=== PATIENT | male | born 1945 | race Caucasian/White ===

== ENCOUNTER 2017-07-03 23:32 | Outpatient (CLI) | payer MEDICARE, OTHER ==
[2017-07-03 19:21] LABS: BASOPHILS # (AUTO) 0.1 10^3/uL (0.0-0.1); EOSINOPHILS # (AUTO) 0.2 10^3/uL (0.0-0.7); EOSINOPHILS % (AUTO) 1.7 %; HGB - HEMOGLOBIN 15.5 g/dL (14.0-18.0); LYMPHOCYTES # (AUTO) 1.1 10^3/uL (1.5-3.5); LYMPHOCYTES % (AUTO) 10.1 %; MEAN CORPUSCULAR HEMOGLOBIN 31.7 pg (27.0-31.0); MEAN CORPUSCULAR HGB CONC 32.2 g/dL (32.0-36.0); MEAN CORPUSCULAR VOLUME 98.5 fL (80.0-94.0); MEAN PLATELET VOLUME 10.4 fL (7.4-11.4); MONOCYTES # (AUTO) 1.1 10^3/uL (0.0-1.0); MONOCYTES % (AUTO) 10.8 %; NEUTROPHILS # (AUTO) 7.9 10^3/uL (1.5-6.6); NEUTROPHILS % (AUTO) 76.4 %; NUCLEATED RED BLOOD CELLS AUTO 0.1 /100WBC; RED BLOOD COUNT 4.87 10^6/uL (4.70-6.10); RED CELL DISTRIBUTION WIDTH 16.1 % (12.0-15.0); UNCORRECTED WHITE BLOOD COUNT 10.4 x10^3/uL; WHITE BLOOD COUNT 10.4 x10^3/uL (4.8-10.8)
[2017-07-03 19:42] LABS: BILIRUBIN,TOTAL 0.6 mg/dL (0.2-1.0); BUN - BLOOD UREA NITROGEN 18 mg/dL (6-20); CALCIUM 8.4 mg/dL (8.5-10.3); CARBON DIOXIDE - CO2 29 mmol/L (21-32); CHLORIDE 104 mmol/L (101-111); CHOL/HDL RATIO 3.9 (<5.0); CHOLESTEROL 181 mg/dL; CREATININE 0.9 mg/dL (0.6-1.2); GFR - MDRD 83 (>89); GLUCOSE 98 mg/dL (70-100); HDL CHOLESTEROL 47 mg/dL; LDL/HDL RATIO 2.3 (<3.6); POTASSIUM 4.8 mmol/L (3.5-5.0); SODIUM 139 mmol/L (135-145); TOTAL PROTEIN 6.4 g/dL (6.7-8.2); TRIGLYCERIDES 136 mg/dL; VLDL CHOLESTEROL 27 mg/dL
[2017-07-03 19:57] LABS: PLATELET ESTIMATE, MANUAL NORMAL (130-450,000) (NORMAL); PLATELET MORPHOLOGY NORMAL APPEARANCE (NORMAL); WBC MORPHOLOGY (MULTIPLE) NORMAL APPEARANCE (NORMAL)
[2017-07-03 19:58] LABS: BAND NEUTROPHILS % (MANUAL) 13 %; EOSINOPHILS % (MANUAL) 3 %; LYMPHOCYTES % (MANUAL) 9 %; NEUTROPHILS % (MANUAL) 62 %; TOTAL CELLS COUNTED 100
[2017-07-03 20:00] LABS: NP AUTO DIFFERENTIAL? NO; NP MAN DIFFERENTIAL? NO
== END 2017-07-03 23:33 | disposition home or self-care (01) ==
LOC: LAB.WCP 23:32
PROVIDERS: ATTEND Family Medicine
DX: I10 Essential (primary) hypertension (principal); E78.5 Hyperlipidemia, unspecified; R97.20 Elevated prostate specific antigen [PSA]; D75.1 Secondary polycythemia; I48.0 Paroxysmal atrial fibrillation; Z79.01 Long term (current) use of anticoagulants
CPT/HCPCS: 36415; 80053; 80061; 84153; 85025

== ENCOUNTER 2017-10-14 14:04 | Outpatient (CLI) | payer MEDICARE, OTHER ==
[2017-10-14 19:03] LABS: BASOPHILS % (AUTO) 0.6 %; EOSINOPHILS % (AUTO) 0.5 %; HCT - HEMATOCRIT 48.6 % (42.0-52.0); HGB - HEMOGLOBIN 15.5 g/dL (14.0-18.0); LYMPHOCYTES % (AUTO) 6.4 %; MEAN CORPUSCULAR HEMOGLOBIN 31.3 pg (27.0-31.0); MEAN CORPUSCULAR VOLUME 97.8 fL (80.0-94.0); MEAN PLATELET VOLUME 10.2 fL (7.4-11.4); MONOCYTES % (AUTO) 6.4 %; NEUTROPHILS % (AUTO) 86.1 %; RED BLOOD COUNT 4.97 10^6/uL (4.70-6.10); RED CELL DISTRIBUTION WIDTH 15.4 % (12.0-15.0); UNCORRECTED WHITE BLOOD COUNT 12.5 x10^3/uL; WHITE BLOOD COUNT 12.5 x10^3/uL (4.8-10.8)
[2017-10-14 19:20] LABS: ALBUMIN/GLOBULIN RATIO 1.2 (1.0-2.2); BILIRUBIN,TOTAL 0.9 mg/dL (0.2-1.0); CALCIUM 8.8 mg/dL (8.5-10.3); CREATININE 0.9 mg/dL (0.6-1.2); POTASSIUM 4.2 mmol/L (3.5-5.0); TOTAL PROTEIN 6.5 g/dL (6.7-8.2)
[2017-10-14 20:39] LABS: BAND NEUTROPHILS % (MANUAL) 2 %; EOSINOPHILS % (MANUAL) 2 %; LYMPHOCYTES % (MANUAL) 2 %; NEUTROPHILS % (MANUAL) 88 %; PLATELET ESTIMATE, MANUAL NORMAL (130-450,000) (NORMAL); PLATELET MORPHOLOGY NORMAL APPEARANCE (NORMAL); TOTAL CELLS COUNTED 100
[2017-10-14 20:40] LABS: NP AUTO DIFFERENTIAL? YES; NP MAN DIFFERENTIAL? NO
== END 2017-10-14 14:05 | disposition home or self-care (01) ==
LOC: LAB.WCP 14:04
PROVIDERS: ATTEND Internal Medicine Pulmonary Disease
DX: J84.9 Interstitial pulmonary disease, unspecified (principal); Z79.899 Other long term (current) drug therapy
CPT/HCPCS: 36415; 80053; 85025

== ENCOUNTER 2018-04-20 13:49 | Outpatient (CLI) | payer MEDICARE, OTHER | END 2018-04-20 13:50 | disposition home or self-care (01) | LOC: SC 13:49 | PROVIDERS: ATTEND Internal Medicine Pulmonary Disease | DX: G47.33 Obstructive sleep apnea (adult) (pediatric) (principal) | CPT/HCPCS: 99203; G0463; 99212 ==

== ENCOUNTER 2019-05-07 14:03 | Outpatient (CLI) | payer MEDICARE, OTHER ==
--- NOTE | 2019-05-10 09:40 | XRAY Report ---
Reason: BILAT KNEE PAIN Procedure Date: 05/07/2019 Accession Number: [id number] / [id number] Procedure: XRN - Knee 3 View BILAT CPT Code: FULL RESULT: EXAM: BILATERAL KNEE RADIOGRAPHY EXAM DATE: 05/07/2019 02:33 PM. CLINICAL HISTORY: Bilateral knee pain. COMPARISON: KNEE 3 VIEW LT 09/02/2017. TECHNIQUE: 3 views each knee. FINDINGS: Right: Bones: Normal. No fractures or bone lesions. Joints: Moderate medial compartment narrowing, osteophytosis, and subchondral sclerosis. Moderate patellofemoral compartment narrowing, osteophytosis, and subchondral sclerosis. Moderate lateral compartment narrowing, osteophytosis, and subchondral sclerosis. Small knee joint effusion. Normal alignment. Soft Tissues: Normal. No soft tissue swelling. Left: Bones: Normal. No fractures or bone lesions. Joints: Moderate medial compartment narrowing, osteophytosis, and subchondral sclerosis. Mild to moderate patellofemoral compartment narrowing, osteophytosis, and subchondral sclerosis. Moderate lateral compartment narrowing, osteophytosis, and subchondral sclerosis. No effusions. Normal alignment. Soft Tissues: Normal. No soft tissue swelling. IMPRESSION: 1. No acute fracture or malalignment. 2. Small right knee joint effusion. No significant left knee joint effusion. 3. Moderate tricompartment right knee arthritis. 4. Moderate left medial and lateral and mild to moderate left patellofemoral compartment arthritis. Right: Kellgren Eugenio Grade 3. Left: Kellgren Eugenio Grade 3. Kellgren and Eugenio classification of osteoarthritis: Grade 0: no radiographic features of osteoarthritis are present Grade 1: doubtful joint space narrowing (JSN) and possible osteophytic lipping Grade 2: definite osteophytes and possible JSN on anteroposterior weight-bearing radiograph Grade 3: multiple osteophytes, definite JSN, sclerosis, possible bony deformity Grade 4: large osteophytes, marked JSN, severe sclerosis and definite bony deformity RADIA
== END 2019-05-07 14:04 | disposition home or self-care (01) ==
LOC: DI.N 14:03
PROVIDERS: ATTEND Family Medicine
DX: M17.0 Bilateral primary osteoarthritis of knee (principal); M25.461 Effusion, right knee

== ENCOUNTER 2019-05-11 08:00 | Outpatient (CLI) | payer MEDICARE, OTHER ==
[2019-05-11 13:53] LABS: BASOPHILS # (AUTO) 0.1 10^3/uL (0.0-0.1); BASOPHILS % (AUTO) 0.8 %; EOSINOPHILS # (AUTO) 0.2 10^3/uL (0.0-0.7); EOSINOPHILS % (AUTO) 2.1 %; HGB - HEMOGLOBIN 16.2 g/dL (14.0-18.0); LYMPHOCYTES # (AUTO) 1.3 10^3/uL (1.5-3.5); LYMPHOCYTES % (AUTO) 17.5 %; MEAN CORPUSCULAR HEMOGLOBIN 31.7 pg (27.0-31.0); MEAN CORPUSCULAR HGB CONC 32.1 g/dL (32.0-36.0); MEAN CORPUSCULAR VOLUME 98.8 fL (80.0-94.0); MEAN PLATELET VOLUME 11.8 fL (7.4-11.4); MONOCYTES # (AUTO) 0.9 10^3/uL (0.0-1.0); MONOCYTES % (AUTO) 11.6 %; NEUTROPHILS # (AUTO) 5.1 10^3/uL (1.5-6.6); NEUTROPHILS % (AUTO) 67.5 %; PLT - PLATELET COUNT 155 10^3/uL (130-450); RED BLOOD COUNT 5.11 10^6/uL (4.70-6.10); RED CELL DISTRIBUTION WIDTH 14.6 % (12.0-15.0); WHITE BLOOD COUNT 7.5 x10^3/uL (4.8-10.8)
[2019-05-11 14:01] LABS: ALBUMIN 3.6 g/dL (3.2-5.5); ALBUMIN/GLOBULIN RATIO 1.2 (1.0-2.2); ALKALINE PHOSPHATASE 59 IU/L (42-121); ALT ALANINE AMINOTRANSFERASE 14 IU/L (10-60); AST ASPARTATE AMINOTRANSFERASE 16 IU/L (10-42); BUN - BLOOD UREA NITROGEN 19 mg/dL (6-20); CALCIUM 8.9 mg/dL (8.5-10.3); CARBON DIOXIDE - CO2 24 mmol/L (21-32); CHLORIDE 107 mmol/L (101-111); CHOL/HDL RATIO 4.1 (<5.0); CHOLESTEROL 184 mg/dL; CREATININE 0.9 mg/dL (0.6-1.2); GFR - MDRD 83 (>89); GLUCOSE 96 mg/dL (70-100); HDL CHOLESTEROL 45 mg/dL; LDL CHOLESTEROL,CALCULATED 110 mg/dL; LDL/HDL RATIO 2.4 (<3.6); SODIUM 141 mmol/L (135-145); TOTAL PROTEIN 6.7 g/dL (6.7-8.2); VLDL CHOLESTEROL 29 mg/dL
== END 2019-05-11 23:59 | disposition home or self-care (01) ==
LOC: LAB.N 08:00
PROVIDERS: ATTEND Family Medicine
DX: I48.0 Paroxysmal atrial fibrillation (principal); I10 Essential (primary) hypertension; N40.1 Benign prostatic hyperplasia with lower urinary tract symptoms; E78.5 Hyperlipidemia, unspecified
CPT/HCPCS: 36415; 80061; G0103; 80053; 83721; 84153; 84443; 85025

== ENCOUNTER 2019-07-08 08:20 | Outpatient (CLI) | payer MEDICARE, OTHER ==
[2019-07-08 12:27] LABS: ALBUMIN 3.6 g/dL (3.2-5.5); ALBUMIN/GLOBULIN RATIO 1.2 (1.0-2.2); BILIRUBIN,TOTAL 1.1 mg/dL (0.2-1.0); CALCIUM 8.7 mg/dL (8.5-10.3); CREATININE 1.2 mg/dL (0.6-1.2); TOTAL PROTEIN 6.6 g/dL (6.7-8.2)
== END 2019-07-08 08:30 | disposition home or self-care (01) ==
LOC: LAB.N 08:20
PROVIDERS: ATTEND Family Medicine
DX: Z79.01 Long term (current) use of anticoagulants (principal); N40.1 Benign prostatic hyperplasia with lower urinary tract symptoms; I48.0 Paroxysmal atrial fibrillation
CPT/HCPCS: 36415; 80053; 85610

== ENCOUNTER 2019-08-04 08:49 | Outpatient (CLI) | payer MEDICARE, OTHER ==
[2019-08-04] MEDS ORDERED: IOVERSOL 320 50 ML VIAL ONE (09:12)
[2019-08-04] MEDS ORDERED: IOVERSOL 320 100 ML VIAL IVP ONE ×2 (09:12→16:07)
[2019-08-04] MEDS ORDERED: IOVERSOL 320 50 ML VIAL PO ONE (16:07)
--- NOTE | 2019-08-04 16:51 | Nuclear Medicine Report ---
Reason: PROSTATE CA Procedure Date: 08/04/2019 Accession Number: [id number] / [id number] Procedure: NM - Bone Whole Body CPT Code: FULL RESULT: EXAM: BONE SCAN EXAM DATE: 08/04/2019 01:01 PM. CLINICAL HISTORY: Prostate CA. COMPARISON: ABDOMEN/PELVIS W08/04/2019 11:44 AM. CHEST W/ 08/04/2019 11:44 AM. TECHNIQUE: Following the intravenous administration of 30.3 mCi of technetium 99m MDP and an appropriate delay, a whole-body scan was performed in anterior and posterior projections. Site-specific spot views of the region of interest were obtained in various projections. FINDINGS: Exam Quality: Normal overall osseous radiotracer uptake. Physiological tracer uptake in bilateral collecting systems. Skull: No focal uptake. Thorax: There are foci of increased uptake in right lateral 8th and right anterior and 9th ribs. There is a minimally displaced fracture of the right lateral eighth rib on the corresponding CT. There is a tiny focus of increased uptake in the left posterior 5th rib. There is a tiny sclerotic focus in this location on CT, series 2 image 33. No focal abnormal increased uptake in the sternum. Pelvis: There is a small focus of intensely increased uptake in the left pubic body corresponding with a sclerotic lesion on CT, series 3 image 89. There is intensely increased uptake in the left greater than right inferior pubic rami. Spine: Mild degenerative endplate uptake in the lower cervical spine and mid lumbar spine. Mild degenerative facet uptake in the right lower lumbar spine. Extremities: Asymmetrically increased uptake in the right knee, left shoulder, and right wrist is presumably degenerative. IMPRESSION: 1. There are lesions in left pubic body, left greater than right inferior pubic rami, and left posterior 5th rib which are concerning for metastases. 2. There is focal increased uptake in the right lateral 8th rib with a corresponding fracture on CT. 3. There is a small focus of mildly increased uptake in the right anterior 9th rib which could be metastatic or posttraumatic. RADIA
--- NOTE | 2019-08-05 13:37 | CT Report ---
Reason: PROSTATE CA Procedure Date: 08/04/2019 Accession Number: [id number] / [id number] Procedure: CT - CHEST W CPT Code: FULL RESULT: EXAM: CT CHEST EXAM DATE: 08/04/2019 11:50 AM. CLINICAL HISTORY: PROSTATE CA. COMPARISONS: None. TECHNIQUE: Routine helical CT imaging was performed through the chest. IV contrast: None. Reconstructions: Coronal and sagittal. In accordance with CT protocol optimization, one or more of the following dose reduction techniques were utilized for this exam: automated exposure control, adjustment of mA and/or KV based on patient size, or use of iterative reconstructive technique. FINDINGS: Lungs/Pleura: Increased lung markings are noted within both lung bases. Bronchiectasis is noted in the lung bases. There is a nodular density in the right upper lobe of the lung measuring 7 mm (image 142 of series 3). There is no pleural effusion or pneumothorax seen. Mediastinum: No mediastinal mass is identified. There is atherosclerosis of the coronary arteries. Bones: There are degenerative changes of the cervical and thoracic spine. Visualized Abdomen: Please see the CT of the abdomen and pelvis. IMPRESSION: Severe degenerative changes of the cervical spine. Linear changes in the lung bases with associated bronchiectasis that is nonspecific but may be secondary to an interstitial lung disease. Atherosclerosis of the coronary arteries. RADIA
--- NOTE | 2019-08-05 13:42 | CT Report ---
Reason: PROSTATE CA Procedure Date: 08/04/2019 Accession Number: [id number] / [id number] Procedure: CT - Abdomen/Pelvis W CPT Code: FULL RESULT: EXAM: CT ABDOMEN AND PELVIS EXAM DATE: 08/04/2019 11:50 AM. CLINICAL HISTORY: PROSTATE CA. COMPARISONS: None. TECHNIQUE: Routine helical CT imaging was performed through the abdomen and pelvis. IV contrast: OPTI 320 100ML. Enteric contrast: Yes. Reconstructions: Coronal and sagittal. In accordance with CT protocol optimization, one or more of the following dose reduction techniques were utilized for this exam: automated exposure control, adjustment of mA and/or KV based on patient size, or use of iterative reconstructive technique. FINDINGS: Lung Bases: Please see the CT of the chest. The liver is without evidence of an enhancing mass. This lean, pancreas, and adrenal glands are without evidence of an enhancing mass. Kidneys are without evidence of a mass or hydronephrosis. Scarring is noted within the left kidney. Peritoneal Cavity/Bowel: There is no CT evidence of acute appendicitis. There is diverticulosis of the descending and sigmoid colon without evidence of diverticulitis. Pelvic Organs: No mass or cyst is seen within the pelvis. Vasculature: There is atherosclerosis of the aorta and iliac arteries. There is no evidence of abdominal aortic aneurysm. Bones: Degenerative changes of the thoracic and lumbar spine are noted. IMPRESSION: Left renal scarring. Diverticulosis of the descending and sigmoid colon without evidence of diverticulitis. Atherosclerosis of the aorta and iliac arteries. RADIA
== END 2019-08-04 08:50 | disposition home or self-care (01) ==
LOC: DI 08:49
PROVIDERS: ATTEND Urology
DX: C61 Malignant neoplasm of prostate (principal); M47.812 Spondylosis without myelopathy or radiculopathy, cervical region; M47.814 Spondylosis without myelopathy or radiculopathy, thoracic region; M47.816 Spondylosis without myelopathy or radiculopathy, lumbar region; K57.30 Diverticulosis of large intestine without perforation or abscess without bleeding; I70.0 Atherosclerosis of aorta; M89.9 Disorder of bone, unspecified
CPT/HCPCS: 71260; 74177; 78306; Q9967

== ENCOUNTER 2019-08-05 08:00 | Outpatient (CLI) | payer MEDICARE, OTHER | END 2019-08-05 23:59 | disposition home or self-care (01) | LOC: LAB.N 08:00 | PROVIDERS: ATTEND Family Medicine | DX: I48.0 Paroxysmal atrial fibrillation (principal); Z79.01 Long term (current) use of anticoagulants | CPT/HCPCS: 85610 ==

== ENCOUNTER 2019-08-13 08:00 | Outpatient (CLI) | payer MEDICARE, OTHER | END 2019-08-13 23:59 | disposition home or self-care (01) | LOC: LAB.N 08:00 | PROVIDERS: ATTEND Family Medicine | DX: I48.0 Paroxysmal atrial fibrillation (principal); Z79.01 Long term (current) use of anticoagulants | CPT/HCPCS: 85610 ==

== ENCOUNTER 2019-08-18 13:14 | Outpatient (CLI) | payer MEDICARE, OTHER ==
--- NOTE | 2019-08-18 16:51 | XRAY Report ---
Reason: pneumonia Procedure Date: 08/18/2019 Accession Number: [id number] / [id number] Procedure: XRN - Chest 2 View X-Ray CPT Code: 88977 FULL RESULT: EXAM: CHEST RADIOGRAPHY EXAM DATE: 08/18/2019 01:28 PM. CLINICAL HISTORY: Pneumonia. Prostate cancer, difficulty breathing. COMPARISON: CHEST W/ 08/04/2019 11:44 AM. TECHNIQUE: 2 views. FINDINGS: Lungs/Pleura: Changes of bronchiectasis and increased markings particularly at the left base as demonstrated by 08/04/2019 CT. No acute focal opacities evident. No pleural effusion. No pneumothorax. Normal volumes. Mediastinum: Heart is borderline to mildly enlarged in size. Other: None. IMPRESSION: No pneumonia. Chronic changes similar to 08/04/2019. RADIA
== END 2019-08-18 13:15 | disposition home or self-care (01) ==
LOC: DI.N 13:14
PROVIDERS: ATTEND Family Medicine
DX: J47.9 Bronchiectasis, uncomplicated (principal)
CPT/HCPCS: 71046

== ENCOUNTER 2019-08-31 11:29 | Outpatient (CLI) | payer MEDICARE, OTHER | END 2019-08-31 23:59 | disposition home or self-care (01) | LOC: LAB.N 11:29 | PROVIDERS: ATTEND Family Medicine | DX: I48.0 Paroxysmal atrial fibrillation (principal); Z79.01 Long term (current) use of anticoagulants | CPT/HCPCS: 85610 ==

== ENCOUNTER 2019-09-03 11:50 | Outpatient (CLI) | payer MEDICARE, OTHER ==
[2019-09-03 19:17] LABS: BASOPHILS # (AUTO) 0.1 10^3/uL (0.0-0.1); BASOPHILS % (AUTO) 0.7 %; EOSINOPHILS # (AUTO) 0.1 10^3/uL (0.0-0.7); EOSINOPHILS % (AUTO) 0.9 %; HGB - HEMOGLOBIN 14.8 g/dL (14.0-18.0); LYMPHOCYTES # (AUTO) 0.8 10^3/uL (1.5-3.5); LYMPHOCYTES % (AUTO) 9.4 %; MEAN CORPUSCULAR HGB CONC 31.6 g/dL (32.0-36.0); MEAN CORPUSCULAR VOLUME 98.3 fL (80.0-94.0); MEAN PLATELET VOLUME 12.3 fL (7.4-11.4); MONOCYTES # (AUTO) 0.7 10^3/uL (0.0-1.0); MONOCYTES % (AUTO) 7.8 %; NEUTROPHILS # (AUTO) 7.2 10^3/uL (1.5-6.6); NEUTROPHILS % (AUTO) 80.6 %; PLT - PLATELET COUNT 151 10^3/uL (130-450); RED BLOOD COUNT 4.77 10^6/uL (4.70-6.10); RED CELL DISTRIBUTION WIDTH 14.6 % (12.0-15.0); WHITE BLOOD COUNT 8.9 x10^3/uL (4.8-10.8)
[2019-09-03 19:33] LABS: ALBUMIN 3.7 g/dL (3.2-5.5); ALBUMIN/GLOBULIN RATIO 1.3 (1.0-2.2); BILIRUBIN,TOTAL 0.8 mg/dL (0.2-1.0); CALCIUM 9.2 mg/dL (8.5-10.3); CREATININE 0.9 mg/dL (0.6-1.2); TOTAL PROTEIN 6.5 g/dL (6.7-8.2)
== END 2019-09-03 23:59 | disposition home or self-care (01) ==
LOC: LAB.N 11:50
PROVIDERS: ATTEND Physician Assistant
DX: C61 Malignant neoplasm of prostate (principal)
CPT/HCPCS: 36415; 80053; 81599; 84153; 85025

== ENCOUNTER 2019-09-28 11:03 | Outpatient (CLI) | payer MEDICARE, OTHER | END 2019-09-28 23:59 | disposition home or self-care (01) | LOC: LAB.N 11:03 | PROVIDERS: ATTEND Family Medicine | DX: I48.0 Paroxysmal atrial fibrillation (principal); Z79.01 Long term (current) use of anticoagulants | CPT/HCPCS: 85610 ==

== ENCOUNTER 2019-10-07 10:19 | Outpatient (CLI) | payer MEDICARE, OTHER ==
[2019-10-07 13:30] LABS: PSA TOTAL 0.468 ng/mL (0.000-2.000)
== END 2019-10-07 23:59 | disposition home or self-care (01) ==
LOC: LAB.N 10:19
PROVIDERS: ATTEND Urology
DX: C61 Malignant neoplasm of prostate (principal)
CPT/HCPCS: 36415; 84153; 84403

== ENCOUNTER 2019-10-15 10:30 | Outpatient (CLI) | payer MEDICARE, OTHER ==
[2019-10-15 12:48] LABS: ALBUMIN 3.8 g/dL (3.2-5.5); ALBUMIN/GLOBULIN RATIO 1.4 (1.0-2.2); BILIRUBIN,TOTAL 0.8 mg/dL (0.2-1.0); CALCIUM 8.8 mg/dL (8.5-10.3); TOTAL PROTEIN 6.5 g/dL (6.7-8.2)
== END 2019-10-15 23:59 | disposition home or self-care (01) ==
LOC: LAB.N 10:30
PROVIDERS: ATTEND Physician Assistant
DX: C61 Malignant neoplasm of prostate (principal)
CPT/HCPCS: 36415; 80053

== ENCOUNTER 2019-10-26 08:00 | Outpatient (CLI) | payer MEDICARE, OTHER | END 2019-10-26 23:59 | disposition home or self-care (01) | LOC: LAB.N 08:00 | PROVIDERS: ATTEND Family Medicine | DX: I48.0 Paroxysmal atrial fibrillation (principal); Z79.01 Long term (current) use of anticoagulants | CPT/HCPCS: 85610 ==

== ENCOUNTER 2019-11-01 11:18 | Outpatient (CLI) | payer MEDICARE, OTHER ==
[2019-11-01 19:00] LABS: ALBUMIN 3.4 g/dL (3.2-5.5); ALBUMIN/GLOBULIN RATIO 1.2 (1.0-2.2); BILIRUBIN,TOTAL 0.9 mg/dL (0.2-1.0); CALCIUM 8.4 mg/dL (8.5-10.3); TOTAL PROTEIN 6.3 g/dL (6.7-8.2)
== END 2019-11-01 23:59 | disposition home or self-care (01) ==
LOC: LAB.N 11:18
PROVIDERS: ATTEND Physician Assistant
DX: C61 Malignant neoplasm of prostate (principal)
CPT/HCPCS: 36415; 80053

== ENCOUNTER 2019-11-18 08:00 | Outpatient (CLI) | payer MEDICARE, OTHER | END 2019-11-18 23:59 | disposition home or self-care (01) | LOC: LAB.N 08:00 | PROVIDERS: ATTEND Family Medicine | DX: Z79.01 Long term (current) use of anticoagulants (principal); I48.0 Paroxysmal atrial fibrillation | CPT/HCPCS: 85610 ==

== ENCOUNTER 2020-03-10 08:00 | Outpatient (CLI) | payer MEDICARE, OTHER | END 2020-03-10 23:59 | disposition home or self-care (01) | LOC: LAB.WCP 08:00 | PROVIDERS: ATTEND Urology | DX: C61 Malignant neoplasm of prostate (principal) | CPT/HCPCS: 36415; 84153; 84403 ==

== ENCOUNTER 2020-03-22 10:24 | Outpatient (CLI) | payer MEDICARE, OTHER ==
[2020-03-22 13:40] LABS: ALBUMIN 3.4 g/dL (3.2-5.5); ALBUMIN/GLOBULIN RATIO 1.1 (1.0-2.2); BILIRUBIN,TOTAL 0.8 mg/dL (0.2-1.0); CALCIUM 8.7 mg/dL (8.5-10.3); CREATININE 0.8 mg/dL (0.6-1.2); TOTAL PROTEIN 6.5 g/dL (6.7-8.2)
== END 2020-03-22 23:59 | disposition home or self-care (01) ==
LOC: LAB.WCP 10:24
PROVIDERS: ATTEND Internal Medicine Medical Oncology
DX: C61 Malignant neoplasm of prostate (principal)
CPT/HCPCS: 36415; 80053

== ENCOUNTER 2020-04-14 08:00 | Outpatient (CLI) | payer MEDICARE, OTHER | END 2020-04-14 23:59 | disposition home or self-care (01) | LOC: LAB.WCP 08:00 | PROVIDERS: ATTEND Family Medicine | DX: Z79.01 Long term (current) use of anticoagulants (principal) ==

== ENCOUNTER 2020-05-05 08:00 | Outpatient (CLI) | payer MEDICARE, OTHER | END 2020-05-05 23:59 | disposition home or self-care (01) | LOC: LAB.WCP 08:00 | PROVIDERS: ATTEND Family Medicine | DX: I48.0 Paroxysmal atrial fibrillation (principal); Z79.01 Long term (current) use of anticoagulants ==

== ENCOUNTER 2020-06-02 08:00 | Outpatient (CLI) | payer MEDICARE, OTHER ==
[2020-06-02 18:28] LABS: BASOPHILS # (AUTO) 0.1 10^3/uL (0.0-0.1); BASOPHILS % (AUTO) 0.8 %; EOSINOPHILS # (AUTO) 0.2 10^3/uL (0.0-0.7); HGB - HEMOGLOBIN 14.2 g/dL (14.0-18.0); LYMPHOCYTES # (AUTO) 1.2 10^3/uL (1.5-3.5); LYMPHOCYTES % (AUTO) 15.4 %; MEAN CORPUSCULAR HEMOGLOBIN 31.3 pg (27.0-31.0); MEAN CORPUSCULAR HGB CONC 31.8 g/dL (32.0-36.0); MEAN CORPUSCULAR VOLUME 98.2 fL (80.0-94.0); MEAN PLATELET VOLUME 11.3 fL (7.4-11.4); MONOCYTES # (AUTO) 0.9 10^3/uL (0.0-1.0); MONOCYTES % (AUTO) 11.3 %; NEUTROPHILS # (AUTO) 5.5 10^3/uL (1.5-6.6); PLT - PLATELET COUNT 152 10^3/uL (130-450); RED BLOOD COUNT 4.54 10^6/uL (4.70-6.10); RED CELL DISTRIBUTION WIDTH 14.4 % (12.0-15.0); WHITE BLOOD COUNT 7.9 x10^3/uL (4.8-10.8)
[2020-06-02 18:49] LABS: ALBUMIN 3.7 g/dL (3.2-5.5); ALBUMIN/GLOBULIN RATIO 1.2 (1.0-2.2); BILIRUBIN,TOTAL 0.7 mg/dL (0.2-1.0); CREATININE 0.9 mg/dL (0.6-1.2); TOTAL PROTEIN 6.7 g/dL (6.7-8.2)
== END 2020-06-02 23:59 | disposition home or self-care (01) ==
LOC: LAB.WCP 08:00
PROVIDERS: ATTEND Internal Medicine Medical Oncology
DX: C61 Malignant neoplasm of prostate (principal)
CPT/HCPCS: 36415; 80053; 84153; 85025

== ENCOUNTER 2020-06-30 08:00 | Outpatient (CLI) | payer MEDICARE, OTHER | END 2020-06-30 23:59 | disposition home or self-care (01) | LOC: LAB.WCP 08:00 | PROVIDERS: ATTEND Family Medicine | DX: I48.0 Paroxysmal atrial fibrillation (principal); Z79.01 Long term (current) use of anticoagulants ==

== ENCOUNTER 2020-07-28 08:00 | Outpatient (CLI) | payer MEDICARE, OTHER | END 2020-07-28 23:59 | disposition home or self-care (01) | LOC: LAB.WCP 08:00 | PROVIDERS: ATTEND Family Medicine | DX: Z79.01 Long term (current) use of anticoagulants (principal) ==

== ENCOUNTER 2020-08-25 08:00 | Outpatient (CLI) | payer MEDICARE, OTHER | END 2020-08-25 23:59 | disposition home or self-care (01) | LOC: LAB.WCP 08:00 | PROVIDERS: ATTEND Family Medicine | DX: Z79.01 Long term (current) use of anticoagulants (principal) ==

== ENCOUNTER 2020-09-01 10:04 | Outpatient (CLI) | payer MEDICARE, OTHER ==
[2020-09-01 11:48] LABS: ALBUMIN 3.5 g/dL (3.2-5.5); ALBUMIN/GLOBULIN RATIO 1.1 (1.0-2.2); CALCIUM 9.2 mg/dL (8.5-10.3); CREATININE 0.8 mg/dL (0.6-1.2); TOTAL PROTEIN 6.6 g/dL (6.7-8.2)
== END 2020-09-01 23:59 | disposition home or self-care (01) ==
LOC: LAB.WCP 10:04
PROVIDERS: ATTEND Internal Medicine Medical Oncology
DX: C61 Malignant neoplasm of prostate (principal)
CPT/HCPCS: 36415; 80053

== ENCOUNTER 2020-09-08 10:30 | Outpatient (CLI) | payer MEDICARE, OTHER ==
[2020-09-08 13:12] LABS: BASOPHILS # (AUTO) 0.1 10^3/uL (0.0-0.1); EOSINOPHILS # (AUTO) 0.3 10^3/uL (0.0-0.7); EOSINOPHILS % (AUTO) 2.7 %; HGB - HEMOGLOBIN 14.7 g/dL (14.0-18.0); LYMPHOCYTES # (AUTO) 1.4 10^3/uL (1.5-3.5); LYMPHOCYTES % (AUTO) 14.9 %; MEAN CORPUSCULAR HEMOGLOBIN 31.1 pg (27.0-31.0); MEAN CORPUSCULAR HGB CONC 32.1 g/dL (32.0-36.0); MEAN PLATELET VOLUME 11.7 fL (7.4-11.4); MONOCYTES % (AUTO) 10.1 %; NEUTROPHILS # (AUTO) 6.7 10^3/uL (1.5-6.6); NEUTROPHILS % (AUTO) 70.6 %; PLT - PLATELET COUNT 167 10^3/uL (130-450); RED BLOOD COUNT 4.72 10^6/uL (4.70-6.10); RED CELL DISTRIBUTION WIDTH 14.1 % (12.0-15.0); WHITE BLOOD COUNT 9.4 x10^3/uL (4.8-10.8)
== END 2020-09-08 23:59 | disposition home or self-care (01) ==
LOC: LAB.WCP 10:30
PROVIDERS: ATTEND Internal Medicine Medical Oncology
DX: C61 Malignant neoplasm of prostate (principal)
CPT/HCPCS: 36415; 84153; 85025

== ENCOUNTER 2020-10-02 08:00 | Outpatient (CLI) | payer MEDICARE, OTHER | END 2020-10-02 23:59 | disposition home or self-care (01) | LOC: LAB.WCP 08:00 | PROVIDERS: ATTEND Internal Medicine | DX: Z79.01 Long term (current) use of anticoagulants (principal) ==

== ENCOUNTER 2020-10-16 08:00 | Outpatient (CLI) | payer MEDICARE, OTHER | END 2020-10-16 23:59 | disposition home or self-care (01) | LOC: LAB.WCP 08:00 | PROVIDERS: ATTEND Internal Medicine | DX: Z79.01 Long term (current) use of anticoagulants (principal) ==

== ENCOUNTER 2020-11-29 10:20 | Outpatient (CLI) | payer MEDICARE, OTHER ==
[2020-11-29 11:45] LABS: ALBUMIN 3.7 g/dL (3.2-5.5); ALBUMIN/GLOBULIN RATIO 1.4 (1.0-2.2); BILIRUBIN,TOTAL 0.7 mg/dL (0.2-1.0); CALCIUM 9.8 mg/dL (8.5-10.3); CREATININE 0.9 mg/dL (0.6-1.2); TOTAL PROTEIN 6.3 g/dL (6.7-8.2)
[2020-11-29 11:59] LABS: BASOPHILS # (AUTO) 0.1 10^3/uL (0.0-0.1); BASOPHILS % (AUTO) 0.6 %; EOSINOPHILS # (AUTO) 0.2 10^3/uL (0.0-0.7); EOSINOPHILS % (AUTO) 1.8 %; LYMPHOCYTES # (AUTO) 1.5 10^3/uL (1.5-3.5); LYMPHOCYTES % (AUTO) 17.7 %; MEAN CORPUSCULAR HEMOGLOBIN 30.7 pg (27.0-31.0); MEAN CORPUSCULAR HGB CONC 31.9 g/dL (32.0-36.0); MEAN CORPUSCULAR VOLUME 96.1 fL (80.0-94.0); MEAN PLATELET VOLUME 11.7 fL (7.4-11.4); MONOCYTES # (AUTO) 0.8 10^3/uL (0.0-1.0); MONOCYTES % (AUTO) 9.6 %; NEUTROPHILS # (AUTO) 5.7 10^3/uL (1.5-6.6); NEUTROPHILS % (AUTO) 69.7 %; PLT - PLATELET COUNT 169 10^3/uL (130-450); RED BLOOD COUNT 4.89 10^6/uL (4.70-6.10); RED CELL DISTRIBUTION WIDTH 14.4 % (12.0-15.0); WHITE BLOOD COUNT 8.2 x10^3/uL (4.8-10.8)
== END 2020-11-29 10:21 | disposition home or self-care (01) ==
LOC: LAB.N 10:20
PROVIDERS: ATTEND Internal Medicine Medical Oncology
DX: C61 Malignant neoplasm of prostate (principal)
CPT/HCPCS: 36415; 80053; 84153; 85025

== ENCOUNTER 2020-12-27 08:00 | Outpatient (CLI) | payer MEDICARE, OTHER | END 2020-12-27 23:59 | disposition home or self-care (01) | LOC: LAB.WCP 08:00 | PROVIDERS: ATTEND Internal Medicine | DX: Z86.79 Personal history of other diseases of the circulatory system (principal); Z79.01 Long term (current) use of anticoagulants ==

== ENCOUNTER 2021-01-22 08:00 | Outpatient (CLI) | payer MEDICARE, OTHER | END 2021-01-22 23:59 | disposition home or self-care (01) | LOC: LAB.WCP 08:00 | PROVIDERS: ATTEND Internal Medicine | DX: Z86.79 Personal history of other diseases of the circulatory system (principal); Z79.01 Long term (current) use of anticoagulants ==

== ENCOUNTER 2021-02-05 17:13 | Outpatient (CLI) | payer MEDICARE, OTHER | END 2021-02-05 17:14 | disposition home or self-care (01) | LOC: COV 17:13 | PROVIDERS: ATTEND Internal Medicine Pulmonary Disease | DX: Z01.812 Encounter for preprocedural laboratory examination (principal); Z20.822 Contact with and (suspected) exposure to COVID-19 ==

== ENCOUNTER 2021-02-06 12:55 | Outpatient (CLI) | payer MEDICARE, OTHER ==
--- NOTE | 2021-02-06 17:15 | DEXA Report ---
PROCEDURE: Dexa Spine and/or Hip INDICATIONS: ADROGEN DEPRIVATION THERAPY TECHNIQUE: Dual energy x-ray absorptiometry (DXA) was performed on a [employer] System. Regions measur ed are the AP Spine, femoral neck, and if needed forearm. COMPARISON: None. FINDINGS: Lumbar Spine: Bone Mineral Density 1.250 g/cm/cm,T score 0.3, normal Left Hip: Bone Mineral Density 0.835 g/cm/cm,T score -1.8, osteopenia Left Femoral Neck: Bone Mineral Density 0.779 g/cm/cm, T score -2.2, osteopenia (T score greater or equal to -1.0: NORMAL) (T score from -1.1 to -2.4: OSTEOPENIA) (T score less than or equal to -2.5 to: OSTEOPOROSIS) Impression: Osteopenia. Patients with diagnosis of osteoporosis or osteopenia should have regular bone mineral density assess ment. For those eligible for Medicare, routine testing is allowed once every 2 years. Testing frequ ency can be increased for patients who have rapidly progressing disease or for those who are receivin g medical therapy to restore bone mass. Reviewed by: Sherin Garcia MD, PhD on 02/06/2021 5:14 PM PDT Approved by: Sherin Garcia MD, PhD on 02/06/2021 5:14 PM PDT Station ID: [id number]
== END 2021-02-06 12:56 | disposition home or self-care (01) ==
LOC: DI 12:55
PROVIDERS: ATTEND Internal Medicine
DX: M85.89 Other specified disorders of bone density and structure, multiple sites (principal); C61 Malignant neoplasm of prostate; Z79.818 Long term (current) use of other agents affecting estrogen receptors and estrogen levels

== ENCOUNTER 2021-02-19 08:00 | Outpatient (CLI) | payer MEDICARE, OTHER | END 2021-02-19 23:59 | disposition home or self-care (01) | LOC: LAB.WCP 08:00 | PROVIDERS: ATTEND Internal Medicine | DX: Z79.01 Long term (current) use of anticoagulants (principal); Z86.79 Personal history of other diseases of the circulatory system ==

== ENCOUNTER 2021-03-19 08:00 | Outpatient (CLI) | payer MEDICARE, OTHER | END 2021-03-19 23:59 | disposition home or self-care (01) | LOC: LAB.WCP 08:00 | PROVIDERS: ATTEND Internal Medicine | DX: Z79.01 Long term (current) use of anticoagulants (principal); Z86.79 Personal history of other diseases of the circulatory system ==

== ENCOUNTER 2021-04-25 08:00 | Outpatient (CLI) | payer MEDICARE, OTHER | END 2021-04-25 23:59 | disposition home or self-care (01) | LOC: LAB.WCP 08:00 | PROVIDERS: ATTEND Internal Medicine | DX: Z86.79 Personal history of other diseases of the circulatory system (principal); Z79.01 Long term (current) use of anticoagulants ==

== ENCOUNTER 2021-05-16 08:00 | Outpatient (CLI) | payer MEDICARE, OTHER | END 2021-05-16 23:59 | disposition home or self-care (01) | LOC: LAB.WCP 08:00 | PROVIDERS: ATTEND Internal Medicine | DX: Z79.01 Long term (current) use of anticoagulants (principal); Z86.79 Personal history of other diseases of the circulatory system ==

== ENCOUNTER 2021-06-18 08:00 | Outpatient (CLI) | payer MEDICARE, OTHER | END 2021-06-18 23:59 | disposition home or self-care (01) | LOC: LAB.WCP 08:00 | PROVIDERS: ATTEND Internal Medicine | DX: Z79.01 Long term (current) use of anticoagulants (principal); Z86.79 Personal history of other diseases of the circulatory system ==

== ENCOUNTER 2021-06-19 13:23 | Outpatient (CLI) | payer MEDICARE, OTHER ==
--- NOTE | 2021-06-19 13:40 | SLEEP CARE CONSULTATION ---
Information from patient questionnaire entered by Karin Brandt. I have reviewed and concur with the information entered by Karin Brandt. This document represents the service I personally performed and the decisions made by , Yojana Montano ARNP. History of Present Illness Service Date and Time: 06/19/2021 1320 Previous diagnosis: Very Severe, Obstructive Sleep Apnea-Hypopnea Syndrome AHI: 62 (in 2016) Reason for follow up: annual (last seen 05/2020) Equipment type: CPAP Equipment obtained from: [employer] (getting supplies as needed) Mask style: Nasal pillows Backup mask available: No (will keep old mask when replaced ) Last cushion change: 1 week ago Prior sleep studies: Yes Year and Where: 2016 - [facility] HPI additional information: URIEL DIAZ was diagnosed to have very severe, AHI 62, obstructive sleep apnea- hypopnea syndrome and returns via Telehealth visit today for CPAP therapy annual follow-up. CPAP Compliance Data - Data Reviewed with Patient Average duration of nightly device use: 6 hr 55 min Compliance rate %: 98.9 (180 days) Current pressure setting (cmH2O): 9-16 (mean 12.2, avg 16.0) Humidity settin Heated hose settin Average residual AHI: 21.0 Central apnea: 6.6 Obstructive apnea: 11.2 Average large leak: 1 min 45 sec Subjective Patient concerns: reports: other (skin irritation under the nose). denies: aerophagia, mask discomfort, air blowing in eyes, mask leak noise, condensation in mask/hose, nasal congestion, dry mouth, nose, throat, epistaxis Observed to snore while using device: No Current pressure setting perceived as: comfortable On therapy, patient: reports: sleeping better, awakening more refreshed, being more awake and alert during the day, more rested overall. denies: drowsiness while driving Initial Atkinson Sleepiness Scale score: 2 (in 2018) Current Atkinson Sleepiness Scale score: 5 Allergies and Home Medications Home medication list reviewed: Yes (no changes) Review of Systems Review of systems same as previous: Yes (no changes) Physical Exam Vital signs obtained and entered by: Telehealth visit to reduce exposure during Covid pandemic Height: 6 ft Impression and Plan 1. Obstructive Sleep Apnea-Hypopnea Syndrome, very severe, with good treatment compliance and fair apnea control. On CPAP therapy, the patient has better sleep quality and is more rested overall. His residual AHI is elevated. It was well controlled at his last visit. The patients pressure will be changed to autoCPAP 9-20 cmH20 for elevation of residual AHI. Patient advised to contact me if pressure change is uncomfortable so that it can be adjusted. Goals for apnea con trol discussed. I informed the patient that [employer] has a recall on several devices like the patients machine. Patient was encouraged to register their device online with [employer] for the recall to see if their device is affected. If their device is affected they should start a claim. Patient denies any black particles seen in machine or hoses, any unusual odors coming from device. Patient has not experienced any physical symptoms such as upper airway irritation, headache, skin or eye irritation, asthma, nausea/vomiting, difficulty breathing or chest pain. Patient informed that they may use an inline CPAP filter that they can obtain online to reduce chance of any particles being inhaled or ingested. We discussed thoroughly the health risks of not using the CPAP versus continuing use with the filter in place. If patient is not able to sleep due to waking up choking, gasping for air or other respiratory distress that they may decide to continue using it until it is either replaced or repaired. Patient voiced understanding and agreement with plan. Patient's apnea severity and rationale for treatment to reduce apnea, improve sleep quality and reduce cardiovascular and cerebrovascular events was reviewed. I also reviewed the benefit of consistent device use of CPAP for hypertension, arrhythmia. Patient was encouraged to lose weight for their overall health and to reduce apneas. * Change auto CPAP pressure 9-20 cmH2O * Notify me if snoring with mask or feeling that the pressure is too much or too little * Attempt to lose weight * Call this office if any problems using CPAP * Return for follow up in 1 year, or sooner if concerns arise Counseling Topics: Spare mask, Weight loss health impact Visit Type: Telehealth Video Video Type: VSee Patient Location: Home Location of Provider: Office Patient agrees and consents to this telehealth visit type: Yes Patient agrees to have their insurance billed: Yes Time Spent with Patient (minutes): 20 Provider Statement: I spent 100% of the Telehealth Video Call with the patient with greater than 50% spent counseling the patient and coordination of care.
== END 2021-06-19 13:24 | disposition home or self-care (01) ==
LOC: SC 13:23
PROVIDERS: ATTEND Nurse Practitioner Family
DX: G47.33 Obstructive sleep apnea (adult) (pediatric) (principal)

== ENCOUNTER 2021-07-20 08:00 | Outpatient (CLI) | payer MEDICARE, OTHER | END 2021-07-20 23:59 | disposition home or self-care (01) | LOC: LAB.WCP 08:00 | PROVIDERS: ATTEND Internal Medicine | DX: Z86.79 Personal history of other diseases of the circulatory system (principal); Z79.01 Long term (current) use of anticoagulants ==

== ENCOUNTER 2021-07-31 12:15 | Outpatient (CLI) | payer MEDICARE, OTHER ==
[2021-07-31 17:49] LABS: BASOPHILS # (AUTO) 0.1 10^3/uL (0.0-0.1); BASOPHILS % (AUTO) 0.4 %; EOSINOPHILS # (AUTO) 0.1 10^3/uL (0.0-0.7); EOSINOPHILS % (AUTO) 0.8 %; HCT - HEMATOCRIT 48.7 % (42.0-52.0); HGB - HEMOGLOBIN 15.1 g/dL (14.0-18.0); LYMPHOCYTES # (AUTO) 1.2 10^3/uL (1.5-3.5); LYMPHOCYTES % (AUTO) 9.8 %; MEAN CORPUSCULAR VOLUME 96.8 fL (80.0-94.0); MEAN PLATELET VOLUME 12.4 fL (7.4-11.4); MONOCYTES % (AUTO) 7.9 %; NEUTROPHILS # (AUTO) 10.2 10^3/uL (1.5-6.6); NEUTROPHILS % (AUTO) 80.2 %; PLT - PLATELET COUNT 165 10^3/uL (130-450); RED BLOOD COUNT 5.03 10^6/uL (4.70-6.10); RED CELL DISTRIBUTION WIDTH 14.3 % (12.0-15.0); WHITE BLOOD COUNT 12.7 x10^3/uL (4.8-10.8)
[2021-07-31 18:00] LABS: ALBUMIN 3.5 g/dL (3.2-5.5); ALBUMIN/GLOBULIN RATIO 1.3 (1.0-2.2); BILIRUBIN,TOTAL 1.1 mg/dL (0.2-1.0); CALCIUM 9.2 mg/dL (8.5-10.3); CREATININE 0.9 mg/dL (0.6-1.2); POTASSIUM 4.4 mmol/L (3.5-5.0); TOTAL PROTEIN 6.3 g/dL (6.7-8.2)
== END 2021-07-31 23:59 | disposition home or self-care (01) ==
LOC: LAB.WCP 12:15
PROVIDERS: ATTEND Physician Assistant
DX: C61 Malignant neoplasm of prostate (principal)
CPT/HCPCS: 36415; 80053; 84153; 85025

== ENCOUNTER 2021-08-10 08:00 | Outpatient (CLI) | payer MEDICARE, OTHER | END 2021-08-10 23:59 | disposition home or self-care (01) | LOC: LAB.WCP 08:00 | PROVIDERS: ATTEND Internal Medicine | DX: Z79.01 Long term (current) use of anticoagulants (principal); Z86.79 Personal history of other diseases of the circulatory system ==

== ENCOUNTER 2021-08-13 13:18 | Outpatient (CLI) | payer MEDICARE, OTHER | END 2021-08-13 13:19 | disposition home or self-care (01) | LOC: COV 13:18 | PROVIDERS: ATTEND Internal Medicine Pulmonary Disease | DX: Z01.812 Encounter for preprocedural laboratory examination (principal); Z20.822 Contact with and (suspected) exposure to COVID-19 ==

== ENCOUNTER 2021-08-31 08:00 | Outpatient (CLI) | payer MEDICARE, OTHER | END 2021-08-31 23:59 | disposition home or self-care (01) | LOC: LAB.WCP 08:00 | PROVIDERS: ATTEND Internal Medicine | DX: Z79.01 Long term (current) use of anticoagulants (principal); Z86.79 Personal history of other diseases of the circulatory system ==

== ENCOUNTER 2021-09-28 08:00 | Outpatient (CLI) | payer MEDICARE, OTHER | END 2021-09-28 23:59 | disposition home or self-care (01) | LOC: LAB.WCP 08:00 | PROVIDERS: ATTEND Internal Medicine | DX: Z86.79 Personal history of other diseases of the circulatory system (principal); Z79.01 Long term (current) use of anticoagulants ==

== ENCOUNTER 2021-10-02 09:36 | Outpatient (CLI) | payer MEDICARE, OTHER ==
[2021-10-02 12:13] LABS: BUN - BLOOD UREA NITROGEN 17 mg/dL (6-20); CALCIUM 9.2 mg/dL (8.5-10.3); CARBON DIOXIDE - CO2 27 mmol/L (21-32); CHLORIDE 104 mmol/L (101-111); CHOL/HDL RATIO 4.1 (<5.0); CHOLESTEROL 213 mg/dL; CREATININE 0.8 mg/dL (0.6-1.2); GFR - MDRD 94 (>89); GLUCOSE 101 mg/dL (70-100); HDL CHOLESTEROL 52 mg/dL; LDL CHOLESTEROL,CALCULATED 128 mg/dL; LDL/HDL RATIO 2.5 (<3.6); SODIUM 141 mmol/L (135-145); TRIGLYCERIDES 163 mg/dL; URIC ACID 3.7 mg/dL (2.6-7.2); VLDL CHOLESTEROL 33 mg/dL
[2021-10-02 13:19] LABS: ESTIMATED AVERAGE GLUCOSE 131 mg/dL (70-100); HEMOGLOBIN A1c% 6.2 % (4.27-6.07)
== END 2021-10-02 09:37 | disposition home or self-care (01) ==
LOC: LAB.N 09:36
PROVIDERS: ATTEND Internal Medicine
DX: M10.00 Idiopathic gout, unspecified site (principal); R73.01 Impaired fasting glucose
CPT/HCPCS: 36415; 80048; 80061; 83036; 83721; 84550

== ENCOUNTER 2021-10-10 14:16 | Outpatient (CLI) | payer MEDICARE, OTHER ==
--- NOTE | 2021-10-10 16:45 | MRI Report ---
PROCEDURE: Lumbar Spine W/O INDICATIONS: DEGENERATIVE JOINT DISEASE TECHNIQUE: Noncontrast sagittal T1 spin echo and T2 fast echo, sagittal STIR, axial T2 fast spin echo through th e lumbar spine. COMPARISON: Lumbar spine MRI 09/22/2007 FINDINGS: Image quality: Excellent. Alignment and Curvature: There is trace grade 1 retrolisthesis of L1 on L2, L2 on L3, and L3 on L4. Bone Marrow: No suspicious marrow replacing process is seen. Mild type II Modic degenerative endplate changes are seen at nearly every level in the lumbar spine. No acute vertebral body compression frac tures. Spinal Cord: Conus medullaris terminates at the L1 vertebral body level. Visualized cord demonstrat es normal signal and size. Paraspinous Soft Tissues: No paravertebral masses. There is grade 2-3 fatty infiltration of the par aspinous musculature. A few diverticula are seen in the colon. T12-L1: There is mild disc desiccation without significant disc bulging. No spinal canal stenosis or neural foraminal narrowing. L1-L2: Mild disc desiccation with mild circumferential disc bulging and grade 1 retrolisthesis of L1 on L2, which did not result in significant spinal canal stenosis or neuroforaminal narrowing. L2-L3: There is disc desiccation and moderate loss of disc space height as well as grade 1 retroli sthesis of L2 on L3 resulting uncovering of the disc space as well as mild buckling of the ligamentum flavum. Findings result in mild bilateral neural foraminal narrowing without significant spinal daniel l stenosis. L3-L4: There is disc desiccation and moderate loss of disc space height with grade 1 retrolisthesis of L3 on L4 and mild circumferential disc bulging as well as mild buckling of the ligamentum flavum. Findings result in mild narrowing of the bilateral neural foramina without significant spinal canal stenosis. L4-L5: There is severe loss of disc space height with mild ossification across the disc space and p osterior disc-osteophyte complex as well as moderate bilateral facet hypertrophy. Findings result in moderate right and mild left neural foraminal narrowing without significant spinal canal stenosis. Th e degree of neural foraminal narrowing does not appear significantly changed when compared to the MRI from 09/22/2007. L5-S1: There is disc desiccation and mild bilateral facet hypertrophy. Findings do not result in si gnificant spinal canal stenosis or neural foraminal narrowing. IMPRESSION: 1.At L4-5, degenerative changes result in moderate right and mild left neural foraminal narrowing. Th e degree of neural foraminal narrowing does not appear significantly changed when compared to the paul or MRI from 09/22/2007. 2.Additional mild multilevel degenerative changes as described in detail in the body of the report. N o significant spinal canal stenosis. Reviewed by: Norbert Canada MD on 10/10/2021 4:43 PM PST Approved by: Norbert Canada MD on 10/10/2021 4:43 PM PST Station ID: [id number]
== END 2021-10-10 14:17 | disposition home or self-care (01) ==
LOC: DI 14:16
PROVIDERS: ATTEND Internal Medicine
DX: M51.35 Other intervertebral disc degeneration, thoracolumbar region (principal); M43.16 Spondylolisthesis, lumbar region; M51.36 Other intervertebral disc degeneration, lumbar region; M48.061 Spinal stenosis, lumbar region without neurogenic claudication; M47.816 Spondylosis without myelopathy or radiculopathy, lumbar region; M47.817 Spondylosis without myelopathy or radiculopathy, lumbosacral region; M51.37 Other intervertebral disc degeneration, lumbosacral region

== ENCOUNTER 2021-10-29 08:00 | Outpatient (CLI) | payer MEDICARE, OTHER | END 2021-10-29 23:59 | disposition home or self-care (01) | LOC: LAB.WCP 08:00 | PROVIDERS: ATTEND Nurse Practitioner Family | DX: Z86.79 Personal history of other diseases of the circulatory system (principal); Z79.01 Long term (current) use of anticoagulants ==

== ENCOUNTER 2021-11-26 08:00 | Outpatient (CLI) | payer MEDICARE, OTHER | END 2021-11-26 23:59 | disposition home or self-care (01) | LOC: LAB.WCP 08:00 | PROVIDERS: ATTEND Internal Medicine | DX: Z79.01 Long term (current) use of anticoagulants (principal); Z86.79 Personal history of other diseases of the circulatory system ==

== ENCOUNTER 2021-12-26 08:00 | Outpatient (CLI) | payer MEDICARE, OTHER | END 2021-12-26 23:59 | disposition home or self-care (01) | LOC: LAB.N 08:00 | PROVIDERS: ATTEND Internal Medicine | DX: Z79.01 Long term (current) use of anticoagulants (principal); Z86.79 Personal history of other diseases of the circulatory system ==

== ENCOUNTER 2022-03-13 08:00 | Outpatient (CLI) | payer MEDICARE, OTHER | END 2022-03-13 23:59 | disposition home or self-care (01) | LOC: LAB.WCP 08:00 | PROVIDERS: ATTEND Internal Medicine | DX: Z86.79 Personal history of other diseases of the circulatory system (principal); Z79.01 Long term (current) use of anticoagulants ==

== ENCOUNTER 2022-04-05 06:22 | Outpatient (CLI) | payer MEDICARE, OTHER | END 2022-04-05 06:23 | disposition critical access hospital (66) | LOC: EMS 06:22 | DX: R53.1 Weakness (principal); R50.9 Fever, unspecified | CPT/HCPCS: A0425; A0428 ==

== ENCOUNTER 2022-04-05 06:34 | Inpatient (IN) | payer MEDICARE, OTHER ==
[2022-04-05 07:21] LABS: BASOPHILS # (AUTO) 0.1 10^3/uL (0.0-0.1); BASOPHILS % (AUTO) 0.5 %; EOSINOPHILS # (AUTO) 0.2 10^3/uL (0.0-0.7); EOSINOPHILS % (AUTO) 1.4 %; HCT - HEMATOCRIT 44.2 % (42.0-52.0); LYMPHOCYTES # (AUTO) 0.5 10^3/uL (1.5-3.5); LYMPHOCYTES % (AUTO) 4.8 %; MEAN CORPUSCULAR HEMOGLOBIN 30.6 pg (27.0-31.0); MEAN CORPUSCULAR HGB CONC 31.7 g/dL (32.0-36.0); MEAN CORPUSCULAR VOLUME 96.5 fL (80.0-94.0); MEAN PLATELET VOLUME 11.3 fL (7.4-11.4); MONOCYTES # (AUTO) 1.5 10^3/uL (0.0-1.0); MONOCYTES % (AUTO) 13.8 %; NEUTROPHILS # (AUTO) 8.7 10^3/uL (1.5-6.6); NEUTROPHILS % (AUTO) 78.1 %; PLT - PLATELET COUNT 143 10^3/uL (130-450); RED BLOOD COUNT 4.58 10^6/uL (4.70-6.10); RED CELL DISTRIBUTION WIDTH 14.6 % (12.0-15.0); WHITE BLOOD COUNT 11.1 x10^3/uL (4.8-10.8)
[2022-04-05 07:23] LABS: ALBUMIN 3.4 g/dL (3.2-5.5); ALBUMIN/GLOBULIN RATIO 1.2 (1.0-2.2); ALKALINE PHOSPHATASE 66 IU/L (42-121); ALT ALANINE AMINOTRANSFERASE < 10 IU/L (10-60); AST ASPARTATE AMINOTRANSFERASE 13 IU/L (10-42); BILIRUBIN,TOTAL 0.9 mg/dL (0.2-1.0); BUN - BLOOD UREA NITROGEN 13 mg/dL (6-20); CALCIUM 8.8 mg/dL (8.5-10.3); CARBON DIOXIDE - CO2 29 mmol/L (21-32); CHLORIDE 103 mmol/L (101-111); CREATININE 0.9 mg/dL (0.6-1.2); GFR - MDRD 82 (>89); GLUCOSE 124 mg/dL (70-100); LIPASE 23 U/L (22-51); POTASSIUM 3.8 mmol/L (3.5-5.0); SODIUM 137 mmol/L (135-145); TOTAL PROTEIN 6.2 g/dL (6.7-8.2)
[2022-04-05 07:35] LABS: LACTIC ACID, VENOUS 2.1 mmol/L (0.5-2.2)
--- NOTE | 2022-04-05 07:40 | ED Physician Documentation ---
History of Present Illness - Stated complaint Stated Complaint: WEAKNESS/NAUSEA - Chief complaint Chief Complaint: General - History obtained from History obtained from: Patient, Family - Additonal information Additional information: 76-year-old gentleman with history of interstitial lung disease on mycophenolate and prednisone 5, A. fib on warfarin, and stage IV prostate cancer on Lupron presents with a progressive illness over the last 3 days or so marked by weakness, chills, some runny nose, and last night several episodes of urinary incontinence. He did not have a any known fever prior to arrival but is febrile here at triage. He is on about day 2 of minocycline for a facial infection. Review of Systems Constitutional: reports: Chills. denies: Fever, Myalgias Nose: reports: Rhinorrhea / runny nose Throat: reports: Sore throat GI: reports: Nausea. denies: Vomiting, Constipation, Diarrhea : reports: Frequency, Incontinent. denies: Dysuria PD PAST MEDICAL HISTORY - Past Medical History Cardiovascular: Atrial fibrillation Respiratory: None Endocrine/Autoimmune: None GI: Hepatitis : Kidney stones HEENT: None Psych: None Musculoskeletal: Osteoarthritis, Fatigue Derm: None - Past Surgical History General: Colonoscopy Ortho: Other Cardiovascular: Other HEENT: Cataracts, Tonsil/Adenoidectomy - Present Medications Home Medications: Ambulatory Orders Medication Instructions Recorded Confirmed Metoprolol Tartrate 100 mg ORAL DAILY 08/16/14 08/17/14 Warfarin [Coumadin] 5 mg ORAL DAILY 08/16/14 08/16/14 allopurinoL [Allopurinol] 100 mg ORAL BID 08/16/14 08/17/14 lisinopriL [Lisinopril] 10 mg ORAL DAILY 08/16/14 08/16/14 - Allergies Allergies/Adverse Reactions: Allergies Allergy/AdvReac Type Severity Reaction Status Date / Time Penicillins Allergy Unknown Verified 08/16/14 13:46 Sulfa (Sulfonamide Allergy Unknown Verified 08/16/14 13:46 Antibiotics) PD ED PE NORMAL - Vitals Vital signs reviewed: Yes - General General: Alert and oriented X 3, No acute distress - HEENT HEENT: PERRL, EOMI, Pharynx benign, Other (He has what looks like rosacea on the face, does not look significant enough to cause a fever.) - Neck Neck: Supple, no meningeal sign, No bony TTP - Cardiac Cardiac: RRR, No murmur - Respiratory Respiratory: No respiratory distress, Other (Fine crackles at the bases) - Abdomen Abdomen: Non tender - Back Back: No CVA TTP, No spinal TTP - Derm Derm: Normal color, Warm and dry - Extremities Extremities: No edema, No calf tenderness / cord - Neuro Neuro: Alert and oriented X 3, Normal speech Results - Vitals Vitals: Vital Signs - 24 hr 04/05/22 04/05/22 04/05/22 06:41 08:05 08:10 Temperature 38.1 C H Heart Rate 75 98 100 Respiratory 16 30 H 26 H Rate Blood Pressure 123/81 H 98/70 101/67 O2 Saturation 95 92 96 04/05/22 04/05/22 04/05/22 08:15 08:20 08:46 Temperature 98.5 C H Heart Rate 83 90 100 Respiratory 30 H 26 H 26 H Rate Blood Pressure 105/67 121/70 100/69 O2 Saturation 98 97 95 04/05/22 04/05/22 04/05/22 08:50 09:00 09:21 Temperature 98.5 C H 36.8 C Heart Rate 92 100 85 Respiratory 32 H 26 H 27 H Rate Blood Pressure 116/81 H 100/69 107/66 O2 Saturation 96 95 98 Oxygen O2 Source Room air - Labs Labs: Laboratory Tests 04/05/22 04/05/22 04/05/22 07:00 07:00 07:14 WBC 11.1 H RBC 4.58 L Hgb 14.0 Hct 44.2 MCV 96.5 H MCH 30.6 MCHC 31.7 L RDW 14.6 Plt Count 143 MPV 11.3 Neut # (Auto) 8.7 H Lymph # (Auto) 0.5 L [place] # (Auto) 1.5 H Eos # (Auto) 0.2 Baso # (Auto) 0.1 Absolute Nucleated RBC 0.00 Band Neuts % (Manual) Not Reportable Abnorm Lymph % (Manual) Not Reportable Nucleated RBC % 0.0 Neutrophils # (Manual) Not Reportable Lymphocytes # (Manual) Not Reportable Monocytes # (Manual) Not Reportable Eosinophils # (Manual) Not Reportable Basophils # (Manual) Not Reportable Differential Comment MANUAL=AUTO DIFF PT INR Sodium 137 Potassium 3.8 Chloride 103 Carbon Dioxide 29 Anion Gap 5.0 L BUN 13 Creatinine 0.9 Estimated GFR (MDRD) 82 L Glucose 124 H Lactic Acid 2.1 Calcium 8.8 Total Bilirubin 0.9 AST 13 ALT < 10 L Alkaline Phosphatase 66 Total Protein 6.2 L Albumin 3.4 Globulin 2.8 Albumin/Globulin Ratio 1.2 Lipase 23 Urine Color Urine Clarity Urine pH Ur Specific [place] Urine Protein Urine Glucose (UA) Urine Ketones Urine Occult Blood Urine Nitrite Urine Bilirubin Urine Urobilinogen Ur Leukocyte Esterase Ur Microscopic Review Urine Culture Comments 04/05/22 04/05/22 07:51 08:44 WBC RBC Hgb Hct MCV MCH MCHC RDW Plt Count MPV Neut # (Auto) Lymph # (Auto) [place] # (Auto) Eos # (Auto) Baso # (Auto) Absolute Nucleated RBC Band Neuts % (Manual) Abnorm Lymph % (Manual) Nucleated RBC % Neutrophils # (Manual) Lymphocytes # (Manual) Monocytes # (Manual) Eosinophils # (Manual) Basophils # (Manual) Differential Comment PT 24.1 H INR 2.2 H Sodium Potassium Chloride Carbon Dioxide Anion Gap BUN Creatinine Estimated GFR (MDRD) Glucose Lactic Acid Calcium Total Bilirubin AST ALT Alkaline Phosphatase Total Protein Albumin Globulin Albumin/Globulin Ratio Lipase Urine Color YELLOW Urine Clarity CLEAR Urine pH 6.5 Ur Specific [place] 1.020 Urine Protein TRACE Urine Glucose (UA) NEGATIVE Urine Ketones NEGATIVE Urine Occult Blood TRACE-INTA Urine Nitrite NEGATIVE Urine Bilirubin NEGATIVE Urine Urobilinogen 0.2 (NORMAL) Ur Leukocyte Esterase NEGATIVE Ur Microscopic Review NOT INDICATED Urine Culture Comments NOT INDICATED - Rads (name of study) 1v cxr Radiology: EMP read contemporaneously (Single view chest x-ray demonstrating wor sening interstitial lung disease versus a superimposed infectious process. Repeat x-ray after central line shows appropriate placement.) Procedures - Central Line Central Line Preparation: Consent Obtained (Verbal from ), Time out completed, Ultrasound used, Sterile prep and drape Central line location: Right IJ Central line type: Triple lumen Central line aftercare: Chlorhexidine disc placed, Secured, Placement confirmed, No pneumothorax, No complications, Bundle checklist complete, Pt tolerated well PD MEDICAL DECISION MAKING - ED course ED course: I was called into the room by the nurse at approximately 8 AM. Patient had become unresponsive. Blood pressure at that time was approximately 60/30. He was moved to a major room and a central line was expeditiously placed, he already had the septic work-up ongoing, but I added antibiotics and 30 mill per kilo fluid bolus. His mental status came quickly back with the administration of IV fluids. And his blood pressure rebounded as well. Work-up here demonstrates mild leukocytosis, borderline high lactate, clean urinalysis, chest x-ray with worsening of ILD and potential superimposed infiltrate, therapeutic INR noting he is on warfarin. Given that he fits septic criteria and was hypotensive he was presented to Dr. Hess for admission at 9:30 AM who accepts. He did receive broad-spectrum IV antibiotics per protocol for unknown source sepsis here including cefepime, Flagyl, and vancomycin. - Critical Care Time(min): 45 Time Includes: Direct patient care, Review records, Reassess patient, Document care, Coordinate care, Medical consult, Family consult for tx dec Data interpretation: Labs, Pulse ox Procedures included in critical care time: Peripheral IV Procedures excluded from critical care time: Central IV, EKG - Sepsis Event Sepsis Onset Date: 04/05/22 Sepsis Onset Time: 08:00 Current Stage of Sepsis: Septic shock Initial Hypotension: MAP less than 65 mmHg Possible source of Sepsis: Unknown (poss pulmonary) Mental/Cognitive Status: Alert/Oriented X3, Lethargic (briefly) Reason for not giving 30ml/kg crystalloid fluids: Other (given) Capillary refill: Less than 2 seconds Peripheral Pulse Strength: 2+ Slightly Diminished Peripheral Pulse Location: Radial Departure - Departure Disposition: 66 [facility] DC/Xfer Clinical Impression: Septic shock Condition: Serious
[2022-04-05 07:49] LABS: DIFFERENTIAL COMMENT MANUAL=AUTO DIFF
[2022-04-05 08:03] LABS: INR 2.2 (0.8-1.2); PT - PROTHROMBIN TIME 24.1 secs (9.9-12.6)
--- NOTE | 2022-04-05 08:05 | XRAY Report ---
PROCEDURE: Chest 1 View X-Ray INDICATIONS: fever TECHNIQUE: One view of the chest was acquired. COMPARISON: Chest radiograph 08/18/2019. CT chest 08/04/2019 FINDINGS: Surgical changes and devices: None. Lungs and pleura: No pleural effusions or pneumothorax. Interstitial markings at the lung bases have increased when compared to the prior radiographs from 08/18/2019, which may be secondary to progress ion of chronic fibrotic changes versus a superimposed infectious or inflammatory process. Mediastinum: Mediastinal contours appear normal. Heart size is normal. Bones and chest wall: No suspicious bony lesions. Overlying soft tissues appear unremarkable. IMPRESSION: Interstitial markings at the lung bases have increased when compared to the prior radiographs from , which may be secondary to progression of chronic interstitial lung disease versus a superim posed infectious or inflammatory process. Reviewed by: Norbert Canada MD on 04/05/2022 8:03 AM PDT Approved by: Norbert Canada MD on 04/05/2022 8:03 AM PDT Station ID: [id number]
[2022-04-05] MEDS ORDERED: CEFEPIME 2 GM in SODIUM CHLORIDE 0.9% MINIBAG 100 ML IV STA (08:20)
[2022-04-05] MEDS ORDERED: metroNIDAZOLE 500 MG/100 ML 500 MG/100 ML BAG IV STA (08:20)
[2022-04-05] MEDS ORDERED: ELECTROLYTE A IV STA (08:20)
[2022-04-05] MEDS ORDERED: LACTATED RINGERS IV STA (08:20)
[2022-04-05] MEDS ORDERED: VANCOMYCIN INJ 2.25 GM in SODIUM CHLORIDE 0.9% 500 ML IV STA (08:20)
--- NOTE | 2022-04-05 08:35 | XRAY Report ---
PROCEDURE: Chest for Line Placement INDICATIONS: RIJ CVC TECHNIQUE: One view of the chest was acquired. COMPARISON: 08/18/2019 FINDINGS: Surgical changes and devices: Tip of central venous catheter projects over the distal SVC.. Lungs and pleura: No pleural effusions or pneumothorax. Lungs are clear of acute opacities. Increas ed interstitial prominence in the lung bases not significantly changed compared to prior exam. Mediastinum: Mediastinal contours appear normal. Heart heart is mildly enlarged. Bones and chest wall: No suspicious bony lesions. Overlying soft tissues appear unremarkable. IMPRESSION: Central venous catheter tip projects over the distal SVC. Reviewed by: Sherin Garcia MD, PhD on 04/05/2022 8:33 AM PDT Approved by: Sherin Garcia MD, PhD on 04/05/2022 8:33 AM PDT Station ID: [id number]
[2022-04-05 08:55] LABS: BILIRUBIN,URINE NEGATIVE (NEGATIVE); GLUCOSE, URINE (UA) NEGATIVE (NEGATIVE); KETONES,URINE (UA) NEGATIVE (NEGATIVE); LEUKOCYTE ESTERASE, URINE NEGATIVE (NEGATIVE); NITRITE,URINE NEGATIVE (NEGATIVE); OCCULT BLOOD,URINE TRACE-INTA (NEGATIVE); PH,URINE 6.5 PH (5.0-7.5); PROTEIN,URINE TRACE mg/dL (NEGATIVE); UROBILINOGEN,URINE 0.2 (NORMAL) E.U./dL (NORMAL)
[2022-04-05 09:18] LABS: CLARITY,URINE CLEAR (CLEAR)
[2022-04-05] MEDS ORDERED: ONDANSETRON ODT 4 MG TABLET TL PRN (09:31)
[2022-04-05 09:50] LABS: B. PARAPERTUSSIS- RESP PCR PAN NOT DETECTED; B. PERTUSSIS- RESP PCR PANEL NOT DETECTED; C. PNEUMONIAE- RESP PCR PANEL NOT DETECTED; CORONAVIRUS 229E-RESP PCR NOT DETECTED; CORONAVIRUS HKU1-RESP PCR NOT DETECTED; CORONAVIRUS NL63-RESP PCR NOT DETECTED; CORONAVIRUS OC43-RESP PCR NOT DETECTED; HUMAN METAPNEUMOVIRUS NOT DETECTED; INFLUENZA A- RESP PCR PANEL NOT DETECTED; INFLUENZA B - RESP PCR PANEL NOT DETECTED; M. PNEUMONIAE- RESP PCR PANEL NOT DETECTED; PARAINFLUENZA VIRUS 1 NOT DETECTED; PARAINFLUENZA VIRUS 2 NOT DETECTED; PARAINFLUENZA VIRUS 3 NOT DETECTED; PARAINFLUENZA VIRUS 4 NOT DETECTED; RHINOVIRUS/ENTEROVIRUS NOT DETECTED; RSV- RESP PCR PANEL NOT DETECTED; SARS-CoV-2 -RESP PCR PANEL NOT DETECTED
--- NOTE | 2022-04-05 10:09 | HISTORY & PHYSICAL EXAMINATION ---
Chief Complaint - Chief Complaint Chief Complaint: Weakness History of Present Illness - Admitted From Admitted From:: Home - History Obtained From Records Reviewed: [facility] History obtained from: Patient, ER Physician, EMR - History of Present Illness HPI Comment/Other: This is a 76-year-old male with a past medical history significant for metasta tic prostate cancer to the pelvis, atrial fibrillation on Coumadin, interstitial lung disease, SUKHWINDER on CPAP who presents today due to progressive weakness. He states over the past 2 to 3 days he has become progressively weak where he is barely able to get out of bed. He denies any focal deficits and states he just has general weakness. He reports no fevers but has had some chills. He states he has had diarrhea on and off but has persisted over the past week. He has had about 4 bowel movements a day. He believes the smell is quite foul compared to usual. He was started on minocycline this past Friday for possible staph infection of the face but the diarrhea began before this. He denies any chest pain, dyspnea. He is a chronic cough to initial lung disease he does not feel it is worse than usual. He had a little nausea but no vomiting. Denies any abdominal pain. Reports no dysuria, urgency, hematuria. He states he saw his dial maker, oncologist, primary care physician over the past couple weeks and that he was doing well during his visits. His does note that his white blood cell count was a little elevated when he had blood work obtained a few weeks ago. In the emergency department, he was noted to be febrile. He was initially normotensive but then became unresponsive for a brief period of time and his blood pressure time was in the 60s systolic. He received IV fluids and a central line was placed but he never required vasopressors. His blood pressure improved and remained stable. Labs revealed leukocytosis but were otherwise unremarkable. Lactic acid was 2.2. Given this, he was given broad-spectrum antibiotics and medicine was consulted for admission. I discussed goals of care the patient and he is unsure about this quite yet and so therefore he will be a full code. History - Past Medical History Cardiovascular: reports: Atrial fibrillation Respiratory: reports: Other (Interstitial lung disease) Endocrine/Autoimmune: reports: None : reports: Kidney stones, Other (Metastatic prostate cancer to the pelvis) HEENT: reports: None Psych: reports: None Musculoskeletal: reports: Osteoarthritis, Fatigue Derm: reports: None MRSA Hx?: No - Past Surgical History General: reports: Colonoscopy Ortho: reports: Other Cardiovascular: reports: Other HEENT: reports: Cataracts, Tonsil/Adenoidectomy - Family & Social History Family History: Mother: , Father: Family History Comment/Other: Both of his parents had history of strokes and dementia. They in their late 80s. Living arrangement: At home Living Situation: With spouse/s.o. Social History Notes: He lives at home with his Ame. He is a non-smoker and does not drink alcohol. Meds/Allgy - Home Medications Home Medications: Ambulatory Orders Medication Instructions Recorded Confirmed Warfarin [Coumadin] 5 mg ORAL .[id number] 08/16/14 04/05/22 allopurinoL [Allopurinol] 200 mg ORAL DAILY 08/16/14 04/05/22 Abiraterone Acetate 1,000 mg PO 0600 04/05/22 04/05/22 Leuprolide [Lupron] 45 mg IM .Q6MO 04/05/22 04/05/22 Metoprolol Tartrate [Lopressor] 37.5 mg PO BID 04/05/22 04/05/22 Minocycline HCl 100 mg PO BID 04/05/22 04/05/22 Nystatin/Triamcin 1 applic TOP BID 04/05/22 04/05/22 [Nystatin-Triamcinolone Ointm] Tamsulosin [Flomax] 0.4 mg PO .TIW 04/05/22 04/05/22 Warfarin [Coumadin] 2.5 mg PO .Friday04/05/22 04/05/22 Wheat Dextrin [Benefiber] 1 packet PO DAILY 04/05/22 04/05/22 mycophenolate mofetiL 1,000 mg PO BID 04/05/22 04/05/22 [Mycophenolate Mofetil] predniSONE [Deltasone] 5 mg PO QDBREAKFAST 04/05/22 04/05/22 - Allergies Allergies/Adverse Reactions: Allergies Allergy/AdvReac Type Severity Reaction Status Date / Time Penicillins Allergy Unknown Verified 08/16/14 13:46 Sulfa (Sulfonamide Allergy Unknown Verified 08/16/14 13:46 Antibiotics) Review of Systems - Constitutional Constitutional: reports: Chills, Malaise, Weakness. denies: Fever, Poor appetite - Ears, Nose & Throat Ears, Nose & Throat: reports: Nasal discharge, Nasal congestion. denies: Sore throat - Cardiovascular Cariovascular: reports: Lightheadedness. denies: Chest pain, Edema, Exertional dyspnea, Decr. exercise tolerance - Respiratory Respiratory: reports: Cough. denies: Sputum production, SOB at rest, SOB with exertion - Gastrointestinal Gastrointestinal: reports: Diarrhea, Change in bowel habits, Nausea. denies: Abdominal pain, Constipation, Vomiting - Genitourinary Genitourinary: denies: Dysuria, Frequency, Hematuria - Musculoskeletal Musculoskeletal: denies: Muscle pain - Integumentary Integumentary: denies: Rash - Neurological Neurological: reports: General weakness, Dizziness. denies: Focal weakness - Hematologic/Lymphatic Hematologic/Lymphatic: reports: Bruising. denies: Anemia, Bleeding tendencies - All Other Systems All Other Systems: reports: Reviewed and negative Prior Level of Functionality: He ambulates with a walker at baseline. Exam - Vital Signs Reviewed Vital Signs: Yes Vital Signs: Vital Signs x48h Temp Pulse Resp BP Pulse Ox 04/05/22 09:21 36.8 C 85 27 H 107/66 98 04/05/22 09:00 36.9 C 100 26 H 100/69 95 04/05/22 08:50 92 32 H 116/81 H 96 04/05/22 08:46 36.9 C 100 26 H 100/69 95 04/05/22 08:20 90 26 H 121/70 97 04/05/22 08:15 83 30 H 105/67 98 04/05/22 08:10 100 26 H 101/67 96 04/05/22 08:05 98 30 H 98/70 92 04/05/22 08:00 70/40 L 04/05/22 06:41 38.1 C H 75 16 123/81 H 95 - Physical Exam General Appearance: positive: No acute distress, Alert Eyes Bilateral: positive: Normal inspection, Conjunctivae nml ENT: positive: ENT inspection nml Respiratory: positive: No respiratory distress, Other (Faint crackles bilaterally) Cardiovascular: positive: Irregularly irregular. negative: Tachycardia, Systolic murmur Abdomen: positive: Non-tender, Nml bowel sounds, No distention. negative: Tenderness, Guarding, Rebound Skin: positive: Warm, Dry, Other (There is mild erythema over the bilateral cheeks) Extremities: positive: No pedal edema Neurologic/Psychiatric: positive: Other (No focal deficits). 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 His lactic is little elevated at 2.2. The only obvious source of infection may be a possible infiltrate although he does report diarrhea at home so this could be a GI source although his abdominal exam is benign. This may also be related to a viral infection although the bio fire panel is negative. We will admit him to the ICU given his soft blood pressures. We will start him on broad-spectrum antibiotics with vancomycin, cefepime, Flagyl IV. We will continue IV hydration. Recheck lactic acid. We will follow-up cultures. Send for C. difficile and stool cultures. If he is hemodynamically stable then he can be transferred out of the ICU tomorrow. (2) Community acquired pneumonia Conclusion/Plan: Patient with possible infiltrate on the chest x-ray although clinically does not have any worsening respiratory symptoms compared to his baseline given his interstitial lung disease. Given he is febrile leukocytosis and generalized we akness, we will treat him empirically with broad-spectrum antibiotics as mentioned above. (3) Diarrhea Conclusion/Plan: Given he is immunocompromised, we will check for C. difficile and stool cultures. Continue gentle IV hydration. If C. difficile is negative we will trial Imodium. (4) Prostate cancer, primary, with metastasis from prostate to other site Conclusion/Plan: Stable. If he is hemodynamically stable then we will continue his home medications in the morning. (5) Interstitial lung disease Conclusion/Plan: This appears to be stable. We will resume his mycophenolate if he remains hemodynamically stable without concern for worsening infection. (6) Atrial fibrillation Conclusion/Plan: He is rate controlled. We will continue Coumadin and metoprolol. (7) SUKHWINDER on CPAP Conclusion/Plan: Continue home CPAP. - Lab Results Lab results reviewed: Yes Fish Bones: 04/05/22 07:00 04/05/22 07:00 - Diagnostic Imaging Results Diagnostic Imaging Results: positive: Final report reviewed Core Measures - Anticipated LOS I expect patient to be DC'd or transferred within 96 hours.: Yes - Issues Hospital Issues and Management Plan: 76-year-old male with history metastatic prostate cancer, and history of interstitial lung disease presents with weakness and concern for sepsis. We will admit for empiric IV antibiotics and monitored in the ICU given the hypotension. - DVT/VTE - Prophylaxis VTE/DVT Device ordered at admit?: No VTE/DVT Prophylaxis med ordered at admit?: No
--- NOTE | 2022-04-05 10:29 | PHARMACY PROGRESS NOTE ---
- Best Possible Medication History Admit Date and Time: 04/05/22 0931 Processed by: Pharmacy Medication History completed: Yes Secondary Source(s): Physician records, Pharmacy records, Insurance records Insurance records up to date. Note from PCP appointment with Dr Ashford on 03/22 reviewed for recent medication changes. Most recent anticoagulation clinic visit 03/13 (INR = 2.5) - no change to warfarin dose (5 mg daily except 2.5 mg on Fridays) As the person ultimately responsible for medication therapy, providers are able to order a medication from an existing home medication list in [facility] via the "Reconcile Routine" prior to Confirmation of that medication by community support specialist. Such practice is discouraged except when the physician, in their clinical judgment, deems that a medical need exists for a medication without regard to previous use.
--- NOTE | 2022-04-05 10:37 | PHARMACY PROGRESS NOTE ---
- Therapy Status Therapy status: Awaiting steady state Basis for treatment: Empirical Treatment indication: Septic shock Trough goal: 15-20 Concurrent antibiotics: Flagyl and cefepime - FILIPE Risk Risk level for Acute Kidney Injury: High Acute Kidney Injury risk factors: Wt >100kg or BMI >40, Goal trough >15, Admission to ICU, Sepsis - Monitoring and Recommendation Clinical response to treatment: Lab Results 04/05/22 04/05/22 09:54 07:00 ESR 17 BUN 13 Creatinine 0.9 Estimated GFR (MDRD) 82 L Monitoring plan: Daily serum creatinine, Suggest ongoing fluid replacement Next trough due (date/time): 04/07 at 0830 Areas for additional monitoring: Therapy de-escalation based on culture results Pharmacy recommendation: Continue current regime (Loading dose of 2.25 gm given in ED. Initiate maintenance dose of vancomycin 1.5 gm IV q12h for estimated trough of 18.7 mcg/mL and AUC/RODRIGO 400-600 mcg*hr/mL.)
[2022-04-05] MEDS: LACTATED RINGERS 1,000 ML IV SCH ×2 (12:29→18:24)
[2022-04-05] MEDS: ONDANSETRON 4 MG/2 ML VIAL IVP PRN (12:46)
[2022-04-05] MEDS ORDERED: WARFARIN 2.5 MG TABLET PO SCH (16:00)
[2022-04-05] MEDS ORDERED: WARFARIN 5 MG TABLET PO SCH (16:00)
[2022-04-05] MEDS: metroNIDAZOLE 500 MG/100 ML 500 MG/100 ML BAG IV SCH (16:43)
[2022-04-05] MEDS: SODIUM CHLORIDE FLUSH 0.9% 10 ML SYRINGE IVP SCH (16:44)
[2022-04-05] MEDS: CEFEPIME 2 GM in SODIUM CHLORIDE 0.9% MINIBAG 100 ML IV SCH (20:42)
[2022-04-05] MEDS: METOPROLOL TARTRATE 25 MG TABLET PO SCH (20:44)
[2022-04-05] MEDS ORDERED: mycophenolate mofetiL 250 MG CAPSULE PO SCH (21:00)
[2022-04-05] MEDS: VANCOMYCIN INJ 1 GM, VANCOMYCIN INJ 500 MG in SODIUM CHLORIDE 0.9% 500 ML IV SCH (21:52)
[2022-04-05] MEDS: ACETAMINOPHEN 325 MG TABLET PO PRN (21:55)
[2022-04-06] MEDS: metroNIDAZOLE 500 MG/100 ML 500 MG/100 ML BAG IV SCH (00:34)
[2022-04-06] MEDS: SODIUM CHLORIDE FLUSH 0.9% 10 ML SYRINGE IVP SCH ×3 (00:34→18:03)
[2022-04-06 04:34] LABS: BASOPHILS % (AUTO) 0.5 %; EOSINOPHILS # (AUTO) 0.3 10^3/uL (0.0-0.7); EOSINOPHILS % (AUTO) 3.2 %; HCT - HEMATOCRIT 36.4 % (42.0-52.0); HGB - HEMOGLOBIN 11.6 g/dL (14.0-18.0); LYMPHOCYTES # (AUTO) 0.5 10^3/uL (1.5-3.5); LYMPHOCYTES % (AUTO) 5.7 %; MEAN CORPUSCULAR HEMOGLOBIN 30.9 pg (27.0-31.0); MEAN CORPUSCULAR HGB CONC 31.9 g/dL (32.0-36.0); MEAN CORPUSCULAR VOLUME 96.8 fL (80.0-94.0); MONOCYTES # (AUTO) 1.2 10^3/uL (0.0-1.0); MONOCYTES % (AUTO) 15.3 %; NEUTROPHILS % (AUTO) 74.7 %; PLT - PLATELET COUNT 119 10^3/uL (130-450); RED BLOOD COUNT 3.76 10^6/uL (4.70-6.10); RED CELL DISTRIBUTION WIDTH 14.6 % (12.0-15.0)
[2022-04-06 04:38] LABS: INR 2.2 (0.8-1.2); PT - PROTHROMBIN TIME 24.3 secs (9.9-12.6)
[2022-04-06 04:43] LABS: CALCIUM 8.1 mg/dL (8.5-10.3); CREATININE 0.7 mg/dL (0.6-1.2); MAGNESIUM 1.9 mg/dL (1.7-2.8); PHOSPHORUS 3.1 mg/dL (2.5-4.6); POTASSIUM 3.6 mmol/L (3.5-5.0)
[2022-04-06] MEDS: LACTATED RINGERS 1,000 ML IV SCH ×3 (06:14→13:34)
--- NOTE | 2022-04-06 08:02 | PROVIDER PROGRESS NOTE ---
Subjective - Prog Note Date Prog Note Date: 04/06/22 - Subjective Subjective: He feels slightly improved but still overall weak. [place] a little short of breath this morning compared to usual. He does have back pain but states this is chronic and unchanged compared to the usual. He reports no diarrhea since admission. Current Medications - Current Medications Current Medications: Active Medications Acetaminophen (Acetaminophen 325 Mg Tablet) 650 mg PO Q4HR PRN PRN Reason: Pain 1 to 4, or Fever Last Admin: 04/05/22 21:55 Dose: 650 mg Lactated Ringer's (Lr) 1,000 mls @ 150 mls/hr IV .Q6H40M [facility] Last Admin: 04/06/22 06:14 Dose: 150 mls/hr Vancomycin HCl 1 gm/Vancomycin HCl 500 mg/ Sodium Chloride 500 mls @ 250 mls/hr IV Q12H [facility] Last Infusion: 04/06/22 00:34 Dose: Infused Cefepime HCl 2 gm/ Sodium (Chloride) 100 mls @ 200 mls/hr IV BID [facility] Last Infusion: 04/05/22 22:04 Dose: Infused Azithromycin 500 mg/ Sodium (Chloride) 250 mls @ 250 mls/hr IV DAILY [facility] Stop: 04/08/22 09:59 Metoprolol Tartrate (Metoprolol Tartrate 25 Mg Tablet) 37.5 mg PO BID [facility] Last Admin: 04/05/22 20:44 Dose: 37.5 mg Mycophenolate Mofetil (Mycophenolate Mofetil 250 Mg Capsule) 1,000 mg PO BID [facility] Last Admin: 04/05/22 20:46 Dose: 1,000 mg Ondansetron HCl (Ondansetron Odt 4 Mg Tablet) 4 mg TL Q6HR PRN PRN Reason: Nausea / Vomiting Ondansetron HCl (Ondansetron 4 Mg/2 Ml Vial) 4 mg IVP Q6HR PRN PRN Reason: Nausea / Vomiting Last Admin: 04/05/22 12:46 Dose: 4 mg Prednisone (Prednisone 5 Mg Tablet) 5 mg PO QDBREAKFAST [facility] Sodium Chloride (Sodium Chloride Flush 0.9% 10 Ml Syringe) 10 ml IVP 0100,0900,1700 [facility] Last Admin: 04/06/22 00:34 Dose: 10 ml Sodium Chloride (Sodium Chloride Flush 0.9% 10 Ml Syringe) 10 ml IVP PRN PRN PRN Reason: NEEDED PER PROVIDER ORDERS Warfarin Sodium (Warfarin 5 Mg Tablet) 5 mg PO QDWARFARIN [facility] Stop: 04/11/22 23:59 Warfarin Sodium (Warfarin 2.5 Mg Tablet) 2.5 mg PO Q7D [facility] Last Admin: 04/05/22 16:43 Dose: 2.5 mg Warfarin [Coumadin] 5 mg ORAL .MOTUWETHSASU 08/16/14 allopurinoL [Allopurinol] 200 mg ORAL DAILY 08/16/14 Abiraterone Acetate 1,000 mg PO 0600 04/05/22 Leuprolide [Lupron] 45 mg IM .Q6MO 04/05/22 Metoprolol Tartrate [Lopressor] 37.5 mg PO BID 04/05/22 Minocycline HCl 100 mg PO BID 04/05/22 Nystatin/Triamcin [Nystatin-Triamcinolone Ointm] 1 applic TOP BID 04/05/22 Tamsulosin [Flomax] 0.4 mg PO .TIW 04/05/22 Warfarin [Coumadin] 2.5 mg PO .Friday04/05/22 Wheat Dextrin [Benefiber] 1 packet PO DAILY 04/05/22 mycophenolate mofetiL [Mycophenolate Mofetil] 1,000 mg PO BID 04/05/22 predniSONE [Deltasone] 5 mg PO QDBREAKFAST 04/05/22 Objective - Vital Signs/Intake & Output Reviewed Vital Signs: Yes Vital Signs: Vital Signs Temp Pulse Resp BP Pulse Ox 04/06/22 07:00 36.6 C 81 23 153/72 H 95 04/06/22 06:00 85 26 H 109/67 96 04/06/22 05:00 36.6 C 82 18 116/81 H 94 04/06/22 04:00 105 H 24 110/82 H 94 Intake & Output: Intake & Output 04/03/22 04/04/22 04/05/22 04/06/22 23:59 23:59 23:59 23:59 Intake Total 5797.48 1600 Output Total 1285 1080 Balance 4512.48 520 - Objective General Appearance: positive: No acute distress, Alert Eyes Bilateral: positive: Normal inspection, Conjunctivae nml ENT: positive: ENT inspection nml Neck: positive: Nml inspection Respiratory: positive: No respiratory distress, Rales, Other (Diminished in the left base) Cardiovascular: positive: Irregularly irregular. negative: Tachycardia, Systolic murmur Abdomen: positive: Non-tender, No distention. negative: Tenderness Back: positive: Other (No lumbar spine or paraspinal tenderness) Skin: positive: Warm, Dry Extremities: positive: No pedal edema Neurologic/Psychiatric: negative: Disoriented to person, Disoriented to place - Lab Results Fish Bones: 04/06/22 04:24 04/06/22 04:24 Other Labs: Lab Results x24hrs 04/06/22 04/06/22 04/06/22 Range/Units 04:24 04:24 04:24 WBC 8.0 (4.8-10.8) x10^3/uL RBC 3.76 L (4.70-6.10) 10^6/uL Hgb 11.6 L (14.0-18.0) g/dL Hct 36.4 L (42.0-52.0) % MCV 96.8 H (80.0-94.0) fL MCH 30.9 (27.0-31.0) pg MCHC 31.9 L (32.0-36.0) g/dL RDW 14.6 (12.0-15.0) % Plt Count 119 L (130-450) 10^3/uL MPV 11.0 (7.4-11.4) fL Neut # (Auto) 6.0 (1.5-6.6) 10^3/uL Lymph # (Auto) 0.5 L (1.5-3.5) 10^3/uL [place] # (Auto) 1.2 H (0.0-1.0) 10^3/uL Eos # (Auto) 0.3 (0.0-0.7) 10^3/uL Baso # (Auto) 0.0 (0.0-0.1) 10^3/uL Absolute Nucleated RBC 0.00 x10^3/uL Nucleated RBC % 0.0 /100WBC ESR (0-20) mm/Hr PT 24.3 H (9.9-12.6) secs INR 2.2 H (0.8-1.2) Sodium 138 (135-145) mmol/L Potassium 3.6 (3.5-5.0) mmol/L Chloride 106 (101-111) mmol/L Carbon Dioxide 27 (21-32) mmol/L Anion Gap 5.0 L (6-13) BUN 10 (6-20) mg/dL Creatinine 0.7 (0.6-1.2) mg/dL Estimated GFR (MDRD) 110 (>89) Glucose 107 H (70-100) mg/dL Lactic Acid (0.5-2.2) mmol/L Calcium 8.1 L (8.5-10.3) mg/dL Phosphorus 3.1 (2.5-4.6) mg/dL Magnesium 1.9 (1.7-2.8) mg/dL C-Reactive Protein (0-1.0) mg/dL Urine Color Urine Clarity (CLEAR) Urine pH (5.0-7.5) PH Ur Specific [place] (1.002-1.030) Urine Protein (NEGATIVE) mg/dL Urine Glucose (UA) (NEGATIVE) mg/dL Urine Ketones (NEGATIVE) mg/dL Urine Occult Blood (NEGATIVE) Urine Nitrite (NEGATIVE) Urine Bilirubin (NEGATIVE) Urine Urobilinogen (NORMAL) E.U./dL Ur Leukocyte Esterase (NEGATIVE) Ur Microscopic Review Urine Culture Comments Nasal Adenovirus (PCR) Nasal B. parapertussis DNA (PCR) Nasal Coronavir 229E PCR Nasal Coronavir HKU1 PCR Nasal Coronavir NL63 PCR Nasal Coronavir OC43 PCR Nasal Enterovir/Rhinovir PCR Nasal Influenza B PCR Nasal Influenza A PCR Nasal Parainfluen 1 PCR Nasal Parainfluen 2 PCR Nasal Parainfluen 3 PCR Nasal Parainfluen 4 PCR Nasal RSV (PCR) Nasal Screen MRSA (PCR) (NEGATIVE) Nasal B.pertussis DNA PCR Nasal C.pneumoniae (PCR) Andrea Human Metapneumo PCR Nasal M.pneumoniae (PCR) Nasal SARS-CoV-2 (PCR) 04/05/22 04/05/22 04/05/22 Range/Units 13:57 11:00 10:45 WBC (4.8-10.8) x10^3/uL RBC (4.70-6.10) 10^6/uL Hgb (14.0-18.0) g/dL Hct (42.0-52.0) % MCV (80.0-94.0) fL MCH (27.0-31.0) pg MCHC (32.0-36.0) g/dL RDW (12.0-15.0) % Plt Count (130-450) 10^3/uL MPV (7.4-11.4) fL Neut # (Auto) (1.5-6.6) 10^3/uL Lymph # (Auto) (1.5-3.5) 10^3/uL [place] # (Auto) (0.0-1.0) 10^3/uL Eos # (Auto) (0.0-0.7) 10^3/uL Baso # (Auto) (0.0-0.1) 10^3/uL Absolute Nucleated RBC x10^3/uL Nucleated RBC % /100WBC ESR (0-20) mm/Hr PT (9.9-12.6) secs INR (0.8-1.2) Sodium (135-145) mmol/L Potassium (3.5-5.0) mmol/L Chloride (101-111) mmol/L Carbon Dioxide (21-32) mmol/L Anion Gap (6-13) BUN (6-20) mg/dL Creatinine (0.6-1.2) mg/dL Estimated GFR (MDRD) (>89) Glucose (70-100) mg/dL Lactic Acid 1.3 2.0 (0.5-2.2) mmol/L Calcium (8.5-10.3) mg/dL Phosphorus (2.5-4.6) mg/dL Magnesium (1.7-2.8) mg/dL C-Reactive Protein (0-1.0) mg/dL Urine Color Urine Clarity (CLEAR) Urine pH (5.0-7.5) PH Ur Specific [place] (1.002-1.030) Urine Protein (NEGATIVE) mg/dL Urine Glucose (UA) (NEGATIVE) mg/dL Urine Ketones (NEGATIVE) mg/dL Urine Occult Blood (NEGATIVE) Urine Nitrite (NEGATIVE) Urine Bilirubin (NEGATIVE) Urine Urobilinogen (NORMAL) E.U./dL Ur Leukocyte Esterase (NEGATIVE) Ur Microscopic Review Urine Culture Comments Nasal Adenovirus (PCR) Nasal B. parapertussis DNA (PCR) Nasal Coronavir 229E PCR Nasal Coronavir HKU1 PCR Nasal Coronavir NL63 PCR Nasal Coronavir OC43 PCR Nasal Enterovir/Rhinovir PCR Nasal Influenza B PCR Nasal Influenza A PCR Nasal Parainfluen 1 PCR Nasal Parainfluen 2 PCR Nasal Parainfluen 3 PCR Nasal Parainfluen 4 PCR Nasal RSV (PCR) Nasal Screen MRSA (PCR) NEGATIVE (NEGATIVE) Nasal B.pertussis DNA PCR Nasal C.pneumoniae (PCR) Andrea Human Metapneumo PCR Nasal M.pneumoniae (PCR) Nasal SARS-CoV-2 (PCR) 04/05/22 04/05/22 04/05/22 Range/Units 09:54 08:44 08:44 WBC (4.8-10.8) x10^3/uL RBC (4.70-6.10) 10^6/uL Hgb (14.0-18.0) g/dL Hct (42.0-52.0) % MCV (80.0-94.0) fL MCH (27.0-31.0) pg MCHC (32.0-36.0) g/dL RDW (12.0-15.0) % Plt Count (130-450) 10^3/uL MPV (7.4-11.4) fL Neut # (Auto) (1.5-6.6) 10^3/uL Lymph # (Auto) (1.5-3.5) 10^3/uL [place] # (Auto) (0.0-1.0) 10^3/uL Eos # (Auto) (0.0-0.7) 10^3/uL Baso # (Auto) (0.0-0.1) 10^3/uL Absolute Nucleated RBC x10^3/uL Nucleated RBC % /100WBC ESR 17 (0-20) mm/Hr PT (9.9-12.6) secs INR (0.8-1.2) Sodium (135-145) mmol/L Potassium (3.5-5.0) mmol/L Chloride (101-111) mmol/L Carbon Dioxide (21-32) mmol/L Anion Gap (6-13) BUN (6-20) mg/dL Creatinine (0.6-1.2) mg/dL Estimated GFR (MDRD) (>89) Glucose (70-100) mg/dL Lactic Acid (0.5-2.2) mmol/L Calcium (8.5-10.3) mg/dL Phosphorus (2.5-4.6) mg/dL Magnesium (1.7-2.8) mg/dL C-Reactive Protein (0-1.0) mg/dL Urine Color YELLOW Urine Clarity CLEAR (CLEAR) Urine pH 6.5 (5.0-7.5) PH Ur Specific [place] 1.020 (1.002-1.030) Urine Protein TRACE (NEGATIVE) mg/dL Urine Glucose (UA) NEGATIVE (NEGATIVE) mg/dL Urine Ketones NEGATIVE (NEGATIVE) mg/dL Urine Occult Blood [place] (NEGATIVE) Urine Nitrite NEGATIVE (NEGATIVE) Urine Bilirubin NEGATIVE (NEGATIVE) Urine Urobilinogen 0.2 (NORMAL) (NORMAL) E.U./dL Ur Leukocyte Esterase NEGATIVE (NEGATIVE) Ur Microscopic Review NOT INDICATED Urine Culture Comments NOT INDICATED Nasal Adenovirus (PCR) NOT DETECTED Nasal B. parapertussis DNA (PCR) NOT DETECTED Nasal Coronavir 229E PCR NOT DETECTED Nasal Coronavir HKU1 PCR NOT DETECTED Nasal Coronavir NL63 PCR NOT DETECTED Nasal Coronavir OC43 PCR NOT DETECTED Nasal Enterovir/Rhinovir PCR NOT DETECTED Nasal Influenza B PCR NOT DETECTED Nasal Influenza A PCR NOT DETECTED Nasal Parainfluen 1 PCR NOT DETECTED Nasal Parainfluen 2 PCR NOT DETECTED Nasal Parainfluen 3 PCR NOT DETECTED Nasal Parainfluen 4 PCR NOT DETECTED Nasal RSV (PCR) NOT DETECTED Nasal Screen MRSA (PCR) (NEGATIVE) Nasal B.pertussis DNA PCR NOT DETECTED Nasal C.pneumoniae (PCR) NOT DETECTED [place] Human Metapneumo PCR NOT DETECTED Nasal M.pneumoniae (PCR) NOT DETECTED Nasal SARS-CoV-2 (PCR) NOT DETECTED 04/05/22 04/05/22 Range/Units 07:51 07:00 WBC (4.8-10.8) x10^3/uL RBC (4.70-6.10) 10^6/uL Hgb (14.0-18.0) g/dL Hct (42.0-52.0) % MCV (80.0-94.0) fL MCH (27.0-31.0) pg MCHC (32.0-36.0) g/dL RDW (12.0-15.0) % Plt Count (130-450) 10^3/uL MPV (7.4-11.4) fL Neut # (Auto) (1.5-6.6) 10^3/uL Lymph # (Auto) (1.5-3.5) 10^3/uL [place] # (Auto) (0.0-1.0) 10^3/uL Eos # (Auto) (0.0-0.7) 10^3/uL Baso # (Auto) (0.0-0.1) 10^3/uL Absolute Nucleated RBC x10^3/uL Nucleated RBC % /100WBC ESR (0-20) mm/Hr PT 24.1 H (9.9-12.6) secs INR 2.2 H (0.8-1.2) Sodium (135-145) mmol/L Potassium (3.5-5.0) mmol/L Chloride (101-111) mmol/L Carbon Dioxide (21-32) mmol/L Anion Gap (6-13) BUN (6-20) mg/dL Creatinine (0.6-1.2) mg/dL Estimated GFR (MDRD) (>89) Glucose (70-100) mg/dL Lactic Acid (0.5-2.2) mmol/L Calcium (8.5-10.3) mg/dL Phosphorus (2.5-4.6) mg/dL Magnesium (1.7-2.8) mg/dL C-Reactive Protein 5.8 H (0-1.0) mg/dL Urine Color Urine Clarity (CLEAR) Urine pH (5.0-7.5) PH Ur Specific [place] (1.002-1.030) Urine Protein (NEGATIVE) mg/dL Urine Glucose (UA) (NEGATIVE) mg/dL Urine Ketones (NEGATIVE) mg/dL Urine Occult Blood (NEGATIVE) Urine Nitrite (NEGATIVE) Urine Bilirubin (NEGATIVE) Urine Urobilinogen (NORMAL) E.U./dL Ur Leukocyte Esterase (NEGATIVE) Ur Microscopic Review Urine Culture Comments Nasal Adenovirus (PCR) Nasal B. parapertussis DNA (PCR) Nasal Coronavir 229E PCR Nasal Coronavir HKU1 PCR Nasal Coronavir NL63 PCR Nasal Coronavir OC43 PCR Nasal Enterovir/Rhinovir PCR Nasal Influenza B PCR Nasal Influenza A PCR Nasal Parainfluen 1 PCR Nasal Parainfluen 2 PCR Nasal Parainfluen 3 PCR Nasal Parainfluen 4 PCR Nasal RSV (PCR) Nasal Screen MRSA (PCR) (NEGATIVE) Nasal B.pertussis DNA PCR Nasal C.pneumoniae (PCR) Andrea Human Metapneumo PCR Nasal M.pneumoniae (PCR) Nasal SARS-CoV-2 (PCR) Sepsis Event Note (H) - Evaluation Current Stage of Sepsis: Septic shock Possible source of Sepsis: positive: Unknown (poss pulmonary) - Sepsis Criteria Sepsis Criteria: Recorded Temperature greater than 38.3C or Less than 36C, [employer]: altered consciousness (unrelated to primary neuro pathology), SBP drop more than 40mHg, Metabolic: lactate > 2 mmol/L Assessment/Plan - Problem List (1) Septic shock Impression: The only possible source this time appears to be pneumonia on chest x-ray. He was once again febrile last night and dropped his pressures overnight but this morning they have improved. He has had no diarrhea so doubt C. difficile. Blood cultures have been negative to date. We will keep him on vancomycin and cefepime. We will add azithromycin to cover for atypicals due to possible pneumonia. We will discontinue Flagyl. We will hold off on obtaining a CT g iven his benign exam and negative cultures. We will keep him in the ICU due to the hypotension overnight. We will keep the broad-spectrum antibiotics for the time being given I am not entirely convinced that this is still just from pneumonia and he is immunocompromised. (2) Community acquired pneumonia Impression: We suspect he may have an infiltrate although he did not have any symptoms consistent with pneumonia initially. He now has become hypoxic requiring oxygen and is tachypneic. He had been on vancomycin and cefepime and we will add azithromycin to cover atypicals. Continue supplemental oxygen for goal saturation greater than 92%. (3) Diarrhea Impression: He reported diarrhea at home but has not had any episodes here and we are still awaiting a stool sample to send for C. difficile although at this point, it is felt to be less likely. (4) Prostate cancer, primary, with metastasis from prostate to other site Impression: He is on Zytiga, Lupron, prednisone and [facility]. We will continue the prednisone and Zytiga. (5) Interstitial lung disease Impression: He is on mycophenolate and prednisone at home. We will continue the prednisone but hold the mycophenolate given concern for ongoing infection. Especially given the fact he became hypotensive and febrile again overnight. We will treat a suspected pneumonia as mentioned above. (6) Atrial fibrillation Impression: He remains rate controlled. We have resumed his home metoprolol which we will continue for the time being as long as his blood pressures remained stable as to have this morning. If he becomes hypotensive like he did last night and this will need to be discontinued for the time being. Continue Coumadin. (7) SUKHWINDER on CPAP Impression: Continue home CPAP.
[2022-04-06] MEDS: ONDANSETRON 4 MG/2 ML VIAL IVP PRN (08:30)
[2022-04-06] MEDS: CEFEPIME 2 GM in SODIUM CHLORIDE 0.9% MINIBAG 100 ML IV SCH ×2 (08:32→20:13)
[2022-04-06] MEDS: predniSONE 5 MG TABLET PO SCH (08:33)
[2022-04-06] MEDS: AZITHROMYCIN INJ 500 MG in SODIUM CHLORIDE 0.9% 250 ML IV SCH (09:33)
[2022-04-06] MEDS: METOPROLOL TARTRATE 25 MG TABLET PO SCH ×2 (09:43→20:14)
[2022-04-06] MEDS: ACETAMINOPHEN 325 MG TABLET PO PRN (09:45)
[2022-04-06] MEDS: VANCOMYCIN INJ 1 GM, VANCOMYCIN INJ 500 MG in SODIUM CHLORIDE 0.9% 500 ML IV SCH ×2 (10:00→20:34)
[2022-04-06] MEDS ORDERED: MORPHINE 2 MG/ML CARPUJECT IVP PRN (10:04)
[2022-04-06] MEDS: ABIRATERONE ACETATE 250 MG PO SCH (10:14)
[2022-04-06] MEDS: SODIUM CHLORIDE FLUSH 0.9% 10 ML SYRINGE IVP PRN ×3 (10:16→18:28)
[2022-04-06 11:24] LABS: CALCIUM, IONIZED 1.1 mmol/L (1.15-1.33); VBG PH 7.381 (7.31-7.41)
[2022-04-06] MEDS: WARFARIN 5 MG TABLET PO SCH (14:24)
[2022-04-06] MEDS: CALCIUM CARBONATE CHEW 500 MG TABLET PO SCH ×2 (15:14→18:04)
[2022-04-06 21:41] LABS: CALCIUM, IONIZED 1.17 mmol/L (1.15-1.33); VBG PH 7.399 (7.31-7.41)
[2022-04-07] MEDS: SODIUM CHLORIDE FLUSH 0.9% 10 ML SYRINGE IVP SCH ×3 (01:31→16:57)
[2022-04-07 04:30] LABS: BASOPHILS % (AUTO) 0.5 %; EOSINOPHILS # (AUTO) 0.3 10^3/uL (0.0-0.7); EOSINOPHILS % (AUTO) 3.1 %; HCT - HEMATOCRIT 35.8 % (42.0-52.0); HGB - HEMOGLOBIN 11.4 g/dL (14.0-18.0); LYMPHOCYTES # (AUTO) 0.5 10^3/uL (1.5-3.5); MEAN CORPUSCULAR HGB CONC 31.8 g/dL (32.0-36.0); MEAN CORPUSCULAR VOLUME 97.3 fL (80.0-94.0); MEAN PLATELET VOLUME 11.3 fL (7.4-11.4); MONOCYTES % (AUTO) 11.6 %; NEUTROPHILS # (AUTO) 6.8 10^3/uL (1.5-6.6); NEUTROPHILS % (AUTO) 78.3 %; PLT - PLATELET COUNT 122 10^3/uL (130-450); RED BLOOD COUNT 3.68 10^6/uL (4.70-6.10); RED CELL DISTRIBUTION WIDTH 14.5 % (12.0-15.0); WHITE BLOOD COUNT 8.7 x10^3/uL (4.8-10.8)
[2022-04-07 04:34] LABS: CALCIUM, IONIZED 1.15 mmol/L (1.15-1.33); VBG PH 7.382 (7.31-7.41)
[2022-04-07 04:37] LABS: INR 2.3 (0.8-1.2); PT - PROTHROMBIN TIME 25.9 secs (9.9-12.6)
[2022-04-07 04:38] LABS: CALCIUM 8.3 mg/dL (8.5-10.3); CREATININE 0.8 mg/dL (0.6-1.2); POTASSIUM 3.7 mmol/L (3.5-5.0)
[2022-04-07 04:57] LABS: MAGNESIUM 1.9 mg/dL (1.7-2.8); PHOSPHORUS 2.3 mg/dL (2.5-4.6)
[2022-04-07] MEDS: ABIRATERONE ACETATE 250 MG PO SCH (06:01)
--- NOTE | 2022-04-07 07:32 | PROVIDER PROGRESS NOTE ---
Subjective - Prog Note Date Prog Note Date: 04/07/22 - Subjective Subjective: He feels improved overall. A little less weaker than when he first came. He still feels short of breath at times and still has an occasional cough. No diarrhea. Current Medications - Current Medications Current Medications: Active Medications Acetaminophen (Acetaminophen 325 Mg Tablet) 650 mg PO Q4HR PRN PRN Reason: Pain 1 to 4, or Fever Last Admin: 04/07/22 09:03 Dose: 650 mg Cefepime HCl 2 gm/ Sodium (Chloride) 100 mls @ 200 mls/hr IV BID [facility] Last Infusion: 04/07/22 09:15 Dose: Infused Azithromycin 500 mg/ Sodium (Chloride) 250 mls @ 250 mls/hr IV DAILY [facility] Stop: 04/08/22 09:59 Last Infusion: 04/07/22 09:45 Dose: Infused Metoprolol Tartrate (Metoprolol Tartrate 25 Mg Tablet) 37.5 mg PO BID [facility] Last Admin: 04/07/22 08:35 Dose: 37.5 mg Morphine Sulfate (Morphine 2 Mg/Ml Carpuject) 2 mg IVP Q2HR PRN PRN Reason: PAIN Ondansetron HCl (Ondansetron Odt 4 Mg Tablet) 4 mg TL Q6HR PRN PRN Reason: Nausea / Vomiting Last Admin: 04/07/22 12:29 Dose: 4 mg Ondansetron HCl (Ondansetron 4 Mg/2 Ml Vial) 4 mg IVP Q6HR PRN PRN Reason: Nausea / Vomiting Last Admin: 04/06/22 08:30 Dose: 4 mg Abiraterone Acetate [Abiraterone Acetate] 250 Mg Tablet 4 each PO 0600 [facility] Last Admin: 04/07/22 06:01 Dose: 4 each Polyethylene Glycol (Polyethylene Glycol 3350 17 Gm Packet) 17 gm PO DAILY [facility] Last Admin: 04/07/22 08:09 Dose: 17 gm Prednisone (Prednisone 5 Mg Tablet) 5 mg PO QDBREAKFAST [facility] Last Admin: 04/07/22 08:35 Dose: 5 mg Sodium Chloride (Sodium Chloride Flush 0.9% 10 Ml Syringe) 10 ml IVP 0100,0900,1700 [facility] Last Admin: 04/07/22 08:28 Dose: 10 ml Sodium Chloride (Sodium Chloride Flush 0.9% 10 Ml Syringe) 10 ml IVP PRN PRN PRN Reason: NEEDED PER PROVIDER ORDERS Last Admin: 04/06/22 18:28 Dose: 10 ml Warfarin Sodium (Warfarin 5 Mg Tablet) 5 mg PO QDWARFARIN [facility] Stop: 04/11/22 23:59 Last Admin: 04/06/22 14:24 Dose: 5 mg Warfarin Sodium (Warfarin 2.5 Mg Tablet) 2.5 mg PO Q7D [facility] Last Admin: 04/05/22 16:43 Dose: 2.5 mg Warfarin [Coumadin] 5 mg ORAL .MOTUWETHSASU 08/16/14 allopurinoL [Allopurinol] 200 mg ORAL DAILY 08/16/14 Abiraterone Acetate 1,000 mg PO 0600 04/05/22 Leuprolide [Lupron] 45 mg IM .Q6MO 04/05/22 Metoprolol Tartrate [Lopressor] 37.5 mg PO BID 04/05/22 Minocycline HCl 100 mg PO BID 04/05/22 Nystatin/Triamcin [Nystatin-Triamcinolone Ointm] 1 applic TOP BID 04/05/22 Tamsulosin [Flomax] 0.4 mg PO .TIW 04/05/22 Warfarin [Coumadin] 2.5 mg PO .Friday04/05/22 Wheat Dextrin [Benefiber] 1 packet PO DAILY 04/05/22 mycophenolate mofetiL [Mycophenolate Mofetil] 1,000 mg PO BID 04/05/22 predniSONE [Deltasone] 5 mg PO QDBREAKFAST 04/05/22 Objective - Vital Signs/Intake & Output Reviewed Vital Signs: Yes Vital Signs: Vital Signs Temp Pulse Resp BP Pulse Ox 04/07/22 07:30 110 H 23 78 L 04/07/22 07:00 108 H 27 H 138/87 H 90 L 04/07/22 06:00 37.3 C 94 19 137/101 H 88 L 04/07/22 05:02 97 24 161/98 H 89 L 04/07/22 04:18 94 23 138/75 H 86 L 04/07/22 03:56 81 22 138/75 H 87 L Intake & Output: Intake & Output 04/04/22 04/05/22 04/06/22 04/07/22 23:59 23:59 23:59 23:59 Intake Total 5797.48 6405 50 Output Total 1285 1780 400 Balance 4512.48 4625 -350 - Objective General Appearance: positive: No acute distress, Alert Eyes Bilateral: positive: Normal inspection, Conjunctivae nml ENT: positive: ENT inspection nml Neck: positive: Nml inspection Respiratory: positive: No respiratory distress, Rales, Other (Diminished left base) Cardiovascular: positive: Irregularly irregular. negative: Tachycardia Abdomen: positive: Non-tender, No distention. negative: Tenderness Skin: positive: Warm, Dry Extremities: positive: Pedal edema (+1 edema in bilateral lower extremity) - Lab Results Fish Bones: 04/07/22 04:15 04/07/22 04:15 Other Labs: Lab Results x24hrs 04/07/22 04/07/22 04/07/22 Range/Units 04:15 04:15 04:15 WBC (4.8-10.8) x10^3/uL RBC (4.70-6.10) 10^6/uL Hgb (14.0-18.0) g/dL Hct (42.0-52.0) % MCV (80.0-94.0) fL MCH (27.0-31.0) pg MCHC (32.0-36.0) g/dL RDW (12.0-15.0) % Plt Count (130-450) 10^3/uL MPV (7.4-11.4) fL Neut # (Auto) (1.5-6.6) 10^3/uL Lymph # (Auto) (1.5-3.5) 10^3/uL [place] # (Auto) (0.0-1.0) 10^3/uL Eos # (Auto) (0.0-0.7) 10^3/uL Baso # (Auto) (0.0-0.1) 10^3/uL Absolute Nucleated RBC x10^3/uL Nucleated RBC % /100WBC PT 25.9 H (9.9-12.6) secs INR 2.3 H (0.8-1.2) VBG pH 7.382 (7.31-7.41) Ionized Calcium 1.15 (1.15-1.33) mmol/L Sodium (135-145) mmol/L Potassium (3.5-5.0) mmol/L Chloride (101-111) mmol/L Carbon Dioxide (21-32) mmol/L Anion Gap (6-13) BUN (6-20) mg/dL Creatinine (0.6-1.2) mg/dL Estimated GFR (MDRD) (>89) Glucose (70-100) mg/dL Calcium (8.5-10.3) mg/dL Phosphorus 2.3 L (2.5-4.6) mg/dL Magnesium 1.9 (1.7-2.8) mg/dL 04/07/22 04/07/22 04/06/22 Range/Units 04:15 04:15 21:30 WBC 8.7 (4.8-10.8) x10^3/uL RBC 3.68 L (4.70-6.10) 10^6/uL Hgb 11.4 L (14.0-18.0) g/dL Hct 35.8 L (42.0-52.0) % MCV 97.3 H (80.0-94.0) fL MCH 31.0 (27.0-31.0) pg MCHC 31.8 L (32.0-36.0) g/dL RDW 14.5 (12.0-15.0) % Plt Count 122 L (130-450) 10^3/uL MPV 11.3 (7.4-11.4) fL Neut # (Auto) 6.8 H (1.5-6.6) 10^3/uL Lymph # (Auto) 0.5 L (1.5-3.5) 10^3/uL [place] # (Auto) 1.0 (0.0-1.0) 10^3/uL Eos # (Auto) 0.3 (0.0-0.7) 10^3/uL Baso # (Auto) 0.0 (0.0-0.1) 10^3/uL Absolute Nucleated RBC 0.00 x10^3/uL Nucleated RBC % 0.0 /100WBC PT (9.9-12.6) secs INR (0.8-1.2) VBG pH 7.399 (7.31-7.41) Ionized Calcium 1.17 (1.15-1.33) mmol/L Sodium 141 (135-145) mmol/L Potassium 3.7 (3.5-5.0) mmol/L Chloride 107 (101-111) mmol/L Carbon Dioxide 27 (21-32) mmol/L Anion Gap 7.0 (6-13) BUN 13 (6-20) mg/dL Creatinine 0.8 (0.6-1.2) mg/dL Estimated GFR (MDRD) 94 (>89) Glucose 117 H (70-100) mg/dL Calcium 8.3 L (8.5-10.3) mg/dL Phosphorus (2.5-4.6) mg/dL Magnesium (1.7-2.8) mg/dL 04/06/22 Range/Units 11:10 WBC (4.8-10.8) x10^3/uL RBC (4.70-6.10) 10^6/uL Hgb (14.0-18.0) g/dL Hct (42.0-52.0) % MCV (80.0-94.0) fL MCH (27.0-31.0) pg MCHC (32.0-36.0) g/dL RDW (12.0-15.0) % Plt Count (130-450) 10^3/uL MPV (7.4-11.4) fL Neut # (Auto) (1.5-6.6) 10^3/uL Lymph # (Auto) (1.5-3.5) 10^3/uL Mills # (Auto) (0.0-1.0) 10^3/uL Eos # (Auto) (0.0-0.7) 10^3/uL Baso # (Auto) (0.0-0.1) 10^3/uL Absolute Nucleated RBC x10^3/uL Nucleated RBC % /100WBC PT (9.9-12.6) secs INR (0.8-1.2) VBG pH 7.381 (7.31-7.41) Ionized Calcium 1.10 L (1.15-1.33) mmol/L Sodium (135-145) mmol/L Potassium (3.5-5.0) mmol/L Chloride (101-111) mmol/L Carbon Dioxide (21-32) mmol/L Anion Gap (6-13) BUN (6-20) mg/dL Creatinine (0.6-1.2) mg/dL Estimated GFR (MDRD) (>89) Glucose (70-100) mg/dL Calcium (8.5-10.3) mg/dL Phosphorus (2.5-4.6) mg/dL Magnesium (1.7-2.8) mg/dL Sepsis Event Note (H) - Evaluation Current Stage of Sepsis: Septic shock Possible source of Sepsis: positive: Unknown (poss pulmonary) - Sepsis Criteria Sepsis Criteria: Recorded Temperature greater than 38.3C or Less than 36C, 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 He was on a liter of oxygen yesterday but today he is able to be weaned down to room air. He remains on cefepime and azithromycin. We will discontinue the vancomycin given low suspicion for HCAP and negative MRSA screen. He can be transferred out of the ICU today given he is no longer hypotensive and does not appear to be septic. If he remains stable throughout the day then he can likely be discharged home tomorrow on oral antibiotics. Continue supplemental oxygen for goal greater than 88%. (2) Prostate cancer, primary, with metastasis from prostate to other site Impression: Stable. We will continue his home prednisone and Zytiga. (3) Interstitial lung disease Impression: This is stable. We are continuing his home prednisone. We will resume CellCept this evening given he no longer appears septic. (4) Atrial fibrillation Impression: He remains rate controlled and we are continuing his home metoprolol and Coumadin. (5) Physical deconditioning Impression: He was seen by PT and a SNF was recommended although he prefers to go home. We did discuss he could either go home with home health PT or we could consider swing bed. He is open to the idea of swing bed and we will discuss with physical therapy tomorrow to see if he would be a good candidate for this. (6) SUKHWINDER on CPAP Impression: Continue home CPAP. (7) Septic shock Impression: This is resolved. Suspect this was likely due to the pneumonia as there has been no other obvious source of infection.
[2022-04-07] MEDS: polyethylene glycoL 3350 17 GM PACKET PO SCH (08:09)
[2022-04-07] MEDS: CEFEPIME 2 GM in SODIUM CHLORIDE 0.9% MINIBAG 100 ML IV SCH ×2 (08:28→21:06)
[2022-04-07] MEDS: predniSONE 5 MG TABLET PO SCH (08:35)
[2022-04-07] MEDS: METOPROLOL TARTRATE 25 MG TABLET PO SCH ×2 (08:35→21:05)
[2022-04-07] MEDS: NEUTRA-PHOS 250 MG TABLET PO SCH ×2 (08:35→10:20)
[2022-04-07] MEDS: AZITHROMYCIN INJ 500 MG in SODIUM CHLORIDE 0.9% 250 ML IV SCH (08:36)
[2022-04-07] MEDS ORDERED: POTASSIUM CHLORIDE 20 MEQ TABLET PO ONE (09:00)
[2022-04-07] MEDS: ACETAMINOPHEN 325 MG TABLET PO PRN (09:03)
--- NOTE | 2022-04-07 13:06 | XRAY Report ---
PROCEDURE: Chest 1 View X-Ray INDICATIONS: Hypoxia. Pneumonia? TECHNIQUE: One view of the chest was acquired. COMPARISON: 04/05/2022 FINDINGS: Surgical changes and devices: Right internal jugular central venous catheter tip is in SVC.. Lungs and pleura: Pulmonary vascular congestion and mild pulmonary edema is seen. Ill-defined opaciti es in bilateral lower lung borjas are seen concerning for small infiltrate/atelectasis. No significan t pleural effusion. No gross pneumothorax. Mediastinum: Mediastinal contours appear normal. Heart size is enlarged. Bones and chest wall: No suspicious bony lesions. Overlying soft tissues appear unremarkable. IMPRESSION: Cardia megaly and mild pulmonary vascular congestion suggestive of CHF. Pulmonary edema is also seen. Cannot rule out small underlying bibasilar infiltrate/atelectasis. Reviewed by: Jose Garzon MD on 04/07/2022 1:04 PM PDT Approved by: Jose Garzon MD on 04/07/2022 1:04 PM PDT Station ID: [id number]
[2022-04-07] MEDS: WARFARIN 5 MG TABLET PO SCH (13:59)
[2022-04-07] MEDS ORDERED: FUROSEMIDE 40 MG/4 ML VIAL IVP STA (16:28)
[2022-04-07] MEDS: mycophenolate mofetiL 250 MG CAPSULE PO SCH (21:04)
[2022-04-08] MEDS: SODIUM CHLORIDE FLUSH 0.9% 10 ML SYRINGE IVP SCH ×2 (00:23→09:08)
[2022-04-08] MEDS: ABIRATERONE ACETATE 250 MG PO SCH (05:42)
[2022-04-08 05:59] LABS: BASOPHILS # (AUTO) 0.1 10^3/uL (0.0-0.1); BASOPHILS % (AUTO) 0.7 %; EOSINOPHILS # (AUTO) 0.4 10^3/uL (0.0-0.7); EOSINOPHILS % (AUTO) 4.3 %; HCT - HEMATOCRIT 36.8 % (42.0-52.0); HGB - HEMOGLOBIN 11.7 g/dL (14.0-18.0); LYMPHOCYTES # (AUTO) 0.9 10^3/uL (1.5-3.5); MEAN CORPUSCULAR HEMOGLOBIN 30.6 pg (27.0-31.0); MEAN CORPUSCULAR HGB CONC 31.8 g/dL (32.0-36.0); MEAN CORPUSCULAR VOLUME 96.3 fL (80.0-94.0); MEAN PLATELET VOLUME 11.8 fL (7.4-11.4); MONOCYTES % (AUTO) 12.1 %; NEUTROPHILS % (AUTO) 71.3 %; PLT - PLATELET COUNT 147 10^3/uL (130-450); RED BLOOD COUNT 3.82 10^6/uL (4.70-6.10); RED CELL DISTRIBUTION WIDTH 14.5 % (12.0-15.0); WHITE BLOOD COUNT 8.5 x10^3/uL (4.8-10.8)
[2022-04-08 06:09] LABS: CALCIUM 8.6 mg/dL (8.5-10.3); CREATININE 0.8 mg/dL (0.6-1.2); POTASSIUM 3.3 mmol/L (3.5-5.0)
[2022-04-08 06:38] LABS: INR 2.6 (0.8-1.2); PT - PROTHROMBIN TIME 28.9 secs (9.9-12.6)
[2022-04-08] MEDS ORDERED: POTASSIUM CHLORIDE 20 MEQ TABLET PO SCH (08:00)
[2022-04-08] MEDS ORDERED: levoFLOXacin 250 MG TABLET PO SCH (09:00)
[2022-04-08] MEDS: predniSONE 5 MG TABLET PO SCH (09:06)
[2022-04-08] MEDS: mycophenolate mofetiL 250 MG CAPSULE PO SCH (09:07)
[2022-04-08] MEDS: METOPROLOL TARTRATE 25 MG TABLET PO SCH (09:07)
[2022-04-08] MEDS: polyethylene glycoL 3350 17 GM PACKET PO SCH (09:07)
--- NOTE | 2022-04-08 13:59 | Discharge Plan ---
Discharge Plan Problem Reviewed?: Yes Disposition: 61 Swing Bed DC/Xfer Condition: Stable Diet: Regular Activity Restrictions: Activity as Tolerated Health Concerns: You were admitted to the hospital because of concern for infection. We suspect you may have had either a viral infection or pneumonia. We treated you with antibiotics and IV fluid given your blood pressure was low. You have had significant improvement in your symptoms and you are now stable for discharge. You were seen by physical therapy and ongoing rehab was recommended so you will be admitted to our swing bed for ongoing physical therapy. You will remain on oral antibiotics for 3 more days. Assessment: Patient and family expressed understanding of the treatment plan. No Smoking: If you smoke, Please STOP! Call for help. Follow-up with: Elias Ashford MD [Primary Care Provider] -
[2022-04-08] MEDS ORDERED: WARFARIN 5 MG TABLET PO SCH (14:00)
--- NOTE | 2022-04-08 14:05 | DISCHARGE SUMMARY ---
Discharge Summary Admit Date: 04/05/22 Discharge Date: 04/08/22 Discharging Provider: Collin Hess Primary Care Provider: Elias Ashford Code Status: Attempt Resuscitation Condition at Discharge: Stable Discharge Disposition: 61 Swing Bed DC/Xfer - DIAGNOSES Admission Diagnoses: Septic shock Community-acquired pneumonia Diarrhea Prostate cancer with metastasis Interstitial lung disease Atrial fibrillation SUKHWINDER on CPAP Discharge Diagnoses with Status of Each Condition: Septic shock - resolved Community-acquired pneumonia - improved. Prostate cancer with metastasis - stable. Interstitial lung disease - stable. Atrial fibrillation - stable. Physical deconditioning - ongoing. Hypokalemia - stable. SUKHWINDER on CPAP - stable. - HPI History of Present Illness: This is a 76-year-old male with a past medical history significant for metastatic prostate cancer to the pelvis, atrial fibrillation on Coumadin, interstitial lung disease, SUKHWINDER on CPAP who presents today due to progressive weakness. He states over the past 2 to 3 days he has become progressively weak where he is barely able to get out of bed. He denies any focal deficits and states he just has general weakness. He reports no fevers but has had some chills. He states he has had diarrhea on and off but has persisted over the p ast week. He has had about 4 bowel movements a day. He believes the smell is quite foul compared to usual. He was started on minocycline this past Friday for possible staph infection of the face but the diarrhea began before this. He denies any chest pain, dyspnea. He is a chronic cough to initial lung disease he does not feel it is worse than usual. He had a little nausea but no vomiting . Denies any abdominal pain. Reports no dysuria, urgency, hematuria. He states he saw his phlebotomy manager, oncologist, primary care physician over the past couple weeks and that he was doing well during his visits. His does note that his white blood cell count was a little elevated when he had blood work obtained a few weeks ago. In the emergency department, he was noted to be febrile. He was initially normotensive but then became unresponsive for a brief period of time and his blood pressure time was in the 60s systolic. He received IV fluids and a central line was placed but he never required vasopressors. His blood pressure improved and remained stable. Labs revealed leukocytosis but were otherwise unremarkable. Lactic acid was 2.2. Given this, he was given broad-spectrum antibiotics and medicine was consulted for admission. I discussed goals of care the patient and he is unsure about this quite yet and so therefore he will be a full code. - HOSPITAL COURSE Hospital Course: The patient was admitted to intensive care unit given concern for septic shock secondary to possible pneumonia. He was treated empirically with vancomycin, cefepime, Flagyl IV. The only obvious source of infection was a potential pneumonia. Blood cultures remain negative to date and his urinalysis was unremarkable. The Flagyl and vancomycin were discontinued and he started on azithromycin to cover for atypicals on hospital day 2. He continued to progress and with IV fluids was no longer hypotensive. He was continued on his home metoprolol and Coumadin with stable blood pressures and resolution of his white blood cell count. He was seen by physical therapy and a SNF was recommended but the patient preferred to either go home with home health or go to the swing bed. He was ultimately agreeable to swing bed and he is now being discharged there in a stable condition. He is transition to oral Levaquin for 3 more days of treatment to complete 7 days of therapy for the community-acquired pneumonia. He is resumed on his home immunosuppressants. The patient is edematous on the day of discharge due to the IV fluids he had received. He has had excellent urine output and his edema is improving each day. We will not use diuretics. - ALLERGIES Allergies/Adverse Reactions: Allergies Allergy/AdvReac Type Severity Reaction Status Date / Time Penicillins Allergy Unknown Verified 08/16/14 13:46 Sulfa (Sulfonamide Allergy Unknown Verified 08/16/14 13:46 Antibiotics) - MEDICATIONS Home Medications: Ambulatory Orders Medication Instructions Recorded Confirmed Warfarin [Coumadin] 5 mg ORAL .MOTUWETHSASU 08/16/14 04/05/22 allopurinoL [Allopurinol] 200 mg ORAL DAILY 08/16/14 04/05/22 Abiraterone Acetate 1,000 mg PO 0600 04/05/22 04/05/22 Leuprolide [Lupron] 45 mg IM .Q6MO 04/05/22 04/05/22 Metoprolol Tartrate [Lopressor] 37.5 mg PO BID 04/05/22 04/05/22 Nystatin/Triamcin 1 applic TOP BID 04/05/22 04/05/22 [Nystatin-Triamcinolone Ointm] Tamsulosin [Flomax] 0.4 mg PO .TIW 04/05/22 04/05/22 Warfarin [Coumadin] 2.5 mg PO .Friday04/05/22 04/05/22 Wheat Dextrin [Benefiber] 1 packet PO DAILY 04/05/22 04/05/22 mycophenolate mofetiL 1,000 mg PO BID 04/05/22 04/05/22 [Mycophenolate Mofetil] predniSONE [Deltasone] 5 mg PO QDBREAKFAST 04/05/22 04/05/22 Potassium Chloride [K-Dur] 20 meq PO DAILYWM tablet 04/08/22 levoFLOXacin [Levaquin] 750 mg PO DAILY 3 Days #9 tablet 04/08/22 - PHYSICAL EXAM AT DISCHARGE General Appearance: positive: No acute distress, Alert Eyes Bilateral: positive: Normal inspection, Conjunctivae nml ENT: positive: ENT inspection nml Neck: positive: Nml inspection Respiratory: positive: No respiratory distress, Other (Crackles bilaterally). negative: Wheezes Cardiovascular: positive: Irregularly irregular. negative: Tachycardia, Systolic murmur Abdomen: positive: Non-tender, No distention. negative: Tenderness Skin: positive: Warm, Dry Extremities: positive: Pedal edema (+1 edema in bilateral lower extremities/) Neurologic/Psychiatric: positive: Motor nml. negative: Disoriented to person, Disoriented to place Physical Exam Other/Comments: Vital Signs - 24 hr 04/07/22 04/07/22 04/07/22 16:06 20:20 21:05 Temperature 36.3 C L 36.9 C Heart Rate [ 69 87 Brachial] Respiratory 24 20 Rate Blood Pressure 161/79 H Blood Pressure [Left Brachial artery] Blood Pressure 119/73 107/87 H [Right Brachial artery] O2 Saturation 95 93 04/08/22 04/08/22 04/08/22 02:15 06:00 07:40 Temperature 36.9 C 37.2 C 36.9 C Heart Rate [ 86 84 68 Brachial] Respiratory 22 18 18 Rate Blood Pressure Blood Pressure 135/60 H 147/78 H [Left Brachial artery] Blood Pressure 129/75 [Right Brachial artery] O2 Saturation 92 94 91 L 04/08/22 04/08/22 04/08/22 09:06 09:07 12:15 Temperature 37.1 C Heart Rate [ 78 Brachial] Respiratory 17 Rate Blood Pressure 117/70 Blood Pressure 123/79 [Left Brachial artery] Blood Pressure [Right Brachial artery] O2 Saturation 96 95 Oxygen O2 Source Room air - LABS Result Diagrams: 04/08/22 05:37 04/08/22 05:37 - DIAGNOSTIC IMAGING Diagnostic Imaging Results: Final report reviewed - SEPSIS Current Stage of Sepsis: Resolved Possible source of Sepsis: Pulmonary Sepsis Criteria: Recorded Temperature greater than 38.3C or Less than 36C, FINGER BUFFS ASSEMBLER: altered consciousness (unrelated to primary neuro pathology), SBP drop more than 40mHg, Metabolic: lactate > 2 mmol/L - FOLLOW UP Follow Up: He will be admitted to [facility] bed status. - TIME SPENT Time Spent in Discharge (Minutes): 32
[2022-04-08 19:13] VITALS: BP 112/74
[2022-04-12] MEDS ORDERED: WARFARIN 2.5 MG TABLET PO SCH (14:00)
== END 2022-04-08 14:32 | disposition swing bed (61) | DRG 871 ==
LOC: EDUNIT# → ED 06:34 → ICU 09:31 → MS2 04-07 13:53
PROVIDERS: ADMIT Internal Medicine; ATTEND Internal Medicine
DX: A41.9 Sepsis, unspecified organism (principal); J18.9 Pneumonia, unspecified organism; R65.21 Severe sepsis with septic shock; C79.89 Secondary malignant neoplasm of other specified sites; B99.8 Other infectious disease; J84.9 Interstitial pulmonary disease, unspecified; R40.4 Transient alteration of awareness; Z20.822 Contact with and (suspected) exposure to COVID-19; I95.9 Hypotension, unspecified; C61 Malignant neoplasm of prostate; I48.91 Unspecified atrial fibrillation; R53.1 Weakness; G47.33 Obstructive sleep apnea (adult) (pediatric); E87.6 Hypokalemia; Z79.01 Long term (current) use of anticoagulants; R19.7 Diarrhea, unspecified; B95.8 Unspecified staphylococcus as the cause of diseases classified elsewhere; M54.9 Dorsalgia, unspecified; G89.29 Other chronic pain
CPT/HCPCS: 36415; 36556; 71045; 80048; 80053; 81003; 82330; 83605; 83690; 83735; 84100; 85025; 85610; 85651; 86140; 87040; 87045; 87046; 87150; 87427; 87633; 97110; 97116; 97162; 97165; 99285; 99291; A9270; J3370; J7120; J7512; Q0162; 80202; 81001; 87086; 87493

== ENCOUNTER 2022-04-08 14:17 | Inpatient (IN) | payer MEDICARE, OTHER ==
[2022-04-08] MEDS ORDERED: ACETAMINOPHEN 325 MG TABLET PO PRN (14:33)
[2022-04-08] MEDS: mycophenolate mofetiL 250 MG CAPSULE PO SCH (21:09)
[2022-04-08] MEDS: METOPROLOL TARTRATE 25 MG TABLET PO SCH (21:09)
[2022-04-09] MEDS: ABIRATERONE ACETATE 250 MG PO SCH (06:05)
[2022-04-09] MEDS: levoFLOXacin 250 MG TABLET PO SCH (08:46)
[2022-04-09] MEDS: POTASSIUM CHLORIDE 20 MEQ TABLET PO SCH (08:47)
[2022-04-09] MEDS: allopurinoL 100 MG TABLET PO SCH (08:47)
[2022-04-09] MEDS: predniSONE 5 MG TABLET PO SCH (08:48)
[2022-04-09] MEDS: polyethylene glycoL 3350 17 GM PACKET PO SCH (08:48)
[2022-04-09] MEDS: mycophenolate mofetiL 250 MG CAPSULE PO SCH ×2 (08:48→21:17)
[2022-04-09] MEDS: METOPROLOL TARTRATE 25 MG TABLET PO SCH ×2 (08:49→21:17)
[2022-04-09] MEDS: TAMSULOSIN 0.4 MG CAPSULE PO SCH (10:55)
--- NOTE | 2022-04-09 10:58 | HISTORY & PHYSICAL EXAMINATION ---
Chief Complaint - Chief Complaint Chief Complaint: Weakness History of Present Illness - Admitted From Admitted From:: Inpatient status - History of Present Illness HPI Comment/Other: This is a 76-year-old white male with a history of Morbid obesity (BMI 38),ILD, SUKHWINDER on CPAP, Afib on Coumadin, metastatic prostate cancer. He was admitted to the hospital several days ago for community-acquired pneumonia that caused shock and severe sepsis. He was in the ICU, started on antibiotics, has become very deconditioned and is requiring PT and OT rehab in SNF. He is being admitted to [facility] ([facility]) for rehab. He is on oral Levaquin for 3 more days for the pneumonia treatment. He was an inpatient hospitalized for several days, and had no diarrhea until today. It is most likely from having IV antibiotics. He has no other complaints today. History - Past Medical History Cardiovascular: reports: Atrial fibrillation Respiratory: reports: Sleep apnea, CPAP use Neuro: reports: None Endocrine/Autoimmune: reports: None GI: reports: Hepatitis : reports: Kidney stones, Other HEENT: reports: None Psych: reports: None Musculoskeletal: reports: Osteoarthritis, Fatigue Derm: reports: None MRSA Hx?: No - Past Surgical History General: reports: Colonoscopy Ortho: reports: Other Cardiovascular: reports: Other HEENT: reports: Cataracts, Tonsil/Adenoidectomy - Family & Social History Family History: Mother: , Father: Family History Comment/Other: Both of his parents had history of strokes and dementia. They in their late 80s. Living arrangement: At home Living Situation: With spouse/s.o. Social History Notes: He lives at home with his Ame. He is a non-smoker and does not drink alcohol. - Substance History Use: Uses substance without health or social issues: NONE - POLST Patient has POLST: No Meds/Allgy - Home Medications Home Medications: Ambulatory Orders Medication Instructions Recorded Confirmed Warfarin [Coumadin] 5 mg ORAL .MOTUWETHSASU 08/16/14 04/09/22 allopurinoL [Allopurinol] 200 mg ORAL DAILY 08/16/14 04/09/22 Abiraterone Acetate 1,000 mg PO 0600 04/05/22 04/09/22 Leuprolide [Lupron] 45 mg IM .Q6MO 04/05/22 04/09/22 Metoprolol Tartrate [Lopressor] 37.5 mg PO BID 04/05/22 04/09/22 Nystatin/Triamcin 1 applic TOP BID 04/05/22 04/09/22 [Nystatin-Triamcinolone Ointm] Tamsulosin [Flomax] 0.4 mg PO .TIW 04/05/22 04/09/22 Warfarin [Coumadin] 2.5 mg PO .Friday04/05/22 04/09/22 Wheat Dextrin [Benefiber] 1 packet PO DAILY 04/05/22 04/09/22 mycophenolate mofetiL 1,000 mg PO BID 04/05/22 04/09/22 [Mycophenolate Mofetil] predniSONE [Deltasone] 5 mg PO QDBREAKFAST 04/05/22 04/09/22 Potassium Chloride [K-Dur] 20 meq PO DAILYWM tablet 04/08/22 04/09/22 levoFLOXacin [Levaquin] 750 mg PO DAILY 3 Days #9 tablet 04/08/22 04/09/22 - Allergies Allergies/Adverse Reactions: Allergies Allergy/AdvReac Type Severity Reaction Status Date / Time Penicillins Allergy Unknown Verified 08/16/14 13:46 Sulfa (Sulfonamide Allergy Unknown Verified 08/16/14 13:46 Antibiotics) Exam - Vital Signs Vital Signs: Vital Signs x48h Temp Pulse Resp BP BP Pulse Ox 04/09/22 08:58 94 04/09/22 08:49 120/75 04/09/22 07:30 36.7 C 88 20 157/92 H 93 - Physical Exam General Appearance: positive: Other (Obese WM, in no distress, male pattern baldness.) Eyes Bilateral: positive: Normal inspection, EOMI ENT: positive: ENT inspection nml, No signs of dehydration Neck: positive: Nml inspection, Other (Obese and cannot eval JVP) Respiratory: positive: No respiratory distress, Breath sounds nml Cardiovascular: positive: No murmur, Irregularly irregular Abdomen: positive: Non-tender, Nml bowel sounds, Other (Obese with a pannus) Skin: positive: Warm, Dry Extremities: positive: Non-tender, No pedal edema Neurologic/Psychiatric: positive: Oriented x3 (Non-focal exam grossly) Conclusion/Plan - Problem List (1) Physical deconditioning Conclusion/Plan: The patient is being admitted to SNF ([facility]) to have daily PT and OT before being discharged home. (2) Interstitial lung disease Conclusion/Plan: As per Hx. We will continue his usual pulmonary medications. If there is need, before discharge, we will do an oximetry walk test to assess if he needs home O2 ordered. (3) SUKHWINDER on CPAP Conclusion/Plan: We will order his CPAP device to be used here (4) Atrial fibrillation Conclusion/Plan: We will continue with his usual medications for heart rate control and anticoagulation for sttroke prophylaxis. (5) Community acquired pneumonia Conclusion/Plan: He will finish several more days of oral Levaquin to complete the course of treatment, along with a Probiotic (6) Diarrhea Conclusion/Plan: He was an inpatient hospitalized for several days, had no diarrhea until today. It is most likely from having IV antibiotics. Will check diarrhea for C. difficile and if positive will order isolation and appropriate p.o. Vanco. We will continue with probiotics. He says now it is mostly just passing gas, very little of the diarrhea. Will give Imodium if needed and if C. difficile is neg (7) Prostate cancer, primary, with metastasis from prostate to other site Conclusion/Plan: As per Hx (8) BPH (benign prostatic hyperplasia) Conclusion/Plan: We will continue his usual meds for prostate while here
--- NOTE | 2022-04-09 12:50 | PHARMACY PROGRESS NOTE ---
- Best Possible Medication History Admit Date and Time: 04/08/22 1430 Processed by: Pharmacy Medication History completed: Yes Patient Interview: Completed As the person ultimately responsible for medication therapy, providers are able to order a medication from an existing home medication list in [facility] via the "Reconcile Routine" prior to Confirmation of that medication by technical sales support specialist. Such practice is discouraged except when the physician, in their clinical deanna gment, deems that a medical need exists for a medication without regard to previous use.
[2022-04-09] MEDS: WARFARIN 5 MG TABLET PO SCH (14:08)
[2022-04-10] MEDS: SODIUM CHLORIDE FLUSH 0.9% 10 ML SYRINGE IVP SCH ×3 (01:02→17:35)
[2022-04-10] MEDS: ABIRATERONE ACETATE 250 MG PO SCH (06:42)
[2022-04-10] MEDS ORDERED: TAMSULOSIN 0.4 MG CAPSULE PO SCH (09:00)
[2022-04-10] MEDS: POTASSIUM CHLORIDE 20 MEQ TABLET PO SCH (09:08)
[2022-04-10] MEDS: levoFLOXacin 250 MG TABLET PO SCH (09:08)
[2022-04-10] MEDS: TAMSULOSIN 0.4 MG CAPSULE PO SCH (09:08)
[2022-04-10] MEDS: allopurinoL 100 MG TABLET PO SCH (09:08)
[2022-04-10] MEDS: predniSONE 5 MG TABLET PO SCH (09:08)
[2022-04-10] MEDS: mycophenolate mofetiL 250 MG CAPSULE PO SCH ×2 (09:09→21:30)
[2022-04-10] MEDS: METOPROLOL TARTRATE 25 MG TABLET PO SCH ×2 (09:09→21:30)
[2022-04-10] MEDS: polyethylene glycoL 3350 17 GM PACKET PO SCH (09:10)
[2022-04-10] MEDS: WARFARIN 5 MG TABLET PO SCH (14:09)
[2022-04-11] MEDS: SODIUM CHLORIDE FLUSH 0.9% 10 ML SYRINGE IVP SCH ×3 (00:29→15:33)
[2022-04-11] MEDS: ABIRATERONE ACETATE 250 MG PO SCH (06:11)
[2022-04-11] MEDS: METOPROLOL TARTRATE 25 MG TABLET PO SCH ×2 (08:44→21:10)
[2022-04-11] MEDS: mycophenolate mofetiL 250 MG CAPSULE PO SCH ×2 (08:44→21:09)
[2022-04-11] MEDS: TAMSULOSIN 0.4 MG CAPSULE PO SCH (08:44)
[2022-04-11] MEDS: levoFLOXacin 250 MG TABLET PO SCH (08:44)
[2022-04-11] MEDS: LACTOBACILLUS RHAMNOSUS GG CAPSULE PO SCH (08:44)
[2022-04-11] MEDS: predniSONE 5 MG TABLET PO SCH (08:44)
[2022-04-11] MEDS: allopurinoL 100 MG TABLET PO SCH (08:45)
[2022-04-11] MEDS: POTASSIUM CHLORIDE 20 MEQ TABLET PO SCH (08:45)
[2022-04-11] MEDS: polyethylene glycoL 3350 17 GM PACKET PO SCH (08:45)
[2022-04-11] MEDS: LOPERAMIDE 2 MG CAPSULE PO PRN ×3 (12:34→20:48)
[2022-04-11] MEDS: WARFARIN 5 MG TABLET PO SCH (14:05)
[2022-04-12] MEDS: SODIUM CHLORIDE FLUSH 0.9% 10 ML SYRINGE IVP SCH ×2 (00:01→08:30)
[2022-04-12] MEDS: ABIRATERONE ACETATE 250 MG PO SCH (05:27)
[2022-04-12 05:28] LABS: BASOPHILS # (AUTO) 0.1 10^3/uL (0.0-0.1); BASOPHILS % (AUTO) 0.7 %; EOSINOPHILS # (AUTO) 0.3 10^3/uL (0.0-0.7); HCT - HEMATOCRIT 35.6 % (42.0-52.0); HGB - HEMOGLOBIN 11.8 g/dL (14.0-18.0); LYMPHOCYTES # (AUTO) 1.4 10^3/uL (1.5-3.5); LYMPHOCYTES % (AUTO) 14.2 %; MEAN CORPUSCULAR HGB CONC 33.1 g/dL (32.0-36.0); MEAN CORPUSCULAR VOLUME 93.4 fL (80.0-94.0); MONOCYTES # (AUTO) 0.8 10^3/uL (0.0-1.0); MONOCYTES % (AUTO) 8.3 %; NEUTROPHILS # (AUTO) 6.9 10^3/uL (1.5-6.6); PLT - PLATELET COUNT 196 10^3/uL (130-450); RED BLOOD COUNT 3.81 10^6/uL (4.70-6.10); RED CELL DISTRIBUTION WIDTH 14.5 % (12.0-15.0); WHITE BLOOD COUNT 9.5 x10^3/uL (4.8-10.8)
[2022-04-12 05:34] LABS: CALCIUM 8.3 mg/dL (8.5-10.3); CREATININE 0.7 mg/dL (0.6-1.2); MAGNESIUM 2.1 mg/dL (1.7-2.8); POTASSIUM 3.3 mmol/L (3.5-5.0)
[2022-04-12 06:38] LABS: INR 2.9 (0.8-1.2); PT - PROTHROMBIN TIME 31.8 secs (9.9-12.6)
[2022-04-12 07:59] VITALS: BP 136/67
[2022-04-12] MEDS: allopurinoL 100 MG TABLET PO SCH (08:26)
[2022-04-12] MEDS: TAMSULOSIN 0.4 MG CAPSULE PO SCH (08:26)
[2022-04-12] MEDS: LACTOBACILLUS RHAMNOSUS GG CAPSULE PO SCH (08:27)
[2022-04-12] MEDS: predniSONE 5 MG TABLET PO SCH (08:27)
[2022-04-12] MEDS: mycophenolate mofetiL 250 MG CAPSULE PO SCH (08:27)
[2022-04-12] MEDS: METOPROLOL TARTRATE 25 MG TABLET PO SCH (08:28)
[2022-04-12] MEDS: polyethylene glycoL 3350 17 GM PACKET PO SCH (08:29)
[2022-04-12] MEDS ORDERED: POTASSIUM CHLORIDE 20 MEQ TABLET PO ONE (09:28)
--- NOTE | 2022-04-12 12:40 | Discharge Plan ---
Discharge Plan Problem Reviewed?: Yes Disposition: 06 Home Health Service Condition: Stable Diet: Low Sodium Activity Restrictions: Activity as Tolerated Shower Restrictions: No Driving Restrictions: No Assistance Devices: Walker Health Concerns: You were in the [facility] rehab setting for physical therapy for strengthening. During that time you finish the antibiotics that were needed for the pneumonia and sepsis that you had as an inpatient previously. Please resume all your usual medications. Keep your legs elevated whenever pos sible to help drain the ankle swelling. Please see your PCP and/or Mobile Application Architect in the next 1 to 4 weeks. Plan of Treatment: As above. Care Goals: Improvement in symptoms and stabilization are the goals. Assessment: The patient and at bedside understand and are agreeable with the plan. Additional Instructions or Follow Up instructions: If you have new or worsening symptoms, call your PCP or Mobile Application Architect for advice or come to the ED. No Smoking: If you smoke, Please STOP! Call for help. Follow-up with: Elias Ashford MD [Provider Admit Priv/Credential] -
--- NOTE | 2022-04-12 13:22 | DISCHARGE SUMMARY ---
Discharge Summary Admit Date: 04/09/22 Discharge Date: 04/12/22 Discharging Provider: Dr Negrita Guillen Primary Care Provider: Dr Elias Ashford Condition at Discharge: Stable Discharge Disposition: [facility] History of Present Illness: This is a 76-year-old white male with a history of Morbid obesity (BMI 38),ILD, SUKHWINDER on CPAP, Afib on Coumadin, metastatic prostate cancer. He was admitted to the hospital several days ago for community-acquired pneumonia that caused shock and severe sepsis. He was in the ICU, started on antibiotics, has become very deconditioned and is requiring PT and OT rehab in SNF. He is being admitted to [facility] ([facility]) for rehab. He is on oral Levaquin for 3 more days for the pneumonia treatment. He was an inpatient hospitalized for several days, and had no diarrhea until today. It is most likely from having IV antibiotics. He has no other complaints today. - HOSPITAL COURSE Hospital Course: (1) Physical deconditioning The patient was admitted to SNF ([facility]) and had daily PT and OT before being discharged home. Further PT and OT rehab were recommended and a Home Health agency referral was sent. (2) Interstitial lung disease As per Hx. We continued his usual pulmonary medications. On the day of discharge, he did an oximetry walk test to assess if he needs home O2 ordered, and the patient did not desaturate. (3) SUKHWINDER on CPAP We ordered his CPAP device to be used while here (4) Atrial fibrillation We continued his usual medications for heart rate control and anticoagulation for stroke prophylaxis. (5) Community acquired pneumonia He finished several more days of oral Levaquin to complete the course of treatment for the admitting pneumonia, along with a probiotic (6) Diarrhea He was an inpatient hospitalized for pneumonia and had no diarrhea until the day of admission to [facility]. It is most likely from having had IV antibiotics. The diarrhea was tested for C. difficile and was neg. His probiotic was continued and he got Imodium prn. There was diarrhea for about 3 days, then it stopped before his discharge to home. (7) Prostate cancer, primary, with metastasis from prostate to other site As per Hx. (8) BPH (benign prostatic hyperplasia) We continued his usual meds for his prostate while here - ALLERGIES Allergies/Adverse Reactions: Allergies Allergy/AdvReac Type Severity Reaction Status Date / Time Penicillins Allergy Unknown Verified 08/16/14 13:46 Sulfa (Sulfonamide Allergy Unknown Verified 08/16/14 13:46 Antibiotics) - MEDICATIONS Home Medications: Ambulatory Orders Medication Instructions Recorded Confirmed Warfarin [Coumadin] 5 mg ORAL .MOTUWETHSASU 08/16/14 04/09/22 allopurinoL [Allopurinol] 200 mg ORAL DAILY 08/16/14 04/09/22 Abiraterone Acetate 1,000 mg PO 0600 04/05/22 04/09/22 Leuprolide [Lupron] 45 mg IM .Q6MO 04/05/22 04/09/22 Metoprolol Tartrate [Lopressor] 37.5 mg PO BID 04/05/22 04/09/22 Nystatin/Triamcin 1 applic TOP BID 04/05/22 04/09/22 [Nystatin-Triamcinolone Ointm] Tamsulosin [Flomax] 0.4 mg PO .TIW 04/05/22 04/09/22 Warfarin [Coumadin] 2.5 mg PO .Friday04/05/22 04/09/22 Wheat Dextrin [Benefiber] 1 packet PO DAILY 04/05/22 04/09/22 mycophenolate mofetiL 1,000 mg PO BID 04/05/22 04/09/22 [Mycophenolate Mofetil] predniSONE [Deltasone] 5 mg PO QDBREAKFAST 04/05/22 04/09/22 - PHYSICAL EXAM AT DISCHARGE General Appearance: positive: No acute distress, Other (Obese, male pattern bal dness) Eyes Bilateral: positive: Normal inspection, EOMI ENT: positive: ENT inspection nml, No signs of dehydration Neck: positive: Other (Obese and cannot eval JVP) Respiratory: positive: No respiratory distress, Rales (R base) Cardiovascular: positive: Regular rate & rhythm, No murmur Abdomen: positive: Non-tender, Other (Obese with a pannus) Skin: positive: Warm, Dry Extremities: positive: Non-tender, Other (1+ edema to mid shins) - LABS Result Diagrams: 04/12/22 04:57 04/12/22 04:57 - DIAGNOSTIC IMAGING Diagnostic Imaging Results: Final report reviewed - FOLLOW UP Follow Up: See PCP or Elevator Mechanic Apprentice in 1-2 weeks. - TIME SPENT Time Spent in Discharge (Minutes): 30
[2022-04-12] MEDS ORDERED: WARFARIN 2.5 MG TABLET PO SCH (14:00)
== END 2022-04-12 14:00 | disposition home health service (06) | DRG 947 ==
LOC: MS2 14:33
PROVIDERS: ADMIT Internal Medicine; ATTEND Internal Medicine
DX: R53.1 Weakness (principal); J18.9 Pneumonia, unspecified organism; J84.9 Interstitial pulmonary disease, unspecified; K52.1 Toxic gastroenteritis and colitis; C79.89 Secondary malignant neoplasm of other specified sites; G47.33 Obstructive sleep apnea (adult) (pediatric); I48.91 Unspecified atrial fibrillation; T36.95XA Adverse effect of unspecified systemic antibiotic, initial encounter; Y92.239 Unspecified place in hospital as the place of occurrence of the external cause; N40.0 Benign prostatic hyperplasia without lower urinary tract symptoms; Z79.01 Long term (current) use of anticoagulants; E66.01 Morbid (severe) obesity due to excess calories; Z68.38 Body mass index [BMI] 38.0-38.9, adult; C61 Malignant neoplasm of prostate
CPT/HCPCS: 36415; 80048; 83735; 85025; 85610; 87493; 94761

== ENCOUNTER 2022-04-14 01:57 | Outpatient (CLI) | payer MEDICARE, OTHER | END 2022-04-14 01:58 | disposition critical access hospital (66) | LOC: EMS 01:57 | DX: R53.1 Weakness (principal); R50.9 Fever, unspecified | CPT/HCPCS: A0425; A0427 ==

== ENCOUNTER 2022-04-14 02:12 | Inpatient (IN) | payer MEDICARE, OTHER ==
--- NOTE | 2022-04-14 02:24 | ED Physician Documentation ---
PD HPI DYSPNEA - Stated complaint Stated Complaint: FEVER/WEAKNESS - History obtained from History obtained from: Patient - History of Present Illness Timing - onset: How many days ago (The patient and and medics report information from his that the patient has had increased dyspnea with fever and cough over the last couple of days. Recently discharged 2 days ago from swing bed post hospitalization for pneumonia here at [facility].) Timing - onset during: Light activity Timing - duration: Days (1-2) Timing - details: Gradual onset, Still present Inciting event(s): URI (Fever cough and dyspnea in the last 1 to 2 days similar to his pneumonia from 2 weeks ago.), Immobilization/travel (has been hospitalized the past 2 weeks, discharged 2 days ago.). No: Out of meds Improved by: Rest, Sitting up Worsened by: Laying flat, Coughing Similar symptoms before: Diagnosis (recent admission for pneumonia. History of some CHF. Denies history of COPD though recent admission notes comment on chronic lung disease, but I do not see discharge inhalers.) Recently seen: Emergency Dept, Admitted Review of Systems Constitutional: reports: Fever (1-2 days), Myalgias Nose: reports: Congestion. denies: Rhinorrhea / runny nose Throat: denies: Sore throat Cardiac: reports: Pedal edema. denies: Chest pain / pressure, Calf pain Respiratory: reports: Dyspnea, Cough, Wheezing GI: denies: Abdominal Pain, Nausea, Vomiting, Diarrhea Musculoskeletal: denies: Neck pain, Back pain Neurologic: reports: Generalized weakness, Difficulty speaking (due to dyspnea). denies: Focal weakness, Numbness, Near syncope PD PAST MEDICAL HISTORY - Past Medical History Cardiovascular: Atrial fibrillation Respiratory: Sleep apnea, CPAP use Neuro: None Endocrine/Autoimmune: None GI: Hepatitis : Kidney stones, Other HEENT: None Psych: None Musculoskeletal: Osteoarthritis, Fatigue Derm: None - Past Surgical History General: Colonoscopy Ortho: Other Cardiovascular: Other HEENT: Cataracts, Tonsil/Adenoidectomy - Present Medications Home Medications: Ambulatory Orders Medication Instructions Recorded Confirmed Warfarin [Coumadin] 5 mg ORAL .MOTUWETHSASU 08/16/14 04/09/22 allopurinoL [Allopurinol] 200 mg ORAL DAILY 08/16/14 04/09/22 Abiraterone Acetate 1,000 mg PO 0600 04/05/22 04/09/22 Leuprolide [Lupron] 45 mg IM .Q6MO 04/05/22 04/09/22 Metoprolol Tartrate [Lopressor] 37.5 mg PO BID 04/05/22 04/09/22 Nystatin/Triamcin 1 applic TOP BID 04/05/22 04/09/22 [Nystatin-Triamcinolone Ointm] Tamsulosin [Flomax] 0.4 mg PO .TIW 04/05/22 04/09/22 Warfarin [Coumadin] 2.5 mg PO .Friday04/05/22 04/09/22 Wheat Dextrin [Benefiber] 1 packet PO DAILY 04/05/22 04/09/22 mycophenolate mofetiL 1,000 mg PO BID 04/05/22 04/09/22 [Mycophenolate Mofetil] predniSONE [Deltasone] 5 mg PO QDBREAKFAST 04/05/22 04/09/22 - Allergies Allergies/Adverse Reactions: Allergies Allergy/AdvReac Type Severity Reaction Status Date / Time Penicillins Allergy Unknown Verified 04/14/22 02:18 Sulfa (Sulfonamide Allergy Unknown Verified 04/14/22 02:18 Antibiotics) - Social History Smoking Status: Never smoker - POLST Patient has POLST: No PD ED PE NORMAL - Vitals Vital signs reviewed: Yes - General General: Alert and oriented X 3, Well developed/nourished, Other (Appears in discomfort with labored breathing, accessory muscle use and tachypnea. Oxygenation lower 90s to upper 80s at times. Prefers sitting upright.) - HEENT HEENT: Ears normal, Pharynx benign. No: Moist mucous membranes - Neck Neck: Supple, no meningeal sign, Other (JVD noted at 45 degrees. ) - Cardiac Cardiac: RRR, No murmur - Respiratory Respiratory: No: Clear bilaterally (some coarse sounds right sided, with exp wheezes centrally and prolonged exp phase. Also some fine crackles at bases. ) - Abdomen Abdomen: Soft, Non tender - Male Male : Deferred - Rectal Rectal: Deferred - Back Back: No CVA TTP - Derm Derm: Warm and dry (no diaphoresis), No rash. No: Normal color (mild pallor) - Extremities Extremities: No calf tenderness / cord, Other (2+ pitting edema in both lower legs/ankles) - Neuro Neuro: Alert and oriented X 3, No motor deficit, Normal speech (partial sentence dyspnea.) Eye Opening: Spontaneous Motor: Obeys Commands Verbal: Oriented GCS Score: 15 - Psych Psych: Normal affect Results - Vitals Vitals: Vital Signs - 24 hr 04/14/22 04/14/22 04/14/22 02:18 02:36 02:55 Temperature 37.8 C Heart Rate 85 75 93 Respiratory 31 H 32 H 28 H Rate Blood Pressure 115/76 119/56 L O2 Saturation 94 91 L 04/14/22 04/14/22 04/14/22 03:00 03:25 04:00 Temperature Heart Rate 103 H 105 H Respiratory 30 H 28 H Rate Blood Pressure 92/75 O2 Saturation 89 L 94 94 04/14/22 04/14/22 04/14/22 04:30 04:51 05:00 Temperature 37.3 C Heart Rate 113 H 86 95 Respiratory 19 26 H 24 Rate Blood Pressure 84/57 L 102/60 O2 Saturation 95 98 04/14/22 04/14/22 04/14/22 05:30 06:00 06:30 Temperature Heart Rate 94 95 85 Respiratory 28 H 29 H 28 H Rate Blood Pressure 95/63 95/59 L 96/59 L O2 Saturation 95 95 94 04/14/22 07:11 Temperature Heart Rate 118 H Respiratory 30 H Rate Blood Pressure 95/63 O2 Saturation 94 Oxygen O2 Source [Without Activity] Room air O2 Source [With Activity] Room air O2 Source Nasal cannula Oxygen Flow Rate 2 - EKG (time done) 02:32 Rate: Rate (enter#) (87) Rhythm: Atrial fibrillation [place]: Normal Intervals: Wide QRS Ischemia: No: ST elevation c/w ischemia, ST depression - Labs Labs: Laboratory Tests 04/14/22 04/14/22 04/14/22 03:05 03:05 03:05 WBC RBC Hgb Hct MCV MCH MCHC RDW Plt Count MPV Neut # (Auto) Lymph # (Auto) Moca # (Auto) Eos # (Auto) Baso # (Auto) Absolute Nucleated RBC Nucleated RBC % PT 23.3 H INR 2.1 H Sodium Potassium Chloride Carbon Dioxide Anion Gap BUN Creatinine Estimated GFR (MDRD) Glucose Lactic Acid 3.1 H* Calcium Magnesium Total Bilirubin AST ALT Alkaline Phosphatase B-Natriuretic Peptide 316 H Total Protein Albumin Globulin Albumin/Globulin Ratio Lipase Nasal Adenovirus (PCR) Nasal B. parapertussis DNA (PCR) Nasal Coronavir 229E PCR Nasal Coronavir HKU1 PCR Nasal Coronavir NL63 PCR Nasal Coronavir OC43 PCR Nasal Enterovir/Rhinovir PCR Nasal Influenza B PCR Nasal Influenza A PCR Nasal Parainfluen 1 PCR Nasal Parainfluen 2 PCR Nasal Parainfluen 3 PCR Nasal Parainfluen 4 PCR Nasal RSV (PCR) Nasal B.pertussis DNA PCR Nasal C.pneumoniae (PCR) Andrea Human Metapneumo PCR Nasal M.pneumoniae (PCR) Nasal SARS-CoV-2 (PCR) 04/14/22 04/14/22 04/14/22 03:05 03:05 03:06 WBC 11.8 H RBC 4.59 L Hgb 14.0 Hct 43.9 MCV 95.6 H MCH 30.5 MCHC 31.9 L RDW 14.9 Plt Count 201 MPV 11.0 Neut # (Auto) 9.8 H Lymph # (Auto) 0.8 L Moca # (Auto) 0.9 Eos # (Auto) 0.2 Baso # (Auto) 0.1 Absolute Nucleated RBC 0.00 Nucleated RBC % 0.0 PT INR Sodium 139 Potassium 4.3 Chloride 101 Carbon Dioxide 27 Anion Gap 11.0 BUN 11 Creatinine 0.8 Estimated GFR (MDRD) 94 Glucose 130 H Lactic Acid Calcium 8.8 Magnesium 2.2 Total Bilirubin 1.1 H AST 18 ALT 13 Alkaline Phosphatase 67 B-Natriuretic Peptide Total Protein 6.5 L Albumin 3.4 Globulin 3.1 Albumin/Globulin Ratio 1.1 Lipase 20 L Nasal Adenovirus (PCR) NOT DETECTED Nasal B. parapertussis DNA (PCR) NOT DETECTED Nasal Coronavir 229E PCR NOT DETECTED Nasal Coronavir HKU1 PCR NOT DETECTED Nasal Coronavir NL63 PCR NOT DETECTED Nasal Coronavir OC43 PCR NOT DETECTED Nasal Enterovir/Rhinovir PCR NOT DETECTED Nasal Influenza B PCR NOT DETECTED Nasal Influenza A PCR NOT DETECTED Nasal Parainfluen 1 PCR NOT DETECTED Nasal Parainfluen 2 PCR NOT DETECTED Nasal Parainfluen 3 PCR NOT DETECTED Nasal Parainfluen 4 PCR NOT DETECTED Nasal RSV (PCR) NOT DETECTED Nasal B.pertussis DNA PCR NOT DETECTED Nasal C.pneumoniae (PCR) NOT DETECTED Andrea Human Metapneumo PCR NOT DETECTED Nasal M.pneumoniae (PCR) NOT DETECTED Nasal SARS-CoV-2 (PCR) NOT DETECTED - Rads (name of study) chest xray Radiology: Prelim report reviewed (right sided infiltrate increased from most recent.), See rad report PD MEDICAL DECISION MAKING - ED course Complexity details: re-evaluated patient (His breathing is improved with nebulizer treatments. I felt there was some element of CHF so I given Lasix as well. IV fluid administration was held despite concern for elevated lactate due to likely CHF as well. He is breathing is much improved and he appears comfortable. ), considered differential (Seems likely recurrent pneumonia with recent hospitalization for such. Records I believe showed quinolone use for antibiotics on the admission so I will change to different ones here. I believe there is some element of CHF as well.), d/w patient ED course: His blood pressure did decrease after Lasix and nebulizers. He is not tachycardic. I believe he does have some element of CHF so I am reluctant to give fluid boluses despite the pneumonia and elevated lactate. We can give small fluid boluses if blood pressure does not improve but he is much more comfortable right now and conversant without dyspnea and good color so I am allowing the mild hypotension of. The patient does have apparent recurrent pneumonia with some edema and dyspnea. Mild hypoxia. - Critical Care Time(min): 45 Time Includes: Direct patient care, Reassess patient, Document care, Coordinate care, Family consult for tx dec Data interpretation: Labs, Pulse ox, CXR Procedures excluded from critical care time: EKG Departure - Departure Disposition: 66 [facility] DC/Xfer Clinical Impression: Hypoxia, Elevated lactic acid level, Recurrent bacterial pneumonia Dyspnea Qualifiers: Dyspnea type: shortness of breath Qualified Code(s): R06.02 - Shortness of breath; R06.00 - Dyspnea, unspecified; R06.01 - Orthopnea Congestive heart failure Qualifiers: Heart failure type: unspecified Heart failure chronicity: unspecified Qualified Code(s): I50.9 - Heart failure, unspecified Condition: Stable Record reviewed to determine appropriate education?: Yes
[2022-04-14] MEDS ORDERED: IPRATROPIUM/ALBUTEROL 3 ML NEB INH STA ×2 (02:26→04:33)
[2022-04-14] MEDS ORDERED: ACETAMINOPHEN 325 MG TABLET PO STA ×2 (02:27→14:33)
[2022-04-14] MEDS ORDERED: FUROSEMIDE 40 MG/4 ML VIAL IVP STA (02:30)
[2022-04-14 03:14] LABS: BASOPHILS # (AUTO) 0.1 10^3/uL (0.0-0.1); BASOPHILS % (AUTO) 0.6 %; EOSINOPHILS # (AUTO) 0.2 10^3/uL (0.0-0.7); EOSINOPHILS % (AUTO) 1.3 %; HCT - HEMATOCRIT 43.9 % (42.0-52.0); LYMPHOCYTES # (AUTO) 0.8 10^3/uL (1.5-3.5); LYMPHOCYTES % (AUTO) 6.4 %; MEAN CORPUSCULAR HEMOGLOBIN 30.5 pg (27.0-31.0); MEAN CORPUSCULAR HGB CONC 31.9 g/dL (32.0-36.0); MEAN CORPUSCULAR VOLUME 95.6 fL (80.0-94.0); MONOCYTES # (AUTO) 0.9 10^3/uL (0.0-1.0); MONOCYTES % (AUTO) 7.6 %; NEUTROPHILS # (AUTO) 9.8 10^3/uL (1.5-6.6); NEUTROPHILS % (AUTO) 83.5 %; PLT - PLATELET COUNT 201 10^3/uL (130-450); RED BLOOD COUNT 4.59 10^6/uL (4.70-6.10); RED CELL DISTRIBUTION WIDTH 14.9 % (12.0-15.0); WHITE BLOOD COUNT 11.8 x10^3/uL (4.8-10.8)
[2022-04-14 03:20] LABS: INR 2.1 (0.8-1.2); PT - PROTHROMBIN TIME 23.3 secs (9.9-12.6)
[2022-04-14 03:25] LABS: ALBUMIN 3.4 g/dL (3.2-5.5); ALBUMIN/GLOBULIN RATIO 1.1 (1.0-2.2); BILIRUBIN,TOTAL 1.1 mg/dL (0.2-1.0); CALCIUM 8.8 mg/dL (8.5-10.3); CREATININE 0.8 mg/dL (0.6-1.2); MAGNESIUM 2.2 mg/dL (1.7-2.8); POTASSIUM 4.3 mmol/L (3.5-5.0); TOTAL PROTEIN 6.5 g/dL (6.7-8.2)
[2022-04-14] MEDS ORDERED: cefTRIAXone 1 GM VIAL IVP STA (03:39)
[2022-04-14] MEDS ORDERED: AZITHROMYCIN INJ 500 MG in SODIUM CHLORIDE 0.9% 250 ML IV STA (03:39)
[2022-04-14 04:08] LABS: B. PARAPERTUSSIS- RESP PCR PAN NOT DETECTED; B. PERTUSSIS- RESP PCR PANEL NOT DETECTED; C. PNEUMONIAE- RESP PCR PANEL NOT DETECTED; CORONAVIRUS 229E-RESP PCR NOT DETECTED; CORONAVIRUS HKU1-RESP PCR NOT DETECTED; CORONAVIRUS NL63-RESP PCR NOT DETECTED; CORONAVIRUS OC43-RESP PCR NOT DETECTED; HUMAN METAPNEUMOVIRUS NOT DETECTED; INFLUENZA A- RESP PCR PANEL NOT DETECTED; INFLUENZA B - RESP PCR PANEL NOT DETECTED; M. PNEUMONIAE- RESP PCR PANEL NOT DETECTED; PARAINFLUENZA VIRUS 1 NOT DETECTED; PARAINFLUENZA VIRUS 2 NOT DETECTED; PARAINFLUENZA VIRUS 3 NOT DETECTED; PARAINFLUENZA VIRUS 4 NOT DETECTED; RHINOVIRUS/ENTEROVIRUS NOT DETECTED; RSV- RESP PCR PANEL NOT DETECTED; SARS-CoV-2 -RESP PCR PANEL NOT DETECTED
[2022-04-14] MEDS ORDERED: SODIUM CHLORIDE 0.9% 1,000 ML IV STA (04:33)
[2022-04-14] MEDS ORDERED: SODIUM CHLORIDE 0.9% 500 ML IV STA (04:39)
--- NOTE | 2022-04-14 07:47 | XRAY Report ---
PROCEDURE: Chest 1 View X-Ray INDICATIONS: chest pain TECHNIQUE: One view of the chest was acquired. COMPARISON: 04/07/2022 FINDINGS: Heart size enlarged. Underlying vascular congestion noted. Arch Increasing right basilar atelectasis and/or infiltrate associated with blunting of the right costophr enic angle. Osseous structures normal. Underlying soft tissues unremarkable. IMPRESSION: Cardiomegaly and moderate vascular congestion Worsening right basilar atelectasis and or infiltrate Note: Final report is concordant with preliminary report provided by [employer] Reviewed by: Ryne Eldridge MD on 04/14/2022 6:46 AM BERTHA Approved by: Ryne Eldridge MD on 04/14/2022 6:46 AM AKDT Station ID: [id number]
[2022-04-14] MEDS ORDERED: ONDANSETRON 4 MG/2 ML VIAL IVP PRN (08:21)
[2022-04-14] MEDS ORDERED: SODIUM CHLORIDE FLUSH 0.9% 10 ML SYRINGE IVP PRN (08:21)
[2022-04-14] MEDS ORDERED: LEVALBUTEROL 1.25 MG/3 ML NEB INH PRN (08:28)
[2022-04-14] MEDS ORDERED: METOPROLOL TARTRATE 50 MG TABLET PO STA (14:14)
--- NOTE | 2022-04-14 15:30 | HISTORY & PHYSICAL EXAMINATION ---
Chief Complaint - Chief Complaint Chief Complaint: SOB, fever History of Present Illness - Admitted From Admitted From:: ED - History Obtained From History obtained from: ED provider and the patient's who is at bedside - History of Present Illness HPI Comment/Other: This is a 76-year-old white male with history of obesity, interstitial lung disease not on home oxygen, chronic A. fib on Coumadin, recent admission here with community-acquired pneumonia causing sepsis. He needed to be in the ICU. He became deconditioned with that hospitalization and was then in [facility] ([facility]) for rehab with PT and OT for 5 days. He was just discharged home 2 days ago. He had completed his entire course of IV then p.o. antibiotics for that community-acquired pneumonia. There were 3 to 4 days of diarrhea and the stool was C. difficile negative. He had been on probiotics. The diarrhea stopped before discharge. The patient did have leg edema at disch arge which was felt to be from his aggressive IV hydration needed while in the ICU with sepsis. An Echocardiogram had been done during that admission which showed a preserved LVEF of 55%. There was no BNP measured during that hospitalization. He was not discharged home on Lasix. On the day of discharge from SNF, he underwent an oximetry walk test and had saturations of 94 to 95% on room air with rest and with activity. The patient was home for 1 day and had a good day. The following day (yeste rday), he woke up and was briefly confused then started to get a low grade fever and a cough. Today he awoke with SOB, had worsening cough and shaking chills, and was confused. At presentation to the emergency room, he was desaturating at 89% on room air, has elevated white blood count and is tachypneic and tachycardic and intermittently confused. A chest x-ray shows CHF plus more prominent infiltrate in the right lower lobe, location of the prior pneumonia. The patient is being admitted for treating hypoxia from recurrent or persistent pneumonia and new pulmonary edema. History - Past Medical History Cardiovascular: reports: Atrial fibrillation Respiratory: reports: Sleep apnea, CPAP use, Other (His record states he has underlying interstitial lung disease, which he is not aware of, but has a Acoustic Intelligence Specialist) Neuro: reports: None Endocrine/Autoimmune: reports: None GI: reports: Hepatitis : reports: Kidney stones, Other HEENT: reports: None Psych: reports: None Musculoskeletal: reports: Osteoarthritis, Fatigue Derm: reports: None MRSA Hx?: No - Past Surgical History General: reports: Colonoscopy Ortho: reports: Other Cardiovascular: reports: Other HEENT: reports: Cataracts, Tonsil/Adenoidectomy - Family & Social History Family History: Mother: , Father: Family History Comment/Other: Both of his parents had history of strokes and dementia. They in their late 80s. Living Situation: With spouse/s.o. Social History Notes: He lives at home with his Ame. He is a non-smoker and does not drink alcohol. - Substance History Use: Uses substance without health or social issues: NONE - POLST Patient has POLST: No Meds/Allgy - Home Medications Home Medications: Ambulatory Orders Medication Instructions Recorded Confirmed Warfarin [Coumadin] 5 mg ORAL .MOTUWETHSASU 08/16/14 04/09/22 allopurinoL [Allopurinol] 200 mg ORAL DAILY 08/16/14 04/09/22 Abiraterone Acetate 1,000 mg PO 0600 04/05/22 04/09/22 Leuprolide [Lupron] 45 mg IM .Q6MO 04/05/22 04/09/22 Metoprolol Tartrate [Lopressor] 37.5 mg PO BID 04/05/22 04/09/22 Nystatin/Triamcin 1 applic TOP BID 04/05/22 04/09/22 [Nystatin-Triamcinolone Ointm] Tamsulosin [Flomax] 0.4 mg PO .TIW 04/05/22 04/09/22 Warfarin [Coumadin] 2.5 mg PO .Friday04/05/22 04/09/22 Wheat Dextrin [Benefiber] 1 packet PO DAILY 04/05/22 04/09/22 mycophenolate mofetiL 1,000 mg PO BID 04/05/22 04/09/22 [Mycophenolate Mofetil] predniSONE [Deltasone] 5 mg PO QDBREAKFAST 04/05/22 04/09/22 - Allergies Allergies/Adverse Reactions: Allergies Allergy/AdvReac Type Severity Reaction Status Date / Time Penicillins Allergy Unknown Verified 04/14/22 02:18 Sulfa (Sulfonamide Allergy Unknown Verified 04/14/22 02:18 Antibiotics) Review of Systems - Constitutional Constitutional: reports: Fever, Chills, Malaise - Cardiovascular Cariovascular: reports: Edema - Respiratory Respiratory: reports: Cough, SOB at rest - Neurological Neurological: reports: Memory problems - All Other Systems All Other Systems: reports: Reviewed and negative (All the above ROS info was obtained from the , who is at bedside) Exam - Vital Signs Vital Signs: Vital Signs x48h Pulse Resp BP Pulse Ox 04/14/22 13:45 118 H 34 H 148/97 H 96 04/14/22 13:23 101 H 31 H 126/87 H 97 04/14/22 12:56 97 28 H 131/100 H 97 04/14/22 11:36 129 H 27 H 116/91 H 95 04/14/22 11:15 94 30 H 113/73 91 L 04/14/22 10:12 90 30 H 134/77 H 99 04/14/22 08:08 101 H 34 H 93/55 L 98 04/14/22 07:40 115 H 29 H 88/57 L 94 - Physical Exam General Appearance: positive: Mild distress (Has resp distress and is confused), Other (Obese. Male pattern baldness. Audibly wheezing across the room.) Eyes Bilateral: positive: Normal inspection, EOMI ENT: positive: ENT inspection nml, No signs of dehydration Neck: positive: Other (Obese and cannot eval JVP) Respiratory: positive: Wheezes, Rales (at R base) Cardiovascular: positive: Irregularly irregular (distant heart sounds due to obesity) Abdomen: positive: Non-tender, Other (obese with a pannus) Skin: positive: Warm, Dry Extremities: positive: Other (2+ edema to above knees) Conclusion/Plan - Problem List (1) Acute respiratory failure with hypoxia Conclusion/Plan: This is felt to be multifactorial: From his underlying ILD, new CHF by chest x- ray and persistent pneumonia on chest x-ray. Will give supplemental oxygen to keep sats greater than 90%. Will treat the underlying problems using IV Lasix and broader spectrum antibiotics. I informed the , at bedside, with the plan. (2) Congestive heart failure Conclusion/Plan: Patient has pulmonary edema and more peripheral edema than he was discharged with 2 days ago. He just had an Echocardiogram done several weeks ago here as an inpatient which showed an LVEF of 55% and diastolic dysfunction is present. Perhaps there was excessive salt or fluid intake when he got home, adding to this problem. Will rule out an MT with serial troponins and will place on telemetry to evaluate for tachyarrhythmias. Start IV twice daily Lasix. Follow I's and O's, daily weights Qualifiers: Heart failure type: unspecified Heart failure chronicity: unspecified Qualified Code(s): I50.9 - Heart failure, unspecified (3) Right lower lobe pneumonia Conclusion/Plan: This is the same location of his previous lobar infiltrate. Perhaps it is more prominent because he now has vascular congestion in his lungs. It may also be that it was under treated with the previous azithromycin, ceftriaxone and then Levaquin po. Will treat with broader spectrum antibiotics Using IV Vanco and IV cefepime. Will add probiotics (4) Interstitial lung disease Conclusion/Plan: He is followed by java web developer, has not been back to see him since just being discharged 2 days ago. He has wheezing on exam. Will treat with scheduled and as needed nebulizers (5) Atrial fibrillation Conclusion/Plan: We will continue his usual meds for rate control and his anticoagulant. Follow INR daily while on Coumadin. Target INR is 2-3. (6) SUKHWINDER on CPAP Conclusion/Plan: Will order his home CPAP device to be used here (7) BPH (benign prostatic hyperplasia) Conclusion/Plan: We will continue his BPH meds while here - Lab Results Fish Bones: 04/14/22 03:05 04/14/22 03:05 - Diagnostic Imaging Results Diagnostic Imaging Results: positive: Final report reviewed - Other Other Results/Comments: Attestation: The patient is expected to be discharged or transferred to another facility within 96 hours: Yes.
[2022-04-14] MEDS ORDERED: ASPIRIN CHEW 81 MG TABLET PO STA (16:13)
--- NOTE | 2022-04-14 16:20 | PROVIDER PROGRESS NOTE ---
Hospitalist Cross-cover Note - Cross-Cover Note Cross-Cover Note: Due to presentation with pulmonary edema, his troponins are being cycled. There was a backorder for troponin which was blood from 0330. That troponin was 27. The next troponin done at 0830 is 88; it has more than doubled, consistent with an acute NSTEMI. Review of the last 2 recent records (his stay at SNF (swing bed status) and his inpatient admission for pneumonia), show that he had leg edema felt to be from aggressive IV hydration in the ICU, and there was no BNP or troponins ever checked. There was no Echo performed here during either of those 2 hospitalizations. His last Echo done here was several years ago, which showed an LVEF of 45 to 50%. His most recent Echo was done just before that admission with pneumonia, done on March 19, 2022 at a visit at [facility] with his Procurement Clerk. The said that it showed "no change from previous". EKG done today in the emergency room shows Afib, left IVCD with poor R wave progression. There is no old EKG available for comparison. There was no EKG done apparently at the time of the last admission for pneumonia. Exam: BP 140/90>> 100/80, HR 78 in Afib O2 sat 94% on 2L O2 per n.c. Audible wheezing across the room. Heart sounds are distant. Abd has pannus. Legs have 2-3+ edema to above knees Impression: Acute NSTEMI vs Type 2 MN (demand ischemia) likely from stress of infection Hypotension and elevated Lactic acid level due to sepsis vs cardiogenic shock I performed a limited bedside Echo (as a Board-certified Procurement Clerk credentialeded in Echo). The Echo showed: Only parasternal views were available, no apical views because of his morbid obesity. Left atrium enlarged, Right atrium never well seen. Left ventricle normal size, mild LVH, normal septal, anterior and inferior wall motion, the anterior wall and apex are never well seen. LVEF is estimated at 50%. The RV is mildly dilated with mildly reduced RV function. The aortic valve has sclerotic calcification but opens adequately. There is no mitral regurgitation or aortic regurgitation. The tricuspid and pulmonic valves are never well seen. Plan: Chew 4 baby aspirin now. Start 1 baby aspirin daily. Cycle troponins until the peak troponin is seen. Start nitrates and empiric statin Check a fasting lipid panel and his A1c. Obtain a complete Echocardiogram. Obtain EKG tomorrow, looking for changes. Change his metoprolol tartrate to Metoprolol succinate. He will need transfer for coronary angiogram, after his pneumonia has been treated and his CHF has been treated and he can lie flat. We will continue his daily Coumadin, changed to Lovenox therapeutic or IV heparin before he is transferred. CRITICAL CARE TIME SPENT: 45 min (chart review, performing Echo, new orders, and I updated the patient, and family in the room).
[2022-04-14] MEDS: SODIUM CHLORIDE FLUSH 0.9% 10 ML SYRINGE IVP SCH (16:27)
[2022-04-14] MEDS: FUROSEMIDE 20 MG/2 ML VIAL IVP SCH (16:27)
[2022-04-14] MEDS: ACETAMINOPHEN 325 MG TABLET PO PRN (16:27)
[2022-04-14] MEDS: SACCHAROMYCES BOULARDII 250 MG CAPSULE PO SCH (16:27)
[2022-04-14] MEDS: LEVALBUTEROL 1.25 MG/3 ML NEB INH SCH (17:26)
[2022-04-14] MEDS: NITROGLYCERIN 2% PASTE TOP SCH (17:39)
[2022-04-14] MEDS ORDERED: VANCOMYCIN INJ 2 GM in SODIUM CHLORIDE 0.9% 500 ML IV ONE (18:00)
[2022-04-14] MEDS: metroNIDAZOLE 500 MG/100 ML 500 MG/100 ML BAG IV SCH (20:51)
[2022-04-14] MEDS: METOPROLOL SUCCINATE 25 MG TABLET PO SCH (20:52)
[2022-04-14] MEDS: guaiFENesin 600 MG TABLET PO SCH (20:52)
[2022-04-14] MEDS: CEFEPIME 2 GM in SODIUM CHLORIDE 0.9% MINIBAG 100 ML IV SCH (20:52)
[2022-04-14] MEDS: ATORVASTATIN 40 MG TABLET PO SCH (20:54)
[2022-04-15] MEDS: SODIUM CHLORIDE FLUSH 0.9% 10 ML SYRINGE IVP SCH ×3 (01:00→16:15)
[2022-04-15] MEDS: ACETAMINOPHEN 325 MG TABLET PO PRN (01:03)
[2022-04-15] MEDS: NITROGLYCERIN 2% PASTE TOP SCH ×2 (04:02→16:16)
[2022-04-15] MEDS: metroNIDAZOLE 500 MG/100 ML 500 MG/100 ML BAG IV SCH ×3 (04:02→20:38)
[2022-04-15 05:26] LABS: BASOPHILS # (AUTO) 0.1 10^3/uL (0.0-0.1); BASOPHILS % (AUTO) 0.6 %; EOSINOPHILS # (AUTO) 0.5 10^3/uL (0.0-0.7); EOSINOPHILS % (AUTO) 5.9 %; HCT - HEMATOCRIT 38.3 % (42.0-52.0); HGB - HEMOGLOBIN 11.9 g/dL (14.0-18.0); LYMPHOCYTES # (AUTO) 0.4 10^3/uL (1.5-3.5); LYMPHOCYTES % (AUTO) 4.1 %; MEAN CORPUSCULAR HEMOGLOBIN 30.6 pg (27.0-31.0); MEAN CORPUSCULAR HGB CONC 31.1 g/dL (32.0-36.0); MEAN CORPUSCULAR VOLUME 98.5 fL (80.0-94.0); MEAN PLATELET VOLUME 10.8 fL (7.4-11.4); MONOCYTES # (AUTO) 0.9 10^3/uL (0.0-1.0); MONOCYTES % (AUTO) 10.4 %; NEUTROPHILS # (AUTO) 6.9 10^3/uL (1.5-6.6); NEUTROPHILS % (AUTO) 78.7 %; PLT - PLATELET COUNT 182 10^3/uL (130-450); RED BLOOD COUNT 3.89 10^6/uL (4.70-6.10); WHITE BLOOD COUNT 8.8 x10^3/uL (4.8-10.8)
[2022-04-15 05:34] LABS: PT - PROTHROMBIN TIME 22.7 secs (9.9-12.6)
[2022-04-15 05:43] LABS: CHOL/HDL RATIO 3.4 (<5.0); CHOLESTEROL 94 mg/dL; HDL CHOLESTEROL 28 mg/dL; LDL CHOLESTEROL,CALCULATED 44 mg/dL; LDL/HDL RATIO 1.6 (<3.6); TRIGLYCERIDES 109 mg/dL; VLDL CHOLESTEROL 22 mg/dL
[2022-04-15 05:47] LABS: CALCIUM 8.3 mg/dL (8.5-10.3); CREATININE 0.9 mg/dL (0.6-1.2); MAGNESIUM 2.1 mg/dL (1.7-2.8); POTASSIUM 3.7 mmol/L (3.5-5.0)
[2022-04-15] MEDS: VANCOMYCIN INJ 1 GM, VANCOMYCIN INJ 500 MG in SODIUM CHLORIDE 0.9% 500 ML IV SCH ×2 (06:08→17:28)
[2022-04-15] MEDS: FUROSEMIDE 20 MG/2 ML VIAL IVP SCH ×2 (06:09→14:11)
[2022-04-15] MEDS: LEVALBUTEROL 1.25 MG/3 ML NEB INH SCH ×3 (07:16→15:19)
[2022-04-15] MEDS: ASPIRIN EC 81 MG TABLET PO SCH (08:42)
[2022-04-15] MEDS: predniSONE 5 MG TABLET PO SCH (08:43)
[2022-04-15] MEDS: guaiFENesin 600 MG TABLET PO SCH ×2 (08:43→20:38)
[2022-04-15] MEDS: allopurinoL 100 MG TABLET PO SCH (08:43)
[2022-04-15] MEDS: METOPROLOL SUCCINATE 25 MG TABLET PO SCH ×2 (08:43→20:39)
[2022-04-15] MEDS: TAMSULOSIN 0.4 MG CAPSULE PO SCH (08:44)
[2022-04-15] MEDS: SACCHAROMYCES BOULARDII 250 MG CAPSULE PO SCH ×2 (08:44→16:15)
[2022-04-15] MEDS: CEFEPIME 2 GM in SODIUM CHLORIDE 0.9% MINIBAG 100 ML IV SCH ×2 (08:44→20:38)
[2022-04-15] MEDS: mycophenolate mofetiL 250 MG CAPSULE PO SCH ×2 (11:26→20:38)
[2022-04-15 12:40] LABS: ESTIMATED AVERAGE GLUCOSE 131 mg/dL (70-100); HEMOGLOBIN A1c% 6.2 % (4.27-6.07)
--- NOTE | 2022-04-15 13:19 | PROVIDER PROGRESS NOTE ---
Assessment/Plan - Problem List (1) Acute respiratory failure with hypoxia Assessment/Plan: This is felt to be multifactorial: From his underlying ILD, new CHF by chest x- ray and persistent or worsened/undertreated pneumonia on chest x-ray. He is on supplemental oxygen to keep sats greater than 90%. Will treat the underlying problems using IV Lasix and broader spectrum antibiotics. I informed the patient and 2 daughters at bedside, with the plan. (2) Acute non-ST elevation myocardial infarction (NSTEMI) Assessment/Plan: Due to presentation with pulmonary edema, his troponins were checked and were 27>> 88>> Review of the last 2 recent records (his stay at [facility] (swing bed status) and his inpatient admission for pneumonia before that), show that he had leg edema felt to be from receiving aggressive IV hydration in the ICU, and there was no BNP or troponins ever checked. There was no Echo performed here during either of those 2 hospitalizations. His last Echo done here was several years ago, which showed an LVEF of 45 to 50%. His most recent Echo was done just before that admission with pneumonia, done on March 19, 2022 at a visit with his Utilities And Maintenance Supervisor. The said that it showed "EF 65% and no change from previous done in 2017". Yesterday, I performed a limited bedside Echo (as a Board-certified Utilities And Maintenance Supervisor credentialeded in Echo). The Echo showed: Only parasternal views were available, no apical views because of his morbid obesity. Left atrium enlarged, Right atrium never well seen. Left ventricle normal size, mild LVH, normal septal, anterior and inferior wall motion, the anterior wall and apex are never well seen. LVEF is estimated at 50% The RV is mildly dilated with mildly reduced RV function. The aortic valve has sclerotic calcification but opens adequately. There is no mitral regurgitation or aortic regurgitation. The tricuspid and pulmonic valves are never well seen. Yesterday the pt got 4 baby aspirin to chew then was started on 1 baby aspirin daily and a statin. He is already on a beta-belinda. Fasting lipid panel this morning shows low LDL. Patient will likely need a coronary angiogram after his CHF and pneumonia clear. A call to his cCardiologist will be planned (Dr. Ly, however this is an Angle Bender who follows him for A. fib). (3) Congestive heart failure Qualifiers: Heart failure type: unspecified Heart failure chronicity: unspecified Qualified Code(s): I50.9 - Heart failure, unspecified Assessment/Plan: Patient has pulmonary edema and more peripheral edema than he was discharged with 2 days ago from Swing bed. He just had an Echocardiogram done several weeks ago at that showed an LVEF of 65% He is diuresing adequately on IV twice daily Lasix. Follow I's and O's, daily weights (4) Right lower lobe pneumonia Assessment/Plan: This is the same location of his previous lobar infiltrate. Possibly it is more prominent because he now has vascular congestion in his lungs. It may also be that it was under treated with the previous azithromycin, ceftriaxone and then Levaquin po. Will treat with broader spectrum antibiotics using IV Vanco and IV cefepime and will add po Levaquin to have double Pseudomonas coverage. Will add probiotics (5) Interstitial lung disease Assessment/Plan: He is followed by documentation nurse, had just seen him before being admitted 2 weeks ago. The patient is not on home O2 normally. He had marked wheezing on exam and today reported that the nebs help Will treat with scheduled and as needed nebulizers. Will treat the underlying CHF and pneumonia. (6) Atrial fibrillation Assessment/Plan: We will continue his usual meds for rate control and his anticoagulant. Follow INR daily while on Coumadin. Target INR is 2-3. (7) SUKHWINDER on CPAP Assessment/Plan: We ordered his home CPAP device to be used here (8) BPH (benign prostatic hyperplasia) Assessment/Plan: We will continue his BPH meds while here (9) Prostate cancer, primary, with metastasis from prostate to other site Assessment/Plan: He is on one cancer med and this can be ordered to take as "patient's own med" but it has not been reconciled by pharmacy - Current Meds Current Meds: Current Medications Generic Name Dose Route Start Last Admin Trade Name Freq PRN Reason Stop Dose Admin Acetaminophen 650 mg 04/14/22 08:21 04/15/22 01:03 Acetaminophen 325 Mg Tablet PO 650 mg Q4HR PRN Administration Pain 1 to 4, or Fever Allopurinol 200 mg 04/15/22 09:00 04/15/22 08:43 Allopurinol 100 Mg Tablet PO 200 mg DAILY ELENA Administration Aspirin 81 mg 04/15/22 09:00 04/15/22 08:42 Aspirin Ec 81 Mg Tablet PO 81 mg DAILY ELENA Administration Atorvastatin Calcium 40 mg 04/14/22 21:00 04/14/22 20:54 Atorvastatin 40 Mg Tablet PO 40 mg QPM ELENA Administration Furosemide 20 mg 04/14/22 16:00 04/15/22 06:09 Furosemide 20 Mg/2 Ml Vial IVP 20 mg BIDDIURETIC ELENA Administration Guaifenesin 600 mg 04/14/22 21:00 04/15/22 08:43 Guaifenesin 600 Mg Tablet PO 600 mg BID ELENA Administration Cefepime HCl 2 gm/ Sodium 100 mls @ 200 mls/hr 04/14/22 21:00 04/15/22 09:35 Chloride IV Infused BID ELENA Infusion Vancomycin HCl 1 gm/ 500 mls @ 250 mls/hr 04/15/22 06:00 04/15/22 08:10 Vancomycin HCl 500 mg/ Sodium IV Infused Chloride Q12H ELENA Infusion Metronidazole 500 mg in 100 mls @ 100 mls/hr 04/14/22 20:00 04/15/22 11:26 Flagyl 500 Mg/100 Ml IV 100 mls/hr Q8H ELENA Administration Levalbuterol HCl 1.25 mg 04/14/22 08:28 04/15/22 01:31 Levalbuterol 1.25 Mg/3 Ml Neb INH 1.25 mg Q4H PRN Administration Shortness of Air/Wheezing Levalbuterol HCl 1.25 mg 04/14/22 17:00 04/15/22 11:22 Levalbuterol 1.25 Mg/3 Ml Neb INH 1.25 mg RTQID ELENA Administration Metoprolol Succinate 25 mg 04/14/22 21:00 04/15/22 08:43 Metoprolol Succinate 25 Mg Tablet PO 25 mg BID ELENA Administration Mycophenolate Mofetil 1,000 mg 04/15/22 11:00 04/15/22 11:26 Mycophenolate Mofetil 250 Mg Capsule PO 1,000 mg BID ELENA Administration Nitroglycerin 0.25 inch 04/14/22 16:30 04/15/22 04:02 Nitroglycerin 2% Paste TOP 0.25 inch Q12H ELENA Administration Ondansetron HCl 4 mg 04/14/22 08:21 04/15/22 01:04 Ondansetron 4 Mg/2 Ml Vial IVP 4 mg Q6HR PRN Administration Nausea / Vomiting Prednisone 5 mg 04/15/22 08:00 04/15/22 08:43 Prednisone 5 Mg Tablet PO 5 mg QDBREAKFAST ELENA Administration Saccharomyces Boulardii 250 mg 04/14/22 17:00 04/15/22 08:44 Saccharomyces Boulardii 250 Mg Capsule PO 250 mg BIDWM ELENA Administration Sodium Chloride 10 ml 04/14/22 17:00 04/15/22 08:44 Sodium Chloride Flush 0.9% 10 Ml Syringe IVP Not Given 0100,0900,1700 [facility] Tamsulosin HCl 0.4 mg 04/15/22 09:00 04/15/22 08:44 Tamsulosin 0.4 Mg Capsule PO 0.4 mg MoWeFr@0900 [facility] Administration - Lab Result Fish Bone Diagrams: 04/15/22 05:15 04/15/22 05:15 - Additional Planning My Orders: My Active Orders 04/14/22 16:00 Home CPAP/BiPAP [RC] .ONCE Nebulizer/MDI Tx. [RC] .QID Resp Teach Nebulizer/MDI [RC] .ONCE FUROSEMIDE INJ 20mg VIAL [LASIX INJ 20mg VIAL] 20 mg IVP BIDDIURETIC 04/14/22 16:30 Nitroglycerin 2% Paste (Pkt) [Nitro-Bid (Pkt)] 0.25 inch TOP Q12H 04/14/22 17:00 Levalbuterol [Xopenex] 1.25 mg INH RTQID Saccharomyces Boulardii [Florastor] 250 mg PO BIDWM Sodium Chloride Flush 0.9% [Normal Saline Flush 0.9%] 10 ml IVP 0100,0900,1700 04/14/22 21:00 Atorvastatin [Lipitor] 40 mg PO QPM Cefepime 2 gm Sodium Chloride 0.9% Minibag [Normal Saline 0.9% Minibag] 100 ml IV BID Metoprolol Succinate [Toprol Xl] 25 mg PO BID guaiFENesin [Mucinex] 600 mg PO BID 04/15/22 05:15 HEMOGLOBIN A1c% [CHEM] DAILYLAB 04/15/22 06:00 Vancomycin Inj [Vancomycin] 1 gm Vancomycin Inj [Vancomycin Hcl] 500 mg Sodium Chloride 0.9% [Normal Saline 0.9%] 500 ml IV Q12H 06/20/22 08:00 predniSONE [Deltasone] 5 mg PO QDBREAKFAST 04/15/22 08:08 CUL, RESPIRATORY [RM] Stat 04/15/22 09:00 Aspirin EC [Ecotrin] 81 mg PO DAILY Tamsulosin [Flomax] 0.4 mg PO MoWeFr@0900 allopurinoL [Zyloprim] 200 mg PO DAILY 04/15/22 11:00 mycophenolate mofetiL [Cellcept] 1,000 mg PO BID 04/15/22 13:19 levoFLOXacin [Levaquin] 750 mg PO DAILY 04/15/22 14:00 Warfarin [Coumadin] 5 mg PO SuMoTuWeThSa@1400 04/16/22 05:00 BMP - BASIC METABOLIC PANEL [CHEM] DAILYLAB BNP - B-NATRIURETIC PEPTIDE [IAI] DAILYLAB CBC - COMP BLD CT W/AUTO DIFF [HEME] DAILYLAB MAGNESIUM [CHEM] DAILYLAB PT WITH INR [COAG] DAILYLAB 04/16/22 07:00 Echo Transthoracic Complete [ECHO] Routine 04/17/22 05:00 BMP - BASIC METABOLIC PANEL [CHEM] DAILYLAB CBC - COMP BLD CT W/AUTO DIFF [HEME] DAILYLAB MAGNESIUM [CHEM] DAILYLAB PT WITH INR [COAG] DAILYLAB 04/19/22 14:00 Warfarin [Coumadin] 2.5 mg PO Fr@1400 Subjective - Subjective Patient Reports: Resting Comfortably (Very tired and slept almost all day. Has no appetite and is repulsed by looking at food but not nauseated.) Objective Vital Signs: Vital Signs - 24 hr 04/14/22 04/14/22 04/14/22 13:23 13:45 15:27 Temperature Heart Rate 101 H 118 H 85 Heart Rate [ Brachial] Respiratory 31 H 34 H 31 H Rate Blood Pressure 126/87 H 148/97 H 115/66 Blood Pressure [Left Brachial artery] O2 Saturation 97 96 93 04/14/22 04/14/22 04/14/22 15:47 17:32 20:58 Temperature 37.0 C 37.1 C Heart Rate 86 Heart Rate [ 73 80 Brachial] Respiratory 20 22 18 Rate Blood Pressure Blood Pressure 101/61 121/69 [Left Brachial artery] O2 Saturation 94 95 06/19/22 06/20/22 06/20/22 23:54 01:30 04:07 Temperature 36.7 C 36.5 C Heart Rate 82 Heart Rate [ 94 90 Brachial] Respiratory 18 26 H 24 Rate Blood Pressure Blood Pressure 136/82 H 102/59 L [Left Brachial artery] O2 Saturation 95 94 04/15/22 04/15/22 04/15/22 07:17 08:00 11:23 Temperature 36.8 C Heart Rate 88 88 Heart Rate [ 108 H Brachial] Respiratory 22 18 18 Rate Blood Pressure Blood Pressure 124/72 [Left Brachial artery] O2 Saturation 94 04/15/22 12:01 Temperature 36.5 C Heart Rate Heart Rate [ 94 Brachial] Respiratory 20 Rate Blood Pressure Blood Pressure 112/61 [Left Brachial artery] O2 Saturation 93 Oxygen O2 Source [Without Activity] Room air O2 Source [With Activity] Room air O2 Source Nasal cannula Oxygen Flow Rate 2 I&O (Last 24 Hrs): Intake and Output Totals x24h 04/13/22 04/14/22 04/15/22 23:59 23:59 23:59 Intake Total 2050 1200 Output Total 600 900 Balance 1450 300 General: Alert, Other (Appears very tired, has flat affect) HEENT: Mucous membr. moist/pink, Other (cheeks are red) Neck: Supple, Other (Obese neck, cannot evaluate JVP) Neuro: Alert, Non Focal Cardiovascular: No murmurs, Other (Irreg irreg) Respiratory: Wheezes (Up one half bilateral), Rales (At both bases posteriorly) Abdomen: Soft, No tenderness, Other (Moderately distended, nontender, cannot rule out ascites. Obese with a pannus) Extremities: No clubbing, No tenderness/swelling, Other (3+ edema to above the knees bilaterally) - Results Results: Laboratory Results WBC 8.8 x10^3/uL (4.8-10.8) 04/15/22 05:15 RBC 3.89 10^6/uL (4.70-6.10) L 04/15/22 05:15 Hgb 11.9 g/dL (14.0-18.0) L 04/15/22 05:15 Hct 38.3 % (42.0-52.0) L 04/15/22 05:15 MCV 98.5 fL (80.0-94.0) H 04/15/22 05:15 MCH 30.6 pg (27.0-31.0) 04/15/22 05:15 MCHC 31.1 g/dL (32.0-36.0) L 04/15/22 05:15 RDW 15.0 % (12.0-15.0) 04/15/22 05:15 Plt Count 182 10^3/uL (130-450) 04/15/22 05:15 MPV 10.8 fL (7.4-11.4) 04/15/22 05:15 Neut # (Auto) 6.9 10^3/uL (1.5-6.6) H 04/15/22 05:15 Lymph # (Auto) 0.4 10^3/uL (1.5-3.5) L 04/15/22 05:15 [place] # (Auto) 0.9 10^3/uL (0.0-1.0) 04/15/22 05:15 Eos # (Auto) 0.5 10^3/uL (0.0-0.7) 04/15/22 05:15 Baso # (Auto) 0.1 10^3/uL (0.0-0.1) 04/15/22 05:15 Absolute Nucleated RBC 0.00 x10^3/uL 04/15/22 05:15 Nucleated RBC % 0.0 /100WBC 04/15/22 05:15 PT 22.7 secs (9.9-12.6) H 04/15/22 05:15 INR 2.0 (0.8-1.2) H 04/15/22 05:15 Sodium 141 mmol/L (135-145) 04/15/22 05:15 Potassium 3.7 mmol/L (3.5-5.0) 04/15/22 05:15 Chloride 105 mmol/L (101-111) 04/15/22 05:15 Carbon Dioxide 28 mmol/L (21-32) 04/15/22 05:15 Anion Gap 8.0 (6-13) 04/15/22 05:15 BUN 14 mg/dL (6-20) 04/15/22 05:15 Creatinine 0.9 mg/dL (0.6-1.2) 04/15/22 05:15 Estimated GFR (MDRD) 82 (>89) L 04/15/22 05:15 Glucose 102 mg/dL (70-100) H 04/15/22 05:15 Lactic Acid 3.1 mmol/L (0.5-2.2) H* 04/14/22 03:05 Calcium 8.3 mg/dL (8.5-10.3) L 04/15/22 05:15 Magnesium 2.1 mg/dL (1.7-2.8) 04/15/22 05:15 Total Bilirubin 1.1 mg/dL (0.2-1.0) H 04/14/22 03:05 AST 18 IU/L (10-42) 04/14/22 03:05 ALT 13 IU/L (10-60) 04/14/22 03:05 Alkaline Phosphatase 67 IU/L (42-121) 04/14/22 03:05 Troponin I High Sens 55.2 ng/L (2.3-19.7) H* 04/14/22 16:39 B-Natriuretic Peptide 274 pg/mL (5-100) H 04/15/22 05:15 Total Protein 6.5 g/dL (6.7-8.2) L 04/14/22 03:05 Albumin 3.4 g/dL (3.2-5.5) 04/14/22 03:05 Globulin 3.1 g/dL (2.1-4.2) 04/14/22 03:05 Albumin/Globulin Ratio 1.1 (1.0-2.2) 04/14/22 03:05 Triglycerides 109 mg/dL (-149) 04/15/22 05:15 Cholesterol 94 mg/dL (-199) 04/15/22 05:15 LDL Cholesterol, Calc 44 mg/dL (-129) 04/15/22 05:15 VLDL Cholesterol 22 mg/dL 04/15/22 05:15 HDL Cholesterol 28 mg/dL (60-) L 04/15/22 05:15 LDL/HDL Ratio 1.6 (<3.6) 04/15/22 05:15 Cholesterol/HDL Ratio 3.4 (<5.0) 04/15/22 05:15 Lipase 20 U/L (22-51) L 04/14/22 03:05 Procalcitonin 6.68 ng/mL (<0.5) H* 04/15/22 05:15 Nasal Adenovirus (PCR) NOT DETECTED 04/14/22 03:06 Nasal B. parapertussis DNA (PCR) NOT DETECTED 04/14/22 03:06 Nasal Coronavir 229E PCR NOT DETECTED 04/14/22 03:06 Nasal Coronavir HKU1 PCR NOT DETECTED 04/14/22 03:06 Nasal Coronavir NL63 PCR NOT DETECTED 04/14/22 03:06 Nasal Coronavir OC43 PCR NOT DETECTED 04/14/22 03:06 Nasal Enterovir/Rhinovir PCR NOT DETECTED 04/14/22 03:06 Nasal Influenza B PCR NOT DETECTED 04/14/22 03:06 Nasal Influenza A PCR NOT DETECTED 04/14/22 03:06 Nasal Parainfluen 1 PCR NOT DETECTED 04/14/22 03:06 Nasal Parainfluen 2 PCR NOT DETECTED 04/14/22 03:06 Nasal Parainfluen 3 PCR NOT DETECTED 04/14/22 03:06 Nasal Parainfluen 4 PCR NOT DETECTED 04/14/22 03:06 Nasal RSV (PCR) NOT DETECTED 04/14/22 03:06 Nasal B.pertussis DNA PCR NOT DETECTED 04/14/22 03:06 Nasal C.pneumoniae (PCR) NOT DETECTED 04/14/22 03:06 Andrea Human Metapneumo PCR NOT DETECTED 04/14/22 03:06 Nasal M.pneumoniae (PCR) NOT DETECTED 04/14/22 03:06 Nasal SARS-CoV-2 (PCR) NOT DETECTED 04/14/22 03:06 - Procedures Procedures: Procedures CATARAC PHACOEMULS/ASPIR (08/17/14) INSERT LENS AT CATAR EXT (08/17/14)
--- NOTE | 2022-04-15 13:41 | PHARMACY PROGRESS NOTE ---
- Therapy Status Vancomycin regimen day #: 2 Therapy status: Awaiting steady state Basis for treatment: Empirical Treatment indication: Sepsis pneumonia Trough goal: 15-20 Concurrent antibiotics: Cefepime, levofloxacin, and metronidazole - FILIPE Risk Risk level for Acute Kidney Injury: High Acute Kidney Injury risk factors: Wt >100kg or BMI >40, Goal trough >15, Chronic baseline hypertension, Sepsis - Monitoring and Recommendation Clinical response to treatment: I&O Previous 24 hours 04/13/22 04/14/22 04/15/22 23:59 23:59 23:59 Intake Total 2050 1300 Output Total 600 900 Balance 1450 400 Lab Results 04/15/22 04/14/22 05:15 03:05 BUN 14 11 Creatinine 0.9 0.8 Estimated GFR (MDRD) 82 L 94 Cultures 04/15/22 08:08 Sputum Respiratory Culture - Preliminary Monitoring plan: Daily serum creatinine, Suggest ongoing fluid replacement Next trough due prior to maintenance dose #: 4 Next trough due (date/time): 04/16/2022 @ 1730 Areas for additional monitoring: IV to PO when appropriate, Therapy de- escalation based on culture results, Acute Kidney Injury, C. difficile infection risk reduction Pharmacy recommendation: Continue current regime
[2022-04-15] MEDS: levoFLOXacin 250 MG TABLET PO SCH (14:11)
[2022-04-15] MEDS: WARFARIN 5 MG TABLET PO SCH (14:12)
--- NOTE | 2022-04-15 15:04 | PHARMACY PROGRESS NOTE ---
- Best Possible Medication History Admit Date and Time: 04/14/2221 Processed by: Pharmacy Medication History completed: Yes Patient Interview: Pt unable to participate Secondary Source(s): Previous admit records As the person ultimately responsible for medication therapy, providers are able to order a medication from an existing home medication list in [facility] via the "Reconcile Routine" prior to Confirmation of that medication by physician support coordinator. Such practice is discouraged except when the physician, in their clinical judgment, deems that a medical need exists for a medication without regard to previous use.
[2022-04-15] MEDS: ATORVASTATIN 40 MG TABLET PO SCH (20:38)
[2022-04-16] MEDS: SODIUM CHLORIDE FLUSH 0.9% 10 ML SYRINGE IVP SCH ×3 (01:08→17:32)
[2022-04-16] MEDS: metroNIDAZOLE 500 MG/100 ML 500 MG/100 ML BAG IV SCH (03:55)
[2022-04-16] MEDS: NITROGLYCERIN 2% PASTE TOP SCH ×2 (03:59→17:31)
[2022-04-16] MEDS: VANCOMYCIN INJ 1 GM, VANCOMYCIN INJ 500 MG in SODIUM CHLORIDE 0.9% 500 ML IV SCH ×2 (05:03→17:34)
[2022-04-16] MEDS: FUROSEMIDE 20 MG/2 ML VIAL IVP SCH ×2 (05:11→13:52)
[2022-04-16 05:13] LABS: BASOPHILS # (AUTO) 0.1 10^3/uL (0.0-0.1); BASOPHILS % (AUTO) 0.7 %; EOSINOPHILS # (AUTO) 0.4 10^3/uL (0.0-0.7); EOSINOPHILS % (AUTO) 5.6 %; HCT - HEMATOCRIT 35.2 % (42.0-52.0); HGB - HEMOGLOBIN 11.3 g/dL (14.0-18.0); LYMPHOCYTES # (AUTO) 0.4 10^3/uL (1.5-3.5); LYMPHOCYTES % (AUTO) 5.4 %; MEAN CORPUSCULAR HEMOGLOBIN 31.1 pg (27.0-31.0); MEAN CORPUSCULAR HGB CONC 32.1 g/dL (32.0-36.0); MEAN PLATELET VOLUME 10.5 fL (7.4-11.4); MONOCYTES # (AUTO) 0.7 10^3/uL (0.0-1.0); MONOCYTES % (AUTO) 9.3 %; NEUTROPHILS % (AUTO) 78.3 %; PLT - PLATELET COUNT 196 10^3/uL (130-450); RED BLOOD COUNT 3.63 10^6/uL (4.70-6.10); RED CELL DISTRIBUTION WIDTH 14.4 % (12.0-15.0); WHITE BLOOD COUNT 7.7 x10^3/uL (4.8-10.8)
[2022-04-16 05:23] LABS: CALCIUM 8.2 mg/dL (8.5-10.3); CREATININE 0.8 mg/dL (0.6-1.2); MAGNESIUM 2.1 mg/dL (1.7-2.8); POTASSIUM 3.7 mmol/L (3.5-5.0)
[2022-04-16 05:31] LABS: INR 2.1 (0.8-1.2)
[2022-04-16] MEDS: LEVALBUTEROL 1.25 MG/3 ML NEB INH SCH ×5 (05:36→20:48)
[2022-04-16] MEDS: ABIRATERONE ACETATE 250 MG PO SCH (06:01)
[2022-04-16] MEDS: CEFEPIME 2 GM in SODIUM CHLORIDE 0.9% MINIBAG 100 ML IV SCH (08:22)
[2022-04-16] MEDS: allopurinoL 100 MG TABLET PO SCH (08:24)
[2022-04-16] MEDS: SACCHAROMYCES BOULARDII 250 MG CAPSULE PO SCH ×2 (08:24→17:32)
[2022-04-16] MEDS: mycophenolate mofetiL 250 MG CAPSULE PO SCH ×2 (08:24→21:45)
[2022-04-16] MEDS: guaiFENesin 600 MG TABLET PO SCH ×2 (08:24→21:44)
[2022-04-16] MEDS: levoFLOXacin 250 MG TABLET PO SCH (08:24)
[2022-04-16] MEDS: ACETAMINOPHEN 325 MG TABLET PO PRN ×2 (08:24→13:52)
[2022-04-16] MEDS: ASPIRIN EC 81 MG TABLET PO SCH (08:24)
[2022-04-16] MEDS: predniSONE 5 MG TABLET PO SCH (08:25)
[2022-04-16] MEDS: METOPROLOL SUCCINATE 25 MG TABLET PO SCH ×2 (08:25→21:44)
[2022-04-16] MEDS ORDERED: BENZONATATE 100 MG CAPSULE PO PRN (10:57)
[2022-04-16] MEDS: MEROPENEM 1 GM in SODIUM CHLORIDE 0.9% MINIBAG 100 ML IV SCH ×2 (10:59→21:45)
[2022-04-16] MEDS ORDERED: LACTOBACILLUS RHAMNOSUS GG CAPSULE PO SCH (11:00)
[2022-04-16] MEDS ORDERED: METOPROLOL TARTRATE 25 MG TABLET PO SCH (12:00)
[2022-04-16] MEDS: WARFARIN 5 MG TABLET PO SCH (13:52)
--- NOTE | 2022-04-16 17:16 | PROVIDER PROGRESS NOTE ---
Progress Note Patient seen at bedside with of weakness and with peripheral edema which have essentially been somewhat improved and remains on 2 L nasal cannula. Her procalcitonin elevated at 6.68 and was diagnosed approximately 6 years ago with interstitial lung disease currently holding off on his mycophenolate and Lupron given his likely immunosuppressed state and opportunistic infections with underlying bacterial pneumonia. He is currently receiving vancomycin, Merrem and was previously on cefepime and Levaquin plus Flagyl. His nare MRSA is positive and concern for MDRO is high. He is receiving Lasix at 20 mg IV twice daily and is on a probiotic. His sputum gram stain and culture are pending, his prior EF of 50% w/ concern for apical MWA read by Dr. Guillen. Patient has physical deconditioning and physical therapy will work with patient. Patient otherwise denies chest pain, nausea, emesis, palpitations, headaches, hemoptysis although he does mention intermittent sputum production of green-yellow with some blood-streaked sputum. Denies hematochezia, dysuria, flank pain, fevers, chills, MP rashes, GI or symptoms, or joint tenderness. O/E: Vital signs hemodynamically stable, afebrile, on 2 L nasal cannula and 93% O2 saturation, nontachypneic, nontachycardic General: Obese male who is cooperative and with weakness and speaking in full sentences HEENT: No buccal lesions, no scleral icterus, MMM Neck: Trachea midline, no bruits, no LAD and bilaterally CV/lungs: RRR, decreased breath sounds with mild rhonchi and without wheezing or increased work of breath Abdomen: Globular, positive bowel sounds all quadrants, no HSM. Extremities/skin: 1-2+ bilateral pitting edema right more than left, no clubbing or cyanosis, 2+ pulses dorsalis pedis Labs: Reviewed Imaging studies: Reviewed Assessment and plan: (1) Acute respiratory failure with hypoxia Assessment/Plan: Remains on 2L NC. This is felt to be multifactorial: From his underlying ILD, new CHF by chest x-ray and persistent or worsened/undertreated pneumonia on chest x-ray. Procalcitonin elevated at 6.6 today and concern for op portunistic/bacterial pneumonia in an immunosuppressed patient. He is on supplemental oxygen to keep sats greater than 90%. Continues w/ IV Lasix and broader spectrum antibiotics. (2) Acute non-ST elevation myocardial infarction (NSTEMI) Assessment/Plan: Due to presentation with pulmonary edema, his troponins were checked and were 27>> 88>> 55.2, last troponin. His last Echo done here was several years ago, which showed an LVEF of 45 to 50%. His most recent Echo was done just before that admission with pneumonia, done on March 19, 2022 at a visit with his Timber Treatment [employer] Operator. The said that it showed "EF 65% and no change from previous done in 2017". Dr. Guillen performed ECHO on 04/14 which was Only parasternal views were a vailable, no apical views because of his morbid obesity. Left atrium enlarged, Right atrium never well seen. Left ventricle normal size, mild LVH, normal septal, anterior and inferior wall motion, the anterior wall and apex are never well seen. LVEF is estimated at 50% The RV is mildly dilated with mildly reduced RV function. The aortic valve has sclerotic calcification but opens adequately. There is no mitral regurgitation or aortic regurgitation. The tricuspid and pulmonic valves are never well seen. Continues on aspirin, statin and beta-blockade. Fasting lipid panel shows low LDL, patient likely will require a coronary angiogram/LHC after CHF and pneumonia stabilized. Fasting lipid panel this morning shows low LDL. Call to his Tim[employer] Treatment [employer] Operator will be planned (Dr. Ly, however this is an Float Remover who follows him for A. fib). (3) Acute reduced EF HF/Congestive heart failure Qualifiers: Heart failure type: unspecified Heart failure chronicity: unspecified Qualified Code(s): I50.9 - Heart failure, unspecified Assessment/Plan: Patient has pulmonary edema and more peripheral edema than he was discharged with 2 days ago from Swing bed. He just had an Echocardiogram done several weeks ago at that showed an LVEF o f 65% with repeat here at 50%. He is diuresing adequately on IV twice daily Lasix. Follow I's and O's, daily weights (4) Right lower lobe pneumonia Assessment/Plan: This is the same location of his previous lobar infiltrate. Possibly it is more prominent because he now has vascular congestion in his lungs. It may also be that it was under treated with the previous azithromycin, ceftriaxone and then Levaquin po. He was placed on vancomycin plus cefepime plus Levaquin and Flagyl on this admission however due to overlap patient will now be on only vancomycin and Merrem. May consider adding Diflucan however Gram stain and culture of the sputum shows no organisms currently. Continues on probiotics. (5) Interstitial lung disease Assessment/Plan: He is followed by putaway driver Dr. Bennett, had just seen him before being admitted 2 weeks ago. Patient had been on prednisone which he continues currently and we will be holding mycophenolate given his immunosuppressed status with possible underlying opportunistic infection. Would be useful to do a bronchoscopy with BAL to discern opportunistic infection and consider adding Diflucan to his regimen, however no capabilities here for Bronchoscopy/pulmonology assessment. The patient is not on home O2 normally. On 2L NC currently. Continues on pulm toilet, IS, scheduled and as needed nebulizers, mucinex, tessalon. Will treat the underlying CHF and pneumonia. (6) Atrial fibrillation Assessment/Plan: Remains on usual meds for rate control and his anticoagulant. Follow INR daily while on Coumadin. Target INR is 2-3. (7) SUKHWINDER on CPAP Assessment/Plan: Continue on CPAP device to be used here (8) BPH (benign prostatic hyperplasia) Assessment/Plan: Continue on home meds (9) Prostate cancer, primary, with metastasis from prostate to other site Assessment/Plan: He is on one cancer med and this can be ordered to take as "patient's own med".
[2022-04-16 17:52] LABS: VANCOMYCIN,TROUGH 25.3 ug/mL (10.0-20.0)
[2022-04-16] MEDS ORDERED: LEUPROLIDE 45 MG IM SCH (18:00)
[2022-04-16] MEDS: BUDESONIDE 0.5 MG/2 ML NEB INH SCH (20:47)
[2022-04-16] MEDS: ATORVASTATIN 40 MG TABLET PO SCH (21:44)
[2022-04-17] MEDS: SODIUM CHLORIDE FLUSH 0.9% 10 ML SYRINGE IVP SCH ×4 (00:04→23:55)
[2022-04-17] MEDS: NITROGLYCERIN 2% PASTE TOP SCH ×2 (05:07→16:25)
[2022-04-17] MEDS: MEROPENEM 1 GM in SODIUM CHLORIDE 0.9% MINIBAG 100 ML IV SCH ×3 (05:07→20:51)
[2022-04-17] MEDS: FUROSEMIDE 20 MG/2 ML VIAL IVP SCH ×2 (05:07→14:18)
[2022-04-17] MEDS: ABIRATERONE ACETATE 250 MG PO SCH (05:10)
[2022-04-17 05:17] LABS: BASOPHILS # (AUTO) 0.1 10^3/uL (0.0-0.1); BASOPHILS % (AUTO) 0.6 %; EOSINOPHILS # (AUTO) 0.3 10^3/uL (0.0-0.7); EOSINOPHILS % (AUTO) 4.2 %; HCT - HEMATOCRIT 37.4 % (42.0-52.0); HGB - HEMOGLOBIN 12.1 g/dL (14.0-18.0); LYMPHOCYTES # (AUTO) 0.7 10^3/uL (1.5-3.5); LYMPHOCYTES % (AUTO) 8.8 %; MEAN CORPUSCULAR HGB CONC 32.4 g/dL (32.0-36.0); MEAN CORPUSCULAR VOLUME 95.9 fL (80.0-94.0); MEAN PLATELET VOLUME 10.8 fL (7.4-11.4); MONOCYTES # (AUTO) 0.7 10^3/uL (0.0-1.0); MONOCYTES % (AUTO) 9.4 %; NEUTROPHILS % (AUTO) 76.5 %; PLT - PLATELET COUNT 220 10^3/uL (130-450); RED CELL DISTRIBUTION WIDTH 14.4 % (12.0-15.0); WHITE BLOOD COUNT 7.8 x10^3/uL (4.8-10.8)
[2022-04-17 05:23] LABS: INR 2.4 (0.8-1.2); PT - PROTHROMBIN TIME 26.4 secs (9.9-12.6)
[2022-04-17 05:27] LABS: BUN - BLOOD UREA NITROGEN 10 mg/dL (6-20); CALCIUM 8.3 mg/dL (8.5-10.3); CARBON DIOXIDE - CO2 29 mmol/L (21-32); CHLORIDE 101 mmol/L (101-111); CREATININE 0.8 mg/dL (0.6-1.2); GFR - MDRD 94 (>89); GLUCOSE 91 mg/dL (70-100); MAGNESIUM 2.1 mg/dL (1.7-2.8); POTASSIUM 3.4 mmol/L (3.5-5.0); SODIUM 139 mmol/L (135-145); VANCOMYCIN,RANDOM 15.9 ug/mL
[2022-04-17] MEDS: VANCOMYCIN INJ 1 GM, VANCOMYCIN INJ 500 MG in SODIUM CHLORIDE 0.9% 500 ML IV SCH (05:39)
[2022-04-17] MEDS: LEVALBUTEROL 1.25 MG/3 ML NEB INH SCH ×4 (07:34→19:30)
[2022-04-17] MEDS: BUDESONIDE 0.5 MG/2 ML NEB INH SCH ×2 (07:34→19:30)
[2022-04-17] MEDS: predniSONE 5 MG TABLET PO SCH (08:42)
[2022-04-17] MEDS: allopurinoL 100 MG TABLET PO SCH (08:42)
[2022-04-17] MEDS: ASPIRIN EC 81 MG TABLET PO SCH (08:42)
[2022-04-17] MEDS: SACCHAROMYCES BOULARDII 250 MG CAPSULE PO SCH ×2 (08:43→16:25)
[2022-04-17] MEDS: TAMSULOSIN 0.4 MG CAPSULE PO SCH (08:43)
[2022-04-17] MEDS: METOPROLOL SUCCINATE 25 MG TABLET PO SCH ×2 (08:43→20:46)
[2022-04-17] MEDS: guaiFENesin 600 MG TABLET PO SCH ×2 (08:43→20:46)
[2022-04-17] MEDS: ACETAMINOPHEN 325 MG TABLET PO PRN (08:43)
[2022-04-17] MEDS: POTASSIUM CHLORIDE 20 MEQ/15 ML UDC PO SCH ×2 (08:43→16:25)
[2022-04-17] MEDS: FLUCONAZOLE 200 MG/100 ML 100 ML IV SCH (11:39)
--- NOTE | 2022-04-17 12:00 | PROVIDER PROGRESS NOTE ---
Progress Note Patient seen at bedside with of weakness and with peripheral edema which have essentially been somewhat improved and remains on 2 L nasal cannula. Her procalcitonin elevated at 6.68 and was diagnosed approximately 6 years ago with interstitial lung disease currently holding off on his mycophenolate and Lupron given his likely immunosuppressed state and opportunistic infections with underlying bacterial pneumonia. He is currently receiving vancomycin, Merrem and was previously on cefepime and Levaquin plus Flagyl. His nare MRSA is positive and concern for MDRO is high. He is receiving Lasix at 20 mg IV twice daily and is on a probiotic. His sputum gram stain and culture are pending, his prior EF of 50% w/ concern for apical MWA read by Dr. Guillen. Patient has physical deconditioning and physical therapy will work with patient. Patient otherwise denies chest pain, nausea, emesis, palpitations, headaches, hemoptysis. Nonproductive cough noted. Denies hematochezia, dysuria, flank pain, fevers, chills, MP rashes, GI or symptoms, or joint tenderness.Increased fatigue and weakness with dyspnea on exertion on ambulation. O/E: Vital signs hemodynamically stable, afebrile, on 2 L nasal cannula and 93% O2 saturation, nontachypneic, nontachycardic General: Obese male who is cooperative and with weakness and speaking in full sentences HEENT: No buccal lesions, no scleral icterus, MMM Neck: Trachea midline, no bruits, no LAD and bilaterally CV/lungs: RRR, decreased breath sounds with mild rhonchi and without wheezing or increased work of breath Abdomen: Globular, positive bowel sounds all quadrants, no HSM. Extremities/skin: 1-2+ bilateral pitting edema right more than left, no clubbing or cyanosis, 2+ pulses dorsalis pedis Labs: Reviewed Imaging studies: Reviewed Assessment and plan: (1) Acute respiratory failure with hypoxia Assessment/Plan: Remains on 2L NC. This is felt to be multifactorial from his underlying ILD, new CHF by chest x-ray and persistent or worsened/undertreated pneumonia on chest x- ray. Procalcitonin elevated at 6.6 and concern for opportunistic/bacterial pneumonia in an immunosuppressed patient. He is on supplemental oxygen to keep sats greater than 90%. Continues w/ IV Lasix and broader spectrum antibiotics. (2) Acute non-ST elevation myocardial infarction (NSTEMI) Assessment/Plan: Due to presentation with pulmonary edema, his troponins were checked and were 27>> 88>> 55.2 (last troponin). His last Echo done here was several years ago, which showed an LVEF of 45 to 50%. His most recent Echo was done just before that admission with pneumonia, done on March 19, 2022 at a visit with his Phlebotomy Supervisor. The said that it showed "EF 65% and no change from previous done in 2017". Dr. Guillen performed ECHO on 04/14 which was Only parasternal views were available, no apical views because of his morbid obesity. Left atrium enlarged, Right atrium never well seen. Left ventricle normal size, mild LVH, normal septal, anterior and inferior wall motion, the anterior wall and apex are never well seen. LVEF is estimated at 50% The RV is mildly dilated with mildly reduced RV function. The aortic valve has sclerotic calcification but opens adequately. There is no mitral regurgitation or aortic regurgitation. The tricuspid and pulmonic valves are never well seen. Continues on aspirin, statin and beta-blockade. Fasting lipid panel shows low LDL, patient likely will require a coronary angiogram/LHC after CHF and pneumonia stabilized. Fasting lipid panel this morning shows low LDL. He sees Dr. Ly, however this is an Metal Neutralizer who follows him for A. fib. Discussed with patient and at bedside who have agreed that [facility] would be a better fit as his primary reaming machine operator would be on staff and can be evaluated for possible bronchoscopy there, if patient is able to get an LHC there as well. (3) Mildly reduced EF HF/Congestive heart failure Qualifiers: Heart failure type: unspecified Heart failure chronicity: unspecified Qualified Code(s): I50.9 - Heart failure, unspecified Assessment/Plan: Patient has pulmonary edema and more peripheral edema and than he was discharged recently from Swing bed. He just had an Echocardiogram done several weeks ago at that showed an LVEF of 65% with repeat here at 50%. He is diuresing adequately on IV twice daily Lasix. Follow I's and O's, daily weights (4) Right lower lobe pneumonia Assessment/Plan: This is the same location of his previous lobar infiltrate. Possibly it is more prominent because he now has vascular congestion in his lungs. It may also be that it was under treated with the previous azithromycin, ceftriaxone and then Levaquin po. He was placed on vancomycin plus cefepime plus Levaquin and Flagyl on this admission however due to overlap patient will now be on only vancomycin and Merrem. Pharmacy consulted and adding IV Diflucan w/ adjustment to coumadin due to [id number] interactions. Gram stain and culture of the sputum shows no organisms currently. Continues on probiotics. (5) Interstitial lung disease Assessment/Plan: He is followed by reaming machine operator Dr. Bennett, had just seen him before being admitted 2 weeks ago. Patient had been on prednisone which he continues currently and we will be holding mycophenolate given his immunosuppressed status with possible underlying opportunistic infection. Would be useful to do a bronchoscopy with BAL to discern opportunistic infection and now adding Diflucan to his regimen, however no capabilities here for Bronchoscopy/pulmonology assessment. The patient is not on home O2 normally. On 2L NC currently. Continues on pulm toilet, IS, scheduled and as needed nebulizers, mucinex, tessalon. Will treat the underlying CHF and pneumonia. (6) Atrial fibrillation Assessment/Plan: Remains on usual meds for rate control and his anticoagulant. Follow INR daily while on Coumadin. Target INR is 2-3. Pharmacy has been consulted as Diflucan has been added to patient's regimen with adjustments to be made to his Coumadin dose given the drug drug interaction with Diflucan. (7) SUKHWINDER on CPAP Assessment/Plan: Continue on CPAP device to be used here (8) BPH (benign prostatic hyperplasia) Assessment/Plan: Continue on home meds (9) Prostate cancer, primary, with metastasis from prostate to other site Assessment/Plan: Patient is on Lupron and continues as indicated as outpatient regimen.
[2022-04-17] MEDS: polyethylene glycoL 3350 17 GM PACKET PO SCH (14:18)
[2022-04-17] MEDS: ATORVASTATIN 40 MG TABLET PO SCH (20:46)
[2022-04-18] MEDS: MEROPENEM 1 GM in SODIUM CHLORIDE 0.9% MINIBAG 100 ML IV SCH ×2 (05:01→13:29)
[2022-04-18] MEDS: FUROSEMIDE 20 MG/2 ML VIAL IVP SCH (05:01)
[2022-04-18] MEDS: NITROGLYCERIN 2% PASTE TOP SCH (05:01)
[2022-04-18 05:51] LABS: PT - PROTHROMBIN TIME 22.1 secs (9.9-12.6)
[2022-04-18] MEDS ORDERED: VANCOMYCIN INJ 1 GM, VANCOMYCIN INJ 500 MG in SODIUM CHLORIDE 0.9% 500 ML IV SCH (06:00)
[2022-04-18 06:04] LABS: VANCOMYCIN,RANDOM 13.6 ug/mL
[2022-04-18 06:08] LABS: ALBUMIN 2.9 g/dL (3.2-5.5); CALCIUM 8.5 mg/dL (8.5-10.3); CREATININE 0.8 mg/dL (0.6-1.2); PHOSPHORUS 2.5 mg/dL (2.5-4.6); POTASSIUM 3.3 mmol/L (3.5-5.0)
[2022-04-18] MEDS ORDERED: POTASSIUM CHLORIDE 20 MEQ TABLET PO SCH ×2 (07:00→09:00)
[2022-04-18] MEDS: METOPROLOL SUCCINATE 25 MG TABLET PO SCH (08:36)
[2022-04-18] MEDS ORDERED: FUROSEMIDE 40 MG TABLET PO SCH (09:00)
[2022-04-18] MEDS: FLUCONAZOLE 200 MG/100 ML 100 ML IV SCH (09:13)
[2022-04-18] MEDS: polyethylene glycoL 3350 17 GM PACKET PO SCH ×2 (09:13→09:34)
[2022-04-18] MEDS ORDERED: MIDODRINE 2.5 MG TABLET PO PRN (09:20)
[2022-04-18] MEDS ORDERED: SODIUM CHLORIDE 0.9% 500 ML IV PRN (09:21)
[2022-04-18] MEDS: LEVALBUTEROL 1.25 MG/3 ML NEB INH SCH ×2 (10:25→13:06)
[2022-04-18] MEDS: BUDESONIDE 0.5 MG/2 ML NEB INH SCH (10:25)
[2022-04-18] MEDS: predniSONE 5 MG TABLET PO SCH (10:36)
[2022-04-18] MEDS: allopurinoL 100 MG TABLET PO SCH (10:36)
[2022-04-18] MEDS: ASPIRIN EC 81 MG TABLET PO SCH (10:37)
[2022-04-18] MEDS: SODIUM CHLORIDE FLUSH 0.9% 10 ML SYRINGE IVP SCH (10:37)
[2022-04-18] MEDS: guaiFENesin 600 MG TABLET PO SCH (10:37)
[2022-04-18] MEDS: SACCHAROMYCES BOULARDII 250 MG CAPSULE PO SCH (10:41)
[2022-04-18 11:44] VITALS: BP 148/93
--- NOTE | 2022-04-18 13:36 | Discharge Plan ---
Discharge Plan Problem Reviewed?: Yes Disposition: 02 Transfer Acute Care Hosp Condition: Fair Diet: Cardiac Activity Restrictions: Wt Bearing as Tolerated Shower Restrictions: No Assistance Devices: Walker Weight Bearing: Full Weight Plan of Treatment: Patient to be transferred to the [facility] for higher level of care in order to have oncology evaluate for patient's prostate cancer and immunosuppressed status given that he has opportunistic pulmonary infection requiring IV Diflucan, vancomycin and Merrem for which he will also need pulmonology to evaluate for possible bronchoscopy. He will also need cardiology to evaluate for patient's preserved EF HF with demand ischemia and elevated troponins for which he may need a stress test. No Smoking: If you smoke, Please STOP! Call for help. Follow-up with: Elias Ashford MD [Primary Care Provider] - 2 Weeks
--- NOTE | 2022-04-18 13:41 | DISCHARGE SUMMARY ---
"Discharge Summary Admit Date: 04/14/22 Discharge Date: 04/18/22 Discharging Provider: Dr. Gomez Primary Care Provider: Elias Ashford Code Status: Attempt Resuscitation Condition at Discharge: Fair Discharge Disposition: 02 Transfer Acute Care Hosp - DIAGNOSES Admission Diagnoses: (1) Acute respiratory failure with hypoxia (2) Congestive heart failure (3) Right lower lobe pneumonia (4) Interstitial lung disease (5) Atrial fibrillation (6) SUKHWINDER on CPAP (7) BPH (benign prostatic hyperplasia) Discharge Diagnoses with Status of Each Condition: (1) Acute respiratory failure with hypoxia---stable (2) Acute non-ST elevation myocardial infarction (NSTEMI)---stable (3) Diastolic, pEF heart failure---Stable (4) Right lower lobe pneumonia--stanle (5) Interstitial lung disease/immunosuppressed status---stable (6) Atrial fibrillation---Controlled (7) SUKHWINDER on CPAP---stable (8) BPH (benign prostatic hyperplasia)---stable (9) Prostate cancer, primary, with metastasis from prostate to other site---stable (10) Physical deconditioning----stable (11) Hypokalemia----stable (12) Hypotension/Presyncope----resolved - HPI History of Present Illness: This is a 76-year-old white male with history of obesity, interstitial lung disease not on home oxygen, chronic A. fib on Coumadin, recent admission here with community-acquired pneumonia causing sepsis. He needed to be in the ICU. He became deconditioned with that hospitalization and was then in [facility] status (SNF) for rehab with PT and OT for 5 days. He was just discharged home 2 days ago. He had completed his entire course of IV then p.o. antibiotics for that community-acquired pneumonia. There were 3 to 4 days of diarrhea and the stool was C. difficile negative. He had been on probiotics. The diarrhea stopped before discharge. The patient did have leg edema at discharge which was felt to be from his aggressive IV hydration needed while in the ICU with sepsis. An Echocardiogram had been done during that admission which showed a preserved LVEF of 55%. There was no BNP measured during that hospitalization. He was not discharged home on Lasix. On the day of discharge from SNF, he underwent an oximetry walk test and had saturations of 94 to 95% on room air with rest and with activity. The patient was home for 1 day and had a good day. The following day (yesterday), he woke up and was briefly confused then started to get a low grade fever and a cough. Today he awoke with SOB, had worsening cough and shaking chills, and was confused. At presentation to the emergency room, he was desaturating at 89% on room air, has elevated white blood count and is tachypneic and tachycardic and intermittently confused. A chest x-ray shows CHF plus more prominent infiltrate in the right lower lobe, location of the prior pneumonia. The patient is being admitted for treating hypoxia from recurrent or persistent pneumonia and new pulmonary edema. - CONSULTS | PROCEDURES Consultations: Oncology-Dr. Arias from , Cardiology-Dr. Meraz from - HOSPITAL COURSE Hospital Course: Patient was managed for his acute hypoxemic respiratory failure as it pertains to his pulmonary edema in the setting of an elevated troponin and non-ST elevation ME, right lower lobe pneumonia and was placed on empiric IV antibiotics to cover for opportunistic infections given his Procalcitonin of 6.68 which has now down trended, diastolic preserved EF HF with an echocardiogram first read at bedside 50% however officially read now at EF of 64% on 04/14/2022 with no valvular heart disease or severe pulmonary hyper tension. He was placed on aspirin, statin beta-blockade however held due to hypotensive event on 04/18/2022 s/p 250 cc NS bolus. Patient had his chemotherapy agent held as well as Lupron and mycophenolate given his interstitial lung disease but continued on prednisone throughout hospitalization. Patient had electrolyte disturbances and had KCl repletion therapy with preserved renal function.Patient continued on anticoagulation with his Coumadin for his atrial fibrillation but pharmacy had to adjust given Diflucan drug to drug interaction with an INR of 2.0 upon transfer. [facility] was called due to patient's worsening fatigue, deconditioning and dyspnea on exertion given his elevated troponins which have now down trended and concern for opportunistic pulmonary infection despite sputum gram stain culture showing normal delphine patient needed to be assessed by his primary oncology team along with pulmonology and cardiology services to be offered at the [facility]. - ALLERGIES Allergies/Adverse Reactions: Allergies Allergy/AdvReac Type Severity Reaction Status Date / Time Penicillins Allergy Unknown Verified 04/14/22 02:18 Sulfa (Sulfonamide Allergy Unknown Verified 04/14/22 02:18 Antibiotics) - MEDICATIONS Home Medications: Ambulatory Orders Medication Instructions Recorded Confirmed Warfarin [Coumadin] 5 mg ORAL .[id number] 08/16/14 04/15/22 allopurinoL [Allopurinol] 200 mg ORAL DAILY 08/16/14 04/15/22 Abiraterone Acetate 1,000 mg PO 0600 04/05/22 04/15/22 Leuprolide [Lupron] 45 mg IM .Q6MO 04/05/22 04/15/22 Metoprolol Tartrate [Lopressor] 37.5 mg PO BID 04/05/22 04/15/22 Nystatin/Triamcin 1 applic TOP BID 04/05/22 04/15/22 [Nystatin-Triamcinolone Ointm] Tamsulosin [Flomax] 0.4 mg PO .TIW 04/05/22 04/15/22 Warfarin [Coumadin] 2.5 mg PO .Friday04/05/22 04/15/22 Wheat Dextrin [Benefiber] 1 packet PO DAILY 04/05/22 04/15/22 mycophenolate mofetiL 1,000 mg PO BID 04/05/22 04/15/22 [Mycophenolate Mofetil] predniSONE [Deltasone] 5 mg PO QDBREAKFAST 04/05/22 04/15/22 Home Medications Other | Comments: Patient to hold his Lupron, Zytiga, and mycophenolate as well as BP meds given his hypotension. - PHYSICAL EXAM AT DISCHARGE General Appearance: positive: No acute distress, Alert, Other (fatigue) Eyes Bilateral: positive: Normal inspection, PERRL, EOMI ENT: positive: ENT inspection nml, Pharynx nml, No signs of dehydration Neck: positive: Nml inspection, Thyroid nml, No JVD, Trachea midline. negative: Thyromegaly Respiratory: positive: Chest non-tender, No respiratory distress, Rhonchi. negative: Wheezes, Rales Cardiovascular: positive: No murmur, No gallop, Irregularly irregular. negative: JVD present, Gallop/S4, Friction rub Peripheral Pulses: positive: 2+ Abdomen: positive: Non-tender, No organomegaly, Nml bowel sounds, No distention Skin: positive: No rash, Dry. negative: Cyanosis, Embolic lesions Extremities: positive: Non-tender, Full ROM, Pedal edema. negative: Calf tenderness, Joint swelling, Penny's sign/cords Neurologic/Psychiatric: positive: Oriented x3, CN's nml (2-12) - LABS Result Diagrams: 04/17/22 05:10 04/18/22 05:00 - DIAGNOSTIC IMAGING Diagnostic Imaging Results: Final report reviewed - FOLLOW UP Follow Up: PCP as scheduled as outpatient and follow up will be determined once patient has been evaluated at [facility]. - TIME SPENT Time Spent in Discharge (Minutes): 40"
[2022-04-18] MEDS ORDERED: WARFARIN 2.5 MG TABLET PO SCH (14:00)
[2022-04-19] MEDS ORDERED: FUROSEMIDE 40 MG TABLET PO SCH (09:00)
[2022-04-19] MEDS ORDERED: WARFARIN 5 MG TABLET PO SCH (14:00)
== END 2022-04-18 14:17 | disposition short-term general hospital (02) | DRG 189 ==
LOC: EDUNIT# → ED 02:12 → MS2 08:21
PROVIDERS: ADMIT Internal Medicine; ATTEND Family Medicine
DX: J96.01 Acute respiratory failure with hypoxia (principal); R09.02 Hypoxemia; J15.9 Unspecified bacterial pneumonia; R74.02 Elevation of levels of lactic acid dehydrogenase [LDH]; I50.9 Heart failure, unspecified; I21.4 Non-ST elevation (NSTEMI) myocardial infarction; I48.91 Unspecified atrial fibrillation; G47.30 Sleep apnea, unspecified; Z20.822 Contact with and (suspected) exposure to COVID-19; J98.4 Other disorders of lung; I50.33 Acute on chronic diastolic (congestive) heart failure; J84.9 Interstitial pulmonary disease, unspecified; D84.9 Immunodeficiency, unspecified; C79.89 Secondary malignant neoplasm of other specified sites; I48.20 Chronic atrial fibrillation, unspecified; G47.33 Obstructive sleep apnea (adult) (pediatric); N40.0 Benign prostatic hyperplasia without lower urinary tract symptoms; C61 Malignant neoplasm of prostate; R53.1 Weakness; E87.6 Hypokalemia; I95.9 Hypotension, unspecified; Z79.01 Long term (current) use of anticoagulants; E66.01 Morbid (severe) obesity due to excess calories; Z68.31 Body mass index [BMI] 31.0-31.9, adult; Z22.322 Carrier or suspected carrier of Methicillin resistant Staphylococcus aureus; R53.83 Other fatigue
CPT/HCPCS: 36415; 71045; 80048; 80053; 80061; 80069; 80202; 83036; 83605; 83690; 83735; 83880; 84145; 84484; 85025; 85610; 87070; 87077; 87205; 87633; 87635; 93005; 93306; 94640; 94664; 96374; 96375; 97163; 97530; 99285; 99291; A9270; J2185; J3370; J7512; J7626; 83721; 87637

== ENCOUNTER → 2022-05-01 | Outpatient (CLI) | payer MEDICARE, OTHER | LOC: LAB.WCP 08:00 | PROVIDERS: ATTEND Internal Medicine | DX: I48.21 Permanent atrial fibrillation (principal); Z79.01 Long term (current) use of anticoagulants ==

== ENCOUNTER 2022-05-03 12:24 | Outpatient (CLI) | payer MEDICARE, OTHER | END 2022-05-03 12:25 | disposition short-term general hospital (02) | LOC: EMS 12:24 | DX: R55 Syncope and collapse (principal); R06.02 Shortness of breath; R53.1 Weakness | CPT/HCPCS: A0425; A0427 ==

== ENCOUNTER 2022-05-13 08:00 | Outpatient (CLI) | payer MEDICARE, OTHER | END 2022-05-13 23:59 | disposition home or self-care (01) | LOC: LAB.WCP 08:00 | PROVIDERS: ATTEND Internal Medicine | DX: I48.21 Permanent atrial fibrillation (principal); Z79.01 Long term (current) use of anticoagulants ==

== ENCOUNTER 2022-05-27 08:00 | Outpatient (CLI) | payer MEDICARE, OTHER | END 2022-05-27 23:59 | disposition home or self-care (01) | LOC: LAB.WCP 08:00 | PROVIDERS: ATTEND Family Medicine | DX: Z01.812 Encounter for preprocedural laboratory examination (principal); I48.21 Permanent atrial fibrillation; Z79.01 Long term (current) use of anticoagulants; Z20.822 Contact with and (suspected) exposure to COVID-19 ==

== ENCOUNTER 2022-05-27 10:42 | Outpatient (CLI) | payer MEDICARE, OTHER | END 2022-05-27 10:43 | disposition home or self-care (01) | LOC: LAB.N 10:42 | PROVIDERS: ATTEND Student in an Organized Health Care Education/Training Program | DX: Z01.812 Encounter for preprocedural laboratory examination (principal); Z20.822 Contact with and (suspected) exposure to COVID-19 ==

== ENCOUNTER 2022-07-18 12:40 | Outpatient (CLI) | payer MEDICARE, OTHER ==
[2022-07-18 13:23] VITALS: BP 110/70
--- NOTE | 2022-07-18 13:23 | SLEEP CARE CONSULTATION ---
Information from patient questionnaire entered by Gabriela Marcelo MA. I have reviewed and concur with the information entered by Gabriela Marcelo MA. This document represents the service I personally performed and the decisions made by , Yojana Montano ARNP. History of Present Illness Service Date and Time: 07/18/2022 1240 Previous diagnosis: Very Severe, Obstructive Sleep Apnea-Hypopnea Syndrome AHI: 62 (in 2015) Reason for follow up: annual (LAST SEEN 06/16) Equipment type: CPAP Equipment obtained from: [employer] (getting supplies as needed) Mask style: Nasal pillows (medium) Backup mask available: No (unsure; will keep old mask when replaced) Last cushion change: February 2022 Prior sleep studies: Yes Year and Where: 2015 - [facility] HPI additional information: URIEL DIAZ was diagnosed to have very severe, AHI 62, obstructive sleep apnea- hypopnea syndrome and returned today for CPAP therapy annual follow-up. Sleep Study - Results Prior sleep studies: Yes Year and Where: 2015 - [facility] CPAP Compliance Data - Data Reviewed with Patient Average duration of nightly device use: 8 hours 31 Compliance rate %: 100 (90/90 days used) Current pressure setting (cmH2O): 9-20 (avg 19.7) Average residual AHI: 28.5 Average large leak: 1 mins 45 secs Subjective Patient concerns: reports: dry mouth, nose, throat. denies: aerophagia, mask discomfort, air blowing in eyes, mask leak noise, condensation in mask/hose, nasal congestion, epistaxis Observed to snore while using device: No Current pressure setting perceived as: too high On therapy, patient: reports: sleeping better, awakening more refreshed, being more awake and alert during the day, more rested overall. denies: drowsiness while driving Initial [place] Sleepiness Scale score: 2 (in 2018) Current [place] Sleepiness Scale score: 8 Allergies and Home Medications Known drug allergies: Yes (PCN, SULFA) Home medication list reviewed: Yes (ABBEY) Allergy and home medication list: Allergies Penicillins Allergy (Verified 04/14/22 02:18) Unknown Sulfa (Sulfonamide Antibiotics) Allergy (Verified 04/14/22 02:18) Unknown Review of Systems Review of systems same as previous: Yes (no changes) Physical Exam Vital signs obtained and entered by: JENELLE WETZEL Blood Pressure: 110/70 (LEFT ARM) Cuff size: LARGE Heart Rate: 69 O2 Saturation: 96 Height: 5 ft 11 in Weight: 251 lb Body Mass Index: 34.9 BMI Classification: Obese Impression and Plan 1. Obstructive Sleep Apnea-Hypopnea Syndrome, very severe, with good treatment compliance and fair apnea control. On CPAP therapy, the patient has better sleep quality and is more rested overall. The patients pressure will be changed to autoCPAP 10-16 cmH20 for elevation of residual AHI. Patient also feels like the pressure is too high and that it is waking him up. I reviewed his chart and the pressure of 10-16 cmH2O seemed to control his apneas the best. Patient advised to contact me if pressure change is uncomfortable so that it can be adjusted. Goals for apnea control discussed. I will update his supply prescription. He voiced understanding. Patient's apnea severity and rationale for treatment to reduce apnea, improve sleep quality and reduce cardiovascular and cerebrovascular events was reviewed. I also reviewed the benefit of consistent device use of CPAP for hypertension and arrhythmia. 2. Obesity, unspecified. Currently patients BMI is 34.9. Obesity increases the risk of apnea, CPAP pressure requirements and overall health risks especially cardiovascular and diabetes. Thus patient is advised to continue to try to lose weight. Weight loss can be done with reducing portion size, reducing refined foods and balancing content with vegetables, fruit and whole grain foods. In addition, patient encouraged to get regular exercise. * Change auto CPAP pressure to 10-16 cmH2O * Update supplies * Notify me if snoring with mask or feeling that the pressure is too much or too little * Attempt to lose weight * Call this office if any problems using CPAP * Return for follow up in 1 year, or sooner if concerns arise Counseling Topics: Spare mask, Weight loss health impact Visit Type: In Office Time Spent with Patient (minutes): 21 Provider Statement: I spent 100% of the Face to Face Visit with the patient with greater than 50% spent counseling the patient and coordination of care.
== END 2022-07-18 12:41 | disposition home or self-care (01) ==
LOC: SC 12:40
PROVIDERS: ATTEND Nurse Practitioner Family
DX: G47.33 Obstructive sleep apnea (adult) (pediatric) (principal); E66.9 Obesity, unspecified; Z68.34 Body mass index [BMI] 34.0-34.9, adult
CPT/HCPCS: 99213; G0463; 99212

== ENCOUNTER 2022-11-10 08:10 | Outpatient (CLI) | payer MEDICARE, OTHER | END 2022-11-10 08:11 | disposition critical access hospital (66) | LOC: EMS 08:10 | DX: R53.1 Weakness (principal); E86.0 Dehydration; R50.9 Fever, unspecified; R19.7 Diarrhea, unspecified | CPT/HCPCS: A0425; A0429 ==

== ENCOUNTER 2022-11-10 08:23 | Emergency (ER) | payer MEDICARE, OTHER ==
[2022-11-10] MEDS ORDERED: SODIUM CHLORIDE 0.9% 1,000 ML IV STA (08:35)
--- NOTE | 2022-11-10 08:35 | ED Physician Documentation ---
History of Present Illness - Stated complaint Stated Complaint: HYPOTENSION/HYPOXIA - Chief complaint Chief Complaint: General - History obtained from History obtained from: Patient - Additonal information Additional information: 76-year-old gentleman with permanent A. fib, history of prostate cancer, interstitial lung disease not on home oxygen. He was driving to [place] and got sick, weak and dehydrated. He went to [facility] and was admitted for 6 days for acute kidney injury. He was released 2 days ago and came back home, here. Last night he developed diarrhea with a stomachache. Mild transient nausea and chest pain. Generalized weakness. Denies fevers or chills but was noted by EMS to have a temperature of 100.0. Also had some soft blood pressures at home in the range of 90/60. They also noted his prehospital oxygen saturation be 83 which we did not corroborate on initial evaluation here on room air. Review of Systems Constitutional: reports: Fatigue. denies: Fever, Chills Nose: denies: Rhinorrhea / runny nose, Congestion Cardiac: denies: Palpitations Respiratory: denies: Dyspnea, Cough GI: reports: Abdominal Pain, Nausea, Diarrhea. denies: Vomiting, Hematemesis, Bloody / black stool PD PAST MEDICAL HISTORY - Past Medical History Cardiovascular: Atrial fibrillation Respiratory: Sleep apnea, CPAP use, Other Neuro: None Endocrine/Autoimmune: None GI: Hepatitis : Kidney stones, Other HEENT: None Psych: None Musculoskeletal: Osteoarthritis, Fatigue Derm: None - Past Surgical History General: Colonoscopy Ortho: Other Cardiovascular: Other HEENT: Cataracts, Tonsil/Adenoidectomy - Present Medications Home Medications: Ambulatory Orders Medication Instructions Recorded Confirmed allopurinoL [Allopurinol] 100 mg ORAL DAILY 08/16/14 11/10/22 Leuprolide [Lupron] 45 mg IM .Q6MO 04/05/22 11/10/22 Tamsulosin [Flomax] 0.4 mg PO DAILY 04/05/22 11/10/22 mycophenolate mofetiL 1,000 mg PO BID 04/05/22 11/10/22 [Mycophenolate Mofetil] predniSONE [Deltasone] 5 mg PO QDBREAKFAST 04/05/22 11/10/22 Abiraterone Acetate [Zytiga] 1,000 mg PO DAILY 07/16/22 11/10/22 Apixaban [Eliquis] 5 mg PO BID 07/16/22 11/10/22 Metoprolol Succinate [Toprol Xl] 25 mg PO BID 07/16/22 11/10/22 Rosuvastatin Calcium [Crestor] 40 mg PO HS 07/16/22 11/10/22 - Allergies Allergies/Adverse Reactions: Allergies Allergy/AdvReac Type Severity Reaction Status Date / Time Penicillins Allergy Unknown Verified 11/10/22 08:30 Sulfa (Sulfonamide Allergy Unknown Verified 11/10/22 08:30 Antibiotics) - Social History Smoking Status: Never smoker - POLST Patient has POLST: No PD ED PE NORMAL - Vitals Vital signs reviewed: Yes - General General: Alert and oriented X 3, No acute distress - HEENT HEENT: PERRL, EOMI - Neck Neck: Supple, no meningeal sign, No bony TTP - Cardiac Cardiac: Other (Irregularly irregular) - Respiratory Respiratory: Other (Mild fine crackles throughout, nonlabored) - Abdomen Abdomen: Normal bowel sounds, Soft, Non tender - Back Back: No CVA TTP, No spinal TTP - Derm Derm: Normal color, Warm and dry - Extremities Extremities: No edema, No calf tenderness / cord - Neuro Neuro: Alert and oriented X 3, Normal speech Results - Vitals Vitals: Vital Signs - 24 hr 11/10/22 11/10/22 11/10/22 08:30 08:56 09:43 Temperature 37.1 C Heart Rate 77 85 106 H Respiratory 26 H 22 28 H Rate Blood Pressure 125/89 H 119/75 131/89 H O2 Saturation 99 99 100 11/10/22 10:41 Temperature Heart Rate 92 Respiratory 18 Rate Blood Pressure 119/97 H O2 Saturation 100 Oxygen O2 Source [] Nasal cannula O2 Source [] Room air O2 Source Room air - EKG (time done) 0832 Rate: Rate (enter#) (83) Rhythm: Atrial fibrillation Intervals: LBBB (Incomplete) QRS: LVH Ischemia: No: ST elevation c/w ischemia, ST depression - Labs Labs: Laboratory Tests 11/10/22 11/10/22 11/10/22 08:40 08:40 08:40 WBC 9.9 RBC 5.15 Hgb 15.2 Hct 47.4 MCV 92.0 MCH 29.5 MCHC 32.1 RDW 14.9 Plt Count 155 MPV 11.6 H Neut # (Auto) 7.8 H Lymph # (Auto) 1.0 L Gray # (Auto) 0.9 Eos # (Auto) 0.2 Baso # (Auto) 0.0 Absolute Nucleated RBC 0.00 Nucleated RBC % 0.0 VBG pH VBG pCO2 VBG pO2 VBG HCO3 VBG Total CO2 VBG O2 Saturation VBG Base Excess Sodium 140 Potassium 3.2 L Chloride 101 Carbon Dioxide 27 Anion Gap 12.0 BUN 16 Creatinine 1.6 H Estimated GFR (MDRD) 42 L Glucose 91 Lactic Acid 2.0 Calcium 8.9 Magnesium 2.1 Total Bilirubin 1.7 H AST 42 ALT 35 Alkaline Phosphatase 64 Troponin I High Sens Total Protein 6.1 L Albumin 3.1 L Globulin 3.0 Albumin/Globulin Ratio 1.0 Urine Color Urine Clarity Urine pH Ur Specific [place] Urine Protein Urine Glucose (UA) Urine Ketones Urine Occult Blood Urine Nitrite Urine Bilirubin Urine Urobilinogen Ur Leukocyte Esterase Urine RBC Urine WBC Ur Squamous Epith Cells Urine Bacteria Urine Casts Urine Culture Comments 11/10/22 11/10/22 11/10/22 08:40 08:40 09:50 WBC RBC Hgb Hct MCV MCH MCHC RDW Plt Count MPV Neut # (Auto) Lymph # (Auto) Gray # (Auto) Eos # (Auto) Baso # (Auto) Absolute Nucleated RBC Nucleated RBC % VBG pH 7.346 VBG pCO2 42.8 VBG pO2 26.6 VBG HCO3 22.9 L VBG Total CO2 24.2 VBG O2 Saturation 51.8 L VBG Base Excess -2.8 L Sodium Potassium Chloride Carbon Dioxide Anion Gap BUN Creatinine Estimated GFR (MDRD) Glucose Lactic Acid Calcium Magnesium Total Bilirubin AST ALT Alkaline Phosphatase Troponin I High Sens 101.4 H* Total Protein Albumin Globulin Albumin/Globulin Ratio Urine Color YELLOW Urine Clarity HAZY Urine pH 6.0 Ur Specific [place] 1.010 Urine Protein 30 H Urine Glucose (UA) NEGATIVE Urine Ketones TRACE Urine Occult Blood LARGE H Urine Nitrite NEGATIVE Urine Bilirubin NEGATIVE Urine Urobilinogen 0.2 (NORMAL) Ur Leukocyte Esterase NEGATIVE Urine RBC 6-10 H Urine WBC 0-3 Ur Squamous Epith Cells RARE Squamous Urine Bacteria Few Urine Casts 3-5 Granular Casts Urine Culture Comments NOT INDICATED 11/10/22 10:39 WBC RBC Hgb Hct MCV MCH MCHC RDW Plt Count MPV Neut # (Auto) Lymph # (Auto) Gray # (Auto) Eos # (Auto) Baso # (Auto) Absolute Nucleated RBC Nucleated RBC % VBG pH VBG pCO2 VBG pO2 VBG HCO3 VBG Total CO2 VBG O2 Saturation VBG Base Excess Sodium Potassium Chloride Carbon Dioxide Anion Gap BUN Creatinine Estimated GFR (MDRD) Glucose Lactic Acid Calcium Magnesium Total Bilirubin AST ALT Alkaline Phosphatase Troponin I High Sens 104.1 H* Total Protein Albumin Globulin Albumin/Globulin Ratio Urine Color Urine Clarity Urine pH Ur Specific [place] Urine Protein Urine Glucose (UA) Urine Ketones Urine Occult Blood Urine Nitrite Urine Bilirubin Urine Urobilinogen Ur Leukocyte Esterase Urine RBC Urine WBC Ur Squamous Epith Cells Urine Bacteria Urine Casts Urine Culture Comments - Rads (name of study) CT chest angiography showing fibrotic changes and bronchiectasis without PE or other acute finding. Radiology: Final report received, EMP read indepedently PD Medical Decision Making - ED course ED course: 76-year-old gentleman presents to the hospital with reported hypotension and hypoxemia, on arrival to the hospital he is not hypotensive nor hypoxemic. Given recent hospitalization PE is considered but pulmonary angiogram is negative for that and he was anticoagulated. No evidence of clinical heart failure. EKG showing A. fib but no clear ischemic abnormalities. CBC reviewed and normal. Venous gas normal. CMP with mild hypokalemia and creatinine of 1.6. Lactate reviewed and normal. Initial troponin 101, given symptoms or not consistent with ACS this was repeated after 2 hours and basically flat at 104. He was feeling better after some fluids and nausea medicine and passed a road test here and requested discharge. Departure - Departure Disposition: Home, Self Care Clinical Impression: Interstitial lung disease Atrial fibrillation Qualifiers: Atrial fibrillation type: permanent Qualified Code(s): I48.21 - Permanent atrial fibrillation Diarrhea Qualifiers: Diarrhea type: presumed infectious Qualified Code(s): R19.7 - Diarrhea, unspecified Condition: Good Record reviewed to determine appropriate education?: Yes Instructions: ED Diarrhea Viral, Atrial Fibrillation Dc Comments: Drink plenty of fluids. Okay to continue Imodium as needed. Return for new or worsening symptoms. Follow-up with your doctor on Friday for recheck especially given recent hospitalization as well.
--- OUTSIDE RECORDS SUMMARY | 2022-11-10 08:51 | EXTERNAL MEDICAL SUMMARY RPT | Continuity of Care Document ---
:[address] Address [address] [place] [address] Phone Allergies No information. Encounters No information. Functional Status No information. Immunizations No information. Medications No information. Problems No information. Procedures No information. Results/Labs test date author facility value unit interpret ation Result panel 1 (unknown) (no date) (unknown) (unknown) 0-2 /hpf (unkn own) (unknown) (no date) (unknown) (unknown) 0.0 10\s\9/l 704-7 (unknown) (no date) (unknown) (unknown) 0.0 10s9/l (unkn own) (unknown) (no date) (unknown) (unknown) 0.1 % (unkn own) (unknown) (no date) (unknown) (unknown) 0.1 % 706-2 (unknown) (no date) (unknown) (unknown) 0.1 10\s\9/l 711-2 (unknown) (no date) (unknown) (unknown) 0.1 10s9/l (unkn own) (unknown) (no date) (unknown) (unknown) 0.11 10\s\9/l 60805 -1 (unknown) (no date) (unknown) (unknown) 0.11 10s9/l (unkn own) (unknown) (no date) (unknown) (unknown) 0.6 % (unkn own) (unknown) (no date) (unknown) (unknown) 0.6 % 713-8 (unknown) (no date) (unknown) (unknown) 1.010 (units (unkn own) unknown) (unknown) (no date) (unknown) (unknown) 1.1 % (unkn own) (unknown) (no date) (unknown) (unknown) 1.1 % 50252 -1 (unknown) (no date) (unknown) (unknown) 1.1 10\s\9/l 731-0 (unknown) (no date) (unknown) (unknown) 1.1 10s9/l (unkn own) (unknown) (no date) (unknown) (unknown) 1.2 10\s\9/l 742-7 (unknown) (no date) (unknown) (unknown) 1.2 10s9/l (unkn own) (unknown) (no date) (unknown) (unknown) 10.4 10\s\9/l 19456 -8 (unknown) (no date) (unknown) (unknown) 10.4 10s9/l (unkn own) (unknown) (no date) (unknown) (unknown) 10.8 % (unkn own) (unknown) (no date) (unknown) (unknown) 10.8 % 736-9 (unknown) (no date) (unknown) (unknown) 11.8 % (unkn own) (unknown) (no date) (unknown) (unknown) 11.8 % 5905- 5 (unknown) (no date) (unknown) (unknown) 117 10\s\9/l 777-3 (unknown) (no date) (unknown) (unknown) 117 10s9/l (unkn own) (unknown) (no date) (unknown) (unknown) 12.2 fl (unkn own) (unknown) (no date) (unknown) (unknown) 12.2 fl 58126 -1 (unknown) (no date) (unknown) (unknown) 12.2 fl (unkn own) (unknown) (no date) (unknown) (unknown) 15.1 % (unkn own) (unknown) (no date) (unknown) (unknown) 15.1 % 788-0 (unknown) (no date) (unknown) (unknown) 15.8 g/dl (unkn own) (unknown) (no date) (unknown) (unknown) 15.8 g/dl 718-7 (unknown) (no date) (unknown) (unknown) 2 (units (unkn own) unknown) (unknown) (no date) (unknown) (unknown) 2 /hpf (unkn own) (unknown) (no date) (unknown) (unknown) 2 /hpf 38052 -1 (unknown) (no date) (unknown) (unknown) 29.3 pg (unkn own) (unknown) (no date) (unknown) (unknown) 29.3 pg 785-6 (unknown) (no date) (unknown) (unknown) 3-4 /hpf (unkn own) (unknown) (no date) (unknown) (unknown) 31.2 g/dl (unkn own) (unknown) (no date) (unknown) (unknown) 31.2 g/dl 786-4 (unknown) (no date) (unknown) (unknown) 5.39 10\s\12/l 789- 8 (unknown) (no date) (unknown) (unknown) 5.39 10s12/l (unkn own) (unknown) (no date) (unknown) (unknown) 5.5 (units (unkn own) unknown) (unknown) (no date) (unknown) (unknown) 50.6 % (unkn own) (unknown) (no date) (unknown) (unknown) 50.6 % 4544- 3 (unknown) (no date) (unknown) (unknown) 51.6 fl (unkn own) (unknown) (no date) (unknown) (unknown) 51.6 fl 31445 -5 (unknown) (no date) (unknown) (unknown) 6-10 /lpf (unkn own) (unknown) (no date) (unknown) (unknown) 6-10 /lpf (unkn own) (unknown) (no date) (unknown) (unknown) 7.9 10\s\9/l 751-8 (unknown) (no date) (unknown) (unknown) 7.9 10s9/l (unkn own) (unknown) (no date) (unknown) (unknown) 75.6 % (unkn own) (unknown) (no date) (unknown) (unknown) 75.6 % 770-8 (unknown) (no date) (unknown) (unknown) 93.9 fl (unkn own) (unknown) (no date) (unknown) (unknown) 93.9 fl 787-2 (unknown) (no date) (unknown) (unknown) Cloudy (units (unkn own) unknown) (unknown) (no date) (unknown) (unknown) Cloudy (units 5767- 9 unknown) (unknown) (no date) (unknown) (unknown) Negative (units (unkn own) unknown) (unknown) (no date) (unknown) (unknown) None Seen /lpf (unk nown) (unknown) (no date) (unknown) (unknown) Trace (units (unkn own) unknown) (unknown) (no date) (unknown) (unknown) Trace /lpf (unkn own) (unknown) (no date) (unknown) (unknown) URINE, UNSPE (units ( unknown) unknown) (unknown) (no date) (unknown) (unknown) Yellow (units (unkn own) unknown) Result panel 2 (unknown) (no date) (unknown) (unknown) 29 ng/l (unkn own) (unknown) (no date) (unknown) (unknown) 29 ng/l (unkn own) Result panel 3 (unknown) (no date) (unknown) (unknown) 1.1 (units unknown) (unknown) (unknown) (no date) (unknown) (unknown) 1.1 (units unknown) 1759-0 (unknown) (no date) (unknown) (unknown) 1.1 (units unknown) (unknown) (unknown) (no date) (unknown) (unknown) 1.31 mg/dl (unkn own) (unknown) (no date) (unknown) (unknown) 1.31 mg/dl 1975- 2 (unknown) (no date) (unknown) (unknown) 1.75 mg/dl (unkn own) (unknown) (no date) (unknown) (unknown) 1.75 mg/dl 09931 -4 (unknown) (no date) (unknown) (unknown) 10.3 (units unknown) (unknown) (unknown) (no date) (unknown) (unknown) 10.3 (units unknown) 3097-3 (unknown) (no date) (unknown) (unknown) 108 mmol/l (unkn own) (unknown) (no date) (unknown) (unknown) 108 mmol/l 2075- 0 (unknown) (no date) (unknown) (unknown) 119 mg/dl 2345- 7 (unknown) (no date) (unknown) (unknown) 119 mg/dl (unkn own) (unknown) (no date) (unknown) (unknown) 12 (units unknown) (unknown) (unknown) (no date) (unknown) (unknown) 12 (units unknown) 43175-3 (unknown) (no date) (unknown) (unknown) 145 mmol/l (unkn own) (unknown) (no date) (unknown) (unknown) 145 mmol/l 2951- 2 (unknown) (no date) (unknown) (unknown) 18 mg/dl (unkn own) (unknown) (no date) (unknown) (unknown) 18 mg/dl 3094- 0 (unknown) (no date) (unknown) (unknown) 19 iu/l (unkn own) (unknown) (no date) (unknown) (unknown) 19 iu/l 1920- 8 (unknown) (no date) (unknown) (unknown) 2.8 g/dl (unkn own) (unknown) (no date) (unknown) (unknown) 2.8 g/dl 86659 -0 (unknown) (no date) (unknown) (unknown) 25 iu/l (unkn own) (unknown) (no date) (unknown) (unknown) 25 iu/l 1742- 6 (unknown) (no date) (unknown) (unknown) 25 mmol/l (unkn own) (unknown) (no date) (unknown) (unknown) 25 mmol/l 2028- 9 (unknown) (no date) (unknown) (unknown) 3.0 g/dl (unkn own) (unknown) (no date) (unknown) (unknown) 3.0 g/dl 1751- 7 (unknown) (no date) (unknown) (unknown) 3.4 mmol/l (unkn own) (unknown) (no date) (unknown) (unknown) 3.4 mmol/l 2823- 3 (unknown) (no date) (unknown) (unknown) 40 ml/min/1.73 m2 11132-7 (unknown) (no date) (unknown) (unknown) 40 ml/min/1.73 m2 (unknown) (unknown) (no date) (unknown) (unknown) 5.8 g/dl (unkn own) (unknown) (no date) (unknown) (unknown) 5.8 g/dl 2885- 2 (unknown) (no date) (unknown) (unknown) 73 iu/l (unkn own) (unknown) (no date) (unknown) (unknown) 73 iu/l 1779- 8 (unknown) (no date) (unknown) (unknown) 8.9 mg/dl (unkn own) (unknown) (no date) (unknown) (unknown) 8.9 mg/dl 02304 -6 Result panel 4 (unknown) (no date) (unknown) (unknown) Nasopharynx (units (u nknown) unknown) (unknown) (no date) (unknown) (unknown) No (units 30718 -8 unknown) (unknown) (no date) (unknown) (unknown) No (units (unkn own) unknown) (unknown) (no date) (unknown) (unknown) Not Detected (units 9 4500-6 unknown) (unknown) (no date) (unknown) (unknown) Not Detected (units ( unknown) unknown) (unknown) (no date) (unknown) (unknown) See Comment (units 94 500-6 unknown) (unknown) (no date) (unknown) (unknown) See Comment (units (u nknown) unknown) Result panel 5 (unknown) (no (unknown) (unknown) Insufficient (units (u nknown) date) incubation time unknown) for valid interpretation (unknown) (no (unknown) (unknown) Insufficient (units (u nknown) date) incubation time unknown) for valid interpretation (unknown) (no (unknown) (unknown) No growth (units (unkn own) date) unknown) (unknown) (no (unknown) (unknown) No growth (units (unkn own) date) unknown) Result panel 6 (unknown) (no date) (unknown) (unknown) 6 ug/dl 15182 -2 (unknown) (no date) (unknown) (unknown) 6 ug/dl (unkn own) Result panel 7 (unknown) (no date) (unknown) (unknown) 0-10 % (units (unkn own) unknown) (unknown) (no date) (unknown) (unknown) 0-10 % (units 30770 -2 unknown) (unknown) (no date) (unknown) (unknown) 0.0 10\s\9/l 704-7 (unknown) (no date) (unknown) (unknown) 0.0 10s9/l (unkn own) (unknown) (no date) (unknown) (unknown) 0.09 10\s\9/l 43498 -1 (unknown) (no date) (unknown) (unknown) 0.09 10s9/l (unkn own) (unknown) (no date) (unknown) (unknown) 0.1 10\s\9/l 711-2 (unknown) (no date) (unknown) (unknown) 0.1 10s9/l (unkn own) (unknown) (no date) (unknown) (unknown) 0.2 % (unkn own) (unknown) (no date) (unknown) (unknown) 0.2 % 706-2 (unknown) (no date) (unknown) (unknown) 0.9 % (unkn own) (unknown) (no date) (unknown) (unknown) 0.9 % 82791 -1 (unknown) (no date) (unknown) (unknown) 0.9 10\s\9/l 731-0 (unknown) (no date) (unknown) (unknown) 0.9 10s9/l (unkn own) (unknown) (no date) (unknown) (unknown) 1.0 % (unkn own) (unknown) (no date) (unknown) (unknown) 1.0 % 713-8 (unknown) (no date) (unknown) (unknown) 1.0 10\s\9/l 742-7 (unknown) (no date) (unknown) (unknown) 1.0 10s9/l (unkn own) (unknown) (no date) (unknown) (unknown) 1.56 mg/dl (unkn own) (unknown) (no date) (unknown) (unknown) 1.56 mg/dl 09399 -4 (unknown) (no date) (unknown) (unknown) 1.59 uiu/ml 3016- 3 (unknown) (no date) (unknown) (unknown) 1.59 uiu/ml (unkn own) (unknown) (no date) (unknown) (unknown) 10.5 % (unkn own) (unknown) (no date) (unknown) (unknown) 10.5 % 5905- 5 (unknown) (no date) (unknown) (unknown) 112 mmol/l (unkn own) (unknown) (no date) (unknown) (unknown) 112 mmol/l 2075- 0 (unknown) (no date) (unknown) (unknown) 12.2 fl (unkn own) (unknown) (no date) (unknown) (unknown) 12.2 fl 53294 -1 (unknown) (no date) (unknown) (unknown) 13 (units (unkn own) unknown) (unknown) (no date) (unknown) (unknown) 13 (units 36692 -1 unknown) (unknown) (no date) (unknown) (unknown) 14.9 % (unkn own) (unknown) (no date) (unknown) (unknown) 14.9 % 788-0 (unknown) (no date) (unknown) (unknown) 141 mmol/l (unkn own) (unknown) (no date) (unknown) (unknown) 141 mmol/l 2951- 2 (unknown) (no date) (unknown) (unknown) 15.5 g/dl (unkn own) (unknown) (no date) (unknown) (unknown) 15.5 g/dl 718-7 (unknown) (no date) (unknown) (unknown) 16 mmol/l (unkn own) (unknown) (no date) (unknown) (unknown) 16 mmol/l 2028- 9 (unknown) (no date) (unknown) (unknown) 2.1 mg/dl 85177 -9 (unknown) (no date) (unknown) (unknown) 2.1 mg/dl (unkn own) (unknown) (no date) (unknown) (unknown) 29.6 pg (unkn own) (unknown) (no date) (unknown) (unknown) 29.6 pg 785-6 (unknown) (no date) (unknown) (unknown) 30.3 g/dl (unkn own) (unknown) (no date) (unknown) (unknown) 30.3 g/dl 786-4 (unknown) (no date) (unknown) (unknown) 4.0 mmol/l (unkn own) (unknown) (no date) (unknown) (unknown) 4.0 mmol/l 2823- 3 (unknown) (no date) (unknown) (unknown) 46 ml/min/1.73 45 066-8 m2 (unknown) (no date) (unknown) (unknown) 46 ml/min/1.73 (u nknown) m2 (unknown) (no date) (unknown) (unknown) 5.23 10\s\12/l 789- 8 (unknown) (no date) (unknown) (unknown) 5.23 10s12/l (unkn own) (unknown) (no date) (unknown) (unknown) 5.8 (units (unkn own) unknown) (unknown) (no date) (unknown) (unknown) 5.8 (units 3097- 3 unknown) (unknown) (no date) (unknown) (unknown) 51.2 % (unkn own) (unknown) (no date) (unknown) (unknown) 51.2 % 4544- 3 (unknown) (no date) (unknown) (unknown) 53.8 fl (unkn own) (unknown) (no date) (unknown) (unknown) 53.8 fl 78476 -5 (unknown) (no date) (unknown) (unknown) 7.7 10\s\9/l 751-8 (unknown) (no date) (unknown) (unknown) 7.7 10s9/l (unkn own) (unknown) (no date) (unknown) (unknown) 77.9 % (unkn own) (unknown) (no date) (unknown) (unknown) 77.9 % 770-8 (unknown) (no date) (unknown) (unknown) 8.5 mg/dl (unkn own) (unknown) (no date) (unknown) (unknown) 8.5 mg/dl 49610 -6 (unknown) (no date) (unknown) (unknown) 8.5 mg/dl (unkn own) (unknown) (no date) (unknown) (unknown) 82 mg/dl 2345- 7 (unknown) (no date) (unknown) (unknown) 82 mg/dl (unkn own) (unknown) (no date) (unknown) (unknown) 84 10\s\9/l 777-3 (unknown) (no date) (unknown) (unknown) 84 10s9/l (unkn own) (unknown) (no date) (unknown) (unknown) 9 mg/dl (unkn own) (unknown) (no date) (unknown) (unknown) 9 mg/dl 3094- 0 (unknown) (no date) (unknown) (unknown) 9.5 % (unkn own) (unknown) (no date) (unknown) (unknown) 9.5 % 736-9 (unknown) (no date) (unknown) (unknown) 9.9 10\s\9/l 67821 -8 (unknown) (no date) (unknown) (unknown) 9.9 10s9/l (unkn own) (unknown) (no date) (unknown) (unknown) 97.9 fl (unkn own) (unknown) (no date) (unknown) (unknown) 97.9 fl 787-2 (unknown) (no date) (unknown) (unknown) Decreased (units (unk nown) unknown) (unknown) (no date) (unknown) (unknown) Decreased (units 4949 7-1 unknown) (unknown) (no date) (unknown) (unknown) Slide (units (unkn own) Reviewed unknown) (unknown) (no date) (unknown) (unknown) Slide (units (unkn own) Reviewed unknown) Result panel 8 (unknown) (no date) (unknown) (unknown) 1.0 mmol/l 2519- 7 (unknown) (no date) (unknown) (unknown) 1.0 mmol/l (unkn own) Result panel 9 (unknown) (no date) (unknown) (unknown) -6.4 mmol/l (unkn own) (unknown) (no date) (unknown) (unknown) -6.4 mmol/l (unkn own) (unknown) (no date) (unknown) (unknown) 146 mm hg (unkn own) (unknown) (no date) (unknown) (unknown) 18 mmol/l (unkn own) (unknown) (no date) (unknown) (unknown) 35 mm hg (unkn own) (unknown) (no date) (unknown) (unknown) 7.34 (units unknown) (unknown) (unknown) (no date) (unknown) (unknown) 99 % (unkn own) Result panel 10 (unknown) (no date) (unknown) (unknown) 65 pg/ml 37869 -4 (unknown) (no date) (unknown) (unknown) 65 pg/ml (unkn own) Result panel 11 (unknown) (no date) (unknown) (unknown) 209 ng/ml 2276- 4 (unknown) (no date) (unknown) (unknown) 209 ng/ml (unkn own) Result panel 12 (unknown) (no date) (unknown) (unknown) 1.69 mg/dl (unkn own) (unknown) (no date) (unknown) (unknown) 1.69 mg/dl 13576 -4 (unknown) (no date) (unknown) (unknown) 10.1 (units unknown) (unknown) (unknown) (no date) (unknown) (unknown) 10.1 (units unknown) 3097-3 (unknown) (no date) (unknown) (unknown) 110 mmol/l (unkn own) (unknown) (no date) (unknown) (unknown) 110 mmol/l 2075- 0 (unknown) (no date) (unknown) (unknown) 123 mg/dl 2345- 7 (unknown) (no date) (unknown) (unknown) 123 mg/dl (unkn own) (unknown) (no date) (unknown) (unknown) 13 (units unknown) (unknown) (unknown) (no date) (unknown) (unknown) 13 (units unknown) 77764-1 (unknown) (no date) (unknown) (unknown) 143 mmol/l (unkn own) (unknown) (no date) (unknown) (unknown) 143 mmol/l 2951- 2 (unknown) (no date) (unknown) (unknown) 17 mg/dl (unkn own) (unknown) (no date) (unknown) (unknown) 17 mg/dl 3094- 0 (unknown) (no date) (unknown) (unknown) 2.1 mg/dl 22429 -9 (unknown) (no date) (unknown) (unknown) 2.1 mg/dl (unkn own) (unknown) (no date) (unknown) (unknown) 20 mmol/l (unkn own) (unknown) (no date) (unknown) (unknown) 20 mmol/l 2028- 9 (unknown) (no date) (unknown) (unknown) 3.5 mg/dl (unkn own) (unknown) (no date) (unknown) (unknown) 3.5 mg/dl 2777- 1 (unknown) (no date) (unknown) (unknown) 4.4 mmol/l (unkn own) (unknown) (no date) (unknown) (unknown) 4.4 mmol/l 2823- 3 (unknown) (no date) (unknown) (unknown) 8.7 mg/dl (unkn own) (unknown) (no date) (unknown) (unknown) 8.7 mg/dl 66296 -6 Result panel 13 (unknown) (no date) (unknown) (unknown) 0.0 10\s\9/l 704-7 (unknown) (no date) (unknown) (unknown) 0.0 10s9/l (unkn own) (unknown) (no date) (unknown) (unknown) 0.06 10\s\9/l 27422 -1 (unknown) (no date) (unknown) (unknown) 0.06 10s9/l (unkn own) (unknown) (no date) (unknown) (unknown) 0.1 10\s\9/l 711-2 (unknown) (no date) (unknown) (unknown) 0.1 10s9/l (unkn own) (unknown) (no date) (unknown) (unknown) 0.2 % (unkn own) (unknown) (no date) (unknown) (unknown) 0.2 % 706-2 (unknown) (no date) (unknown) (unknown) 0.6 % (unkn own) (unknown) (no date) (unknown) (unknown) 0.6 % 87603 -1 (unknown) (no date) (unknown) (unknown) 0.8 10\s\9/l 742-7 (unknown) (no date) (unknown) (unknown) 0.8 10s9/l (unkn own) (unknown) (no date) (unknown) (unknown) 0.9 % (unkn own) (unknown) (no date) (unknown) (unknown) 0.9 % 713-8 (unknown) (no date) (unknown) (unknown) 0.9 10\s\9/l 731-0 (unknown) (no date) (unknown) (unknown) 0.9 10s9/l (unkn own) (unknown) (no date) (unknown) (unknown) 1.66 mg/dl (unkn own) (unknown) (no date) (unknown) (unknown) 1.66 mg/dl 92624 -4 (unknown) (no date) (unknown) (unknown) 110 mmol/l (unkn own) (unknown) (no date) (unknown) (unknown) 110 mmol/l 2075- 0 (unknown) (no date) (unknown) (unknown) 12.0 fl (unkn own) (unknown) (no date) (unknown) (unknown) 12.0 fl 07107 -1 (unknown) (no date) (unknown) (unknown) 12.0 fl (unkn own) (unknown) (no date) (unknown) (unknown) 14.6 % (unkn own) (unknown) (no date) (unknown) (unknown) 14.6 % 788-0 (unknown) (no date) (unknown) (unknown) 143 mg/dl 2345- 7 (unknown) (no date) (unknown) (unknown) 143 mg/dl (unkn own) (unknown) (no date) (unknown) (unknown) 143 mmol/l (unkn own) (unknown) (no date) (unknown) (unknown) 143 mmol/l 2951- 2 (unknown) (no date) (unknown) (unknown) 15 mg/dl (unkn own) (unknown) (no date) (unknown) (unknown) 15 mg/dl 3094- 0 (unknown) (no date) (unknown) (unknown) 15.4 g/dl (unkn own) (unknown) (no date) (unknown) (unknown) 15.4 g/dl 718-7 (unknown) (no date) (unknown) (unknown) 2.1 mg/dl 92910 -9 (unknown) (no date) (unknown) (unknown) 2.1 mg/dl (unkn own) (unknown) (no date) (unknown) (unknown) 2.7 mg/dl (unkn own) (unknown) (no date) (unknown) (unknown) 2.7 mg/dl 2777- 1 (unknown) (no date) (unknown) (unknown) 24 mmol/l (unkn own) (unknown) (no date) (unknown) (unknown) 24 mmol/l 2028- 9 (unknown) (no date) (unknown) (unknown) 29.0 pg (unkn own) (unknown) (no date) (unknown) (unknown) 29.0 pg 785-6 (unknown) (no date) (unknown) (unknown) 3.5 mmol/l (unkn own) (unknown) (no date) (unknown) (unknown) 3.5 mmol/l 2823- 3 (unknown) (no date) (unknown) (unknown) 30.7 g/dl (unkn own) (unknown) (no date) (unknown) (unknown) 30.7 g/dl 786-4 (unknown) (no date) (unknown) (unknown) 5.31 10\s\12/l 789- 8 (unknown) (no date) (unknown) (unknown) 5.31 10s12/l (unkn own) (unknown) (no date) (unknown) (unknown) 50.2 % (unkn own) (unknown) (no date) (unknown) (unknown) 50.2 % 4544- 3 (unknown) (no date) (unknown) (unknown) 50.4 fl (unkn own) (unknown) (no date) (unknown) (unknown) 50.4 fl 04301 -5 (unknown) (no date) (unknown) (unknown) 7.9 10\s\9/l 751-8 (unknown) (no date) (unknown) (unknown) 7.9 10s9/l (unkn own) (unknown) (no date) (unknown) (unknown) 8.3 % (unkn own) (unknown) (no date) (unknown) (unknown) 8.3 % 5905- 5 (unknown) (no date) (unknown) (unknown) 8.9 mg/dl (unkn own) (unknown) (no date) (unknown) (unknown) 8.9 mg/dl 93157 -6 (unknown) (no date) (unknown) (unknown) 80 10\s\9/l 777-3 (unknown) (no date) (unknown) (unknown) 80 10s9/l (unkn own) (unknown) (no date) (unknown) (unknown) 80.5 % (unkn own) (unknown) (no date) (unknown) (unknown) 80.5 % 770-8 (unknown) (no date) (unknown) (unknown) 9 (units unknown) (unknown) (unknown) (no date) (unknown) (unknown) 9 (units unknown) 61490-8 (unknown) (no date) (unknown) (unknown) 9.0 (units unknown) (unknown) (unknown) (no date) (unknown) (unknown) 9.0 (units unknown) 3097-3 (unknown) (no date) (unknown) (unknown) 9.5 % (unkn own) (unknown) (no date) (unknown) (unknown) 9.5 % 736-9 (unknown) (no date) (unknown) (unknown) 9.8 10\s\9/l 08727 -8 (unknown) (no date) (unknown) (unknown) 9.8 10s9/l (unkn own) (unknown) (no date) (unknown) (unknown) 94.5 fl (unkn own) (unknown) (no date) (unknown) (unknown) 94.5 fl 787-2 Result panel 14 (unknown) (no date) (unknown) (unknown) 270 ug/dl (unkn own) (unknown) (no date) (unknown) (unknown) 270 ug/dl 2500- 7 (unknown) (no date) (unknown) (unknown) 36 % 2502- 3 (unknown) (no date) (unknown) (unknown) 36 % (unkn own) (unknown) (no date) (unknown) (unknown) 98 ug/dl 2498- 4 (unknown) (no date) (unknown) (unknown) 98 ug/dl (unkn own) Result panel 15 (unknown) (no date) (unknown) (unknown) 0-10 % (units (unkn own) unknown) (unknown) (no date) (unknown) (unknown) 0-10 % (units 41140 -2 unknown) (unknown) (no date) (unknown) (unknown) 0.0 10\s\9/l 704-7 (unknown) (no date) (unknown) (unknown) 0.0 10s9/l (unkn own) (unknown) (no date) (unknown) (unknown) 0.06 10\s\9/l 89812 -1 (unknown) (no date) (unknown) (unknown) 0.06 10s9/l (unkn own) (unknown) (no date) (unknown) (unknown) 0.1 10\s\9/l 711-2 (unknown) (no date) (unknown) (unknown) 0.1 10s9/l (unkn own) (unknown) (no date) (unknown) (unknown) 0.2 % (unkn own) (unknown) (no date) (unknown) (unknown) 0.2 % 706-2 (unknown) (no date) (unknown) (unknown) 0.6 % (unkn own) (unknown) (no date) (unknown) (unknown) 0.6 % 29804 -1 (unknown) (no date) (unknown) (unknown) 0.8 10\s\9/l 742-7 (unknown) (no date) (unknown) (unknown) 0.8 10s9/l (unkn own) (unknown) (no date) (unknown) (unknown) 1.1 10\s\9/l 731-0 (unknown) (no date) (unknown) (unknown) 1.1 10s9/l (unkn own) (unknown) (no date) (unknown) (unknown) 1.2 % (unkn own) (unknown) (no date) (unknown) (unknown) 1.2 % 713-8 (unknown) (no date) (unknown) (unknown) 1.77 mg/dl (unkn own) (unknown) (no date) (unknown) (unknown) 1.77 mg/dl 20842 -4 (unknown) (no date) (unknown) (unknown) 10.2 (units (unkn own) unknown) (unknown) (no date) (unknown) (unknown) 10.2 (units 3097- 3 unknown) (unknown) (no date) (unknown) (unknown) 10.4 10\s\9/l 24162 -8 (unknown) (no date) (unknown) (unknown) 10.4 10s9/l (unkn own) (unknown) (no date) (unknown) (unknown) 10.6 % (unkn own) (unknown) (no date) (unknown) (unknown) 10.6 % 736-9 (unknown) (no date) (unknown) (unknown) 111 mmol/l (unkn own) (unknown) (no date) (unknown) (unknown) 111 mmol/l 2075- 0 (unknown) (no date) (unknown) (unknown) 12.1 fl (unkn own) (unknown) (no date) (unknown) (unknown) 12.1 fl 21972 -1 (unknown) (no date) (unknown) (unknown) 129 mg/dl 2345- 7 (unknown) (no date) (unknown) (unknown) 129 mg/dl (unkn own) (unknown) (no date) (unknown) (unknown) 14.6 % (unkn own) (unknown) (no date) (unknown) (unknown) 14.6 % 788-0 (unknown) (no date) (unknown) (unknown) 143 mmol/l (unkn own) (unknown) (no date) (unknown) (unknown) 143 mmol/l 2951- 2 (unknown) (no date) (unknown) (unknown) 15.4 g/dl (unkn own) (unknown) (no date) (unknown) (unknown) 15.4 g/dl 718-7 (unknown) (no date) (unknown) (unknown) 18 mg/dl (unkn own) (unknown) (no date) (unknown) (unknown) 18 mg/dl 3094- 0 (unknown) (no date) (unknown) (unknown) 2.0 mg/dl 91483 -9 (unknown) (no date) (unknown) (unknown) 2.0 mg/dl (unkn own) (unknown) (no date) (unknown) (unknown) 26 mmol/l (unkn own) (unknown) (no date) (unknown) (unknown) 26 mmol/l 2028- 9 (unknown) (no date) (unknown) (unknown) 29.6 pg (unkn own) (unknown) (no date) (unknown) (unknown) 29.6 pg 785-6 (unknown) (no date) (unknown) (unknown) 3.7 mmol/l (unkn own) (unknown) (no date) (unknown) (unknown) 3.7 mmol/l 2823- 3 (unknown) (no date) (unknown) (unknown) 31.2 g/dl (unkn own) (unknown) (no date) (unknown) (unknown) 31.2 g/dl 786-4 (unknown) (no date) (unknown) (unknown) 40 ml/min/1.73 45 066-8 m2 (unknown) (no date) (unknown) (unknown) 40 ml/min/1.73 (u nknown) m2 (unknown) (no date) (unknown) (unknown) 49.3 % (unkn own) (unknown) (no date) (unknown) (unknown) 49.3 % 4544- 3 (unknown) (no date) (unknown) (unknown) 5.21 10\s\12/l 789- 8 (unknown) (no date) (unknown) (unknown) 5.21 10s12/l (unkn own) (unknown) (no date) (unknown) (unknown) 50.1 fl (unkn own) (unknown) (no date) (unknown) (unknown) 50.1 fl 37083 -5 (unknown) (no date) (unknown) (unknown) 6 (units (unkn own) unknown) (unknown) (no date) (unknown) (unknown) 6 (units 46229 -1 unknown) (unknown) (no date) (unknown) (unknown) 79.4 % (unkn own) (unknown) (no date) (unknown) (unknown) 79.4 % 770-8 (unknown) (no date) (unknown) (unknown) 8.0 % (unkn own) (unknown) (no date) (unknown) (unknown) 8.0 % 5905- 5 (unknown) (no date) (unknown) (unknown) 8.3 10\s\9/l 751-8 (unknown) (no date) (unknown) (unknown) 8.3 10s9/l (unkn own) (unknown) (no date) (unknown) (unknown) 8.6 mg/dl (unkn own) (unknown) (no date) (unknown) (unknown) 8.6 mg/dl 25852 -6 (unknown) (no date) (unknown) (unknown) 8.6 mg/dl (unkn own) (unknown) (no date) (unknown) (unknown) 85 10\s\9/l 777-3 (unknown) (no date) (unknown) (unknown) 85 10s9/l (unkn own) (unknown) (no date) (unknown) (unknown) 94.6 fl (unkn own) (unknown) (no date) (unknown) (unknown) 94.6 fl 787-2 (unknown) (no date) (unknown) (unknown) Decreased (units (unk nown) unknown) (unknown) (no date) (unknown) (unknown) Decreased (units 4949 7-1 unknown) (unknown) (no date) (unknown) (unknown) Slide (units (unkn own) Reviewed unknown) (unknown) (no date) (unknown) (unknown) Slide (units (unkn own) Reviewed unknown) Result panel 16 (unknown) (no (unknown) (unknown) (no value) (units (unk nown) date) unknown) (unknown) (no (unknown) (unknown) (units (unknown) date) unknown) (unknown) (no (unknown) (unknown) 11/04/2022 11:16 (units (unknown) date) unknown) (unknown) (no (unknown) (unknown) 11/02/2022 02:09 (units (unknown) date) AM unknown) (unknown) (no (unknown) (unknown) 11/02/2022 05:16 (units (unknown) date) PST 11/04/2022 unknown) 09:32 PST BLACKALL, JARRED P (unknown) (no (unknown) (unknown) ACCT: (units (o wn) date) [id number] unknown) (unknown) (no (unknown) (unknown) ASSESSMENT: (units (un known) date) unknown) (unknown) (no (unknown) (unknown) B and Estimate (units (unknown) date) 0-10 % unknown) (unknown) (no (unknown) (unknown) Basophils 0.2 % (units (unknown) date) f (Ref. Range 0.0 unknown) - 2.0) (unknown) (no (unknown) (unknown) Basophils Abs (units ( unknown) date) 0.0 10\S\9/L f unknown) (Ref. Range 0.0 - 0.2) (unknown) (no (unknown) (unknown) Basophils Abs (units ( unknown) date) 0.0 10^9/L f unknown) (Ref. Range 0.0 - 0.2) (unknown) (no (unknown) (unknown) CASE #: (units ( wn) date) [id number] unknown) (unknown) (no (unknown) (unknown) Clinical (units ( wn) date) Information unknown) (unknown) (no (unknown) (unknown) Collected: (units (k n) date) Received: unknown) Responsible Pathologist: (unknown) (no (unknown) (unknown) : 1945 (units (unknown) date) AGE: 76 years unknown) SEX: M (unknown) (no (unknown) (unknown) DPB/MMF (units (unkno wn) date) unknown) (unknown) (no (unknown) (unknown) Diagnosis (units (unkn own) date) unknown) (unknown) (no (unknown) (unknown) Electronically (units (unknown) date) signed by: unknown) JARRED NORTH MD, MPH (unknown) (no (unknown) (unknown) Eosinophils 1.0 (units (unknown) date) % f (Ref. Range unknown) 0.0 - 7.0) (unknown) (no (unknown) (unknown) Eosinophils Abs (units (unknown) date) 0.1 10\S\9/L f unknown) (Ref. Range 0.0 - 0.5) (unknown) (no (unknown) (unknown) Eosinophils Abs (units (unknown) date) 0.1 10^9/L f unknown) (Ref. Range 0.0 - 0.5) (unknown) (no (unknown) (unknown) HCT 51.2 % (Ref. (units (unknown) date) Range 41.0 - unknown) 53.0) (unknown) (no (unknown) (unknown) HGB 15.5 g/dL (units ( unknown) date) (Ref. Range 13.5 unknown) - 17.5) (unknown) (no (unknown) (unknown) URIEL DIAZ (units (u nknown) date) BRIAN unknown) (unknown) (no (unknown) (unknown) Hemogram (units (unkno wn) date) Comments Slide unknown) Reviewed (unknown) (no (unknown) (unknown) Hemogram PLT (units (u nknown) date) Estimate unknown) Decreased (unknown) (no (unknown) (unknown) I mmature Grans, (units (unknown) date) Abs 0.09 10\S\9/L unknown) f H (Ref. Range 0.00 - 0.03) (unknown) (no (unknown) (unknown) I mmature Grans, (units (unknown) date) Abs 0.09 10^9/L f unknown) H (Ref. Range 0.00 - 0.03) (unknown) (no (unknown) (unknown) Immature Grans, (units (unknown) date) Auto 0.9 % f unknown) (Ref. Range 0.0 - 1.0) (unknown) (no (unknown) (unknown) Lymphocytes 9.5 (units (unknown) date) % f L (Ref. Range unknown) 18.0 - 42.0) (unknown) (no (unknown) (unknown) Lymphocytes Abs (units (unknown) date) 0.9 10\S\9/L f L unknown) (Ref. Range 1.0 - 4.8) (unknown) (no (unknown) (unknown) Lymphocytes Abs (units (unknown) date) 0.9 10^9/L f L unknown) (Ref. Range 1.0 - 4.8) (unknown) (no (unknown) (unknown) MCH 29.6 pg (units (un known) date) (Ref. Range 25.0 unknown) - 35.0) (unknown) (no (unknown) (unknown) MCHC 30.3 g/dL L (units (unknown) date) (Ref. Range 31.0 unknown) - 37.0) (unknown) (no (unknown) (unknown) MCV 97.9 fL (units (un known) date) (Ref. Range 80.0 unknown) - 100.0) (unknown) (no (unknown) (unknown) MPV 12.2 fL (units (un known) date) (Ref. Range 6.5 - unknown) 12.3) (unknown) (no (unknown) (unknown) (units (unknown) date) unknown) (unknown) (no (unknown) (unknown) Monocytes 10.5 % (units (unknown) date) f (Ref. Range 1.0 unknown) - 12.5) (unknown) (no (unknown) (unknown) Monocytes Abs (units ( unknown) date) 1.0 10\S\9/L f H unknown) (Ref. Range 0.0 - 0.9) (unknown) (no (unknown) (unknown) Monocytes Abs (units ( unknown) date) 1.0 10^9/L f H unknown) (Ref. Range 0.0 - 0.9) (unknown) (no (unknown) (unknown) Neutrophils 77.9 (units (unknown) date) % f (Ref. Range unknown) 40.0 - 81.0) (unknown) (no (unknown) (unknown) Neutrophils Abs (units (unknown) date) 7.7 10\S\9/L f unknown) (Ref. Range 1.8 - 8.0) (unknown) (no (unknown) (unknown) Neutrophils Abs (units (unknown) date) 7.7 10^9/L f unknown) (Ref. Range 1.8 - 8.0) (unknown) (no (unknown) (unknown) ORDERING: (units (unkn own) date) JOSELIN, SOPHY unknown) ZAKI (unknown) (no (unknown) (unknown) PERIPHERAL BLOOD (units (unknown) date) REPORT unknown) (unknown) (no (unknown) (unknown) PERIPHERAL (units (unk nown) date) BLOOD: unknown) (unknown) (no (unknown) (unknown) PLT 84 10\S\9/L (units (unknown) date) L (Ref. Range 140 unknown) - 444) (unknown) (no (unknown) (unknown) PLT 84 10^9/L L (units (unknown) date) (Ref. Range 140 - unknown) 444) (unknown) (no (unknown) (unknown) PLT- Decreased (units ( unknown) date) cell number, unknown) consistent with the automated count (no clumping), with a normal (unknown) (no (unknown) (unknown) Performing (units (unkn own) date) Location: unknown) Pathology Services -[facility], [address] (unknown) (no (unknown) (unknown) Peripheral Smear (units (unknown) date) unknown) (unknown) (no (unknown) (unknown) Peripheral smear (units (unknown) date) for review unknown) (unknown) (no (unknown) (unknown) RBC 5.23 (units (unkno wn) date) 10\S\12/L (Ref. unknown) Range 4.50 - 6.00) (unknown) (no (unknown) (unknown) RBC 5.23 10^12/L (units (unknown) date) (Ref. Range 4.50 unknown) - 6.00) (unknown) (no (unknown) (unknown) RBC- Generally (units ( unknown) date) normocytic, unknown) normochromic cells with some variation in size and shape. Occasional (unknown) (no (unknown) (unknown) RDW CV 14.9 % H (units (unknown) date) (Ref. Range 11.5 unknown) - 14.5) (unknown) (no (unknown) (unknown) RDW SD 53.8 fL H (units (unknown) date) (Ref. Range 35.1 unknown) - 46.3) (unknown) (no (unknown) (unknown) St, [address], (units (unknown) date) [place] unknown) [id number] (unknown) (no (unknown) (unknown) The patient is (units ( unknown) date) thrombocytopenic, unknown) but there are no specific diagnostic findings on peripheral (unknown) (no (unknown) (unknown) WBC 9.9 10\S\9/L (units (unknown) date) (Ref. Range 3.9 - unknown) 10.6) (unknown) (no (unknown) (unknown) WBC 9.9 10^9/L (units (unknown) date) (Ref. Range 3.9 - unknown) 10.6) (unknown) (no (unknown) (unknown) WBC- Normal total (units (unknown) date) cell count with a unknown) relatively normal distribution of cell types. The cells are (unknown) (no (unknown) (unknown) echinocytes are (units (unknown) date) identified, but unknown) only rare schistocytes are seen. (unknown) (no (unknown) (unknown) mature and have (units (unknown) date) a normal unknown) morphology. (unknown) (no (unknown) (unknown) morphology. (units (un known) date) unknown) (unknown) (no (unknown) (unknown) smear review. (units ( unknown) date) Clinical unknown) correlation is advised. Result panel 17 (unknown) (no date) (unknown) (unknown) 0.0 10\s\9/l 704-7 (unknown) (no date) (unknown) (unknown) 0.0 10s9/l (unkn own) (unknown) (no date) (unknown) (unknown) 0.04 10\s\9/l 15769 -1 (unknown) (no date) (unknown) (unknown) 0.04 10s9/l (unkn own) (unknown) (no date) (unknown) (unknown) 0.1 10\s\9/l 711-2 (unknown) (no date) (unknown) (unknown) 0.1 10s9/l (unkn own) (unknown) (no date) (unknown) (unknown) 0.2 % (unkn own) (unknown) (no date) (unknown) (unknown) 0.2 % 706-2 (unknown) (no date) (unknown) (unknown) 0.4 % (unkn own) (unknown) (no date) (unknown) (unknown) 0.4 % 76997 -1 (unknown) (no date) (unknown) (unknown) 0.8 % (unkn own) (unknown) (no date) (unknown) (unknown) 0.8 % 713-8 (unknown) (no date) (unknown) (unknown) 0.8 10\s\9/l 742-7 (unknown) (no date) (unknown) (unknown) 0.8 10s9/l (unkn own) (unknown) (no date) (unknown) (unknown) 1.2 10\s\9/l 731-0 (unknown) (no date) (unknown) (unknown) 1.2 10s9/l (unkn own) (unknown) (no date) (unknown) (unknown) 1.52 mg/dl (unkn own) (unknown) (no date) (unknown) (unknown) 1.52 mg/dl 26543 -4 (unknown) (no date) (unknown) (unknown) 1.6 mg/dl 2777- 1 (unknown) (no date) (unknown) (unknown) 1.6 mg/dl (unkn own) (unknown) (no date) (unknown) (unknown) 1.9 mg/dl 78805 -9 (unknown) (no date) (unknown) (unknown) 1.9 mg/dl (unkn own) (unknown) (no date) (unknown) (unknown) 10.7 % (unkn own) (unknown) (no date) (unknown) (unknown) 10.7 % 736-9 (unknown) (no date) (unknown) (unknown) 10.9 10\s\9/l 97624 -8 (unknown) (no date) (unknown) (unknown) 10.9 10s9/l (unkn own) (unknown) (no date) (unknown) (unknown) 11.2 (units unknown) (unknown) (unknown) (no date) (unknown) (unknown) 11.2 (units unknown) 3097-3 (unknown) (no date) (unknown) (unknown) 112 mmol/l (unkn own) (unknown) (no date) (unknown) (unknown) 112 mmol/l 2075- 0 (unknown) (no date) (unknown) (unknown) 12.5 fl (unkn own) (unknown) (no date) (unknown) (unknown) 12.5 fl 20767 -1 (unknown) (no date) (unknown) (unknown) 12.5 fl (unkn own) (unknown) (no date) (unknown) (unknown) 14.5 % (unkn own) (unknown) (no date) (unknown) (unknown) 14.5 % 788-0 (unknown) (no date) (unknown) (unknown) 142 mg/dl 2345- 7 (unknown) (no date) (unknown) (unknown) 142 mg/dl (unkn own) (unknown) (no date) (unknown) (unknown) 145 mmol/l (unkn own) (unknown) (no date) (unknown) (unknown) 145 mmol/l 2951- 2 (unknown) (no date) (unknown) (unknown) 15.1 g/dl (unkn own) (unknown) (no date) (unknown) (unknown) 15.1 g/dl 718-7 (unknown) (no date) (unknown) (unknown) 17 mg/dl (unkn own) (unknown) (no date) (unknown) (unknown) 17 mg/dl 3094- 0 (unknown) (no date) (unknown) (unknown) 26 mmol/l (unkn own) (unknown) (no date) (unknown) (unknown) 26 mmol/l 2028- 9 (unknown) (no date) (unknown) (unknown) 29.6 pg (unkn own) (unknown) (no date) (unknown) (unknown) 29.6 pg 785-6 (unknown) (no date) (unknown) (unknown) 3.9 mmol/l (unkn own) (unknown) (no date) (unknown) (unknown) 3.9 mmol/l 2823- 3 (unknown) (no date) (unknown) (unknown) 31.8 g/dl (unkn own) (unknown) (no date) (unknown) (unknown) 31.8 g/dl 786-4 (unknown) (no date) (unknown) (unknown) 47 ml/min/1.73 m2 77000-8 (unknown) (no date) (unknown) (unknown) 47 ml/min/1.73 m2 (unknown) (unknown) (no date) (unknown) (unknown) 47.5 % (unkn own) (unknown) (no date) (unknown) (unknown) 47.5 % 4544- 3 (unknown) (no date) (unknown) (unknown) 49.5 fl (unkn own) (unknown) (no date) (unknown) (unknown) 49.5 fl 05394 -5 (unknown) (no date) (unknown) (unknown) 5.10 10\s\12/l 789- 8 (unknown) (no date) (unknown) (unknown) 5.10 10s12/l (unkn own) (unknown) (no date) (unknown) (unknown) 7 (units unknown) (unknown) (unknown) (no date) (unknown) (unknown) 7 (units unknown) 62954-0 (unknown) (no date) (unknown) (unknown) 7.2 % (unkn own) (unknown) (no date) (unknown) (unknown) 7.2 % 5905- 5 (unknown) (no date) (unknown) (unknown) 8.8 10\s\9/l 751-8 (unknown) (no date) (unknown) (unknown) 8.8 10s9/l (unkn own) (unknown) (no date) (unknown) (unknown) 8.8 mg/dl (unkn own) (unknown) (no date) (unknown) (unknown) 8.8 mg/dl 88396 -6 (unknown) (no date) (unknown) (unknown) 8.8 mg/dl (unkn own) (unknown) (no date) (unknown) (unknown) 80.7 % (unkn own) (unknown) (no date) (unknown) (unknown) 80.7 % 770-8 (unknown) (no date) (unknown) (unknown) 88 10\s\9/l 777-3 (unknown) (no date) (unknown) (unknown) 88 10s9/l (unkn own) (unknown) (no date) (unknown) (unknown) 93.1 fl (unkn own) (unknown) (no date) (unknown) (unknown) 93.1 fl 787-2 Result panel 18 (unknown) (no date) (unknown) (unknown) 0-2 /hpf (unkn own) (unknown) (no date) (unknown) (unknown) 1 (units (unkn own) unknown) (unknown) (no date) (unknown) (unknown) 1.006 (units (unkn own) unknown) (unknown) (no date) (unknown) (unknown) 2 (units (unkn own) unknown) (unknown) (no date) (unknown) (unknown) 6.5 (units (unkn own) unknown) (unknown) (no date) (unknown) (unknown) Clear (units (unkn own) unknown) (unknown) (no date) (unknown) (unknown) Clear (units 5767- 9 unknown) (unknown) (no date) (unknown) (unknown) Colorless (units (unk nown) unknown) (unknown) (no date) (unknown) (unknown) Negative (units (unkn own) unknown) (unknown) (no date) (unknown) (unknown) No (units (unkn own) unknown) (unknown) (no date) (unknown) (unknown) None Seen /lpf (unk nown) (unknown) (no date) (unknown) (unknown) Trace /hpf 50495 -1 (unknown) (no date) (unknown) (unknown) Trace /hpf (unkn own) Result panel 19 (unknown) (no date) (unknown) (unknown) 1.46 mg/dl (unkn own) (unknown) (no date) (unknown) (unknown) 1.46 mg/dl 22667 -4 (unknown) (no date) (unknown) (unknown) 1.8 mg/dl 60299 -9 (unknown) (no date) (unknown) (unknown) 1.8 mg/dl (unkn own) (unknown) (no date) (unknown) (unknown) 11.6 fl 68072 -1 (unknown) (no date) (unknown) (unknown) 11.6 fl (unkn own) (unknown) (no date) (unknown) (unknown) 111 mmol/l (unkn own) (unknown) (no date) (unknown) (unknown) 111 mmol/l 2075- 0 (unknown) (no date) (unknown) (unknown) 12 mg/dl (unkn own) (unknown) (no date) (unknown) (unknown) 12 mg/dl 3094- 0 (unknown) (no date) (unknown) (unknown) 122 mg/dl 2345- 7 (unknown) (no date) (unknown) (unknown) 122 mg/dl (unkn own) (unknown) (no date) (unknown) (unknown) 13.5 g/dl (unkn own) (unknown) (no date) (unknown) (unknown) 13.5 g/dl 718-7 (unknown) (no date) (unknown) (unknown) 14.6 % (unkn own) (unknown) (no date) (unknown) (unknown) 14.6 % 788-0 (unknown) (no date) (unknown) (unknown) 142 mmol/l (unkn own) (unknown) (no date) (unknown) (unknown) 142 mmol/l 2951- 2 (unknown) (no date) (unknown) (unknown) 2.3 mg/dl (unkn own) (unknown) (no date) (unknown) (unknown) 2.3 mg/dl 2777- 1 (unknown) (no date) (unknown) (unknown) 25 mmol/l (unkn own) (unknown) (no date) (unknown) (unknown) 25 mmol/l 2028- 9 (unknown) (no date) (unknown) (unknown) 29.5 pg (unkn own) (unknown) (no date) (unknown) (unknown) 29.5 pg 785-6 (unknown) (no date) (unknown) (unknown) 3.5 mmol/l (unkn own) (unknown) (no date) (unknown) (unknown) 3.5 mmol/l 2823- 3 (unknown) (no date) (unknown) (unknown) 31.5 g/dl (unkn own) (unknown) (no date) (unknown) (unknown) 31.5 g/dl 786-4 (unknown) (no date) (unknown) (unknown) 4.58 10\s\12/l 789- 8 (unknown) (no date) (unknown) (unknown) 4.58 10s12/l (unkn own) (unknown) (no date) (unknown) (unknown) 42.9 % (unkn own) (unknown) (no date) (unknown) (unknown) 42.9 % 4544- 3 (unknown) (no date) (unknown) (unknown) 49.8 fl (unkn own) (unknown) (no date) (unknown) (unknown) 49.8 fl 53228 -5 (unknown) (no date) (unknown) (unknown) 6 (units unknown) (unknown) (unknown) (no date) (unknown) (unknown) 6 (units unknown) 03374-5 (unknown) (no date) (unknown) (unknown) 8.2 (units unknown) (unknown) (unknown) (no date) (unknown) (unknown) 8.2 (units unknown) 3097-3 (unknown) (no date) (unknown) (unknown) 8.4 mg/dl (unkn own) (unknown) (no date) (unknown) (unknown) 8.4 mg/dl 47243 -6 (unknown) (no date) (unknown) (unknown) 89 10\s\9/l 777-3 (unknown) (no date) (unknown) (unknown) 89 10s9/l (unkn own) (unknown) (no date) (unknown) (unknown) 9.2 10\s\9/l 05127 -8 (unknown) (no date) (unknown) (unknown) 9.2 10s9/l (unkn own) (unknown) (no date) (unknown) (unknown) 93.7 fl (unkn own) (unknown) (no date) (unknown) (unknown) 93.7 fl 787-2 Result panel 20 (unknown) (no date) (unknown) (unknown) 1.43 mg/dl (unkn own) (unknown) (no date) (unknown) (unknown) 1.43 mg/dl 54584 -4 (unknown) (no date) (unknown) (unknown) 1.8 mg/dl 00501 -9 (unknown) (no date) (unknown) (unknown) 1.8 mg/dl (unkn own) (unknown) (no date) (unknown) (unknown) 10.5 (units unknown) (unknown) (unknown) (no date) (unknown) (unknown) 10.5 (units unknown) 3097-3 (unknown) (no date) (unknown) (unknown) 113 mmol/l (unkn own) (unknown) (no date) (unknown) (unknown) 113 mmol/l 2075- 0 (unknown) (no date) (unknown) (unknown) 12.4 fl 73627 -1 (unknown) (no date) (unknown) (unknown) 12.4 fl (unkn own) (unknown) (no date) (unknown) (unknown) 13.5 g/dl (unkn own) (unknown) (no date) (unknown) (unknown) 13.5 g/dl 718-7 (unknown) (no date) (unknown) (unknown) 135 mg/dl 2345- 7 (unknown) (no date) (unknown) (unknown) 135 mg/dl (unkn own) (unknown) (no date) (unknown) (unknown) 14.7 % (unkn own) (unknown) (no date) (unknown) (unknown) 14.7 % 788-0 (unknown) (no date) (unknown) (unknown) 145 mmol/l (unkn own) (unknown) (no date) (unknown) (unknown) 145 mmol/l 2951- 2 (unknown) (no date) (unknown) (unknown) 15 mg/dl (unkn own) (unknown) (no date) (unknown) (unknown) 15 mg/dl 3094- 0 (unknown) (no date) (unknown) (unknown) 2.1 mg/dl (unkn own) (unknown) (no date) (unknown) (unknown) 2.1 mg/dl 2777- 1 (unknown) (no date) (unknown) (unknown) 24 mmol/l (unkn own) (unknown) (no date) (unknown) (unknown) 24 mmol/l 2028- 9 (unknown) (no date) (unknown) (unknown) 29.4 pg (unkn own) (unknown) (no date) (unknown) (unknown) 29.4 pg 785-6 (unknown) (no date) (unknown) (unknown) 3.6 mmol/l (unkn own) (unknown) (no date) (unknown) (unknown) 3.6 mmol/l 2823- 3 (unknown) (no date) (unknown) (unknown) 31.0 g/dl (unkn own) (unknown) (no date) (unknown) (unknown) 31.0 g/dl 786-4 (unknown) (no date) (unknown) (unknown) 4.59 10\s\12/l 789- 8 (unknown) (no date) (unknown) (unknown) 4.59 10s12/l (unkn own) (unknown) (no date) (unknown) (unknown) 43.6 % (unkn own) (unknown) (no date) (unknown) (unknown) 43.6 % 4544- 3 (unknown) (no date) (unknown) (unknown) 51.0 fl (unkn own) (unknown) (no date) (unknown) (unknown) 51.0 fl 66735 -5 (unknown) (no date) (unknown) (unknown) 8 (units unknown) (unknown) (unknown) (no date) (unknown) (unknown) 8 (units unknown) 01922-5 (unknown) (no date) (unknown) (unknown) 8.4 mg/dl (unkn own) (unknown) (no date) (unknown) (unknown) 8.4 mg/dl 34973 -6 (unknown) (no date) (unknown) (unknown) 8.7 10\s\9/l 47410 -8 (unknown) (no date) (unknown) (unknown) 8.7 10s9/l (unkn own) (unknown) (no date) (unknown) (unknown) 91 10\s\9/l 777-3 (unknown) (no date) (unknown) (unknown) 91 10s9/l (unkn own) (unknown) (no date) (unknown) (unknown) 95.0 fl (unkn own) (unknown) (no date) (unknown) (unknown) 95.0 fl 787-2 Result panel 21 (unknown) (no date) (unknown) (unknown) 1.32 mg/dl (unkn own) (unknown) (no date) (unknown) (unknown) 1.32 mg/dl 73752 -4 (unknown) (no date) (unknown) (unknown) 1.7 mg/dl 45320 -9 (unknown) (no date) (unknown) (unknown) 1.7 mg/dl (unkn own) (unknown) (no date) (unknown) (unknown) 111 mmol/l (unkn own) (unknown) (no date) (unknown) (unknown) 111 mmol/l 2075- 0 (unknown) (no date) (unknown) (unknown) 113 mg/dl 2345- 7 (unknown) (no date) (unknown) (unknown) 113 mg/dl (unkn own) (unknown) (no date) (unknown) (unknown) 115 10\s\9/l 777-3 (unknown) (no date) (unknown) (unknown) 115 10s9/l (unkn own) (unknown) (no date) (unknown) (unknown) 12 mg/dl (unkn own) (unknown) (no date) (unknown) (unknown) 12 mg/dl 3094- 0 (unknown) (no date) (unknown) (unknown) 12.1 fl (unkn own) (unknown) (no date) (unknown) (unknown) 12.1 fl 39657 -1 (unknown) (no date) (unknown) (unknown) 12.1 fl (unkn own) (unknown) (no date) (unknown) (unknown) 14.1 g/dl (unkn own) (unknown) (no date) (unknown) (unknown) 14.1 g/dl 718-7 (unknown) (no date) (unknown) (unknown) 14.6 % (unkn own) (unknown) (no date) (unknown) (unknown) 14.6 % 788-0 (unknown) (no date) (unknown) (unknown) 142 mmol/l (unkn own) (unknown) (no date) (unknown) (unknown) 142 mmol/l 2951- 2 (unknown) (no date) (unknown) (unknown) 2.6 mg/dl (unkn own) (unknown) (no date) (unknown) (unknown) 2.6 mg/dl 2777- 1 (unknown) (no date) (unknown) (unknown) 23 mmol/l (unkn own) (unknown) (no date) (unknown) (unknown) 23 mmol/l 2028- 9 (unknown) (no date) (unknown) (unknown) 29.7 pg (unkn own) (unknown) (no date) (unknown) (unknown) 29.7 pg 785-6 (unknown) (no date) (unknown) (unknown) 3.6 mmol/l (unkn own) (unknown) (no date) (unknown) (unknown) 3.6 mmol/l 2823- 3 (unknown) (no date) (unknown) (unknown) 30.6 g/dl (unkn own) (unknown) (no date) (unknown) (unknown) 30.6 g/dl 786-4 (unknown) (no date) (unknown) (unknown) 4.74 10\s\12/l 789- 8 (unknown) (no date) (unknown) (unknown) 4.74 10s12/l (unkn own) (unknown) (no date) (unknown) (unknown) 46.1 % (unkn own) (unknown) (no date) (unknown) (unknown) 46.1 % 4544- 3 (unknown) (no date) (unknown) (unknown) 52.3 fl (unkn own) (unknown) (no date) (unknown) (unknown) 52.3 fl 15776 -5 (unknown) (no date) (unknown) (unknown) 8 (units (unkn own) unknown) (unknown) (no date) (unknown) (unknown) 8 (units 31248 -1 unknown) (unknown) (no date) (unknown) (unknown) 8.2 mg/dl (unkn own) (unknown) (no date) (unknown) (unknown) 8.2 mg/dl 30467 -6 (unknown) (no date) (unknown) (unknown) 8.8 10\s\9/l 65042 -8 (unknown) (no date) (unknown) (unknown) 8.8 10s9/l (unkn own) (unknown) (no date) (unknown) (unknown) 9.1 (units (unkn own) unknown) (unknown) (no date) (unknown) (unknown) 9.1 (units 3097- 3 unknown) (unknown) (no date) (unknown) (unknown) 97.3 fl (unkn own) (unknown) (no date) (unknown) (unknown) 97.3 fl 787-2 (unknown) (no date) (unknown) (unknown) Decreased (units (unk nown) unknown) (unknown) (no date) (unknown) (unknown) Decreased (units 4949 7-1 unknown) (unknown) (no date) (unknown) (unknown) Slide Reviewed (units (unknown) unknown) (unknown) (no date) (unknown) (unknown) Slide Reviewed (units (unknown) unknown) Social History No information. Vital Signs No information.
[2022-11-10 08:58] LABS: BASOPHILS % (AUTO) 0.3 %; EOSINOPHILS # (AUTO) 0.2 10^3/uL (0.0-0.7); EOSINOPHILS % (AUTO) 1.6 %; HCT - HEMATOCRIT 47.4 % (42.0-52.0); HGB - HEMOGLOBIN 15.2 g/dL (14.0-18.0); LYMPHOCYTES % (AUTO) 9.6 %; MEAN CORPUSCULAR HEMOGLOBIN 29.5 pg (27.0-31.0); MEAN CORPUSCULAR HGB CONC 32.1 g/dL (32.0-36.0); MEAN PLATELET VOLUME 11.6 fL (7.4-11.4); MONOCYTES # (AUTO) 0.9 10^3/uL (0.0-1.0); MONOCYTES % (AUTO) 9.4 %; NEUTROPHILS # (AUTO) 7.8 10^3/uL (1.5-6.6); NEUTROPHILS % (AUTO) 78.6 %; PLT - PLATELET COUNT 155 10^3/uL (130-450); RED BLOOD COUNT 5.15 10^6/uL (4.70-6.10); RED CELL DISTRIBUTION WIDTH 14.9 % (12.0-15.0); WHITE BLOOD COUNT 9.9 x10^3/uL (4.8-10.8)
[2022-11-10 09:04] LABS: VBG BASE EXCESS -2.8 mmol/L (-2 - +2); VBG HCO3 22.9 mmol/L (23-28); VBG OXYGEN SATURATION 51.8 % (60-80); VBG PCO2 42.8 mmHg (41-51); VBG PH 7.346 (7.31-7.41); VBG PO2 26.6 mmHg (25-47); VBG TOTAL CO2 24.2 mmol/L (24-29)
[2022-11-10 09:14] LABS: ALBUMIN 3.1 g/dL (3.2-5.5); BILIRUBIN,TOTAL 1.7 mg/dL (0.2-1.0); CALCIUM 8.9 mg/dL (8.5-10.3); CREATININE 1.6 mg/dL (0.6-1.2); MAGNESIUM 2.1 mg/dL (1.7-2.8); POTASSIUM 3.2 mmol/L (3.5-5.0); TOTAL PROTEIN 6.1 g/dL (6.7-8.2)
[2022-11-10] MEDS ORDERED: iohexoL-300 100 ML VIAL ONE (09:39)
[2022-11-10 10:03] LABS: BILIRUBIN,URINE NEGATIVE (NEGATIVE); CLARITY,URINE HAZY (CLEAR); GLUCOSE, URINE (UA) NEGATIVE (NEGATIVE); KETONES,URINE (UA) TRACE mg/dL (NEGATIVE); LEUKOCYTE ESTERASE, URINE NEGATIVE (NEGATIVE); NITRITE,URINE NEGATIVE (NEGATIVE); OCCULT BLOOD,URINE LARGE (NEGATIVE); PROTEIN,URINE 30 mg/dL (NEGATIVE); UROBILINOGEN,URINE 0.2 (NORMAL) E.U./dL (NORMAL)
[2022-11-10 10:11] LABS: WBC,URINE 0-3 /HPF (0-3)
[2022-11-10 10:12] LABS: BACTERIA,URINE Few /HPF (None Seen); CASTS, URINE 3-5 Granular Casts /LPF; SQUAMOUS EPITHELIAL CELL,UR RARE Squamous (<= Few)
[2022-11-10] MEDS ORDERED: iohexoL-300 100 ML VIAL IVP ONE (10:18)
--- NOTE | 2022-11-10 10:26 | CT Report ---
PROCEDURE: ANGIO CHEST W/WO INDICATIONS: Hypoxemia with recent hospitalization, PE protocol CONTRAST: 100ml omni 300 TECHNIQUE: After the administration of intravenous contrast, 2 mm axial images were acquired from the pulmonary apices to the posterior costophrenic angles during the arterial phase. In addition, 1 mm lung kernel and 5 mm soft tissue kernel reconstructions were performed. 3-dimensional coronal oblique maximum int ensity projection (MIP) reformats, 8 mm axial MIP, and 5 mm coronal and sagittal MPR reformats were t hen performed through the thorax. For radiation dose reduction, the following was used: automated exp osure control, adjustment of mA and/or kV according to patient size. COMPARISON: 08/04/2019 FINDINGS: Image quality: Excellent. Pulmonary arteries: Pulmonary arteries are normal in size, and demonstrate no intraluminal filling d efects to suggest central pulmonary embolism. Lungs and pleura: Dependent fibrotic changes are seen. No eh superimposed infiltrates are seen. Mi nimal to mild lower lobe bronchiectasis can be seen. No pleural effusions or pneumothorax. Central a nd peripheral airways are patent. Mediastinum: Mild coronary artery calcification can be seen. Heart size is normal, without pericardi al effusion. No mediastinal or hilar adenopathy. Thoracic aorta is normal in caliber and enhancemen t. Esophagus is normal in caliber, without hiatal hernia. Bones and chest wall: No suspicious bony lesions. Ribs and thoracic spine appear intact throughout. There is accentuated thoracic kyphosis. No axillary or supraclavicular adenopathy. The thyroid i s small in size. Abdomen: Visualized upper abdominal solid organs appear normal in the early arterial phase of enhanc ement. Diverticulosis can be seen, without eh findings of active diverticulitis. IMPRESSION: Negative for pulmonary motion. Lower lobe fibrotic changes with minimal associated bronchiectasis. Additional findings: Mild coronary artery calcification Diverticulosis, without findings of active diverticulitis. Reviewed by: Cesar Reyez MD on 11/10/2022 9:25 AM [facility] Approved by: Cesar Reyez MD on 11/10/2022 9:25 AM [facility] Station ID: [id number]
[2022-11-10] MEDS ORDERED: PROMETHAZINE INJ 12.5 MG in SODIUM CHLORIDE 0.9% 50 ML IV STA (10:40)
[2022-11-10 11:25] VITALS: BP 148/95
== END 2022-11-10 11:40 | disposition home or self-care (01) ==
LOC: EDUNIT# → SUPCPDRO 08:23 → ED 08:23
DX: J84.9 Interstitial pulmonary disease, unspecified (principal); I48.21 Permanent atrial fibrillation; I44.7 Left bundle-branch block, unspecified; Z79.01 Long term (current) use of anticoagulants; R19.7 Diarrhea, unspecified
CPT/HCPCS: 36415; 71275; 80053; 81001; 82803; 83605; 83735; 84484; 85025; 87040; 93005; 96361; 96365; 99284; 99285; J7040; Q9967; 87086

== ENCOUNTER 2022-11-25 10:24 | Outpatient (CLI) | payer MEDICARE, OTHER | END 2022-11-25 10:25 | disposition critical access hospital (66) | LOC: EMS 10:24 | DX: R53.1 Weakness (principal); R42 Dizziness and giddiness; R11.2 Nausea with vomiting, unspecified | CPT/HCPCS: A0425; A0429 ==

== ENCOUNTER 2022-11-25 10:36 | Emergency (ER) | payer MEDICARE, OTHER ==
--- OUTSIDE RECORDS SUMMARY | 2022-11-25 10:50 | EXTERNAL MEDICAL SUMMARY RPT | Continuity of Care Document ---
:1945 Author Organization [facility] Address [address] [place] [address] Phone Allergies No information. Encounters No information. [...] (unknown) (no date) (unknown) (unknown) 0.11 10\s\9/l 58890 -1 (unknown) (no date) (unknown) (unknown) 0.11 10s9/l (unkn own) (unknown) (no date) (unknown) (unknown) 0.6 % (unkn own) (unknown) (no date) (unknown) (unknown) 0.6 % 713-8 (unknown) (no date) (unknown) (unknown) 1.010 (units (unkn own) unknown) (unknown) (no date) (unknown) (unknown) 1.1 % (unkn own) (unknown) (no date) (unknown) (unknown) 1.1 % 02475 -1 (unknown) (no date) (unknown) (unknown) 1.1 10\s\9/l 731-0 (unknown) (no date) (unknown) (unknown) 1.1 10s9/l (unkn own) (unknown) (no date) (unknown) (unknown) 1.2 10\s\9/l 742-7 (unknown) (no date) (unknown) (unknown) 1.2 10s9/l (unkn own) (unknown) (no date) (unknown) (unknown) 10.4 10\s\9/l 16447 -8 (unknown) (no date) (unknown) (unknown) 10.4 [...] (unknown) (no date) (unknown) (unknown) 12.2 fl 92599 -1 (unknown) (no date) (unknown) (unknown) 12.2 [...] (unknown) (no date) (unknown) (unknown) 2 /hpf 20470 -1 (unknown) (no date) (unknown) (unknown) 29.3 [...] (unknown) (no date) (unknown) (unknown) 51.6 fl 42872 -5 (unknown) (no date) (unknown) (unknown) 6-10 [...] (unknown) (no date) (unknown) (unknown) 1.75 mg/dl 63865 -4 (unknown) (no date) (unknown) (unknown) 10.3 [...] (no date) (unknown) (unknown) 12 (units unknown) 22803-1 (unknown) (no date) (unknown) (unknown) 145 mmol/l [...] (unknown) (no date) (unknown) (unknown) 2.8 g/dl 77965 -0 (unknown) (no date) (unknown) (unknown) 25 [...] (no date) (unknown) (unknown) 40 ml/min/1.73 m2 79179-0 (unknown) (no date) (unknown) (unknown) 40 ml/min/1.73 m2 (unknown) (unknown) (no date) (unknown) (unknown) 5.8 g/dl (unkn own) (unknown) (no date) (unknown) (unknown) 5.8 g/dl 2885- 2 (unknown) (no date) (unknown) (unknown) 73 iu/l (unkn own) (unknown) (no date) (unknown) (unknown) 73 iu/l 1779- 8 (unknown) (no date) (unknown) (unknown) 8.9 mg/dl (unkn own) (unknown) (no date) (unknown) (unknown) 8.9 mg/dl 01461 -6 Result panel 4 (unknown) (no date) (unknown) (unknown) Nasopharynx (units (u nknown) unknown) (unknown) (no date) (unknown) (unknown) No (units 84977 -8 unknown) (unknown) (no date) (unknown) (unknown) [...] (unknown) (no date) (unknown) (unknown) 6 ug/dl 54863 -2 (unknown) (no date) (unknown) (unknown) 6 ug/dl (unkn own) Result panel 7 (unknown) (no date) (unknown) (unknown) 0-10 % (units (unkn own) unknown) (unknown) (no date) (unknown) (unknown) 0-10 % (units 81195 -2 unknown) (unknown) (no date) (unknown) (unknown) 0.0 10\s\9/l 704-7 (unknown) (no date) (unknown) (unknown) 0.0 10s9/l (unkn own) (unknown) (no date) (unknown) (unknown) 0.09 10\s\9/l 14170 -1 (unknown) (no date) (unknown) (unknown) 0.09 10s9/l (unkn own) (unknown) (no date) (unknown) (unknown) 0.1 10\s\9/l 711-2 (unknown) (no date) (unknown) (unknown) 0.1 10s9/l (unkn own) (unknown) (no date) (unknown) (unknown) 0.2 % (unkn own) (unknown) (no date) (unknown) (unknown) 0.2 % 706-2 (unknown) (no date) (unknown) (unknown) 0.9 % (unkn own) (unknown) (no date) (unknown) (unknown) 0.9 % 92060 -1 (unknown) (no date) (unknown) (unknown) 0.9 [...] (unknown) (no date) (unknown) (unknown) 1.56 mg/dl 20038 -4 (unknown) (no date) (unknown) (unknown) 1.59 [...] (unknown) (no date) (unknown) (unknown) 12.2 fl 74329 -1 (unknown) (no date) (unknown) (unknown) 13 (units (unkn own) unknown) (unknown) (no date) (unknown) (unknown) 13 (units 07051 -1 unknown) (unknown) (no date) (unknown) (unknown) [...] (unknown) (no date) (unknown) (unknown) 2.1 mg/dl 36360 -9 (unknown) (no date) (unknown) (unknown) 2.1 [...] (unknown) (no date) (unknown) (unknown) 53.8 fl 59272 -5 (unknown) (no date) (unknown) (unknown) 7.7 10\s\9/l 751-8 (unknown) (no date) (unknown) (unknown) 7.7 10s9/l (unkn own) (unknown) (no date) (unknown) (unknown) 77.9 % (unkn own) (unknown) (no date) (unknown) (unknown) 77.9 % 770-8 (unknown) (no date) (unknown) (unknown) 8.5 mg/dl (unkn own) (unknown) (no date) (unknown) (unknown) 8.5 mg/dl 08942 -6 (unknown) (no date) (unknown) (unknown) 8.5 [...] (unknown) (no date) (unknown) (unknown) 9.9 10\s\9/l 72185 -8 (unknown) (no date) (unknown) (unknown) 9.9 [...] (unknown) (no date) (unknown) (unknown) 65 pg/ml 99506 -4 (unknown) (no date) (unknown) (unknown) 65 pg/ml (unkn own) Result panel 11 (unknown) (no date) (unknown) (unknown) 209 ng/ml 2276- 4 (unknown) (no date) (unknown) (unknown) 209 ng/ml (unkn own) Result panel 12 (unknown) (no date) (unknown) (unknown) 1.69 mg/dl (unkn own) (unknown) (no date) (unknown) (unknown) 1.69 mg/dl 68342 -4 (unknown) (no date) (unknown) (unknown) 10.1 [...] (no date) (unknown) (unknown) 13 (units unknown) 62694-8 (unknown) (no date) (unknown) (unknown) 143 mmol/l (unkn own) (unknown) (no date) (unknown) (unknown) 143 mmol/l 2951- 2 (unknown) (no date) (unknown) (unknown) 17 mg/dl (unkn own) (unknown) (no date) (unknown) (unknown) 17 mg/dl 3094- 0 (unknown) (no date) (unknown) (unknown) 2.1 mg/dl 44675 -9 (unknown) (no date) (unknown) (unknown) 2.1 [...] (unknown) (no date) (unknown) (unknown) 8.7 mg/dl 66105 -6 Result panel 13 (unknown) (no date) (unknown) (unknown) 0.0 10\s\9/l 704-7 (unknown) (no date) (unknown) (unknown) 0.0 10s9/l (unkn own) (unknown) (no date) (unknown) (unknown) 0.06 10\s\9/l 06368 -1 (unknown) (no date) (unknown) (unknown) 0.06 10s9/l (unkn own) (unknown) (no date) (unknown) (unknown) 0.1 10\s\9/l 711-2 (unknown) (no date) (unknown) (unknown) 0.1 10s9/l (unkn own) (unknown) (no date) (unknown) (unknown) 0.2 % (unkn own) (unknown) (no date) (unknown) (unknown) 0.2 % 706-2 (unknown) (no date) (unknown) (unknown) 0.6 % (unkn own) (unknown) (no date) (unknown) (unknown) 0.6 % 10089 -1 (unknown) (no date) (unknown) (unknown) 0.8 [...] (unknown) (no date) (unknown) (unknown) 1.66 mg/dl 12653 -4 (unknown) (no date) (unknown) (unknown) 110 mmol/l (unkn own) (unknown) (no date) (unknown) (unknown) 110 mmol/l 2075- 0 (unknown) (no date) (unknown) (unknown) 12.0 fl (unkn own) (unknown) (no date) (unknown) (unknown) 12.0 fl 56333 -1 (unknown) (no date) (unknown) (unknown) 12.0 [...] (unknown) (no date) (unknown) (unknown) 2.1 mg/dl 16482 -9 (unknown) (no date) (unknown) (unknown) 2.1 [...] (unknown) (no date) (unknown) (unknown) 50.4 fl 56286 -5 (unknown) (no date) (unknown) (unknown) 7.9 10\s\9/l 751-8 (unknown) (no date) (unknown) (unknown) 7.9 10s9/l (unkn own) (unknown) (no date) (unknown) (unknown) 8.3 % (unkn own) (unknown) (no date) (unknown) (unknown) 8.3 % 5905- 5 (unknown) (no date) (unknown) (unknown) 8.9 mg/dl (unkn own) (unknown) (no date) (unknown) (unknown) 8.9 mg/dl 17764 -6 (unknown) (no date) (unknown) (unknown) 80 10\s\9/l 777-3 (unknown) (no date) (unknown) (unknown) 80 10s9/l (unkn own) (unknown) (no date) (unknown) (unknown) 80.5 % (unkn own) (unknown) (no date) (unknown) (unknown) 80.5 % 770-8 (unknown) (no date) (unknown) (unknown) 9 (units unknown) (unknown) (unknown) (no date) (unknown) (unknown) 9 (units unknown) 80710-4 (unknown) (no date) (unknown) (unknown) 9.0 (units unknown) (unknown) (unknown) (no date) (unknown) (unknown) 9.0 (units unknown) 3097-3 (unknown) (no date) (unknown) (unknown) 9.5 % (unkn own) (unknown) (no date) (unknown) (unknown) 9.5 % 736-9 (unknown) (no date) (unknown) (unknown) 9.8 10\s\9/l 87797 -8 (unknown) (no date) (unknown) (unknown) 9.8 [...] (no date) (unknown) (unknown) 0-10 % (units 28400 -2 unknown) (unknown) (no date) (unknown) (unknown) 0.0 10\s\9/l 704-7 (unknown) (no date) (unknown) (unknown) 0.0 10s9/l (unkn own) (unknown) (no date) (unknown) (unknown) 0.06 10\s\9/l 63602 -1 (unknown) (no date) (unknown) (unknown) 0.06 10s9/l (unkn own) (unknown) (no date) (unknown) (unknown) 0.1 10\s\9/l 711-2 (unknown) (no date) (unknown) (unknown) 0.1 10s9/l (unkn own) (unknown) (no date) (unknown) (unknown) 0.2 % (unkn own) (unknown) (no date) (unknown) (unknown) 0.2 % 706-2 (unknown) (no date) (unknown) (unknown) 0.6 % (unkn own) (unknown) (no date) (unknown) (unknown) 0.6 % 48373 -1 (unknown) (no date) (unknown) (unknown) 0.8 [...] (unknown) (no date) (unknown) (unknown) 1.77 mg/dl 16842 -4 (unknown) (no date) (unknown) (unknown) 10.2 (units (unkn own) unknown) (unknown) (no date) (unknown) (unknown) 10.2 (units 3097- 3 unknown) (unknown) (no date) (unknown) (unknown) 10.4 10\s\9/l 58622 -8 (unknown) (no date) (unknown) (unknown) 10.4 10s9/l (unkn own) (unknown) (no date) (unknown) (unknown) 10.6 % (unkn own) (unknown) (no date) (unknown) (unknown) 10.6 % 736-9 (unknown) (no date) (unknown) (unknown) 111 mmol/l (unkn own) (unknown) (no date) (unknown) (unknown) 111 mmol/l 2075- 0 (unknown) (no date) (unknown) (unknown) 12.1 fl (unkn own) (unknown) (no date) (unknown) (unknown) 12.1 fl 07416 -1 (unknown) (no date) (unknown) (unknown) 129 [...] (unknown) (no date) (unknown) (unknown) 2.0 mg/dl 15313 -9 (unknown) (no date) (unknown) (unknown) 2.0 [...] (unknown) (no date) (unknown) (unknown) 50.1 fl 29388 -5 (unknown) (no date) (unknown) (unknown) 6 (units (unkn own) unknown) (unknown) (no date) (unknown) (unknown) 6 (units 85188 -1 unknown) (unknown) (no date) (unknown) (unknown) [...] (unknown) (no date) (unknown) (unknown) 8.6 mg/dl 98004 -6 (unknown) (no date) (unknown) (unknown) 8.6 [...] (unknown) (unknown) ACCT: (units (o wn) date) [id number] unknown) (unknown) (no (unknown) (unknown) ASSESSMENT: (units [...] (unknown) CASE #: (units ( wn) date) [id number] unknown) (unknown) (no (unknown) (unknown) Clinical (units [...] (unkn own) date) Location: unknown) Pathology Services -[facility], [address] (unknown) (no (unknown) (unknown) Peripheral Smear (units [...] (unknown) St, [address], (units (unknown) date) [place] unknown) [id number] (unknown) (no (unknown) (unknown) The patient is [...] (unknown) (no date) (unknown) (unknown) 0.04 10\s\9/l 97198 -1 (unknown) (no date) (unknown) (unknown) 0.04 10s9/l (unkn own) (unknown) (no date) (unknown) (unknown) 0.1 10\s\9/l 711-2 (unknown) (no date) (unknown) (unknown) 0.1 10s9/l (unkn own) (unknown) (no date) (unknown) (unknown) 0.2 % (unkn own) (unknown) (no date) (unknown) (unknown) 0.2 % 706-2 (unknown) (no date) (unknown) (unknown) 0.4 % (unkn own) (unknown) (no date) (unknown) (unknown) 0.4 % 60480 -1 (unknown) (no date) (unknown) (unknown) 0.8 [...] (unknown) (no date) (unknown) (unknown) 1.52 mg/dl 09705 -4 (unknown) (no date) (unknown) (unknown) 1.6 mg/dl 2777- 1 (unknown) (no date) (unknown) (unknown) 1.6 mg/dl (unkn own) (unknown) (no date) (unknown) (unknown) 1.9 mg/dl 09702 -9 (unknown) (no date) (unknown) (unknown) 1.9 mg/dl (unkn own) (unknown) (no date) (unknown) (unknown) 10.7 % (unkn own) (unknown) (no date) (unknown) (unknown) 10.7 % 736-9 (unknown) (no date) (unknown) (unknown) 10.9 10\s\9/l 22070 -8 (unknown) (no date) (unknown) (unknown) 10.9 10s9/l (unkn own) (unknown) (no date) (unknown) (unknown) 11.2 (units unknown) (unknown) (unknown) (no date) (unknown) (unknown) 11.2 (units unknown) 3097-3 (unknown) (no date) (unknown) (unknown) 112 mmol/l (unkn own) (unknown) (no date) (unknown) (unknown) 112 mmol/l 2075- 0 (unknown) (no date) (unknown) (unknown) 12.5 fl (unkn own) (unknown) (no date) (unknown) (unknown) 12.5 fl 09405 -1 (unknown) (no date) (unknown) (unknown) 12.5 [...] (no date) (unknown) (unknown) 47 ml/min/1.73 m2 96918-1 (unknown) (no date) (unknown) (unknown) 47 ml/min/1.73 m2 (unknown) (unknown) (no date) (unknown) (unknown) 47.5 % (unkn own) (unknown) (no date) (unknown) (unknown) 47.5 % 4544- 3 (unknown) (no date) (unknown) (unknown) 49.5 fl (unkn own) (unknown) (no date) (unknown) (unknown) 49.5 fl 59876 -5 (unknown) (no date) (unknown) (unknown) 5.10 10\s\12/l 789- 8 (unknown) (no date) (unknown) (unknown) 5.10 10s12/l (unkn own) (unknown) (no date) (unknown) (unknown) 7 (units unknown) (unknown) (unknown) (no date) (unknown) (unknown) 7 (units unknown) 43759-4 (unknown) (no date) (unknown) (unknown) 7.2 % (unkn own) (unknown) (no date) (unknown) (unknown) 7.2 % 5905- 5 (unknown) (no date) (unknown) (unknown) 8.8 10\s\9/l 751-8 (unknown) (no date) (unknown) (unknown) 8.8 10s9/l (unkn own) (unknown) (no date) (unknown) (unknown) 8.8 mg/dl (unkn own) (unknown) (no date) (unknown) (unknown) 8.8 mg/dl 94267 -6 (unknown) (no date) (unknown) (unknown) 8.8 [...] (unknown) (no date) (unknown) (unknown) Trace /hpf 65474 -1 (unknown) (no date) (unknown) (unknown) Trace /hpf (unkn own) Result panel 19 (unknown) (no date) (unknown) (unknown) 1.46 mg/dl (unkn own) (unknown) (no date) (unknown) (unknown) 1.46 mg/dl 23494 -4 (unknown) (no date) (unknown) (unknown) 1.8 mg/dl 09109 -9 (unknown) (no date) (unknown) (unknown) 1.8 mg/dl (unkn own) (unknown) (no date) (unknown) (unknown) 11.6 fl 12171 -1 (unknown) (no date) (unknown) (unknown) 11.6 [...] (unknown) (no date) (unknown) (unknown) 49.8 fl 41700 -5 (unknown) (no date) (unknown) (unknown) 6 (units unknown) (unknown) (unknown) (no date) (unknown) (unknown) 6 (units unknown) 46758-3 (unknown) (no date) (unknown) (unknown) 8.2 (units unknown) (unknown) (unknown) (no date) (unknown) (unknown) 8.2 (units unknown) 3097-3 (unknown) (no date) (unknown) (unknown) 8.4 mg/dl (unkn own) (unknown) (no date) (unknown) (unknown) 8.4 mg/dl 21655 -6 (unknown) (no date) (unknown) (unknown) 89 10\s\9/l 777-3 (unknown) (no date) (unknown) (unknown) 89 10s9/l (unkn own) (unknown) (no date) (unknown) (unknown) 9.2 10\s\9/l 89787 -8 (unknown) (no date) (unknown) (unknown) 9.2 10s9/l (unkn own) (unknown) (no date) (unknown) (unknown) 93.7 fl (unkn own) (unknown) (no date) (unknown) (unknown) 93.7 fl 787-2 Result panel 20 (unknown) (no date) (unknown) (unknown) 1.43 mg/dl (unkn own) (unknown) (no date) (unknown) (unknown) 1.43 mg/dl 58874 -4 (unknown) (no date) (unknown) (unknown) 1.8 mg/dl 18651 -9 (unknown) (no date) (unknown) (unknown) 1.8 mg/dl (unkn own) (unknown) (no date) (unknown) (unknown) 10.5 (units unknown) (unknown) (unknown) (no date) (unknown) (unknown) 10.5 (units unknown) 3097-3 (unknown) (no date) (unknown) (unknown) 113 mmol/l (unkn own) (unknown) (no date) (unknown) (unknown) 113 mmol/l 2075- 0 (unknown) (no date) (unknown) (unknown) 12.4 fl 32544 -1 (unknown) (no date) (unknown) (unknown) 12.4 [...] (unknown) (no date) (unknown) (unknown) 51.0 fl 40094 -5 (unknown) (no date) (unknown) (unknown) 8 (units unknown) (unknown) (unknown) (no date) (unknown) (unknown) 8 (units unknown) 16562-7 (unknown) (no date) (unknown) (unknown) 8.4 mg/dl (unkn own) (unknown) (no date) (unknown) (unknown) 8.4 mg/dl 05564 -6 (unknown) (no date) (unknown) (unknown) 8.7 10\s\9/l 99006 -8 (unknown) (no date) (unknown) (unknown) 8.7 10s9/l (unkn own) (unknown) (no date) (unknown) (unknown) 91 10\s\9/l 777-3 (unknown) (no date) (unknown) (unknown) 91 10s9/l (unkn own) (unknown) (no date) (unknown) (unknown) 95.0 fl (unkn own) (unknown) (no date) (unknown) (unknown) 95.0 fl 787-2 Result panel 21 (unknown) (no date) (unknown) (unknown) 1.32 mg/dl (unkn own) (unknown) (no date) (unknown) (unknown) 1.32 mg/dl 83771 -4 (unknown) (no date) (unknown) (unknown) 1.7 mg/dl 03695 -9 (unknown) (no date) (unknown) (unknown) 1.7 [...] (unknown) (no date) (unknown) (unknown) 12.1 fl 07923 -1 (unknown) (no date) (unknown) (unknown) 12.1 [...] (unknown) (no date) (unknown) (unknown) 52.3 fl 12860 -5 (unknown) (no date) (unknown) (unknown) 8 (units (unkn own) unknown) (unknown) (no date) (unknown) (unknown) 8 (units 62754 -1 unknown) (unknown) (no date) (unknown) (unknown) 8.2 mg/dl (unkn own) (unknown) (no date) (unknown) (unknown) 8.2 mg/dl 27628 -6 (unknown) (no date) (unknown) (unknown) 8.8 10\s\9/l 02582 -8 (unknown) (no date) (unknown) (unknown) 8.8 [...]
[2022-11-25 11:20] LABS: BASOPHILS # (AUTO) 0.1 10^3/uL (0.0-0.1); BASOPHILS % (AUTO) 0.7 %; EOSINOPHILS # (AUTO) 0.1 10^3/uL (0.0-0.7); EOSINOPHILS % (AUTO) 0.7 %; HCT - HEMATOCRIT 47.9 % (42.0-52.0); HGB - HEMOGLOBIN 15.3 g/dL (14.0-18.0); LYMPHOCYTES # (AUTO) 1.4 10^3/uL (1.5-3.5); MEAN CORPUSCULAR HEMOGLOBIN 29.3 pg (27.0-31.0); MEAN CORPUSCULAR HGB CONC 31.9 g/dL (32.0-36.0); MEAN CORPUSCULAR VOLUME 91.8 fL (80.0-94.0); MEAN PLATELET VOLUME 11.5 fL (7.4-11.4); MONOCYTES # (AUTO) 1.4 10^3/uL (0.0-1.0); MONOCYTES % (AUTO) 10.2 %; NEUTROPHILS # (AUTO) 10.5 10^3/uL (1.5-6.6); NEUTROPHILS % (AUTO) 77.7 %; PLT - PLATELET COUNT 203 10^3/uL (130-450); RED BLOOD COUNT 5.22 10^6/uL (4.70-6.10); RED CELL DISTRIBUTION WIDTH 14.9 % (12.0-15.0); WHITE BLOOD COUNT 13.5 x10^3/uL (4.8-10.8)
--- NOTE | 2022-11-25 11:30 | ED Physician Documentation ---
History of Present Illness - Stated complaint Stated Complaint: WEAKNESS/DIZZINESS - Chief complaint Chief Complaint: General - History obtained from History obtained from: Patient, Family - Additonal information Additional information: This is a 76-year-old gentleman with a history of atrial fibrillation as well as stage IV pancreatic cancer currently on maintenance Lupron and po Zytiga and a recent admission to [facility] for FILIPE who presents with 2 weeks of weakness, decreased p.o. intake, body aches, and decreased activity. The patient typically is able to walk with a walker but has not been in bed for the last 2 weeks and not able to get out of bed. He has been become progressively more weak. He has not been taking much of any p.o. intake and family concerned that he may be dehydrated. He was seen here several days after being released from the hospital earlier this month, and at that time it was thought he had a viral syndrome and was discharged home. He has not improved since then and has in fact progressively worsened. He has not had a fever to family's knowledge, no chest pain or difficulty breathing, no focal abdominal pain but does have some generalized pain, no diarrhea or constipation, no dysuria or other urinary symptoms. He has had several episodes of nausea and vomiting. also notes that he has been treated for a facial rash with mupirocin for the last couple weeks but it has not gotten any better. He was seen via video By his flooring mechanic today who advised patient and to come into the ER. EMS was called and brought the patient to the ER. Per their report, there was concern by them for possible bloody stool the patient does not note this. Pt denies any new medications or changes to his chronic treatments recently. Review of Systems Constitutional: reports: Fatigue, Other (Poor PO intake) Eyes: reports: Reviewed and negative Ears: reports: Reviewed and negative Nose: reports: Reviewed and negative Throat: reports: Reviewed and negative Cardiac: reports: Reviewed and negative Respiratory: reports: Reviewed and negative GI: reports: Abdominal Pain, Nausea, Vomiting. denies: Abdominal Swelling, Constipation, Diarrhea : reports: Reviewed and negative Skin: reports: Rash Musculoskeletal: reports: Reviewed and negative Neurologic: reports: Generalized weakness. denies: Focal weakness, Numbness, Difficulty speaking, Near syncope, Syncope, Seizure, Confused, Unresponsive, Head injury, LOC Psychiatric: reports: Reviewed and negative Endocrine: reports: Reviewed and negative PD PAST MEDICAL HISTORY - Past Medical History Past Medical History: Yes Cardiovascular: Atrial fibrillation Respiratory: Sleep apnea, CPAP use, Other Neuro: None Endocrine/Autoimmune: None GI: Hepatitis : Kidney stones, Other (Prostate cancer) HEENT: None Psych: None Musculoskeletal: Osteoarthritis, Fatigue Derm: None - Past Surgical History Past Surgical History: Yes General: Colonoscopy Ortho: Other Cardiovascular: Other HEENT: Cataracts, Tonsil/Adenoidectomy Derm: Skin cancer surgery - Present Medications Home Medications: Ambulatory Orders Medication Instructions Recorded Confirmed allopurinoL [Allopurinol] 100 mg ORAL DAILY 08/16/14 11/10/22 Leuprolide [Lupron] 45 mg IM .Q6MO 04/05/22 11/10/22 Tamsulosin [Flomax] 0.4 mg PO DAILY 04/05/22 11/10/22 mycophenolate mofetiL 1,000 mg PO BID 04/05/22 11/10/22 [Mycophenolate Mofetil] predniSONE [Deltasone] 5 mg PO QDBREAKFAST 04/05/22 11/10/22 Abiraterone Acetate [Zytiga] 1,000 mg PO DAILY 07/16/22 11/10/22 Apixaban [Eliquis] 5 mg PO BID 07/16/22 11/10/22 Metoprolol Succinate [Toprol Xl] 25 mg PO BID 07/16/22 11/10/22 Rosuvastatin Calcium [Crestor] 40 mg PO HS 07/16/22 11/10/22 Ondansetron Odt [Zofran] 4 mg TL Q6H PRN #30 tablet 11/25/22 Potassium Chloride [Klor-Con M10] 10 meq PO DAILY #7 tab 11/25/22 cephALEXin [Keflex] 500 mg PO Q6H #28 11/25/22 - Allergies Allergies/Adverse Reactions: Allergies Allergy/AdvReac Type Severity Reaction Status Date / Time Penicillins Allergy Unknown Verified 11/25/22 10:49 Sulfa (Sulfonamide Allergy Unknown Verified 11/25/22 10:49 Antibiotics) - Social History Does the pt smoke?: No Smoking Status: Never smoker Does the pt drink ETOH?: No Does the pt have substance abuse?: No - Immunizations Immunizations are current?: Yes - POLST Patient has POLST: No PD ED PE NORMAL - Vitals Vital signs reviewed: Yes - General General: Alert and oriented X 3, No acute distress, Well developed/nourished - HEENT HEENT: Atraumatic, PERRL, Moist mucous membranes, Pharynx benign, Other (There is a rash bilateral cheeks and across the bridge of the nose it is deep red, well-demarcated with scattered pustules and solorzano crusted drainage throughout, no palpable abscesses.) - Neck Neck: Supple, no meningeal sign, No bony TTP, No adenopathy, No JVD - Cardiac Cardiac: Strong equal pulses, Other (Irregularly irregular, no murmur) - Respiratory Respiratory: No respiratory distress, Clear bilaterally - Abdomen Abdomen: Normal bowel sounds, Soft, Non distended, No organomegaly, Other (Mild left lower abdominal tenderness) - Back Back: No CVA TTP, No spinal TTP - Derm Derm: Normal color, Warm and dry, No rash, Other (Facial rash as described above) - Extremities Extremities: No deformity, No tenderness to palpate, Normal ROM s pain, No edema, No calf tenderness / cord - Neuro Neuro: Alert and oriented X 3, No motor deficit, No sensory deficit, Normal speech, Other (Generalized weakness) Eye Opening: Spontaneous Motor: Obeys Commands Verbal: Oriented GCS Score: 15 - Psych Psych: Normal mood, Normal affect Results - Vitals Vitals: Vital Signs - 24 hr 11/25/22 11/25/22 11/25/22 10:44 12:49 14:00 Temperature 36 C L 36.5 C 36.5 C Heart Rate 104 H 74 72 Respiratory 16 24 22 Rate Blood Pressure 126/108 H 110/84 H 112/82 H O2 Saturation 96 96 98 11/25/22 16:00 Temperature 36.5 C Heart Rate 76 Respiratory 18 Rate Blood Pressure 116/80 O2 Saturation 98 Oxygen O2 Source [] Nasal cannula O2 Source [] Room air O2 Source Room air - EKG (time done) No standard instances Rate: Rate (enter#) (95) Rhythm: Atrial fibrillation Intervals: LBBB QRS: Normal Ischemia: Normal ST segments Computer interpretation: Agree with computer - Labs Labs: Laboratory Tests 11/25/22 11/25/22 11/25/22 10:56 11:09 11:09 WBC 13.5 H RBC 5.22 Hgb 15.3 Hct 47.9 MCV 91.8 MCH 29.3 MCHC 31.9 L RDW 14.9 Plt Count 203 MPV 11.5 H Neut # (Auto) 10.5 H Lymph # (Auto) 1.4 L Runnels # (Auto) 1.4 H Eos # (Auto) 0.1 Baso # (Auto) 0.1 Absolute Nucleated RBC 0.00 Nucleated RBC % 0.0 PT INR Sodium Potassium Chloride Carbon Dioxide Anion Gap BUN Creatinine Estimated GFR (MDRD) Glucose Lactic Acid Calcium Total Bilirubin AST ALT Alkaline Phosphatase Troponin I High Sens 69.1 H* Total Protein Albumin Globulin Albumin/Globulin Ratio Lipase Nasal Adenovirus (PCR) Nasal B. parapertussis DNA (PCR) Nasal Coronavir 229E PCR Nasal Coronavir HKU1 PCR Nasal Coronavir NL63 PCR Nasal Coronavir OC43 PCR Nasal Enterovir/Rhinovir PCR Nasal Influenza B PCR Nasal Influenza A PCR Nasal Parainfluen 1 PCR Nasal Parainfluen 2 PCR Nasal Parainfluen 3 PCR Nasal Parainfluen 4 PCR Nasal RSV (PCR) Nasal B.pertussis DNA PCR Nasal C.pneumoniae (PCR) Andrea Human Metapneumo PCR Nasal M.pneumoniae (PCR) Nasal SARS-CoV-2 (PCR) Blood Type O POSITIVE Blood Type Recheck Antibody Screen NEGATIVE 11/25/22 11/25/22 11/25/22 11:09 11:09 11:50 WBC RBC Hgb Hct MCV MCH MCHC RDW Plt Count MPV Neut # (Auto) Lymph # (Auto) Runnels # (Auto) Eos # (Auto) Baso # (Auto) Absolute Nucleated RBC Nucleated RBC % PT 13.1 H INR 1.2 Sodium 138 Potassium 2.7 L Chloride 95 L Carbon Dioxide 27 Anion Gap 16.0 H BUN 12 Creatinine 1.2 Estimated GFR (MDRD) 59 L Glucose 113 H Lactic Acid Calcium 8.7 Total Bilirubin 1.6 H AST 23 ALT 24 Alkaline Phosphatase 68 Troponin I High Sens Total Protein 5.9 L Albumin 3.0 L Globulin 2.9 Albumin/Globulin Ratio 1.0 Lipase 22 Nasal Adenovirus (PCR) NOT DETECTED Nasal B. parapertussis DNA (PCR) NOT DETECTED Nasal Coronavir 229E PCR NOT DETECTED Nasal Coronavir HKU1 PCR NOT DETECTED Nasal Coronavir NL63 PCR NOT DETECTED Nasal Coronavir OC43 PCR NOT DETECTED Nasal Enterovir/Rhinovir PCR NOT DETECTED Nasal Influenza B PCR NOT DETECTED Nasal Influenza A PCR NOT DETECTED Nasal Parainfluen 1 PCR NOT DETECTED Nasal Parainfluen 2 PCR NOT DETECTED Nasal Parainfluen 3 PCR NOT DETECTED Nasal Parainfluen 4 PCR NOT DETECTED Nasal RSV (PCR) NOT DETECTED Nasal B.pertussis DNA PCR NOT DETECTED Nasal C.pneumoniae (PCR) NOT DETECTED Andrea Human Metapneumo PCR NOT DETECTED Nasal M.pneumoniae (PCR) NOT DETECTED Nasal SARS-CoV-2 (PCR) NOT DETECTED Blood Type Blood Type Recheck Antibody Screen 11/25/22 11/25/22 11/25/22 12:34 12:34 13:23 WBC RBC Hgb Hct MCV MCH MCHC RDW Plt Count MPV Neut # (Auto) Lymph # (Auto) Runnels # (Auto) Eos # (Auto) Baso # (Auto) Absolute Nucleated RBC Nucleated RBC % PT INR Sodium Potassium Chloride Carbon Dioxide Anion Gap BUN Creatinine Estimated GFR (MDRD) Glucose Lactic Acid 3.0 H* Calcium Total Bilirubin AST ALT Alkaline Phosphatase Troponin I High Sens 73.7 H* Total Protein Albumin Globulin Albumin/Globulin Ratio Lipase Nasal Adenovirus (PCR) Nasal B. parapertussis DNA (PCR) Nasal Coronavir 229E PCR Nasal Coronavir HKU1 PCR Nasal Coronavir NL63 PCR Nasal Coronavir OC43 PCR Nasal Enterovir/Rhinovir PCR Nasal Influenza B PCR Nasal Influenza A PCR Nasal Parainfluen 1 PCR Nasal Parainfluen 2 PCR Nasal Parainfluen 3 PCR Nasal Parainfluen 4 PCR Nasal RSV (PCR) Nasal B.pertussis DNA PCR Nasal C.pneumoniae (PCR) Andrea Human Metapneumo PCR Nasal M.pneumoniae (PCR) Nasal SARS-CoV-2 (PCR) Blood Type Blood Type Recheck O POSITIVE Antibody Screen PD Medical Decision Making - ED course Complexity details: reviewed old records, reviewed results, re-evaluated patient, considered differential, d/w patient, d/w family ED course: This is a 76-year-old male who has a history of atrial fibrillation, int erstitial lung disease, not on home oxygen, prostate cancer who presented with 2 weeks of fatigue, decreased p.o. intake, weakness. On arrival here, patient is stable appearing, afebrile and on room air. He is mildly tachycardic in the low 100s in atrial fibrillation. We obtain a septic work-up which shows mild elevation in his white blood cell count at 13.5, potassium of 2.7, creatinine 1.2 GFR 59. His lactate was 3.0. He was given a total of 1.5 L of fluid for dehydration, I did not do 30 mL/kg as he does have a history of CHF per chart review.Blood cultures were obtained and the patient was started on ceftriaxone and is is referred suspected pulmonary source of infection. I did obtain an x- ray which showed possible right lower lobe consolidation but no other acute findings. I checked a CT abdomen pelvis due to his decreased p.o. intake, and vomiting and this showed no acute findings and the bases of the lungs showed no consolidation. The patient was feeling better after fluids but still weak and had hoped that he could be admitted to the hospital however I discussed with hospitalist and patient does not meet any inpatient criteria and advised to continue home health or consider referral to social work to talk about placement. I discussed with patient and the familyAnd he already has home health services set up including weekly nursing care, physical therapy and assistance at home. They did meet with the social service manager however to discuss placement if the patient does not improve. I recommended we start him on antibiotics orally for his impetigo over the face and he can continue mupirocin. Given CT findings, I suspect that the x-ray was showing some guarding from his interstitial lung disease and not a true pneumonia as patient was not hypoxic or febrile here. There are no other acute signs of infection, the Keflex should be sufficient for the impetigo. We will discharge him with as needed Zofran to help with his nausea and we discussed bland diet options. If patient continues to deteriorate at home, discussed with to return to the ER and consider retirement placement at that time. Departure - Departure Disposition: 01 Home, Self Care Clinical Impression: Hypokalemia, Impetigo Nausea and vomiting Qualifiers: Vomiting type: unspecified Qualified Code(s): R11.2 - Nausea with vomiting, unspecified Condition: Good Instructions: Hypokalemia Dc, ED Nausea Vomiting Prescriptions: cephALEXin [Keflex] 500 mg PO Q6H #28 Potassium Chloride [Klor-Con M10] 10 meq PO DAILY #7 tab Ondansetron Odt [Zofran] 4 mg TL Q6H PRN #30 tablet PRN Reason: Nausea / Vomiting Comments: You presented with generalized feeling unwell. You do have a skin infection on the nose which I have prescribed Antibiotics 4. He also had low potassium which was replaced in the ER and you were given 7 days of potassium that you can take orally at home. Also given you a nausea tablet. Please try to stay well- hydrated, continue to work with physical therapy and home health. If things are not working well at home or you continue to deteriorate, please return to the ER or discuss placement with your primary care provider.
[2022-11-25 11:36] LABS: INR 1.2 (0.8-1.2); PT - PROTHROMBIN TIME 13.1 secs (9.9-12.6)
[2022-11-25 11:37] LABS: BILIRUBIN,TOTAL 1.6 mg/dL (0.2-1.0); CALCIUM 8.7 mg/dL (8.5-10.3); CREATININE 1.2 mg/dL (0.6-1.2); POTASSIUM 2.7 mmol/L (3.5-5.0); TOTAL PROTEIN 5.9 g/dL (6.7-8.2)
[2022-11-25] MEDS ORDERED: SODIUM CHLORIDE 0.9% 500 ML IV STA (11:49)
[2022-11-25] MEDS ORDERED: POTASSIUM CHLOR 10 MEQ/100 ML 10 MEQ/100 ML BAG IV STA ×2 (11:49→13:15)
--- NOTE | 2022-11-25 11:58 | XRAY Report ---
PROCEDURE: Chest 1 View X-Ray INDICATIONS: chest pain TECHNIQUE: One view of the chest was acquired. COMPARISON: None. FINDINGS: Surgical changes and devices: None. Lungs and pleura: Radiopacities are present at the left lung base. The lungs are otherwise clear. No pleural effusion or pneumothorax. Mediastinum: Mediastinal contours appear normal. Heart size is normal. Bones and chest wall: No suspicious bony lesions. Overlying soft tissues appear unremarkable. IMPRESSION: 1. Left basilar pulmonary radiopacities. Differential considerations include atelectasis, aspiration, and infection. Reviewed by: Delma Hayes MD on 11/25/2022 11:56 AM [facility] Approved by: Delma Hayes MD on 11/25/2022 11:56 AM [facility] Station ID: [id number]
[2022-11-25] MEDS ORDERED: ONDANSETRON 4 MG/2 ML VIAL IVP STA (12:22)
[2022-11-25] MEDS ORDERED: cefTRIAXone 2 GM in SODIUM CHLORIDE 0.9% MINIBAG 100 ML IV STA (12:23)
[2022-11-25] MEDS ORDERED: AZITHROMYCIN INJ 500 MG in SODIUM CHLORIDE 0.9% 250 ML IV STA (12:23)
[2022-11-25 12:59] LABS: B. PARAPERTUSSIS- RESP PCR PAN NOT DETECTED; B. PERTUSSIS- RESP PCR PANEL NOT DETECTED; C. PNEUMONIAE- RESP PCR PANEL NOT DETECTED; CORONAVIRUS 229E-RESP PCR NOT DETECTED; CORONAVIRUS HKU1-RESP PCR NOT DETECTED; CORONAVIRUS NL63-RESP PCR NOT DETECTED; CORONAVIRUS OC43-RESP PCR NOT DETECTED; HUMAN METAPNEUMOVIRUS NOT DETECTED; INFLUENZA A- RESP PCR PANEL NOT DETECTED; INFLUENZA B - RESP PCR PANEL NOT DETECTED; M. PNEUMONIAE- RESP PCR PANEL NOT DETECTED; PARAINFLUENZA VIRUS 1 NOT DETECTED; PARAINFLUENZA VIRUS 2 NOT DETECTED; PARAINFLUENZA VIRUS 3 NOT DETECTED; PARAINFLUENZA VIRUS 4 NOT DETECTED; RHINOVIRUS/ENTEROVIRUS NOT DETECTED; RSV- RESP PCR PANEL NOT DETECTED; SARS-CoV-2 -RESP PCR PANEL NOT DETECTED
[2022-11-25] MEDS ORDERED: SODIUM CHLORIDE 0.9% 1,000 ML IV STA (13:14)
[2022-11-25] MEDS ORDERED: iohexoL-300 100 ML VIAL ONE (13:49)
[2022-11-25] MEDS ORDERED: iohexoL-300 100 ML VIAL IVP ONE (14:24)
--- NOTE | 2022-11-25 14:35 | CT Report ---
PROCEDURE: ABDOMEN/PELVIS W INDICATIONS: sepsis CONTRAST: 100ml OMnipaque 300 TECHNIQUE: After the administration of contrast, 5 mm thick sections acquired from the diaphragms to the sym physis. 5 mm thick coronal and sagittal reformats were acquired. For radiation dose reduction, the following was used: automated exposure control, adjustment of mA and/or kV according to patient size . COMPARISON: CT abdomen and pelvis 08/04/2019 FINDINGS: Image quality: Excellent. ABDOMEN: Lung bases: Lung bases demonstrate chronic interstitial changes. No effusions or consolidations. Hea rt size is normal. Solid organs: Liver and spleen are normal in size and enhancement. Hepatic steatosis is present. Ga llbladder is unremarkable Biliary system is non dilated. Pancreas enhances normally. No adrenal no dules. Kidneys demonstrate bilateral renal atrophy. Suspected scarring and sequela of postsurgical p rior infection or inflammation is noted within the left kidney. No obstruction. Peritoneum and bowel: Bowel loops demonstrate normal wall thickness and caliber. Colonic diverticula are present without associated inflammatory change. No free fluid or air. Nodes and vessels: No retroperitoneal or mesenteric adenopathy by size criteria. Aorta and inferior vena cava are normal in size. Atherosclerosis is present within the aortic and iliac vasculature. Miscellaneous: No ventral hernias. PELVIS: Genitourinary: Bladder wall thickness is normal. Miscellaneous: Fat-containing inguinal hernias. Bones: No suspicious bony lesions. No vertebral body compression fractures. IMPRESSION: No acute intra-abdominal or pelvic process. Diverticulosis. Reviewed by: Palak Samuel MD on 11/25/2022 2:33 PM PST Approved by: Palak Samuel MD on 11/25/2022 2:33 PM PST Station ID: [id number]
[2022-11-25 16:42] VITALS: BP 116/80
== END 2022-11-25 17:25 | disposition home or self-care (01) ==
LOC: EDUNIT# → ED 10:36
DX: E86.0 Dehydration (principal); E87.6 Hypokalemia; R11.2 Nausea with vomiting, unspecified; L01.00 Impetigo, unspecified; Z20.822 Contact with and (suspected) exposure to COVID-19
CPT/HCPCS: 36415; 71045; 74177; 80053; 83605; 83690; 84484; 85025; 85610; 86850; 86900; 86901; 87040; 87633; 93005; 96365; 96366; 96367; 96368; 96375; 99284; 99285; Q9967

== ENCOUNTER 2022-12-11 08:00 | Outpatient (CLI) | payer MEDICARE, OTHER ==
[2022-12-11 14:56] LABS: BASOPHILS % (AUTO) 0.3 %; EOSINOPHILS # (AUTO) 0.1 10^3/uL (0.0-0.7); EOSINOPHILS % (AUTO) 0.5 %; HCT - HEMATOCRIT 36.6 % (42.0-52.0); HGB - HEMOGLOBIN 11.7 g/dL (14.0-18.0); LYMPHOCYTES # (AUTO) 0.6 10^3/uL (1.5-3.5); LYMPHOCYTES % (AUTO) 5.5 %; MEAN CORPUSCULAR HEMOGLOBIN 29.7 pg (27.0-31.0); MEAN CORPUSCULAR VOLUME 92.9 fL (80.0-94.0); MEAN PLATELET VOLUME 10.5 fL (7.4-11.4); MONOCYTES % (AUTO) 8.7 %; NEUTROPHILS # (AUTO) 9.8 10^3/uL (1.5-6.6); NEUTROPHILS % (AUTO) 84.5 %; PLT - PLATELET COUNT 193 10^3/uL (130-450); RED BLOOD COUNT 3.94 10^6/uL (4.70-6.10); RED CELL DISTRIBUTION WIDTH 16.6 % (12.0-15.0); WHITE BLOOD COUNT 11.5 x10^3/uL (4.8-10.8)
[2022-12-11 15:15] LABS: CREATININE,URINE 83.7 mg/dL; MICROALBUM/CREATININE RATIO,UR 145.8 ug/mg (<30.0); MICROALBUMIN,URINE 12.2 mg/dL (0-300.0)
[2022-12-11 15:18] LABS: ALBUMIN 2.5 g/dL (3.2-5.5); ALKALINE PHOSPHATASE 66 IU/L (42-121); ALT ALANINE AMINOTRANSFERASE 31 IU/L (10-60); AST ASPARTATE AMINOTRANSFERASE 32 IU/L (10-42); BILIRUBIN,TOTAL 0.6 mg/dL (0.2-1.0); BUN - BLOOD UREA NITROGEN 11 mg/dL (6-20); CALCIUM 8.1 mg/dL (8.5-10.3); CARBON DIOXIDE - CO2 22 mmol/L (21-32); CHLORIDE 104 mmol/L (101-111); CHOL/HDL RATIO 1.7 (<5.0); CHOLESTEROL 93 mg/dL; CREATININE 0.9 mg/dL (0.6-1.2); GFR - MDRD 82 (>89); GLUCOSE 195 mg/dL (70-100); HDL CHOLESTEROL 54 mg/dL; LDL CHOLESTEROL,CALCULATED 10 mg/dL; LDL/HDL RATIO 0.2 (<3.6); POTASSIUM 3.4 mmol/L (3.5-5.0); SODIUM 135 mmol/L (135-145); TRIGLYCERIDES 145 mg/dL; URIC ACID 1.4 mg/dL (2.6-7.2); VLDL CHOLESTEROL 29 mg/dL
[2022-12-11 20:58] LABS: ESTIMATED AVERAGE GLUCOSE 166 mg/dL (70-100); HEMOGLOBIN A1c% 7.4 % (4.27-6.07)
== END 2022-12-11 23:59 | disposition home or self-care (01) ==
LOC: LAB.R 08:00
DX: C61 Malignant neoplasm of prostate (principal); E78.5 Hyperlipidemia, unspecified; R73.03 Prediabetes; I48.21 Permanent atrial fibrillation; M10.00 Idiopathic gout, unspecified site
CPT/HCPCS: 80053; 80061; 82043; 82570; 83036; 83721; 84443; 84550; 85025

== ENCOUNTER 2022-12-30 14:29 | Outpatient (CLI) | payer MEDICARE, OTHER ==
[2022-12-30 14:44] LABS: BASOPHILS # (AUTO) 0.1 10^3/uL (0.0-0.1); BASOPHILS % (AUTO) 0.5 %; EOSINOPHILS # (AUTO) 0.2 10^3/uL (0.0-0.7); EOSINOPHILS % (AUTO) 1.9 %; HCT - HEMATOCRIT 38.2 % (42.0-52.0); HGB - HEMOGLOBIN 11.9 g/dL (14.0-18.0); LYMPHOCYTES # (AUTO) 0.5 10^3/uL (1.5-3.5); LYMPHOCYTES % (AUTO) 5.3 %; MEAN CORPUSCULAR HEMOGLOBIN 30.3 pg (27.0-31.0); MEAN CORPUSCULAR HGB CONC 31.2 g/dL (32.0-36.0); MEAN CORPUSCULAR VOLUME 97.2 fL (80.0-94.0); MEAN PLATELET VOLUME 11.1 fL (7.4-11.4); MONOCYTES # (AUTO) 0.8 10^3/uL (0.0-1.0); MONOCYTES % (AUTO) 8.6 %; NEUTROPHILS # (AUTO) 7.6 10^3/uL (1.5-6.6); NEUTROPHILS % (AUTO) 83.4 %; PLT - PLATELET COUNT 159 10^3/uL (130-450); RED BLOOD COUNT 3.93 10^6/uL (4.70-6.10); RED CELL DISTRIBUTION WIDTH 15.8 % (12.0-15.0); WHITE BLOOD COUNT 9.1 x10^3/uL (4.8-10.8)
[2022-12-30 14:55] LABS: ALBUMIN 2.8 g/dL (3.2-5.5); ALBUMIN/GLOBULIN RATIO 1.1 (1.0-2.2); BILIRUBIN,TOTAL 0.8 mg/dL (0.2-1.0); CALCIUM 8.6 mg/dL (8.5-10.3); CREATININE 0.8 mg/dL (0.6-1.2); POTASSIUM 3.4 mmol/L (3.5-5.0); TOTAL PROTEIN 5.4 g/dL (6.7-8.2)
== END 2022-12-30 14:30 | disposition home or self-care (01) ==
LOC: LAB.R 14:29
PROVIDERS: ATTEND Internal Medicine
DX: C61 Malignant neoplasm of prostate (principal); R73.03 Prediabetes
CPT/HCPCS: 80053; 84153; 85025

== ENCOUNTER 2023-01-24 13:18 | Outpatient (CLI) | payer MEDICARE, OTHER ==
[2023-01-24 13:49] LABS: ALBUMIN 3.4 g/dL (3.2-5.5); ALBUMIN/GLOBULIN RATIO 1.3 (1.0-2.2); BILIRUBIN,TOTAL 0.8 mg/dL (0.2-1.0); CREATININE 1.1 mg/dL (0.6-1.2); TOTAL PROTEIN 6.1 g/dL (6.7-8.2)
== END 2023-01-24 13:19 | disposition home or self-care (01) ==
LOC: LAB 13:18
PROVIDERS: ATTEND Physician Assistant
DX: C61 Malignant neoplasm of prostate (principal); E87.6 Hypokalemia
CPT/HCPCS: 36415; 80053

== ENCOUNTER 2023-03-13 11:01 | Outpatient (CLI) | payer MEDICARE, OTHER ==
[2023-03-13 11:14] LABS: BASOPHILS # (AUTO) 0.1 10^3/uL (0.0-0.1); BASOPHILS % (AUTO) 0.6 %; EOSINOPHILS # (AUTO) 0.1 10^3/uL (0.0-0.7); EOSINOPHILS % (AUTO) 1.3 %; HGB - HEMOGLOBIN 14.3 g/dL (14.0-18.0); LYMPHOCYTES # (AUTO) 1.6 10^3/uL (1.5-3.5); LYMPHOCYTES % (AUTO) 18.4 %; MEAN CORPUSCULAR HGB CONC 31.1 g/dL (32.0-36.0); MEAN CORPUSCULAR VOLUME 96.6 fL (80.0-94.0); MEAN PLATELET VOLUME 10.7 fL (7.4-11.4); MONOCYTES # (AUTO) 0.9 10^3/uL (0.0-1.0); MONOCYTES % (AUTO) 10.8 %; NEUTROPHILS % (AUTO) 68.4 %; PLT - PLATELET COUNT 188 10^3/uL (130-450); RED BLOOD COUNT 4.76 10^6/uL (4.70-6.10); RED CELL DISTRIBUTION WIDTH 13.5 % (12.0-15.0); WHITE BLOOD COUNT 8.7 x10^3/uL (4.8-10.8)
[2023-03-13 11:31] LABS: CREATININE,URINE 98.6 mg/dL; MICROALBUM/CREATININE RATIO,UR 229.2 ug/mg (<30.0); MICROALBUMIN,URINE 22.6 mg/dL (0-300.0)
[2023-03-13 11:40] LABS: ALBUMIN 3.4 g/dL (3.2-5.5); ALBUMIN/GLOBULIN RATIO 1.3 (1.0-2.2); ALKALINE PHOSPHATASE 71 IU/L (42-121); ALT ALANINE AMINOTRANSFERASE 17 IU/L (10-60); AST ASPARTATE AMINOTRANSFERASE 18 IU/L (10-42); BILIRUBIN,TOTAL 0.8 mg/dL (0.2-1.0); BUN - BLOOD UREA NITROGEN 16 mg/dL (6-20); CARBON DIOXIDE - CO2 26 mmol/L (21-32); CHLORIDE 106 mmol/L (101-111); CHOL/HDL RATIO 1.7 (<5.0); CHOLESTEROL 104 mg/dL; CREATININE 1.1 mg/dL (0.6-1.2); GFR - MDRD 65 (>89); GLUCOSE 122 mg/dL (70-100); HDL CHOLESTEROL 61 mg/dL; LDL CHOLESTEROL,CALCULATED 26 mg/dL; LDL/HDL RATIO 0.4 (<3.6); POTASSIUM 3.6 mmol/L (3.5-5.0); SODIUM 142 mmol/L (135-145); TRIGLYCERIDES 86 mg/dL; URIC ACID 2.3 mg/dL (2.6-7.2); VLDL CHOLESTEROL 17 mg/dL
[2023-03-13 11:46] LABS: THYROID STIMULATING HORMONE 2.99 uIU/mL (0.34-5.60)
[2023-03-13 11:50] LABS: ESTIMATED AVERAGE GLUCOSE 146 mg/dL (70-100); HEMOGLOBIN A1c% 6.7 % (4.27-6.07)
== END 2023-03-13 11:02 | disposition home or self-care (01) ==
LOC: LAB 11:01
PROVIDERS: ATTEND Internal Medicine
DX: E78.5 Hyperlipidemia, unspecified (principal); R73.03 Prediabetes; I48.21 Permanent atrial fibrillation; C61 Malignant neoplasm of prostate; M10.9 Gout, unspecified
CPT/HCPCS: 36415; 80053; 80061; 82043; 82570; 83036; 83721; 84443; 84550; 85025

== ENCOUNTER 2023-04-18 14:11 | Outpatient (CLI) | payer MEDICARE, OTHER ==
[2023-04-18 14:28] LABS: BASOPHILS % (AUTO) 0.2 %; HCT - HEMATOCRIT 49.6 % (42.0-52.0); HGB - HEMOGLOBIN 15.8 g/dL (14.0-18.0); LYMPHOCYTES # (AUTO) 0.8 10^3/uL (1.5-3.5); LYMPHOCYTES % (AUTO) 7.2 %; MEAN CORPUSCULAR HEMOGLOBIN 29.3 pg (27.0-31.0); MEAN CORPUSCULAR HGB CONC 31.9 g/dL (32.0-36.0); MEAN CORPUSCULAR VOLUME 91.9 fL (80.0-94.0); MEAN PLATELET VOLUME 11.1 fL (7.4-11.4); MONOCYTES # (AUTO) 0.7 10^3/uL (0.0-1.0); MONOCYTES % (AUTO) 6.1 %; NEUTROPHILS # (AUTO) 9.2 10^3/uL (1.5-6.6); NEUTROPHILS % (AUTO) 86.1 %; PLT - PLATELET COUNT 228 10^3/uL (130-450); RED CELL DISTRIBUTION WIDTH 13.5 % (12.0-15.0); WHITE BLOOD COUNT 10.7 x10^3/uL (4.8-10.8)
[2023-04-18 14:42] LABS: ALBUMIN 3.2 g/dL (3.2-5.5); BILIRUBIN,TOTAL 1.2 mg/dL (0.2-1.0); CALCIUM 9.4 mg/dL (8.5-10.3); CREATININE 1.7 mg/dL (0.6-1.2); POTASSIUM 3.9 mmol/L (3.5-5.0); TOTAL PROTEIN 6.5 g/dL (6.7-8.2)
[2023-04-21 15:08] LABS: KAPPA FREE LT CHAINS SERUM 21.7 mg/L (3.3-19.4); KAPPA/LAMBDA RATIO SERUM 1.71 (0.26-1.65); LAMBDA FREE LT CHAINS SERUM 12.7 mg/L (5.7-26.3)
[2023-04-22 15:08] LABS: ALBUMIN 2.9 g/dL (2.9-4.4); ALPHA-1-GLOBULIN 0.3 g/dL (0.0-0.4); ALPHA-2-GLOBULIN 1.2 g/dL (0.4-1.0); GAMMA GLOBULIN 0.5 g/dL (0.4-1.8); PROTEIN TOTAL 5.9 g/dL (6.0-8.5)
== END 2023-04-18 14:12 | disposition home or self-care (01) ==
LOC: LAB 14:11
PROVIDERS: ATTEND Internal Medicine
DX: C61 Malignant neoplasm of prostate (principal); I10 Essential (primary) hypertension; M54.50 Low back pain, unspecified
CPT/HCPCS: 36415; 80053; 82784; 83521; 84153; 84155; 84165; 85025; 86334

== ENCOUNTER 2023-04-26 16:56 | Outpatient (CLI) | payer MEDICARE, OTHER | END 2023-04-26 23:59 | disposition critical access hospital (66) | LOC: EMS 16:56 | DX: M54.50 Low back pain, unspecified (principal); R19.7 Diarrhea, unspecified; R11.0 Nausea; I95.9 Hypotension, unspecified | CPT/HCPCS: A0425; A0429 ==

== ENCOUNTER 2023-04-26 17:06 | Inpatient (IN) | payer MEDICARE, OTHER ==
[2023-04-26] MEDS ORDERED: MORPHINE 2 MG/ML CARPUJECT IVP STA ×2 (17:22→22:26)
[2023-04-26] MEDS ORDERED: SODIUM CHLORIDE 0.9% 1,000 ML IV STA ×3 (17:22→18:36)
[2023-04-26] MEDS ORDERED: ONDANSETRON 4 MG/2 ML VIAL IVP STA (17:22)
--- NOTE | 2023-04-26 17:30 | ED Physician Documentation ---
History of Present Illness - Stated complaint Stated Complaint: BACK PX/NAUSEA - Chief complaint Chief Complaint: Back Pain - History obtained from History obtained from: Patient, Family - History of Present Illness Timing: Today Pain level max: 7 Pain level now: 6 - Additonal information Additional information: Patient is a 77-year-old male with a history of metastatic prostate cancer. He states he has not had ongoing back pain for the past several weeks. He had been doing better with tramadol, but as his pain improved he stopped the tramadol. He states pain is now increased and he is having nausea. He states he had "a little bit" of vomiting. No fevers. No chills. He states he has a history of atrial fibrillation but his metoprolol was recently decreased due to hypotension. Has not had much appetite lately. He is followed at [facility] in [place] for his prostate cancer. No loss of bowel or bladder control. Has had some diarrhea as well. No recent travel. No recent antibiotics. No IV drug use. Patient states that he is scheduled for an MRI in a week of his L spine for possible compression fracture. No loss of bowel or bladder control. No numbness or tingling. He has been wearing a diaper recently because his back has been too painful to walk. Review of Systems Constitutional: denies: Fever, Chills Cardiac: denies: Chest pain / pressure, Palpitations Respiratory: denies: Cough GI: denies: Abdominal Pain : denies: Dysuria PD PAST MEDICAL HISTORY - Past Medical History Cardiovascular: Atrial fibrillation Respiratory: Sleep apnea, CPAP use, Other Neuro: None Endocrine/Autoimmune: None GI: Hepatitis : Kidney stones, Other (Prostate cancer) HEENT: None Psych: None Musculoskeletal: Osteoarthritis, Fatigue Derm: None - Past Surgical History Past Surgical History: Yes General: Colonoscopy Ortho: Other Cardiovascular: Other HEENT: Cataracts, Tonsil/Adenoidectomy Derm: Skin cancer surgery - Present Medications Home Medications: Ambulatory Orders Medication Instructions Recorded Confirmed allopurinoL [Allopurinol] 100 mg ORAL DAILY 08/16/14 11/10/22 Leuprolide [Lupron] 45 mg IM .Q6MO 04/05/22 11/10/22 Tamsulosin [Flomax] 0.4 mg PO DAILY 04/05/22 11/10/22 mycophenolate mofetiL 1,000 mg PO BID 04/05/22 11/10/22 [Mycophenolate Mofetil] predniSONE [Deltasone] 5 mg PO QDBREAKFAST 04/05/22 11/10/22 Abiraterone Acetate [Zytiga] 1,000 mg PO DAILY 07/16/22 11/10/22 Apixaban [Eliquis] 5 mg PO BID 07/16/22 11/10/22 Metoprolol Succinate [Toprol Xl] 25 mg PO BID 07/16/22 11/10/22 Rosuvastatin Calcium [Crestor] 40 mg PO HS 07/16/22 11/10/22 Ondansetron Odt [Zofran] 4 mg TL Q6H PRN #30 tablet 11/25/22 Potassium Chloride [Klor-Con M10] 10 meq PO DAILY #7 tab 11/25/22 cephALEXin [Keflex] 500 mg PO Q6H #28 11/25/22 - Allergies Allergies/Adverse Reactions: Allergies Allergy/AdvReac Type Severity Reaction Status Date / Time Penicillins Allergy Unknown Verified 11/25/22 10:49 Sulfa (Sulfonamide Allergy Unknown Verified 11/25/22 10:49 Antibiotics) - Social History Does the pt smoke?: No Smoking Status: Never smoker Does the pt drink ETOH?: No Does the pt have substance abuse?: No - Immunizations Immunizations are current?: Yes - POLST Patient has POLST: No PD ED PE NORMAL - Vitals Vital signs reviewed: Yes - General General: Alert and oriented X 3, No acute distress - HEENT HEENT: PERRL, Other (dry lips and tongue) - Neck Neck: Supple, no meningeal sign - Cardiac Cardiac: Other (Irregularly irregular, tachycardic) - Respiratory Respiratory: No respiratory distress, Clear bilaterally - Abdomen Abdomen: Normal bowel sounds, Soft, Non tender, Non distended - Back Back: No spinal TTP - Derm Derm: Warm and dry - Extremities Extremities: No edema, No calf tenderness / cord - Neuro Neuro: Alert and oriented X 3 - Psych Psych: Normal mood, Normal affect Results - Vitals Vitals: Vital Signs - 24 hr 04/26/23 04/26/23 04/26/23 17:13 17:46 18:11 Temperature 98 C H Heart Rate 137 H 114 H Respiratory 16 18 Rate Blood Pressure 97/63 96/68 149/126 H O2 Saturation 100 100 04/26/23 04/26/23 04/26/23 18:30 19:00 20:00 Temperature 36.6 C Heart Rate 108 H 104 H 119 H Respiratory 16 16 16 Rate Blood Pressure 83/58 L 91/70 92/63 O2 Saturation 99 100 94 04/26/23 04/26/23 21:59 22:35 Temperature Heart Rate 126 H 126 H Respiratory 16 16 Rate Blood Pressure 109/71 100/64 O2 Saturation 100 100 Oxygen O2 Source [] Nasal cannula O2 Source [] Room air O2 Source Room air - EKG (time done) 1714 EKG releavant findings:: EKG personally interpreted by author of this note. Relevant findings are: Rate: Rate (enter#) (124) Rhythm: Atrial fibrillation [place]: Anterior hemiblock (LAFB) Intervals: LBBB Compare to prior EKG: Unchanged from prior EKG - Labs Labs: Laboratory Tests 04/26/23 04/26/23 04/26/23 18:07 18:07 19:34 WBC 20.9 H RBC 5.78 Hgb 16.9 Hct 54.2 H MCV 93.8 MCH 29.2 MCHC 31.2 L RDW 14.0 Plt Count 154 MPV 11.9 H Neut # (Auto) Not Reportable Lymph # (Auto) Not Reportable [place] # (Auto) Not Reportable Eos # (Auto) Not Reportable Baso # (Auto) Not Reportable Absolute Nucleated RBC Not Reportable Total Counted 100 Band Neuts % (Manual) 1 Abnorm Lymph % (Manual) 0 Nucleated RBC % Not Reportable Neutrophils # (Manual) 17.8 H Lymphocytes # (Manual) 0.8 L Monocytes # (Manual) 2.3 H Eosinophils # (Manual) 0.0 Basophils # (Manual) 0.0 Differential Comment MANUAL DIFFERENTIAL Platelet Estimate NORMAL (130-450,000) RBC Morph Micro Appear 1+ POLYCHROMASIA Sodium 142 Potassium 3.3 L Chloride 107 Carbon Dioxide 23 Anion Gap 12.0 BUN 20 Creatinine 2.0 H Estimated GFR (MDRD) 33 L Glucose 141 H Lactic Acid Calcium 8.7 Phosphorus 2.1 L Magnesium 2.4 Total Bilirubin 1.2 H AST 24 ALT 18 Alkaline Phosphatase 112 Total Protein 6.0 L Albumin 3.1 L Globulin 2.9 Albumin/Globulin Ratio 1.1 Lipase 22 Urine Color YELLOW Urine Clarity HAZY Urine pH 6.0 Ur Specific [place] 1.020 Urine Protein >=300 H Urine Glucose (UA) NEGATIVE Urine Ketones NEGATIVE Urine Occult Blood LARGE H Urine Nitrite NEGATIVE Urine Bilirubin NEGATIVE Urine Urobilinogen 0.2 (NORMAL) Ur Leukocyte Esterase NEGATIVE Urine RBC 6-10 H Urine WBC 4-5 Ur Squamous Epith Cells RARE Squamous Urine Bacteria Few Urine Casts 6-10 Granular Casts Ur Microscopic Review INDICATED Urine Culture Comments NOT INDICATED 04/26/23 20:18 WBC RBC Hgb Hct MCV MCH MCHC RDW Plt Count MPV Neut # (Auto) Lymph # (Auto) [place] # (Auto) Eos # (Auto) Baso # (Auto) Absolute Nucleated RBC Total Counted Band Neuts % (Manual) Abnorm Lymph % (Manual) Nucleated RBC % Neutrophils # (Manual) Lymphocytes # (Manual) Monocytes # (Manual) Eosinophils # (Manual) Basophils # (Manual) Differential Comment Platelet Estimate RBC Morph Micro Appear Sodium Potassium Chloride Carbon Dioxide Anion Gap BUN Creatinine Estimated GFR (MDRD) Glucose Lactic Acid 1.8 Calcium Phosphorus Magnesium Total Bilirubin AST ALT Alkaline Phosphatase Total Protein Albumin Globulin Albumin/Globulin Ratio Lipase Urine Color Urine Clarity Urine pH Ur Specific [place] Urine Protein Urine Glucose (UA) Urine Ketones Urine Occult Blood Urine Nitrite Urine Bilirubin Urine Urobilinogen Ur Leukocyte Esterase Urine RBC Urine WBC Ur Squamous Epith Cells Urine Bacteria Urine Casts Ur Microscopic Review Urine Culture Comments - Rads (name of study) CT abdomen pelvis Relevant Findings:: Final report received, See rad report CT lumbar spine Relevant Findings:: Final report received, See rad report PD Medical Decision Making - ED course Complexity details: reviewed results, re-evaluated patient, considered differential, d/w patient ED course: No acute findings on CT scan of the abdomen pelvis or lumbar spine. No evidence of compression fracture. No evidence of cauda equina clinically. He does have hypotension which did improve transiently with IV fluids. He appears to have significant dehydration clinically. His baseline creatinine is around 0.8-1.0. He is at 2.0 today. He appears hemoconcentrated on his CBC as well. Baseline hemoglobin is around 11-12, he is on almost 17 today. Also has a significant leukocytosis of 21,000 with 18,000 neutrophils. Appears to have a UTI, we will place on Rocephin for this. He was given morphine for his back pain but is still having quite a bit of pain with trying to move. We will admit the patient for further care, IV antibiotics, pain meds, rate control of his A-fib RVR and Continue treatment of his hypotension. Does not appear septic. No fevers. Normal lactate. Blood cultures were drawn. Discussed the case with the nighttime hospitalist who accepts. This document was made in part using voice recognition software. While efforts are made to proofread this document, sound alike and grammatical errors may occur. Departure - Departure Disposition: 66 [facility] DC/Xfer Clinical Impression: Acute kidney injury, Dehydration, Atrial fibrillation with RVR Hypotension Qualifiers: Hypotension type: unspecified hypotension type Qualified Code(s): I95.9 - Hypotension, unspecified UTI (urinary tract infection) Qualifiers: Urinary tract infection type: acute cystitis Hematuria presence: without hematuria Qualified Code(s): N30.00 - Acute cystitis without hematuria Condition: Stable
[2023-04-26 18:12] LABS: BASOPHILS % (AUTO) 0.1 %; EOSINOPHILS % (AUTO) 0.2 %; HCT - HEMATOCRIT 54.2 % (42.0-52.0); HGB - HEMOGLOBIN 16.9 g/dL (14.0-18.0); LYMPHOCYTES % (AUTO) 5.2 %; MEAN CORPUSCULAR HEMOGLOBIN 29.2 pg (27.0-31.0); MEAN CORPUSCULAR HGB CONC 31.2 g/dL (32.0-36.0); MEAN CORPUSCULAR VOLUME 93.8 fL (80.0-94.0); MEAN PLATELET VOLUME 11.9 fL (7.4-11.4); MONOCYTES % (AUTO) 13.1 %; NEUTROPHILS % (AUTO) 80.8 %; PLT - PLATELET COUNT 154 10^3/uL (130-450); RED BLOOD COUNT 5.78 10^6/uL (4.70-6.10); WHITE BLOOD COUNT 20.9 x10^3/uL (4.8-10.8)
[2023-04-26 18:13] LABS: ABNORMAL LYMPHS % (MANUAL) 0 %
--- NOTE | 2023-04-26 18:27 | CT Report ---
PROCEDURE: LUMBAR SPINE WO INDICATIONS: low back pain, h/o prostate cancer TECHNIQUE: Noncontrast 3 mm thick sections acquired from the T12 level to the sacrum. Sagittal and coronal refo rmats were constructed. For radiation dose reduction, the following was used: automated exposure co ntrol, adjustment of mA and/or kV according to patient size. COMPARISON: None. FINDINGS: Image quality: Excellent. Bones: There is normal bony alignment. No acute vertebral body compression fractures. No suspiciou s lytic or blastic bony lesions. Central spinal caliber is of normal overall caliber. No pars defec ts. No evidence of metastatic disease. T12-L1: No significant disc bulge. The foramina and central canal are patent. L1-L2: No significant disc bulge. The foramina and central canal are patent. L2-L3: Diffuse disc bulge and disc space narrowing with intradiscal gas cause moderate bilateral f oraminal stenosis. The central canal is patent. L3-L4: Diffuse disc bulge and disc space narrowing with disc osteophytes cause moderate bilateral f oraminal stenosis. The central canal has mild stenosis. L4-L5: Diffuse disc bulge and disc space narrowing with disc osteophytes cause moderate bilateral f oraminal stenosis. The central canal is patent. L5-S1: No disc bulge. The foramina and central canal are patent. Soft tissues: No retroperitoneal masses or hematomas. Visualized aorta is normal in caliber. IMPRESSION: 1. No acute abnormality of the lumbar spine. 2. Multilevel lumbar spondylosis as detailed above. Reviewed by: Julio Forrester on 04/26/2023 5:26 PM BERTHA Approved by: Julio Forrester on 04/26/2023 5:26 PM AKBETTIE Station ID: [id number]
[2023-04-26 18:34] LABS: BAND NEUTROPHILS % (MANUAL) 1 %; LYMPHOCYTES # (MANUAL) 0.8 10^3/uL (1.5-3.5); LYMPHOCYTES % (MANUAL) 4 %; MONOCYTES # (MANUAL) 2.3 10^3/uL (0.0-1.0); NEUTROPHILS # (MANUAL) 17.8 10^3/uL (1.5-6.6)
[2023-04-26 18:35] LABS: DIFFERENTIAL COMMENT MANUAL DIFFERENTIAL; PLATELET ESTIMATE, MANUAL NORMAL (130-450,000) (NORMAL); RBC MORPHOLOGY (MULTIPLE) 1+ POLYCHROMASIA (NORMAL)
[2023-04-26 18:42] LABS: ALBUMIN 3.1 g/dL (3.2-5.5); ALBUMIN/GLOBULIN RATIO 1.1 (1.0-2.2); BILIRUBIN,TOTAL 1.2 mg/dL (0.2-1.0); CALCIUM 8.7 mg/dL (8.5-10.3); MAGNESIUM 2.4 mg/dL (1.7-2.8); PHOSPHORUS 2.1 mg/dL (2.5-4.6); POTASSIUM 3.3 mmol/L (3.5-5.0)
[2023-04-26 19:47] LABS: BILIRUBIN,URINE NEGATIVE (NEGATIVE); GLUCOSE, URINE (UA) NEGATIVE (NEGATIVE); KETONES,URINE (UA) NEGATIVE (NEGATIVE); LEUKOCYTE ESTERASE, URINE NEGATIVE (NEGATIVE); NITRITE,URINE NEGATIVE (NEGATIVE); OCCULT BLOOD,URINE LARGE (NEGATIVE); PROTEIN,URINE >=300 mg/dL (NEGATIVE); UROBILINOGEN,URINE 0.2 (NORMAL) E.U./dL (NORMAL)
[2023-04-26 19:50] LABS: CLARITY,URINE HAZY (CLEAR)
[2023-04-26 20:04] LABS: BACTERIA,URINE Few /HPF (None Seen); CASTS, URINE 6-10 Granular Casts /LPF; SQUAMOUS EPITHELIAL CELL,UR RARE Squamous (<= Few)
[2023-04-26] MEDS ORDERED: iohexoL-300 100 ML VIAL ONE (20:43)
[2023-04-26] MEDS ORDERED: iohexoL-300 100 ML VIAL IVP ONE (21:59)
--- NOTE | 2023-04-26 22:17 | CT Report ---
PROCEDURE: ABDOMEN/PELVIS W INDICATIONS: weakness, met prostate cancer CONTRAST: Nonionic 80 ML OMNI 300 TECHNIQUE: After the administration of intravenous contrast, 5 mm thick sections acquired from the diaphragms to the symphysis. 5 mm thick coronal and sagittal reformats were acquired. For radiation dose reducti on, the following was used: automated exposure control, adjustment of mA and/or kV according to manjula ent size. COMPARISON: CT lumbosacral spine same day. CT abdomen/pelvis 11/25/2022. FINDINGS: Image quality: Excellent. Lung bases and heart: Unremarkable except for mild chronic lung base scarring.. Liver: No solid mass. Gallbladder and biliary tree: Normal. Spleen: No splenomegaly. Pancreas: No pancreatic ductal dilation. Adrenals: No adrenal nodule. Kidneys and ureters: No hydronephrosis. No renal cystic lesion which requires follow up. No solid mas s. Bowel and peritoneum: No bowel distension. No pathologic free fluid. Lymph nodes: No central or retroperitoneal adenopathy. Vessels: No infrarenal aortic aneurysm. PELVIS Reproductive organs: Unremarkable. Bladder: No abnormal wall thickening, accounting for underdistension. Pelvic lymph nodes: No pelvic adenopathy by size criteria. Bones: No aggressive osseous abnormality. Other: No significant ventral or inguinal hernia. IMPRESSION: No acute disease, source of weakness is not identified. No adenopathy is found. Reviewed by: Haris Wick MD on 04/26/2023 10:16 PM PDT Approved by: Haris Wick MD on 04/26/2023 10:16 PM PDT Station ID: [id number]
[2023-04-26] MEDS ORDERED: cefTRIAXone 1 GM VIAL IVP STA (22:22)
[2023-04-26] MEDS ORDERED: METOPROLOL 5 MG/5 ML VIAL IVP STA (22:23)
--- NOTE | 2023-04-27 00:01 | HISTORY & PHYSICAL EXAMINATION ---
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 Pateint was taking Tramadol for his back pain but over last few days pain got worse patient unable to walk due to pain having to wear diapers. I spoke with ER Doc and was concerned about cord compression ut was reassured that patient had CT scan done which was not concerning. Patient also has been vomiting and decrease po itnake and found to be in FILIPE, will have bladder scan +/- gillespie and will need ivf. Patient also found to have UTI and leukocytosis will be treated with Abx. Kaela follows at [facility] in [place] for his prostate cancer. . No fevers. No chills. He states he has a history of atrial fibrillation but his metoprolol was recently decreased due to hypotension. Has not had much appetite lately. No loss of bowel or bladder function able to move all 4 ext and is a good historian along with a very supportive at bedside, I discussed advance care planning and he is Full code. Patient is allergic to sulfa and PCN History - Past Medical History Cardiovascular: reports: Atrial fibrillation Respiratory: reports: Sleep apnea, CPAP use, Other Neuro: reports: None Endocrine/Autoimmune: reports: None GI: reports: Hepatitis : reports: Kidney stones, Other (Prostate cancer) HEENT: reports: None Psych: reports: None Musculoskeletal: reports: Osteoarthritis, Fatigue Derm: reports: None MRSA Hx?: No - Past Surgical History General: reports: Colonoscopy Ortho: reports: Other Cardiovascular: reports: Other HEENT: reports: Cataracts, Tonsil/Adenoidectomy Derm: reports: Skin cancer surgery - Family & Social History Family History: Mother: , Father: Family History Comment/Other: Both of his parents had history of strokes and dementia. They in their late 80s. Living Situation: With spouse/s.o. Social History Notes: He lives at home with his Ame. He is a non-smoker and does not drink alcohol. - Substance History Use: Uses substance without health or social issues: NONE - POLST Patient has POLST: No Meds/Allgy - Home Medications Home Medications: Ambulatory Orders Medication Instructions Recorded Confirmed allopurinoL [Allopurinol] 100 mg ORAL DAILY 08/16/14 11/10/22 Leuprolide [Lupron] 45 mg IM .Q6MO 04/05/22 11/10/22 Tamsulosin [Flomax] 0.4 mg PO DAILY 04/05/22 11/10/22 mycophenolate mofetiL 1,000 mg PO BID 04/05/22 11/10/22 [Mycophenolate Mofetil] predniSONE [Deltasone] 5 mg PO QDBREAKFAST 04/05/22 11/10/22 Abiraterone Acetate [Zytiga] 1,000 mg PO DAILY 07/16/22 11/10/22 Apixaban [Eliquis] 5 mg PO BID 07/16/22 11/10/22 Metoprolol Succinate [Toprol Xl] 25 mg PO BID 07/16/22 11/10/22 Rosuvastatin Calcium [Crestor] 40 mg PO HS 07/16/22 11/10/22 Ondansetron Odt [Zofran] 4 mg TL Q6H PRN #30 tablet 11/25/22 Potassium Chloride [Klor-Con M10] 10 meq PO DAILY #7 tab 11/25/22 cephALEXin [Keflex] 500 mg PO Q6H #28 11/25/22 - Allergies Allergies/Adverse Reactions: Allergies Allergy/AdvReac Type Severity Reaction Status Date / Time Penicillins Allergy Unknown Verified 11/25/22 10:49 Sulfa (Sulfonamide Allergy Unknown Verified 11/25/22 10:49 Antibiotics) Review of Systems - Cardiovascular Cariovascular: reports: Irregular heart rate - Gastrointestinal Gastrointestinal: reports: Vomiting, Poor appetite - Musculoskeletal Musculoskeletal: reports: Muscle pain, Back pain Prior Level of Functionality: Independent with ADL Exam - Vital Signs Vital Signs: Vital Signs x48h Temp Pulse Resp BP Pulse Ox 04/26/23 23:46 91 16 102/74 97 04/26/23 23:30 111 H 16 72/55 L 97 04/26/23 23:12 95 16 89/66 L 98 04/26/23 23:08 110 H 16 102/77 97 04/26/23 22:55 94 16 89/61 L 96 04/26/23 22:50 107 H 16 98/74 97 04/26/23 22:45 113 H 16 95/80 97 04/26/23 22:35 126 H 16 100/64 100 04/26/23 21:59 126 H 16 109/71 100 04/26/23 20:00 119 H 16 92/63 94 04/26/23 19:00 104 H 16 91/70 100 04/26/23 18:30 36.6 C 108 H 16 83/58 L 99 04/26/23 18:11 114 H 18 149/126 H 100 04/26/23 17:46 96/68 04/26/23 17:13 98 C H 137 H 16 97/63 100 - Physical Exam General Appearance: positive: Mild distress Eyes Bilateral: positive: Normal inspection, PERRL Neck: positive: Thyroid nml, No JVD Respiratory: positive: No respiratory distress, Breath sounds nml Cardiovascular: positive: Irregularly irregular Abdomen: positive: Non-tender, No distention Back: positive: Nml inspection Skin: positive: Color nml Extremities: positive: Non-tender, Full ROM, No pedal edema Neurologic/Psychiatric: positive: Oriented x3, CN's nml (2-12) Sepsis Event Note (H) - Evaluation Current Stage of Sepsis: Ruled out Conclusion/Plan - Problem List (1) Acute kidney injury Conclusion/Plan: IV fluid Bladder scan if retainint urine please place gillespie and order renal usg Likely pre renal from poor po intake and derease appetite and throwing up Avoid nephrotoxins Repeat labs in am (2) Atrial fibrillation with RVR Conclusion/Plan: Metoprolol decrease due to low BP Will keep on manager cardiac May consider Dig if heart rate is high Echo to be ordered by am team if needed Rate is fast likely from multifactorial reason which includes pain and dehydration along with underlying A fib (4) UTI (urinary tract infection) Conclusion/Plan: Ua and Urine C&S Will treat with Broad spectrum antibiotics Bladder scan monitro I and o Qualifiers: Urinary tract infection type: acute cystitis Hematuria presence: without hematuria Qualified Code(s): N30.00 - Acute cystitis without hematuria (5) BPH (benign prostatic hyperplasia) Conclusion/Plan: Montir for urinary retention (6) Prostate cancer, primary, with metastasis from prostate to other site Conclusion/Plan: If pain is not improving would recommend MRI of back in am follow with cancer center as noted in my HPI Call his primary oncologist if any concerns in am Patient also has Sleep apnea Continue CPAP His home meds are as follows Medication Instructions Recorded Confirmed allopurinoL [Allopurinol] 100 mg ORAL DAILY 08/16/14 11/10/22 Leuprolide [Lupron] 45 mg IM .Q6MO 04/05/22 11/10/22 Tamsulosin [Flomax] 0.4 mg PO DAILY 04/05/22 11/10/22 mycophenolate mofetiL 1,000 mg PO BID 04/05/22 11/10/22 [Mycophenolate Mofetil] predniSONE [Deltasone] 5 mg PO QDBREAKFAST 04/05/22 11/10/22 Abiraterone Acetate [Zytiga] 1,000 mg PO DAILY 07/16/22 11/10/22 Apixaban [Eliquis] 5 mg PO BID 07/16/22 11/10/22 Metoprolol Succinate [Toprol Xl] 25 mg PO BID 07/16/22 11/10/22 Rosuvastatin Calcium [Crestor] 40 mg PO HS 07/16/22 11/10/22 Ondansetron Odt [Zofran] 4 mg TL Q6H PRN #30 tablet 11/25/22 Potassium Chloride [Klor-Con M10] 10 meq PO DAILY #7 tab 11/25/22 cephALEXin [Keflex] 500 mg PO Q6H #28 11/25/22 - Lab Results Fish Bones: 04/26/23 18:07 04/26/23 18:07 - EKG Results EKG Interpreted Independently: No EKG Findings: A fib with RVR
[2023-04-27] MEDS ORDERED: SODIUM CHLORIDE FLUSH 0.9% 10 ML SYRINGE IVP PRN (00:13)
[2023-04-27] MEDS ORDERED: MORPHINE 2 MG/ML CARPUJECT IVP PRN ×2 (00:13→08:46)
[2023-04-27] MEDS ORDERED: HYDROmorphone 0.5 MG/0.5 ML SYRINGE IVP PRN (00:13)
[2023-04-27] MEDS ORDERED: ONDANSETRON 4 MG/2 ML VIAL IVP PRN (00:13)
[2023-04-27] MEDS ORDERED: DIGOXIN 500 MCG/2 ML AMP IVP STA (00:19)
[2023-04-27] MEDS ORDERED: SODIUM CHLORIDE 0.9% 1,000 ML IV SCH (01:00)
[2023-04-27] MEDS: SODIUM CHLORIDE FLUSH 0.9% 10 ML SYRINGE IVP SCH ×3 (01:56→16:05)
[2023-04-27] MEDS: APIXABAN 5 MG TABLET PO SCH ×3 (01:56→22:06)
[2023-04-27] MEDS ORDERED: BACITRACIN ZINC OINT 1 PACKET TOP PRN (02:04)
[2023-04-27] MEDS ORDERED: ZINC OXIDE 20% OINT 30 GM TUBE TOP ONE (02:11)
[2023-04-27] MEDS: ZINC OXIDE 20% OINT 30 GM TUBE TOP PRN (02:45)
[2023-04-27 05:01] LABS: BASOPHILS % (AUTO) 0.2 %; EOSINOPHILS % (AUTO) 0.7 %; HCT - HEMATOCRIT 51.1 % (42.0-52.0); HGB - HEMOGLOBIN 15.8 g/dL (14.0-18.0); MEAN CORPUSCULAR HGB CONC 30.9 g/dL (32.0-36.0); MONOCYTES % (AUTO) 15.7 %; NEUTROPHILS % (AUTO) 76.7 %; PLT - PLATELET COUNT 119 10^3/uL (130-450); RED BLOOD COUNT 5.27 10^6/uL (4.70-6.10); RED CELL DISTRIBUTION WIDTH 14.6 % (12.0-15.0); WHITE BLOOD COUNT 16.4 x10^3/uL (4.8-10.8)
[2023-04-27 05:03] LABS: ABNORMAL LYMPHS % (MANUAL) 0 %
[2023-04-27 05:25] LABS: ALBUMIN 2.4 g/dL (3.2-5.5); ALBUMIN/GLOBULIN RATIO 0.9 (1.0-2.2); BILIRUBIN,TOTAL 0.7 mg/dL (0.2-1.0); CALCIUM 7.9 mg/dL (8.5-10.3); CREATININE 2.4 mg/dL (0.6-1.2); POTASSIUM 3.8 mmol/L (3.5-5.0)
[2023-04-27 05:46] LABS: BAND NEUTROPHILS % (MANUAL) 1 %; DIFFERENTIAL COMMENT MANUAL DIFFERENTIAL; EOSINOPHILS # (MANUAL) 0.3 10^3/uL (0-0.7); LYMPHOCYTES % (MANUAL) 18 %; MONOCYTES # (MANUAL) 3.3 10^3/uL (0.0-1.0); NEUTROPHILS # (MANUAL) 9.8 10^3/uL (1.5-6.6); PLATELET ESTIMATE, MANUAL DECREASED (<130,000) (NORMAL); RBC MORPHOLOGY (MULTIPLE) NORMAL APPEARANCE (NORMAL)
[2023-04-27] MEDS ORDERED: predniSONE 5 MG TABLET PO SCH (08:00)
[2023-04-27] MEDS: cefTRIAXone 1 GM in SODIUM CHLORIDE 0.9% MINIBAG 100 ML IV SCH (08:44)
[2023-04-27] MEDS: allopurinoL 100 MG TABLET PO SCH (08:45)
[2023-04-27] MEDS: mycophenolate mofetiL 250 MG CAPSULE PO SCH ×2 (08:45→22:11)
[2023-04-27] MEDS: TAMSULOSIN 0.4 MG CAPSULE PO SCH (08:45)
--- NOTE | 2023-04-27 08:51 | PROVIDER PROGRESS NOTE ---
Assessment/Plan - Problem List (1) Hypotension Qualifiers: Hypotension type: unspecified hypotension type Qualified Code(s): I95.9 - Hypotension, unspecified Assessment/Plan: Today his systolic BP is running 77416 systolic. This appears to be mult ifactorial: From his medications adding to the hypotension, from dehydration causing volume depletion, and possibly from being Addisonian since he is on prednisone 5 mg daily but currently has a UTI infection. It does not appear that he is in septic shock with a normal lactic acid level. Plan: Continue with IV NS but decrease from 100 cc an hour to 83.33 cc an hour, given his history of pulmonary edema 1 year ago Stop oral prednisone. Use hydrocortisone 100 mg 3 times daily for 3 days. Adjust his meds based on blood pressure, digoxin may need to be given again for heart rate control. (2) Atrial fibrillation with RVR Assessment/Plan: The patient presented with heart rate of 1 20-1 50 and A-fib. He required IV digoxin for rate control, because his blood pressure was hypotensive Today his heart rate is running 110 in A-fib Plan: We will resume his metoprolol, but place parameters for holding it He may need additional digoxin IV dosing for rate control Monitor on telemetry Continue with his Eliquis (3) UTI (urinary tract infection) Qualifiers: Urinary tract infection type: acute cystitis Hematuria presence: without hematuria Qualified Code(s): N30.00 - Acute cystitis without hematuria Assessment/Plan: Plan: Continue with empiric IV antibiotics Await culture results to tailor antibiotics (4) Chronic atrial fibrillation Assessment/Plan: He has adequate heart rate control, in fact there are times he has 2-2.5 second pauses in Afib Plan: Continue with his usual metoprolol dose and Eliquis dose Monitor on telemetry (5) Acute kidney injury Conclusion/Plan: Likely pre renal from poor po intake and derease appetite and throwing up Plan: Cont IV fluid. Avoid nephrotoxins Bladder scan. if retains urine he may need a Bourne Follow BMP daily (6) BPH (benign prostatic hyperplasia) Conclusion/Plan: Plan: Continue his tamsulosin [place] for urinary retention (7) Prostate cancer, primary, with metastasis from prostate to other site Conclusion/Plan: The CT of his lower spine showed 2 areas with vertebral abnormalities that are new since the last images. These could be mets Plan: Continue with meds for pain control If pain is not improving, will get MRI of back in am (Today is Friday and we have no MRI here on Saturdays or Sundays) - Current Meds Current Meds: Current Medications Generic Name Dose Route Start Last Admin Trade Name Jose PRN Reason Stop Dose Admin Allopurinol 100 mg 04/27/23 09:00 04/27/23 08:45 Allopurinol 100 Mg Tablet PO 100 mg DAILY ELENA Administration Apixaban 5 mg 04/27/23 01:00 04/27/23 08:45 Apixaban 5 Mg Tablet PO 5 mg BID ELENA Administration Ceftriaxone Sodium 1 gm/ 100 mls @ 200 mls/hr 04/27/23 09:00 04/27/23 08:44 Sodium Chloride IV 200 mls/hr DAILY ELENA Administration Metoprolol Succinate 25 mg 04/27/23 09:00 04/27/23 08:45 Metoprolol Succinate 25 Mg Tablet PO 25 mg BID ELENA Administration Multi-Ingredient Ointment 1 applic 04/27/23 02:33 04/27/23 02:45 Zinc Oxide 20% Oint 30 Gm Tube TOP 1 applic PRN PRN Administration Skin Care Mycophenolate Mofetil 1,000 mg 04/27/23 09:00 04/27/23 08:45 Mycophenolate Mofetil 250 Mg Capsule PO 1,000 mg BID ELENA Administration Prednisone 5 mg 04/27/23 08:00 04/27/23 08:45 Prednisone 5 Mg Tablet PO 5 mg QDBREAKFAST ELENA Administration Sodium Chloride 10 ml 04/27/23 01:00 04/27/23 01:56 Sodium Chloride Flush 0.9% 10 Ml Syringe IVP Not Given 0100,0900,1700 ELENA Tamsulosin HCl 0.4 mg 04/27/23 09:00 04/27/23 08:45 Tamsulosin 0.4 Mg Capsule PO 0.4 mg DAILY ELENA Administration - Lab Result Fish Bone Diagrams: 04/27/23 04:54 04/27/23 04:54 - Additional Planning My Orders: My Active Orders 04/27/23 05:00 PHOSPHORUS [CHEM] Routine 04/27/23 08:44 Telemetry- [RC] Q4HR 04/27/23 08:46 Morphine Inj (Carpuject) [Morphine (Carpuject)] 2 mg IVP Q4HR PRN 04/27/23 08:46 Sodium Chloride 0.9% [Normal Saline 0.9%] 1,000 ml IV 83.33 mls/hr 04/27/23 14:00 Hydrocortisone Succinate [Solu-CORTEF] 100 mg IVP TID 04/28/23 05:00 BMP - BASIC METABOLIC PANEL [CHEM] DAILYLAB CBC - COMP BLD CT W/AUTO DIFF [HEME] DAILYLAB 04/29/23 05:00 BMP - BASIC METABOLIC PANEL [CHEM] DAILYLAB CBC - COMP BLD CT W/AUTO DIFF [HEME] DAILYLAB 04/30/23 05:00 BMP - BASIC METABOLIC PANEL [CHEM] DAILYLAB CBC - COMP BLD CT W/AUTO DIFF [HEME] DAILYLAB 04/30/23 08:00 predniSONE [Deltasone] 5 mg PO DAILYWM 05/01/23 05:00 BMP - BASIC METABOLIC PANEL [CHEM] DAILYLAB CBC - COMP BLD CT W/AUTO DIFF [HEME] DAILYLAB Subjective - Subjective Patient Reports: Resting Comfortably (He is sleepy but according to the at bedside is more awake than yesterday.), Back Pain (He is needing narcotics for pain relief), Fatigue, Other (He has no appetite) Objective Vital Signs: Vital Signs - 24 hr 04/26/23 04/26/23 04/26/23 17:13 17:46 18:11 Temperature 98 C H Heart Rate 137 H 114 H Heart Rate [ Brachial] Respiratory 16 18 Rate Blood Pressure 97/63 96/68 149/126 H Blood Pressure [Left Brachial artery] Blood Pressure [Right Brachial artery] O2 Saturation 100 100 If not protocol : Oxygen Flow, liters/minute 04/26/23 04/26/23 04/26/23 18:30 19:00 20:00 Temperature 36.6 C Heart Rate 108 H 104 H 119 H Heart Rate [ Brachial] Respiratory 16 16 16 Rate Blood Pressure 83/58 L 91/70 92/63 Blood Pressure [Left Brachial artery] Blood Pressure [Right Brachial artery] O2 Saturation 99 100 94 If not protocol : Oxygen Flow, liters/minute 04/26/23 04/26/23 04/26/23 21:59 22:35 22:45 Temperature Heart Rate 126 H 126 H 113 H Heart Rate [ Brachial] Respiratory 16 16 16 Rate Blood Pressure 109/71 100/64 95/80 Blood Pressure [Left Brachial artery] Blood Pressure [Right Brachial artery] O2 Saturation 100 100 97 If not protocol : Oxygen Flow, liters/minute 04/26/23 04/26/23 04/26/23 22:50 22:55 23:08 Temperature Heart Rate 107 H 94 110 H Heart Rate [ Brachial] Respiratory 16 16 16 Rate Blood Pressure 98/74 89/61 L 102/77 Blood Pressure [Left Brachial artery] Blood Pressure [Right Brachial artery] O2 Saturation 97 96 97 If not protocol : Oxygen Flow, liters/minute 04/26/23 04/26/23 04/26/23 23:12 23:30 23:46 Temperature Heart Rate 95 111 H 91 Heart Rate [ Brachial] Respiratory 16 16 16 Rate Blood Pressure 89/66 L 72/55 L 102/74 Blood Pressure [Left Brachial artery] Blood Pressure [Right Brachial artery] O2 Saturation 98 97 97 If not protocol : Oxygen Flow, liters/minute 04/27/23 04/27/23 04/27/23 00:44 01:00 01:47 Temperature 36.8 C Heart Rate 104 H 94 Heart Rate [ 89 Brachial] Respiratory 25 H 16 18 Rate Blood Pressure 72/59 L 101/76 Blood Pressure [Left Brachial artery] Blood Pressure 108/67 [Right Brachial artery] O2 Saturation 96 97 100 If not protocol : Oxygen Flow, liters/minute 04/27/23 04/27/23 04/27/23 01:56 04:57 08:01 Temperature 36.4 C L 36.6 C Heart Rate 114 H Heart Rate [ 88 89 Brachial] Respiratory 16 20 Rate Blood Pressure Blood Pressure 108/58 L [Left Brachial artery] Blood Pressure 105/67 [Right Brachial artery] O2 Saturation 97 95 If not protocol 1 1 : Oxygen Flow, liters/minute Oxygen O2 Source [Without Activity] Nasal cannula O2 Source [With Activity] Room air O2 Source Nasal cannula I&O (Last 24 Hrs): Intake and Output Totals x24h 04/25/23 04/26/23 04/27/23 23:59 23:59 23:59 Intake Total 3000 Output Total 150 Balance 3000 -150 General: Alert, Oriented x3, Other (Lethargic) HEENT: Mucous membr. moist/pink, Other (Obese, has male pattern baldness) Neck: Supple, No JVD Neuro: Alert, Non Focal, Other (Lethargic (after getting iv narcotics)) Cardiovascular: No murmurs (Very distant heart sounds due to morbid obesity) Abdomen: Normal bowel sounds, Soft, No tenderness, Other (Obese) Extremities: No clubbing, No edema, No tenderness/swelling - Results Results: Laboratory Results WBC 16.4 x10^3/uL (4.8-10.8) H 04/27/23 04:54 RBC 5.27 10^6/uL (4.70-6.10) 04/27/23 04:54 Hgb 15.8 g/dL (14.0-18.0) 04/27/23 04:54 Hct 51.1 % (42.0-52.0) 04/27/23 04:54 MCV 97.0 fL (80.0-94.0) H 04/27/23 04:54 MCH 30.0 pg (27.0-31.0) 04/27/23 04:54 MCHC 30.9 g/dL (32.0-36.0) L 04/27/23 04:54 RDW 14.6 % (12.0-15.0) 04/27/23 04:54 Plt Count 119 10^3/uL (130-450) L 04/27/23 04:54 MPV 12.0 fL (7.4-11.4) H 04/27/23 04:54 Neut # (Auto) Not Reportable 04/27/23 04:54 Lymph # (Auto) Not Reportable 04/27/23 04:54 [place]y # (Auto) Not Reportable 04/27/23 04:54 Eos # (Auto) Not Reportable 04/27/23 04:54 Baso # (Auto) Not Reportable 04/27/23 04:54 Absolute Nucleated RBC Not Reportable 04/27/23 04:54 Total Counted 100 04/27/23 04:54 Band Neuts % (Manual) 1 % (0-10) 04/27/23 04:54 Abnorm Lymph % (Manual) 0 % 04/27/23 04:54 Nucleated RBC % Not Reportable 04/27/23 04:54 Neutrophils # (Manual) 9.8 10^3/uL (1.5-6.6) H 04/27/23 04:54 Lymphocytes # (Manual) 3.0 10^3/uL (1.5-3.5) 04/27/23 04:54 Monocytes # (Manual) 3.3 10^3/uL (0.0-1.0) H 04/27/23 04:54 Eosinophils # (Manual) 0.3 10^3/uL (0-0.7) 04/27/23 04:54 Basophils # (Manual) 0.0 10^3/uL (0-0.1) 04/27/23 04:54 Differential Comment MANUAL DIFFERENTIAL 04/27/23 04:54 Platelet Estimate DECREASED (<130,000) (NORMAL) 04/27/23 04:54 RBC Morph Micro Appear NORMAL APPEARANCE (NORMAL) 04/27/23 04:54 Sodium 139 mmol/L (135-145) 04/27/23 04:54 Potassium 3.8 mmol/L (3.5-5.0) 04/27/23 04:54 Chloride 114 mmol/L (101-111) H 04/27/23 04:54 Carbon Dioxide 18 mmol/L (21-32) L 04/27/23 04:54 Anion Gap 7.0 (6-13) 04/27/23 04:54 BUN 22 mg/dL (6-20) H 04/27/23 04:54 Creatinine 2.4 mg/dL (0.6-1.2) H 04/27/23 04:54 Estimated GFR (MDRD) 26 (>89) L 04/27/23 04:54 Glucose 93 mg/dL (70-100) 04/27/23 04:54 Lactic Acid 1.8 mmol/L (0.5-2.2) 04/26/23 20:18 Calcium 7.9 mg/dL (8.5-10.3) L 04/27/23 04:54 Phosphorus 2.1 mg/dL (2.5-4.6) L 04/26/23 18:07 Magnesium 2.4 mg/dL (1.7-2.8) 04/26/23 18:07 Total Bilirubin 0.7 mg/dL (0.2-1.0) 04/27/23 04:54 AST 21 IU/L (10-42) 04/27/23 04:54 ALT 14 IU/L (10-60) 04/27/23 04:54 Alkaline Phosphatase 96 IU/L (42-121) 04/27/23 04:54 Total Protein 5.0 g/dL (6.7-8.2) L 04/27/23 04:54 Albumin 2.4 g/dL (3.2-5.5) L 04/27/23 04:54 Globulin 2.6 g/dL (2.1-4.2) 04/27/23 04:54 Albumin/Globulin Ratio 0.9 (1.0-2.2) L 04/27/23 04:54 Lipase 22 U/L (22-51) 04/26/23 18:07 Urine Color YELLOW 04/26/23 19:34 Urine Clarity HAZY (CLEAR) 04/26/23 19:34 Urine pH 6.0 PH (5.0-7.5) 04/26/23 19:34 Ur Specific [place] 1.020 (1.002-1.030) 04/26/23 19:34 Urine Protein >=300 mg/dL (NEGATIVE) H 04/26/23 19:34 Urine Glucose (UA) NEGATIVE mg/dL (NEGATIVE) 04/26/23 19:34 Urine Ketones NEGATIVE mg/dL (NEGATIVE) 04/26/23 19:34 Urine Occult Blood LARGE (NEGATIVE) H 04/26/23 19:34 Urine Nitrite NEGATIVE (NEGATIVE) 04/26/23 19:34 Urine Bilirubin NEGATIVE (NEGATIVE) 04/26/23 19:34 Urine Urobilinogen 0.2 (NORMAL) E.U./dL (NORMAL) 04/26/23 19:34 Ur Leukocyte Esterase NEGATIVE (NEGATIVE) 04/26/23 19:34 Urine RBC 6-10 /HPF (0-5) H 04/26/23 19:34 Urine WBC 4-5 /HPF (0-3) 04/26/23 19:34 Ur Squamous Epith Cells RARE Squamous (<= Few) 04/26/23 19:34 Urine Bacteria Few /HPF (None Seen) 04/26/23 19:34 Urine Casts 6-10 Granular Casts /LPF 04/26/23 19:34 Ur Microscopic Review INDICATED 04/26/23 19:34 Urine Culture Comments NOT INDICATED 04/26/23 19:34 - Procedures Procedures: Procedures CATARAC PHACOEMULS/ASPIR (08/17/14) INSERT LENS AT CATAR EXT (08/17/14) Sepsis Event Note (H) - Evaluation Current Stage of Sepsis: Ruled out
[2023-04-27] MEDS ORDERED: METOPROLOL SUCCINATE 25 MG TABLET PO SCH (09:00)
[2023-04-27] MEDS: SODIUM CHLORIDE 0.9% 1,000 ML IV SCH ×3 (10:23→22:20)
--- NOTE | 2023-04-27 12:09 | PHARMACY PROGRESS NOTE ---
- Best Possible Medication History Admit Date and Time: 04/27/23 0013 Processed by: Pharmacy Medication History completed: Yes Patient Interview: Completed Secondary Source(s): Written medication list, Spouse/Significant other, Insurance records As the person ultimately responsible for medication therapy, providers are able to order a medication from an existing home medication list in [facility] via the "Reconcile Routine" prior to Confirmation of that medication by presidential support specialist. Such practice is discouraged except when the physician, in their clinical judgment, deems that a medical need exists for a medication without regard to previous use.
[2023-04-27] MEDS: HYDROCORTISONE SUCCINATE 100 MG/2 ML VIAL IVP SCH ×2 (13:42→22:06)
[2023-04-27] MEDS: METOPROLOL SUCCINATE 25 MG TABLET PO SCH (22:05)
[2023-04-27] MEDS: ATORVASTATIN 40 MG TABLET PO SCH (22:06)
[2023-04-28] MEDS: SODIUM CHLORIDE FLUSH 0.9% 10 ML SYRINGE IVP SCH ×3 (05:10→19:00)
[2023-04-28] MEDS: HYDROCORTISONE SUCCINATE 100 MG/2 ML VIAL IVP SCH ×3 (05:20→21:04)
[2023-04-28] MEDS: ACETAMINOPHEN 325 MG TABLET PO PRN ×3 (05:22→17:29)
[2023-04-28 05:38] LABS: BASOPHILS % (AUTO) 0.1 %; HCT - HEMATOCRIT 46.7 % (42.0-52.0); HGB - HEMOGLOBIN 14.3 g/dL (14.0-18.0); LYMPHOCYTES # (AUTO) 0.2 10^3/uL (1.5-3.5); LYMPHOCYTES % (AUTO) 1.9 %; MEAN CORPUSCULAR HEMOGLOBIN 29.8 pg (27.0-31.0); MEAN CORPUSCULAR HGB CONC 30.6 g/dL (32.0-36.0); MEAN CORPUSCULAR VOLUME 97.3 fL (80.0-94.0); MEAN PLATELET VOLUME 12.3 fL (7.4-11.4); MONOCYTES # (AUTO) 0.4 10^3/uL (0.0-1.0); MONOCYTES % (AUTO) 3.4 %; NEUTROPHILS # (AUTO) 11.7 10^3/uL (1.5-6.6); NEUTROPHILS % (AUTO) 93.9 %; PLT - PLATELET COUNT 98 10^3/uL (130-450); RED CELL DISTRIBUTION WIDTH 14.6 % (12.0-15.0); WHITE BLOOD COUNT 12.5 x10^3/uL (4.8-10.8)
[2023-04-28 05:48] LABS: CALCIUM 8.2 mg/dL (8.5-10.3); CREATININE 2.6 mg/dL (0.6-1.2); POTASSIUM 3.8 mmol/L (3.5-5.0)
[2023-04-28] MEDS: TAMSULOSIN 0.4 MG CAPSULE PO SCH (08:55)
[2023-04-28] MEDS: APIXABAN 5 MG TABLET PO SCH ×2 (08:55→21:03)
[2023-04-28] MEDS: allopurinoL 100 MG TABLET PO SCH (08:55)
[2023-04-28] MEDS: METOPROLOL SUCCINATE 25 MG TABLET PO SCH ×2 (08:56→21:03)
[2023-04-28] MEDS: mycophenolate mofetiL 250 MG CAPSULE PO SCH ×2 (08:57→21:04)
[2023-04-28] MEDS: cefTRIAXone 1 GM in SODIUM CHLORIDE 0.9% MINIBAG 100 ML IV SCH (08:57)
--- NOTE | 2023-04-28 09:07 | PROVIDER PROGRESS NOTE ---
Assessment/Plan - Problem List (1) Acute kidney injury Assessment/Plan: This was initially felt to be pre-renal, by the admitting Telemedicine provider, caused by poor po intake and decreased appetite and vomiting. He was started on IV fluids at 125 cc an hour, then yesterday decreased to 83.33 cc/h because of his history of pulmonary edema after getting aggressive IV fluids on his last adm here (EMR was reviewed by me). All labs were reviewed. His BUN and creatinine are rising and worsening today. (All labs were reviewed). His admission U/A already showed casts present He did get IV contrast when he had the abdomen/pelvis CT. Therefore, I suspect this now could be contrast-induced nephropathy. On that CT abd/pelvis, there was no hydronephrosis, the urinary tract appeared normal Plan: Will increase IV fluid rate Avoid nephrotoxins. Adjust med doses if needed for renal failure. Follow BMP daily (2) Pathological fracture of vertebra Assessment/Plan: He developed severe low back pain several days ago. Intractable LBP was another reason he presented to the ER this time. There was supposed to be a spine MRI done as an outpatient this Friday (in 5 days) In the admission H&P it states that he did not have bladder or bowel incontinence. Today the RN reports to me that she thinks there is bladder and bowel incontinence. Patient confirmed to me that he has lost control of his bowels today, still has partial control of his urine. In addition, his pain is severe, and he needs iv narcotics An MRI of the lumbar spine was done today and it shows a pathologic fracture of T11 vertebrae. It was described as a compression fracture. There is no spinal cord compression. There was no subluxation. In determining if it is an unstable or stable finding, to warrant a surgery consult, I calculated his SINS (Spine Instability Neoplastic Score) which came b ack at 10>> "Indeterminate stability, possible impending instability, warrants a surgical consult". I then spoke to our Orthopedist for a consult, and reviewed today's MRI findings. Dr Quintero said this pt needs an urgent transfer to a spine center. Plan: I updated the patient and in the room about the findings and the recommendations. Patient has been at for all of his cancer and pulmonary care and [facility] is their preferred hospital. I have reached out to the transfer center at to get him transferred. Continue with pain medications. Patient told his RN he does not want to take Dilaudid or morphine. He wants Ultram and Tylenol. Iwill change the med orders. (3) Acute urinary retention Assessment/Plan: Bladder scanning was done. He did have documented retention and a Bourne insertion was ordered today at 0200 by the Telemdicine provider. But no Folkey was put in. Patient says he still gets urinary urges and has partial control of his urine to Plan: Plan as in #2 (4) UTI (urinary tract infection) Qualifiers: Urinary tract infection type: acute cystitis with hematuria Assessment/Plan: He presented with an elevated white count of 20, altered mental status, and tachycardia, but hadno fever and no elevated lactic acid level. His urinalysis was abnormal suggestive of UTI. Blood cultures are negative to date. Urine culture was not indicated, per his U/A. All labs were reviewed. On the empiric antibx, his WBC has improved from 20>> 16>> 12 today. Plan: Continue with empiric IV antibiotics Await culture results to tailor antibiotics (5) Chronic atrial fibrillation Assessment/Plan: He presented with A-fib with RVR. Probably from volume depletion and vomiting of his meds. Now he has adequate heart rate control, in fact there are times he has 2-2.5 second pauses in Afib Plan: Continue now with his usual metoprolol dose and Eliquis dose Monitor on telemetry (6) BPH (benign prostatic hyperplasia) Conclusion/Plan: Plan: Continue his tamsulosin (7) Prostate cancer, primary, with metastasis from prostate to other site Conclusion/Plan: The CT of his lower spine showed spinal stenosis told me that there was going to be a lower spine MRI this Friday, it was scheduled to be done as an outpatient. MRI of lumbar spine was done today. He requested Ativan pre-treatment due to having claustrophobia. Findings of the MRI are as described in #2 Plan: See #2 (8) Hypotension - Qualified Code(s): I95.9 Assessment/Plan: RESOLVED This appeared to be multifactorial: From his medications adding to the hypotension, from dehydration causing volume depletion, and possibly from being Addisonian since he is on prednisone 5 mg daily but currently has a UTI infection. It does not appear that he is in septic shock with a normal lactic acid level. Plan: Continue with IV NS but decrease from 100 cc an hour to 83.33 cc an hour, given his history of pulmonary edema 1 year ago I stopped his oral Prednisone. Started hydrocortisone 100 mg 3 times daily for 3 days. Adjust his meds based on blood pressure - Current Meds Current Meds: Current Medications Generic Name Dose Route Start Last Admin Trade Name Freq PRN Reason Stop Dose Admin Acetaminophen 650 mg 04/27/23 00:13 04/28/23 05:22 Acetaminophen 325 Mg Tablet PO 650 mg Q4HR PRN Administration Pain 1 to 4, or Fever Allopurinol 100 mg 04/27/23 09:00 04/28/23 08:55 Allopurinol 100 Mg Tablet PO 100 mg DAILY ELENA Administration Apixaban 5 mg 04/27/23 01:00 04/28/23 08:55 Apixaban 5 Mg Tablet PO 5 mg BID ELENA Administration Atorvastatin Calcium 80 mg 04/27/23 21:00 04/27/23 22:06 Atorvastatin 40 Mg Tablet PO 80 mg HS ELENA Administration Hydrocortisone Sodium Succinate 100 mg 04/27/23 14:00 04/28/23 05:20 Hydrocortisone Succinate 100 Mg/2 Ml Vial IVP 04/29/23 23:55 100 mg TID ELENA Administration Ceftriaxone Sodium 1 gm/ 100 mls @ 200 mls/hr 04/27/23 09:00 04/28/23 08:57 Sodium Chloride IV 200 mls/hr DAILY ELENA Administration Sodium Chloride 1,000 mls @ 83.33 mls/hr 04/27/23 08:46 04/28/23 08:55 Normal Saline 0.9% IV 0 mls/hr .Q12H1M ELENA Infusion Metoprolol Succinate 25 mg 04/27/23 10:26 04/28/23 08:56 Metoprolol Succinate 25 Mg Tablet PO 25 mg BID ELENA Administration Morphine Sulfate 2 mg 04/27/23 08:46 04/27/23 13:36 Morphine 2 Mg/Ml Carpuject IVP 2 mg Q4HR PRN Administration Pain 8 to 10 Multi-Ingredient Ointment 1 applic 04/27/23 02:33 04/27/23 02:45 Zinc Oxide 20% Oint 30 Gm Tube TOP 1 applic PRN PRN Administration Skin Care Mycophenolate Mofetil 1,000 mg 04/27/23 09:00 04/28/23 08:57 Mycophenolate Mofetil 250 Mg Capsule PO 1,000 mg BID ELENA Administration Sodium Chloride 10 ml 04/27/23 01:00 04/28/23 08:57 Sodium Chloride Flush 0.9% 10 Ml Syringe IVP Not Given 0100,0900,1700 ELENA Tamsulosin HCl 0.4 mg 04/27/23 09:00 04/28/23 08:55 Tamsulosin 0.4 Mg Capsule PO 0.4 mg DAILY ELENA Administration - Lab Result Fish Bone Diagrams: 04/28/23 05:08 04/28/23 05:08 - Diagnostic Imaging Results Diagnostic Imaging Results: Final report reviewed - Additional Planning My Orders: My Active Orders 04/27/23 08:44 Telemetry- [RC] Q4HR 04/27/23 08:46 Morphine Inj (Carpuject) [Morphine (Carpuject)] 2 mg IVP Q4HR PRN Sodium Chloride 0.9% [Normal Saline 0.9%] 1,000 ml IV 83.33 mls/hr 04/27/23 10:26 Metoprolol Succinate [Toprol Xl] 25 mg PO BID 04/27/23 14:00 Hydrocortisone Succinate [Solu-CORTEF] 100 mg IVP TID 04/29/23 05:00 BMP - BASIC METABOLIC PANEL [CHEM] DAILYLAB CBC - COMP BLD CT W/AUTO DIFF [HEME] DAILYLAB 04/30/23 05:00 BMP - BASIC METABOLIC PANEL [CHEM] DAILYLAB CBC - COMP BLD CT W/AUTO DIFF [HEME] DAILYLAB 04/30/23 08:00 predniSONE [Deltasone] 5 mg PO DAILYWM 05/01/23 05:00 BMP - BASIC METABOLIC PANEL [CHEM] DAILYLAB CBC - COMP BLD CT W/AUTO DIFF [HEME] DAILYLAB Subjective - Subjective Patient Reports: Pain (pain in low back which for which he wants to take Ultram and Tylenol. Pain during defecation as well which she has had for a week) Objective Vital Signs: Vital Signs - 24 hr 04/27/23 04/27/23 04/27/23 13:26 16:01 21:00 Temperature 36.3 C L 36.9 C 36.9 C Heart Rate [ 80 100 80 Brachial] Respiratory 17 22 18 Rate Blood Pressure 96/57 L 90/57 L 90/58 L [Right Brachial artery] O2 Saturation 96 94 91 L If not protocol 1 1 1 : Oxygen Flow, liters/minute 04/28/23 04/28/23 04/28/23 01:00 05:00 08:14 Temperature 36.7 C 36.8 C 36.3 C L Heart Rate [ 62 82 85 Brachial] Respiratory 18 18 18 Rate Blood Pressure 102/76 130/83 H 123/82 H [Right Brachial artery] O2 Saturation 94 96 96 If not protocol 1 : Oxygen Flow, liters/minute 04/28/23 09:01 Temperature Heart Rate [ 68 Brachial] Respiratory Rate Blood Pressure 120/78 [Right Brachial artery] O2 Saturation If not protocol : Oxygen Flow, liters/minute Oxygen O2 Source [Without Activity] Nasal cannula O2 Source [With Activity] Room air O2 Source Room air I&O (Last 24 Hrs): Intake and Output Totals x24h 04/26/23 04/27/23 04/28/23 23:59 23:59 23:59 Intake Total 3000 3045.793 881.909 Output Total 1150 560 Balance 3000 1895.793 321.909 General: Alert, Oriented x3, Other (Obese) HEENT: Mucous membr. moist/pink, Other Neck: Supple Neuro: Alert, Other (Bowel incontinence reported today by) Cardiovascular: No murmurs (Distant heart sounds due to obesity) Respiratory: No respiratory distress, Breath sounds nml (Distant breath sounds due to obese) Abdomen: Soft, No tenderness, Other (Obese with pannus) Extremities: No clubbing, No edema - Results Results: Laboratory Results WBC 12.5 x10^3/uL (4.8-10.8) H 04/28/23 05:08 RBC 4.80 10^6/uL (4.70-6.10) 04/28/23 05:08 Hgb 14.3 g/dL (14.0-18.0) 04/28/23 05:08 Hct 46.7 % (42.0-52.0) 04/28/23 05:08 MCV 97.3 fL (80.0-94.0) H 04/28/23 05:08 MCH 29.8 pg (27.0-31.0) 04/28/23 05:08 MCHC 30.6 g/dL (32.0-36.0) L 04/28/23 05:08 RDW 14.6 % (12.0-15.0) 04/28/23 05:08 Plt Count 98 10^3/uL (130-450) L 04/28/23 05:08 MPV 12.3 fL (7.4-11.4) H 04/28/23 05:08 Neut # (Auto) 11.7 10^3/uL (1.5-6.6) H 04/28/23 05:08 Lymph # (Auto) 0.2 10^3/uL (1.5-3.5) L 04/28/23 05:08 Morrow # (Auto) 0.4 10^3/uL (0.0-1.0) 04/28/23 05:08 Eos # (Auto) 0.0 10^3/uL (0.0-0.7) 04/28/23 05:08 Baso # (Auto) 0.0 10^3/uL (0.0-0.1) 04/28/23 05:08 Absolute Nucleated RBC 0.00 x10^3/uL 04/28/23 05:08 Total Counted 100 04/27/23 04:54 Band Neuts % (Manual) 1 % (0-10) 04/27/23 04:54 Abnorm Lymph % (Manual) 0 % 04/27/23 04:54 Nucleated RBC % 0.0 /100WBC 04/28/23 05:08 Neutrophils # (Manual) 9.8 10^3/uL (1.5-6.6) H 04/27/23 04:54 Lymphocytes # (Manual) 3.0 10^3/uL (1.5-3.5) 04/27/23 04:54 Monocytes # (Manual) 3.3 10^3/uL (0.0-1.0) H 04/27/23 04:54 Eosinophils # (Manual) 0.3 10^3/uL (0-0.7) 04/27/23 04:54 Basophils # (Manual) 0.0 10^3/uL (0-0.1) 04/27/23 04:54 Differential Comment MANUAL DIFFERENTIAL 04/27/23 04:54 Platelet Estimate DECREASED (<130,000) (NORMAL) 04/27/23 04:54 RBC Morph Micro Appear NORMAL APPEARANCE (NORMAL) 04/27/23 04:54 Sodium 141 mmol/L (135-145) 04/28/23 05:08 Potassium 3.8 mmol/L (3.5-5.0) 04/28/23 05:08 Chloride 113 mmol/L (101-111) H 04/28/23 05:08 Carbon Dioxide 18 mmol/L (21-32) L 04/28/23 05:08 Anion Gap 10.0 (6-13) 04/28/23 05:08 BUN 28 mg/dL (6-20) H 04/28/23 05:08 Creatinine 2.6 mg/dL (0.6-1.2) H 04/28/23 05:08 Estimated GFR (MDRD) 24 (>89) L 04/28/23 05:08 Glucose 151 mg/dL (70-100) H 04/28/23 05:08 Lactic Acid 1.8 mmol/L (0.5-2.2) 04/26/23 20:18 Calcium 8.2 mg/dL (8.5-10.3) L 04/28/23 05:08 Phosphorus 2.6 mg/dL (2.5-4.6) 04/27/23 04:54 Magnesium 2.4 mg/dL (1.7-2.8) 04/26/23 18:07 Total Bilirubin 0.7 mg/dL (0.2-1.0) 04/27/23 04:54 AST 21 IU/L (10-42) 04/27/23 04:54 ALT 14 IU/L (10-60) 04/27/23 04:54 Alkaline Phosphatase 96 IU/L (42-121) 04/27/23 04:54 Total Protein 5.0 g/dL (6.7-8.2) L 04/27/23 04:54 Albumin 2.4 g/dL (3.2-5.5) L 04/27/23 04:54 Globulin 2.6 g/dL (2.1-4.2) 04/27/23 04:54 Albumin/Globulin Ratio 0.9 (1.0-2.2) L 04/27/23 04:54 Lipase 22 U/L (22-51) 04/26/23 18:07 Urine Color YELLOW 04/26/23 19:34 Urine Clarity HAZY (CLEAR) 04/26/23 19:34 Urine pH 6.0 PH (5.0-7.5) 04/26/23 19:34 Ur Specific [place] 1.020 (1.002-1.030) 04/26/23 19:34 Urine Protein >=300 mg/dL (NEGATIVE) H 04/26/23 19:34 Urine Glucose (UA) NEGATIVE mg/dL (NEGATIVE) 04/26/23 19:34 Urine Ketones NEGATIVE mg/dL (NEGATIVE) 04/26/23 19:34 Urine Occult Blood LARGE (NEGATIVE) H 04/26/23 19:34 Urine Nitrite NEGATIVE (NEGATIVE) 04/26/23 19:34 Urine Bilirubin NEGATIVE (NEGATIVE) 04/26/23 19:34 Urine Urobilinogen 0.2 (NORMAL) E.U./dL (NORMAL) 04/26/23 19:34 Ur Leukocyte Esterase NEGATIVE (NEGATIVE) 04/26/23 19:34 Urine RBC 6-10 /HPF (0-5) H 04/26/23 19:34 Urine WBC 4-5 /HPF (0-3) 04/26/23 19:34 Ur Squamous Epith Cells RARE Squamous (<= Few) 04/26/23 19:34 Urine Bacteria Few /HPF (None Seen) 04/26/23 19:34 Urine Casts 6-10 Granular Casts /LPF 04/26/23 19:34 Ur Microscopic Review INDICATED 04/26/23 19:34 Urine Culture Comments NOT INDICATED 04/26/23 19:34 - Procedures Procedures: Procedures CATARAC PHACOEMULS/ASPIR (08/17/14) INSERT LENS AT CATAR EXT (08/17/14) Sepsis Event Note (H) - Evaluation Current Stage of Sepsis: Ruled out
[2023-04-28] MEDS: SODIUM CHLORIDE 0.9% 1,000 ML IV SCH (10:24)
[2023-04-28] MEDS ORDERED: LORazepam 1 MG TABLET PO ONE (11:45)
[2023-04-28] MEDS: MULTIVITAMIN W/MINERALS TABLET PO SCH (13:12)
--- NOTE | 2023-04-28 17:02 | MRI Report ---
PROCEDURE: LUMBAR SPINE WO INDICATIONS: Severe LBP, new bladder bowel incontinence TECHNIQUE: Noncontrast sagittal T1 spin echo and T2 fast echo, sagittal STIR, axial T1 and T2 fast spin echo thr ough the lumbar spine. In cases with scoliosis, additional coronal T2 fast spin echo may be performe d. COMPARISON: CT 04/26/2023, lumbar MRI 10/10/2021 FINDINGS: Image quality: Excellent. Alignment and Curvature: Grade 1 retrolisthesis of L2 on L3 and L3 on L4, stable from prior. Bone Marrow: There is abnormal T2 intermediate signal throughout the T11 vertebral body, with associa vinicius compression deformity. No endplate retropulsion. Spinal Cord: Conus medullaris terminates at the L1 level. Visualized cord demonstrates normal signa l and size. Paraspinous Soft Tissues: No paravertebral masses. T12-L1: Normal in appearance. L1-L2: Disc desiccation. Mild disc height loss. L2-L3: Severe disc height loss. Mild bilateral neural foraminal narrowing. Mild ligamenta flava hy pertrophy. L3-L4: Severe disc height loss, broad-based disc bulge. Mild bilateral neural foraminal narrowing a nd mild spinal canal narrowing. L4-L5: Severe disc height loss. Disc ossify complex. Ligamentum flavum hypertrophy and facet hypert rophy. Mild bilateral neural foraminal narrowing. L5-S1: Disc desiccation. Mild facet hypertrophy. IMPRESSION: New pathologic fracture of the T11 superior endplate. No endplate retropulsion. Multilevel degenerative disc disease and facet arthrosis, not significantly changed from prior. No se orestes spinal canal or neural foraminal narrowing. Reviewed by: Daniele Michele on 04/28/2023 5:01 PM PDT Approved by: Daniele Michele on 04/28/2023 5:01 PM PDT Station ID: [id number]
[2023-04-28] MEDS: traMADol 50 MG TABLET PO PRN (19:01)
[2023-04-28] MEDS: ATORVASTATIN 40 MG TABLET PO SCH (21:03)
[2023-04-29] MEDS: SODIUM CHLORIDE FLUSH 0.9% 10 ML SYRINGE IVP SCH ×3 (00:06→15:42)
[2023-04-29] MEDS: SODIUM CHLORIDE 0.9% 1,000 ML IV SCH ×2 (00:34→13:39)
[2023-04-29 05:41] LABS: BASOPHILS % (AUTO) 0.1 %; HCT - HEMATOCRIT 42.5 % (42.0-52.0); HGB - HEMOGLOBIN 13.6 g/dL (14.0-18.0); LYMPHOCYTES # (AUTO) 0.3 10^3/uL (1.5-3.5); LYMPHOCYTES % (AUTO) 2.2 %; MEAN CORPUSCULAR HEMOGLOBIN 29.2 pg (27.0-31.0); MEAN CORPUSCULAR VOLUME 91.2 fL (80.0-94.0); MEAN PLATELET VOLUME 12.2 fL (7.4-11.4); MONOCYTES # (AUTO) 0.7 10^3/uL (0.0-1.0); NEUTROPHILS % (AUTO) 91.9 %; PLT - PLATELET COUNT 137 10^3/uL (130-450); RED BLOOD COUNT 4.66 10^6/uL (4.70-6.10); RED CELL DISTRIBUTION WIDTH 14.2 % (12.0-15.0); WHITE BLOOD COUNT 14.1 x10^3/uL (4.8-10.8)
[2023-04-29 05:54] LABS: CALCIUM 7.8 mg/dL (8.5-10.3); CREATININE 2.1 mg/dL (0.6-1.2); POTASSIUM 2.9 mmol/L (3.5-5.0)
[2023-04-29] MEDS: HYDROCORTISONE SUCCINATE 100 MG/2 ML VIAL IVP SCH ×3 (06:09→21:52)
[2023-04-29] MEDS ORDERED: POTASSIUM CHLORIDE 20 MEQ TABLET PO ONE (07:39)
[2023-04-29] MEDS: APIXABAN 5 MG TABLET PO SCH ×2 (09:28→21:52)
[2023-04-29] MEDS: mycophenolate mofetiL 250 MG CAPSULE PO SCH ×2 (09:28→21:52)
[2023-04-29] MEDS: traMADol 50 MG TABLET PO PRN ×3 (09:28→21:55)
[2023-04-29] MEDS: TAMSULOSIN 0.4 MG CAPSULE PO SCH (09:29)
[2023-04-29] MEDS: MULTIVITAMIN W/MINERALS TABLET PO SCH (09:29)
[2023-04-29] MEDS: allopurinoL 100 MG TABLET PO SCH (09:29)
[2023-04-29] MEDS: cefTRIAXone 1 GM in SODIUM CHLORIDE 0.9% MINIBAG 100 ML IV SCH (09:30)
[2023-04-29] MEDS: METOPROLOL SUCCINATE 25 MG TABLET PO SCH ×2 (09:31→21:52)
[2023-04-29] MEDS: ZINC OXIDE 20% OINT 30 GM TUBE TOP PRN (14:52)
[2023-04-29] MEDS: DICYCLOMINE 10 MG CAPSULE PO SCH ×2 (17:05→21:55)
--- NOTE | 2023-04-29 17:31 | PROVIDER PROGRESS NOTE ---
Progress Note April 29, 2023 5:20 PM When sitting and talking to his and he tells me that the back pain started a month before a trip to [place]. There is no sudden event. No fall. Then once he went to [place] and came back the pain got so bad he could not take it anymore. Incontinence of urine started a month ago. His takes care of him at home. But she has a lot of help with [facility] and they help with nursing care, bathing, and she still feels like she can do it. She bicycles daily, walks daily. He continues to be incontinent of stool and urine. However he has severe rectal spasms. When he eats or drinks anything, the rectal pain starts about 15 minutes later. Sometimes it is relieved by a bowel movement. But sometimes he does not even feel when the bowel movement is happening and only can feel his "flutters down there". But the pain is fairly severe and he is miserable with it. Specifically rectal pain. We then went over rectal anatomy and urinary anatomy because he thought somehow his bladder was connected to his rectum. The rectal and urinary incontinence is the main manifestation of what we suppose is spinal cord impingement. MRI was done yesterday and he has disc desiccation or severe disc height loss, throughout his lumbar spine. He has a new pathologic fracture of T11 at the superior endplate but no endplate retropulsion. Fearing that he was having spinal cord compression, the hospitalist yesterday submitted films to [facility]. There was a lot of [id number] and neurosurgery tried to get a hold of of provider here once he reviewed the films. But by then the daytime hospitalist was gone. The nighttime hospitalist was consulted. There is no note from the nighttime hospitalist but from nursing, and from the transfer driver of , the patient is not a candidate for transfer. The MRI was reviewed, there is no retropulsion, no spinal cord impingement. He is not a candidate for surgery or treatment there at a higher level of care. I have shared that with the patient and his . This then entailed a long conversation about vertebral compression and the treatment of vertebral compression. I explained that recovery takes weeks if not months. The patient's mobility is impaired from either a mild perspective or to severe depending on the anatomy of the compression fracture. They both state their main concern at this point is his rectal pain. His back pain is still an issue and that seems to be controlled. Dilaudid was ordered but he did not get any. Then morphine was ordered and he received one 2 mg dose on April 27. Ultrasound was then ordered April 28 and has been getting that. He feels like his back pain is controlled with that. Vitals: Temperature 36.5, heart rate 75, blood pressure 119/74, respirations 16 and he is 95% on room air He is a morbidly obese white male, red slapped cheeks. 5 foot 11 inches tall, 102 kg. Laying on his back. Has not gotten out of bed in 2 days and he dreads having to sit in a chair at my request. But he is lucid, speech is normal. No confusion. has been at the bedside vigilantly supporting him. Neck is supple, no JVD Diminished breath sounds at the bases but otherwise clear. No respiratory distress. No crackles, rhonchi, wheezing. Regular rate and rhythm. Abdomen is protuberantly obese, soft, nontender, with normal bowel sounds. He has had 3 bowel movements today so far. Extremities are without edema. Neurologically he is alert, oriented to person place and time. No focal deficits and able to move his arms and his legs. He is able to plantar and dorsiflex his feet at my request. But he continues to state that he does not feel when his urine or his bowel has an urge and then he soils himself in the bed. Again this has been going on for over a month. Labs: Sodium 138, potassium 2.9. BUN 32, creatinine 2.[address] and creatinine went from 20/2.0 to 28/2.6 on April 28. So his BUN has come up a bit but his creatinine has come down. Assessment/Plan - Problem List (1) Acute kidney injury Assessment/Plan: This was initially felt to be pre-renal, by the admitting Telemedicine provider, caused by poor po intake and decreased appetite and vomiting. He was started on IV fluids at 125 cc an hour, then 04/27 decreased to 83.33 cc/h because of his history of pulmonary edema after getting aggressive IV fluids on his last adm here (EMR was reviewed by me). His BUN and creatinine are rising and worsened 04/[address] with contrast was noted. His IV fluid rate was increased on April 28. Even though his BUN is up today, creatinine is down. We suspect that he has contrast-induced nephropathy. He does not have hydronephrosis, and bladder is emptying, urinary tract anatomy appears normal. UA has casts present. Intake and output: +[id number] 27 +163April 28 As of this dictation today +[id number] Plan: I am going to decrease his IV fluid rate back to 83 cc an hour, maintenance.I want to avoid fluid overload. Avoid nephrotoxins. Adjust med doses if needed for renal failure. Follow BMP daily (2) Pathological fracture of vertebra Assessment/Plan: He developed severe low back pain over a month ago. He had traveling to do but was eventually seen by his PCP about a week ago. With that visit he was supposed to get an MRI of the spine done this Friday (today is Friday).He says that urinary incontinence started a month ago with the back pain. Stool incontinence may have been a relatively recent phenomenon. Pain in his thoracic spine is severe. Initially control was with Dilaudid but that order was changed to morphine in ER he received 1 dose of that. The night was changed to tramadol. An MRI of the lumbar spine was done 04/28 and it shows a pathologic fracture of T11 vertebrae. It was described as a compression fracture. There is no spinal cord compression. There was no subluxation. In determining if it is an unstable or stable finding, to warrant a surgery consult, yesterday's hospitalist calculated his SINS (Spine Instability Neoplastic Score) which came back at 10>> "Indeterminate stability, possible impending instability, warrants a surgical consult". Hospitalist then spoke to our Orthopedist for a consult, and reviewed today's MRI findings. Dr Quintero said this pt needs an urgent transfer to a spine center. We called [facility] because that is where he gets his cancer and pulmonary care. After neurosurgery on-call reviewed the films (and it took a long time to get them pushed to him), he called and spoke to [facility]. This is all through nursing. There is no note in the chart. But he explained that the patient does not need urgent transfer. Plan: This was discussed with his and the patient. She is trying to plan for the future. I have recommended that she hire caregivers and she is not happy about that. She feels like she has been doing a great job taking care of her multiple now. She gets wonderful help from [facility]. She would like to keep this current arrangement. She also does not want to transition to a halfway facility for rehab. So at this time, I will be reordering home health. Nursing will work with his about teaching her logrolling, etc. Also cautioned them that this could take weeks to recover from. Because he has renal failure and vertebral compression, I will check a serum protein electrophoresis, PTH level. Continue current pain medications. (3) Acute urinary retention Assessment/Plan: Bladder scanning was done. He did have documented retention and a Gillespie insertion was ordered today at 0200 by the Telemdicine provider. But no Folkey was put in. Patient says he still gets urinary urges and has partial control of his urine to Plan: gillespie when needed. (4) UTI (urinary tract infection) Qualifiers: Urinary tract infection type: acute cystitis with hematuria Assessment/Plan: He presented with an elevated white count of 20, altered mental status, and tachycardia, but hadno fever and no elevated lactic acid level. His urinalysis was abnormal suggestive of UTI. Blood cultures without growth after 2 days. No urine culture reported. It was not indicated on his UA All labs were reviewed. On the empiric antibx, his WBC has improved from 20>> 16>> 12>>14.1 today. Plan: Continue with empiric IV antibiotics. Today is Day #3/7. (5) Chronic atrial fibrillation Assessment/Plan: He presented with A-fib with RVR. Probably from volume depletion and vomiting of his meds. Now he has adequate heart rate control, in fact there are times he has 2-2.5 second pauses in Afib Plan: Continue now with his usual metoprolol dose and Eliquis dose Monitor on telemetry (6) BPH (benign prostatic hyperplasia) Conclusion/Plan: Plan: Continue his tamsulosin (7) Prostate cancer, primary, with metastasis from prostate to other site Conclusion/Plan: The CT of his lower spine showed spinal stenosis MRI shows endplate fracture at T11. No evidence of metastatic disease. But he does have significant rectal pain. Plan: No transfer to Check PSA Rectal exam to make sure he does not have a fissure and if there is nothing on my exam, I will consider a rectal ultrasound (8) Hypotension - Qualified Code(s): I95.9 Assessment/Plan: RESOLVED This appeared to be multifactorial: From his medications adding to the hypotension, from dehydration causing volume depletion, and possibly from being Addisonian since he is on prednisone 5 mg daily but currently has a UTI infection. It does not appear that he is in septic shock with a normal lactic acid level. Plan: He was on aggressive IV fluid for hydration. This is more for his renal failure than blood pressure. I am decreasing his renal rate today,. He is already on hydrocortisone 100 mg 3 times daily for 3 days.As of this note he has received 7 of 9 doses. I will make sure he stops after 9 doses. Then resume prednisone 5 mg daily
[2023-04-29] MEDS: ATORVASTATIN 40 MG TABLET PO SCH (21:52)
[2023-04-29] MEDS: NYSTATIN POWDER 15 GM TOP SCH (21:55)
[2023-04-30] MEDS: SODIUM CHLORIDE FLUSH 0.9% 10 ML SYRINGE IVP SCH ×3 (00:35→16:24)
[2023-04-30] MEDS: SODIUM CHLORIDE 0.9% 1,000 ML IV SCH ×2 (01:17→15:13)
--- NOTE | 2023-04-30 04:20 | PROVIDER PROGRESS NOTE ---
Banana Room Cutter Note - Banana Room Cutter Note Banana Room Cutter Note: RN paged to report 32 pauses on tele. vitals stable. unclear if pauses are sinus arrhythmia or what no. vitals are stable. continue tele. day team to review rhythm strips in am. Erica Kathleen DO Internal Medicine [employer] Banana Room Cutter
[2023-04-30] MEDS: HYDROCORTISONE SUCCINATE 100 MG/2 ML VIAL IVP SCH (05:07)
[2023-04-30 07:42] LABS: BASOPHILS % (AUTO) 0.1 %; HCT - HEMATOCRIT 41.5 % (42.0-52.0); HGB - HEMOGLOBIN 13.5 g/dL (14.0-18.0); LYMPHOCYTES # (AUTO) 0.2 10^3/uL (1.5-3.5); LYMPHOCYTES % (AUTO) 1.5 %; MEAN CORPUSCULAR HEMOGLOBIN 29.7 pg (27.0-31.0); MEAN CORPUSCULAR HGB CONC 32.5 g/dL (32.0-36.0); MEAN CORPUSCULAR VOLUME 91.2 fL (80.0-94.0); MONOCYTES # (AUTO) 0.7 10^3/uL (0.0-1.0); MONOCYTES % (AUTO) 5.1 %; NEUTROPHILS # (AUTO) 13.2 10^3/uL (1.5-6.6); NEUTROPHILS % (AUTO) 92.3 %; PLT - PLATELET COUNT 131 10^3/uL (130-450); RED BLOOD COUNT 4.55 10^6/uL (4.70-6.10); RED CELL DISTRIBUTION WIDTH 14.2 % (12.0-15.0); WHITE BLOOD COUNT 14.2 x10^3/uL (4.8-10.8)
[2023-04-30 07:48] LABS: CALCIUM 7.8 mg/dL (8.5-10.3); CREATININE 1.6 mg/dL (0.6-1.2); POTASSIUM 2.6 mmol/L (3.5-5.0)
[2023-04-30] MEDS: traMADol 50 MG TABLET PO PRN (08:54)
[2023-04-30] MEDS: DICYCLOMINE 10 MG CAPSULE PO SCH ×4 (08:55→22:01)
[2023-04-30] MEDS: APIXABAN 5 MG TABLET PO SCH ×2 (08:56→21:58)
[2023-04-30] MEDS: cefTRIAXone 1 GM in SODIUM CHLORIDE 0.9% MINIBAG 100 ML IV SCH (08:56)
[2023-04-30] MEDS: TAMSULOSIN 0.4 MG CAPSULE PO SCH (08:56)
[2023-04-30] MEDS: predniSONE 5 MG TABLET PO SCH (08:56)
[2023-04-30] MEDS: mycophenolate mofetiL 250 MG CAPSULE PO SCH ×2 (08:56→21:58)
[2023-04-30] MEDS: MULTIVITAMIN W/MINERALS TABLET PO SCH (08:56)
[2023-04-30] MEDS: allopurinoL 100 MG TABLET PO SCH (08:56)
[2023-04-30] MEDS: METOPROLOL SUCCINATE 25 MG TABLET PO SCH ×2 (08:56→21:58)
[2023-04-30] MEDS: NYSTATIN POWDER 15 GM TOP SCH ×2 (08:57→21:58)
[2023-04-30] MEDS: POTASSIUM CHLOR 10 MEQ/100 ML 10 MEQ/100 ML BAG IV SCH ×6 (10:39→17:54)
[2023-04-30] MEDS: LIDOCAINE VISCOUS 2% 15 ML ORAL SYRINGE TOP PRN (13:22)
--- NOTE | 2023-04-30 18:35 | PROVIDER PROGRESS NOTE ---
Subjective - Prog Note Date Prog Note Date: 04/30/23 Prog Note Time: 18:31 - Subjective Pt reports feeling: No change Subjective: His main complaint continues to be rectal pain. It starts 15 to 20 minutes after he eats anything. Sometimes happens when he has flatus or "bubbling". I did a rectal exam on him yesterday and he was in severe discomfort with my exam. I did not feel a fissure. But his rectum is covered in stool so it was difficult to assess. I did feel small anatomical changes of hemorrhoids. I then went to discuss his anatomy with radiology. He had a CT the abdomen and pelvis during the stay in and I really reviewed the radiology report as well as the actual CT scan. You can see where he has external hemorrhoids on the CT scan. Prostate is still there. There are no abscesses, no gas in the rectal w alls. I then discussed the case with general surgery. I am trying to find anything that can make this gentleman comfortable from his pain. Back pain is stable. Still very difficult to try and get out of bed with him. But physical therapy did work with him today. and he had some very good q uestions today. They are not quite clear on the concept of what a vertebral compression fracture is so I went over the anatomy of the vertebral body, and how the spinal cord sits within a protected ring. The vertebral body sit on top of 1 another and provide support for the spinal cord. I described what a compression fracture mead. I also described that his compression fracture is actually not that severe. That there are no bony fragments that have gone backwards or to the side to cause compression of any nerves that we can see on MRI. Current Medications - Current Medications Current Medications: Active Medications Acetaminophen (Acetaminophen 325 Mg Tablet) 650 mg PO Q4HR PRN PRN Reason: Pain 1 to 4, or Fever Last Admin: 04/28/23 17:29 Dose: 650 mg Allopurinol (Allopurinol 100 Mg Tablet) 100 mg PO DAILY [facility] Last Admin: 04/30/23 08:56 Dose: 100 mg Apixaban (Apixaban 5 Mg Tablet) 5 mg PO BID [facility] Last Admin: 04/30/23 08:56 Dose: 5 mg Atorvastatin Calcium (Atorvastatin 40 Mg Tablet) 80 mg PO HS [facility] Last Admin: 04/29/23 21:52 Dose: 80 mg Dicyclomine HCl (Dicyclomine 10 Mg Capsule) 10 mg PO QID [facility] Last Admin: 04/30/23 16:24 Dose: 10 mg Ceftriaxone Sodium 1 gm/ (Sodium Chloride) 100 mls @ 200 mls/hr IV DAILY [facility] Last Infusion: 04/30/23 09:30 Dose: Infused Sodium Chloride (Normal Saline 0.9%) 1,000 mls @ 83.33 mls/hr IV .Q12H1M [facility] Last Admin: 04/30/23 15:13 Dose: 83.3 mls/hr Lidocaine HCl (Lidocaine Viscous 2% 15 Ml Oral Syringe) 5 ml TOP Q4H PRN PRN Reason: Rectal Pain Last Admin: 04/30/23 13:22 Dose: 5 ml Metoprolol Succinate (Metoprolol Succinate 25 Mg Tablet) 25 mg PO BID [facility] Last Admin: 04/30/23 08:56 Dose: 25 mg Multi-Ingredient Ointment (Zinc Oxide 20% Oint 30 Gm Tube) 1 applic TOP PRN PRN PRN Reason: Skin Care Last Admin: 04/29/23 14:52 Dose: 1 applic Multivitamins/Minerals (Multivitamin W/Minerals Tablet) 1 tab PO DAILYWM [facility] Last Admin: 04/30/23 08:56 Dose: 1 tab Mycophenolate Mofetil (Mycophenolate Mofetil 250 Mg Capsule) 1,000 mg PO BID [facility] Last Admin: 04/30/23 08:56 Dose: 1,000 mg Nystatin (Nystatin Powder 15 Gm) 1 applic TOP BID [facility] Last Admin: 04/30/23 08:57 Dose: 1 applic Ondansetron HCl (Ondansetron 4 Mg/2 Ml Vial) 4 mg IVP Q6HR PRN PRN Reason: Nausea / Vomiting Prednisone (Prednisone 5 Mg Tablet) 5 mg PO DAILYWM [facility] Last Admin: 04/30/23 08:56 Dose: 5 mg Sodium Chloride (Sodium Chloride Flush 0.9% 10 Ml Syringe) 10 ml IVP PRN PRN PRN Reason: NEEDED PER PROVIDER ORDERS Sodium Chloride (Sodium Chloride Flush 0.9% 10 Ml Syringe) 10 ml IVP 0100,0900,1700 [facility] Last Admin: 04/30/23 16:24 Dose: Not Given Tamsulosin HCl (Tamsulosin 0.4 Mg Capsule) 0.4 mg PO DAILY [facility] Last Admin: 04/30/23 08:56 Dose: 0.4 mg Tramadol HCl (Tramadol 50 Mg Tablet) 50 mg PO Q4HR PRN PRN Reason: Moderate Pain (Level 4-6) Last Admin: 04/30/23 08:54 Dose: 50 mg allopurinoL [Allopurinol] 100 mg ORAL DAILY 08/16/14 Leuprolide [Lupron] 45 mg IM .Q6MO 04/05/22 Tamsulosin [Flomax] 0.4 mg PO DAILY 04/05/22 mycophenolate mofetiL [Mycophenolate Mofetil] 1,000 mg PO BID 04/05/22 predniSONE [Deltasone] 5 mg PO QDBREAKFAST 04/05/22 Abiraterone Acetate [Zytiga] 1,000 mg PO DAILY 07/16/22 Apixaban [Eliquis] 5 mg PO BID 07/16/22 Metoprolol Succinate [Toprol Xl] 25 mg PO DAILY 07/16/22 Rosuvastatin Calcium [Crestor] 40 mg PO HS 07/16/22 Potassium Chloride 1 cap ORAL DAILY 04/27/23 traMADol [Ultram] 1 - 2 tab ORAL QID PRN 04/27/23 Objective - Vital Signs/Intake & Output Reviewed Vital Signs: Yes Vital Signs: Vital Signs x48h Temp Pulse Pulse Pulse Pulse Resp BP 04/30/23 15:54 36.2 C L 76 20 04/30/23 13:00 36.5 C 54 L 18 115/72 04/30/23 11:31 78 68 04/30/23 11:25 78 68 BP BP BP Pulse Ox Pulse Ox Pulse Ox 04/30/23 15:54 124/72 96 04/30/23 13:00 95 04/30/23 11:31 143/78 H 125/65 96 92 04/30/23 11:25 143/78 H 125/65 Intake & Output: Intake & Output 04/27/23 04/28/23 04/29/23 04/30/23 23:59 23:59 23:59 23:59 Intake Total 3045.793 2693.834 3143.072 4097.807 Output Total 1150 1060 1976 200 Balance 5497.253 3384.834 9326.638 2297.807 - Objective General Appearance: positive: Moderate distress, Other (Morbidly obese white male, laying flat on bed. Nursing having to logroll for [facility] due to rectal incontinence and oozing of stool.) Eyes Bilateral: positive: PERRL, EOMI ENT: positive: No signs of dehydration Neck: positive: No JVD. negative: Stiff neck Respiratory: positive: No respiratory distress, Other (Shallow, slow, unlabored respiration. The only time he has an increased respiratory rate is when he is about to be examined or have [facility] and its painful.). negative: Wheezes, Rales, Rhonchi Cardiovascular: positive: Regular rate & rhythm Abdomen: positive: Non-tender, No organomegaly, Nml bowel sounds, No distention, Other (Large obese pannus) Rectal: positive: Tenderness, Other (Thickened brown stool that is oozing from rectum, but there is some hard stool. Decreased sphincter tone.). negative: Bloody stool Skin: positive: Warm, Dry, Pallor Extremities: positive: Full ROM, Pedal edema. negative: Joint swelling, Penny's sign/cords Neurologic/Psychiatric: positive: Oriented x3, CN's nml (2-12). negative: Motor nml (He just feels like his legs are weak. But he is able to flex at the hip, flex at the knee, plantar and dorsiflex at the feet.) - Lab Results Fish Bones: 04/30/23 07:10 04/30/23 07:10 Other Labs: Lab Results x24hrs 04/30/23 04/30/23 Range/Units 07:10 07:10 WBC 14.2 H (4.8-10.8) x10^3/uL RBC 4.55 L (4.70-6.10) 10^6/uL Hgb 13.5 L (14.0-18.0) g/dL Hct 41.5 L (42.0-52.0) % MCV 91.2 (80.0-94.0) fL MCH 29.7 (27.0-31.0) pg MCHC 32.5 (32.0-36.0) g/dL RDW 14.2 (12.0-15.0) % Plt Count 131 (130-450) 10^3/uL MPV 12.0 H (7.4-11.4) fL Neut # (Auto) 13.2 H (1.5-6.6) 10^3/uL Lymph # (Auto) 0.2 L (1.5-3.5) 10^3/uL [place] # (Auto) 0.7 (0.0-1.0) 10^3/uL Eos # (Auto) 0.0 (0.0-0.7) 10^3/uL Baso # (Auto) 0.0 (0.0-0.1) 10^3/uL Absolute Nucleated RBC 0.00 x10^3/uL Nucleated RBC % 0.0 /100WBC Sodium 143 (135-145) mmol/L Potassium 2.6 L (3.5-5.0) mmol/L Chloride 114 H (101-111) mmol/L Carbon Dioxide 23 (21-32) mmol/L Anion Gap 6.0 (6-13) BUN 34 H (6-20) mg/dL Creatinine 1.6 H (0.6-1.2) mg/dL Estimated GFR (MDRD) 42 L (>89) Glucose 184 H (70-100) mg/dL Calcium 7.8 L (8.5-10.3) mg/dL Sepsis Event Note (H) - Evaluation Current Stage of Sepsis: Ruled out Assessment/Plan - Problem List (1) Sinus pause Impression: The warehouse supervisor 3rd shift charge nurse reviewed the patient's record. She feels that the patient has had 32 pauses on telemetry over the last few days. Some shortness 2 seconds, some as long as 3 seconds. Patient has never been symptomatic with this. Blood pressure has been stable. No documentation of syncope, chest pain, diaphoresis etc. She contacted telehealth for this. Telehealth feels that nothing needs to be done overnight and I completely agree with that. The patient is on metoprolol. He would have to be taken off metoprolol, and rhythm analyzed after 48 to 72 hours. But if the patient has no symptoms, I do not think I need to do this. I would also recommend that we do not need notificati on unless the patient is over 4 seconds and symptomatic. (2) Acute kidney injury Assessment/Plan: This was initially felt to be pre-renal, by the admitting Telemedicine provider, caused by poor po intake and decreased appetite and vomiting. He was started on IV fluids at 125 cc an hour, then 04/27 decreased to 83.33 cc/h because of his history of pulmonary edema after getting aggressive IV fluids on his last adm here (EMR was reviewed by me). His BUN and creatinine are rising and worsened 04/[address] with contrast was noted. His IV fluid rate was increased on April 28. Even though his BUN is up today, creatinine is down. We suspect that he has contrast-induced nephropathy. He does not have hydronephrosis, and bladder is emptying, urinary tract anatomy appears normal. UA has casts present. Intake and output: +1895 April 27 +1633 April 28 +1163 April 29 Today he is received 600 cc of potassium riders. But his fluid balance as of this dictation is 3897 cc. I am unsure where the excess fluid is coming from.I have him on 83 cc an hour of maintenance fluid. Again, I want to avoid fluid overload. Plan: I have discussed this with the p.m. nurse. He is going to see where there may have been a miscalculation of his fluid balance. Avoid nephrotoxins. Adjust med doses if needed for renal failure. Follow BMP daily (3) Pathological fracture of vertebra Assessment/Plan: He developed severe low back pain over a month ago. He had traveling to do but was eventually seen by his PCP about a week ago. With that visit he was supposed to get an MRI of the spine done this Friday (today is Friday).He says that urinary incontinence started a month ago with the back pain. Stool incontinence may have been a relatively recent phenomenon. Pain in his thoracic spine is severe. Initially control was with Dilaudid but that order was changed to morphine in ER he received 1 dose of that. The night was changed to tramadol. An MRI of the lumbar spine was done 04/28 and it shows a pathologic fracture of T11 vertebrae. It was described as a compression fracture. There is no spinal cord compression. There was no subluxation. In determining if it is an unstable or stable finding, to warrant a surgery consult, yesterday's hospitalist calculated his SINS (Spine Instability Neoplastic Score) which came back at 10>> "Indeterminate stability, possible impending instability, warrants a surgical consult". Hospitalist then spoke to our Orthopedist for a consult, and reviewed today's MRI findings. Dr Quintero said this pt needs an urgent transfer to a spine center. We called [facility] because that is where he gets his cancer and pulmonary care. After neurosurgery on-call reviewed the films (and it took a long time to get them pushed to him), he called and spoke to [facility]. This is all through nursing. There is no note in the chart. But he explained that the patient does not need urgent transfer. Plan: This was discussed with his and the patient 04/29 and 04/30. She is trying to plan for the future. I have recommended that she hire caregivers and she is not happy about that. She feels like she has been doing a great job taking care of her multiple now. She gets wonderful help from [facility]. She would like to keep this current arrangement. She also does not want to transition to a long-term facility for rehab. I have reordered [facility] health. Nursing will work with his about teaching her logrolling, etc. Also cautioned them that this could take weeks to recover from. Because he has renal failure and vertebral compression, I will check a serum protein electrophoresis, PTH level. Continue current pain medications. I will have physical therapy and Occupational Therapy see him today. (4) Acute urinary retention Assessment/Plan: Bladder scanning was done. He did have documented retention and a Gillespie insertion was ordered by the Telemdicine provider. But no Gillespie was put in. Patient says he still gets urinary urges and has partial control of his urine to Plan: gillespie when needed. (5) UTI (urinary tract infection) Qualifiers: Urinary tract infection type: acute cystitis with hematuria Assessment/Plan: He presented with an elevated white count of 20, altered mental status, and tachycardia, but hadno fever and no elevated lactic acid level. His urinalysis was abnormal suggestive of UTI. Blood cultures without growth after 2 days. No urine culture reported. It was not indicated on his UA All labs were reviewed. On the empiric antibx, his WBC has improved from 20>> 16>> 12>>14.1 today. Plan: Continue with empiric IV antibiotics. Today is Day #3/7. (6) Chronic atrial fibrillation Assessment/Plan: He presented with A-fib with RVR. Probably from volume depletion and vomiting of his meds. Now he has adequate heart rate control, in fact there are times he has 2-2.5 second pauses in Afib Plan: Continue now with his usual metoprolol dose and Eliquis dose Monitor on telemetry I have asked nursing to only report when he is greater than 4 seconds or symptomatic (7) BPH (benign prostatic hyperplasia) Conclusion/Plan: Plan: Continue his tamsulosin (8) Prostate cancer, primary, with metastasis from prostate to other site Conclusion/Plan: The CT of his lower spine showed spinal stenosis MRI shows endplate fracture at T11. No evidence of metastatic disease. But he does have significant rectal pain. Plan: No transfer to Check PSA Rectal exam to make sure he does not have a fissure and if there is nothing on my exam, I will consider a rectal ultrasound (9) Hypotension - Qualified Code(s): I95.9 Assessment/Plan: RESOLVED This appeared to be multifactorial: From his medications adding to the hypotension, from dehydration causing volume depletion, and possibly from being Addisonian since he is on prednisone 5 mg daily but currently has a UTI infection. It does not appear that he is in septic shock with a normal lactic acid level. Plan: He was on aggressive IV fluid for hydration. This is more for his renal failure than blood pressure. I am decreasing his renal rate today,. He is already on hydrocortisone 100 mg 3 times daily for 3 days.As of this note he has received 7 of 9 doses. I will make sure he stops after 9 doses. Then resume prednisone 5 mg daily (10) Rectal pain I am not seeing a fissure. I am feeling external hemorrhoids.'s review of the CT scan confirms external hemorrhoids. I discussed the case with general surgery and I do not need a formal evaluation. She has a treatment of nifedipine mixed with lidocaine to then be placed perirectally to improve the pain. He is not a candidate for hemorrhoidectomy or sclerotherapy because he is on Eliquis.
--- NOTE | 2023-04-30 18:45 | CONSULTATION NOTE ---
Referring Provider Name of Referring Provider:: Christopher Patino) Consult Date: 04/30/23 Chief Complaint - Chief Complaint Chief Complaint: hemorrhoids History of Present Illness - Admitted From Admitted From:: ED - History Obtained From Records Reviewed: yes History obtained from: patient, , primary team Exam Limitations: pateint hard of hearing - History of Present Illness HPI Comment/Other: The patient has been struggling with back pain for several weeks. He has had worsening urinary and fecal incontinence during that time which is new to him. Over the last four days, the patient reports tenesmus and rectal pain with flatus and BM's. He reports a remote history of anal abscess fifty years ago and an isolated incidence of possible rectal fissure more than 10 years ago. He denies any history of previous anal/rectal surgery and has not had a colonoscopy due to his chronic use of blood thinners for atrial fibrillation. He has done cologuard tests which have been negative. History - Past Medical History Cardiovascular: reports: Atrial fibrillation Respiratory: reports: Sleep apnea, CPAP use, Other Neuro: reports: None Endocrine/Autoimmune: reports: None GI: reports: Hepatitis : reports: Kidney stones, Other HEENT: reports: None Psych: reports: None Musculoskeletal: reports: Osteoarthritis, Fatigue Derm: reports: None MRSA Hx?: No Other Past Medical History: sleep apnea, CPAP use, kidney stones, hepatitis, - Past Surgical History General: reports: Colonoscopy Ortho: reports: Other Cardiovascular: reports: Other HEENT: reports: Cataracts, Tonsil/Adenoidectomy Derm: reports: Skin cancer surgery - Family & Social History Family History: Mother: , Father: Family History Comment/Other: Both of his parents had history of strokes and dementia. They in their late 80s. Living Situation: With spouse/s.o. Social History Notes: He lives at home with his Ame. He is a non-smoker and does not drink alcohol. - Substance History Use: Uses substance without health or social issues: NONE - POLST Patient has POLST: No Meds/Allgy - Home Medications Home Medications: Ambulatory Orders Medication Instructions Recorded Confirmed allopurinoL [Allopurinol] 100 mg ORAL DAILY 08/16/14 04/27/23 Leuprolide [Lupron] 45 mg IM .Q6MO 04/05/22 04/27/23 Tamsulosin [Flomax] 0.4 mg PO DAILY 04/05/22 04/27/23 mycophenolate mofetiL 1,000 mg PO BID 04/05/22 04/27/23 [Mycophenolate Mofetil] predniSONE [Deltasone] 5 mg PO QDBREAKFAST 04/05/22 04/27/23 Abiraterone Acetate [Zytiga] 1,000 mg PO DAILY 07/16/22 04/27/23 Apixaban [Eliquis] 5 mg PO BID 07/16/22 04/27/23 Metoprolol Succinate [Toprol Xl] 25 mg PO DAILY 07/16/22 04/27/23 Rosuvastatin Calcium [Crestor] 40 mg PO HS 07/16/22 04/27/23 Potassium Chloride 1 cap ORAL DAILY 04/27/23 04/27/23 traMADol [Ultram] 1 - 2 tab ORAL QID PRN 04/27/23 04/27/23 - Allergies Allergies/Adverse Reactions: Allergies Allergy/AdvReac Type Severity Reaction Status Date / Time Penicillins Allergy Unknown Verified 11/25/22 10:49 Sulfa (Sulfonamide Allergy Unknown Verified 11/25/22 10:49 Antibiotics) Review of Systems - Constitutional Constitutional: reports: Other (A complete 10 point review of symptoms is otherwise negative except for that noted in HPI and PMH.) Exam - Vital Signs Reviewed Vital Signs: Yes Vital Signs: Vital Signs x48h Temp Pulse Pulse Pulse Pulse Resp BP 04/30/23 15:54 36.2 C L 76 20 04/30/23 13:00 36.5 C 54 L 18 115/72 04/30/23 11:31 78 68 04/30/23 11:25 78 68 BP BP BP Pulse Ox Pulse Ox Pulse Ox 04/30/23 15:54 124/72 96 04/30/23 13:00 95 04/30/23 11:31 143/78 H 125/65 96 92 04/30/23 11:25 143/78 H 125/65 - Physical Exam Comments/Other: GEN: No acute distress, appears stated age, alert and oriented HEENT: NCAT, MMM, EOMI, hard of hearing NEURO: CN II-XII grossly intact, no obvious focal deficits CV: Irregularly irregular rhythm PULM: Nonlabored, on room air ABD: soft, morbidly obese, non tender, no rebound or guarding Rectal exam: The patient has reddish, loose stool in his undergarment. He has poor rectal tone on digital rectal exam and exquisite tenderness to palpation with digital rectal exam. He has a moderate amount of stool in the rectal vault which is brown. He has a possible 5mm fissure in the anterior midline which is tender to palpation with a cotton tip swab.He does not have appreciable external hemorrhoids, and internal hemorrhoids are difficult to evaluate on this exam, but no prolapsing hemorrhoids were noted. PSYCH: Affect is appropriate Conclusion and Plan - Lab Results Laboratory Results 04/30/23 07:10: Sodium 143, Potassium 2.6 L, Chloride 114 H, Carbon Dioxide 23, Anion Gap 6.0, BUN 34 H, Creatinine 1.6 H, Estimated GFR (MDRD) 42 L, Glucose 184 H, Calcium 7.8 L 04/30/23 07:10: WBC 14.2 H, RBC 4.55 L, Hgb 13.5 L, Hct 41.5 L, MCV 91.2, MCH 29.7, MCHC 32.5, RDW 14.2, Plt Count 131, MPV 12.0 H, Neut # (Auto) 13.2 H, Lymph # (Auto) 0.2 L, [place] # (Auto) 0.7, Eos # (Auto) 0.0, Baso # (Auto) 0.0, Absolute Nucleated RBC 0.00, Nucleated RBC % 0.0 04/29/23 05:01: Sodium 138, Potassium 2.9 L, Chloride 111, Carbon Dioxide 17 L, Anion Gap 10.0, BUN 32 H, Creatinine 2.1 H, Estimated GFR (MDRD) 31 L, Glucose 173 H, Calcium 7.8 L 04/29/23 05:01: WBC 14.1 H, RBC 4.66 L, Hgb 13.6 L, Hct 42.5, MCV 91.2, MCH 29.2, MCHC 32.0, RDW 14.2, Plt Count 137, MPV 12.2 H, Neut # (Auto) 13.0 H, Lymph # (Auto) 0.3 L, [place] # (Auto) 0.7, Eos # (Auto) 0.0, Baso # (Auto) 0.0, Absolute Nucleated RBC 0.00, Nucleated RBC % 0.0 - Diagnostic Imaging Results Diagnostic Imaging Results: positive: Final report reviewed Diagnostic Imaging Results Comments: I did review the patient's most recent CT scan of the abdomen and pelvis and he does have some thickening of his distal rectum consistent with possible sterocal colitis versus internal hemorrhoids. - Consultation Note Consultation Note: This is a 77-year-old gentleman with: 1. Anal fissure The patient very much reacts to rectal exam like someone with a rectal fissure, though it is difficult to appreciate on exam. He has noted some improvement with viscous lidocaine. If his symptoms do not continue to improve with formulation, I would recommend consideration of a compounded ointment to include a smooth muscle relaxer such as diltiazem, nifedipine, or nitroglycerin. The anal fissure ointment I typically prescribe in clinic is a compounded 35 g ointment containing 0.6 g of diltiazem hydrochloride powder, lidocaine powder 1.5 g, petroleum jelly 28.55gm, miconazole nitrate powder 0.6 g, and metronidazole benzoate powder 3 g. Certainly a simpler compound containing just petroleum jelly and the smooth muscle relaxer with a local anesthetic would be adequate. Any such ointment could be applied to the affected area up to 4 times a day. If the patient's mobility improves, warm sitz baths could also be trialed and I feel these are likely to improve his symptoms. Given his need for chronic anticoagulation, he is not a great candidate for colonoscopy or invasive procedure at this time. If his symptoms are not improving, an exam under anesthesia could be considered. 2.atrial fibrillation, morbid obesity, FILIPE, vertebral fracture, UTI, urinary retention, prostate cancer - as per primary team. Surgery will follow peripherally. Please call with any questions or concerns. Thank you for consulting me in the care of this patient!
[2023-04-30] MEDS: ATORVASTATIN 40 MG TABLET PO SCH (21:58)
[2023-04-30] MEDS: ZINC OXIDE 20% OINT 30 GM TUBE TOP PRN (21:59)
[2023-05-01] MEDS: SODIUM CHLORIDE FLUSH 0.9% 10 ML SYRINGE IVP SCH ×3 (01:04→17:51)
[2023-05-01] MEDS: SODIUM CHLORIDE 0.9% 1,000 ML IV SCH (03:19)
[2023-05-01 05:20] LABS: BASOPHILS % (AUTO) 0.1 %; EOSINOPHILS % (AUTO) 0.3 %; HCT - HEMATOCRIT 40.5 % (42.0-52.0); LYMPHOCYTES % (AUTO) 4.8 %; MEAN CORPUSCULAR HEMOGLOBIN 29.1 pg (27.0-31.0); MEAN CORPUSCULAR HGB CONC 32.1 g/dL (32.0-36.0); MEAN CORPUSCULAR VOLUME 90.8 fL (80.0-94.0); MEAN PLATELET VOLUME 11.7 fL (7.4-11.4); MONOCYTES % (AUTO) 11.1 %; PLT - PLATELET COUNT 123 10^3/uL (130-450); RED BLOOD COUNT 4.46 10^6/uL (4.70-6.10); RED CELL DISTRIBUTION WIDTH 14.4 % (12.0-15.0); WHITE BLOOD COUNT 14.4 x10^3/uL (4.8-10.8)
[2023-05-01 05:23] LABS: ABNORMAL LYMPHS % (MANUAL) 0 %; BAND NEUTROPHILS % (MANUAL) 0 %
[2023-05-01 05:34] LABS: LYMPHOCYTES # (MANUAL) 0.7 10^3/uL (1.5-3.5); LYMPHOCYTES % (MANUAL) 5 %; NEUTROPHILS # (MANUAL) 12.7 10^3/uL (1.5-6.6); RBC MORPHOLOGY (MULTIPLE) NORMAL APPEARANCE (NORMAL)
[2023-05-01 05:35] LABS: DIFFERENTIAL COMMENT MANUAL DIFFERENTIAL; PLATELET ESTIMATE, MANUAL DECREASED (<130,000) (NORMAL); PLATELET MORPHOLOGY NORMAL APPEARANCE (NORMAL); WBC MORPHOLOGY (MULTIPLE) NORMAL APPEARANCE (NORMAL)
[2023-05-01 05:36] LABS: CALCIUM 7.8 mg/dL (8.5-10.3); CREATININE 1.5 mg/dL (0.6-1.2); POTASSIUM 2.7 mmol/L (3.5-5.0)
[2023-05-01] MEDS: DICYCLOMINE 10 MG CAPSULE PO SCH ×4 (08:00→21:23)
[2023-05-01] MEDS: TAMSULOSIN 0.4 MG CAPSULE PO SCH (08:01)
[2023-05-01] MEDS: METOPROLOL SUCCINATE 25 MG TABLET PO SCH ×3 (08:01→21:23)
[2023-05-01] MEDS: traMADol 50 MG TABLET PO PRN (08:01)
[2023-05-01] MEDS: mycophenolate mofetiL 250 MG CAPSULE PO SCH ×2 (08:01→21:23)
[2023-05-01] MEDS: APIXABAN 5 MG TABLET PO SCH ×2 (08:01→21:23)
[2023-05-01] MEDS: predniSONE 5 MG TABLET PO SCH (08:02)
[2023-05-01] MEDS: allopurinoL 100 MG TABLET PO SCH (08:02)
[2023-05-01] MEDS: LIDOCAINE VISCOUS 2% 15 ML ORAL SYRINGE TOP PRN (08:03)
[2023-05-01] MEDS: cefTRIAXone 1 GM in SODIUM CHLORIDE 0.9% MINIBAG 100 ML IV SCH (08:03)
[2023-05-01] MEDS: NYSTATIN POWDER 15 GM TOP SCH ×2 (08:14→21:24)
[2023-05-01] MEDS: BUPRENORPHINE/NALOXONE 8-2 MG TAB SL SCH (09:52)
[2023-05-01] MEDS: MULTIVITAMIN W/MINERALS TABLET PO SCH (09:55)
--- NOTE | 2023-05-01 11:48 | PROVIDER PROGRESS NOTE ---
Subjective - Prog Note Date Prog Note Date: 05/01/23 Prog Note Time: 12:27 - Subjective Pt reports feeling: No change Subjective: His rectal pain has improved tremendously with the use of viscous lidocaine. There are moments that he has no pain at all. However his back pain is terrible this morning. "My back is on fire". Appetite waxes and wanes depending on how much pain he is in. It is difficult for him to work with PT because of the back pain. Urinary incontinence seems to be worse today. Rectal incontinence is the same with oozing of stool intermittently Current Medications - Current Medications Current Medications: Active Medications Acetaminophen (Acetaminophen 325 Mg Tablet) 650 mg PO Q4HR PRN PRN Reason: Pain 1 to 4, or Fever Last Admin: 04/28/23 17:29 Dose: 650 mg Allopurinol (Allopurinol 100 Mg Tablet) 100 mg PO DAILY [facility] Last Admin: 05/01/23 08:02 Dose: 100 mg Apixaban (Apixaban 5 Mg Tablet) 5 mg PO BID [facility] Last Admin: 05/01/23 08:01 Dose: 5 mg Atorvastatin Calcium (Atorvastatin 40 Mg Tablet) 80 mg PO [facility] Last Admin: 04/30/23 21:58 Dose: 80 mg Buprenorphine HCl (Buprenorphine/Naloxone 8-2 Mg Tab) 0.5 tab SL DAILY [facility] Last Admin: 05/01/23 09:52 Dose: 0.5 tab Dicyclomine HCl (Dicyclomine 10 Mg Capsule) 10 mg PO QID [facility] Last Admin: 05/01/23 08:00 Dose: 10 mg Ceftriaxone Sodium 1 gm/ (Sodium Chloride) 100 mls @ 200 mls/hr IV DAILY [facility] Last Infusion: 05/01/23 09:51 Dose: Infused Lidocaine HCl (Lidocaine Viscous 2% 15 Ml Oral Syringe) 5 ml TOP Q4H PRN PRN Reason: Rectal Pain Last Admin: 05/01/23 08:03 Dose: 5 ml Metoprolol Succinate (Metoprolol Succinate 25 Mg Tablet) 25 mg PO BID [facility] Last Admin: 05/01/23 08:10 Dose: Not Given Multi-Ingredient Ointment (Zinc Oxide 20% Oint 30 Gm Tube) 1 applic TOP PRN PRN PRN Reason: Skin Care Last Admin: 04/30/23 21:59 Dose: 1 applic Multivitamins/Minerals (Multivitamin W/Minerals Tablet) 1 tab PO DAILYWM [facility] Last Admin: 05/01/23 09:55 Dose: 1 tab Mycophenolate Mofetil (Mycophenolate Mofetil 250 Mg Capsule) 1,000 mg PO BID [facility] Last Admin: 05/01/23 08:01 Dose: 1,000 mg Nystatin (Nystatin Powder 15 Gm) 1 applic TOP BID [facility] Last Admin: 05/01/23 08:14 Dose: 1 applic Ondansetron HCl (Ondansetron 4 Mg/2 Ml Vial) 4 mg IVP Q6HR PRN PRN Reason: Nausea / Vomiting Potassium Chloride (Potassium Chloride 20 Meq Tablet) 40 meq PO TIDWM [facility] Stop: 05/02/23 08:01 Prednisone (Prednisone 5 Mg Tablet) 5 mg PO DAILYWM [facility] Last Admin: 05/01/23 08:02 Dose: 5 mg Sodium Chloride (Sodium Chloride Flush 0.9% 10 Ml Syringe) 10 ml IVP PRN PRN PRN Reason: NEEDED PER PROVIDER ORDERS Sodium Chloride (Sodium Chloride Flush 0.9% 10 Ml Syringe) 10 ml IVP 0100,0900,1700 [facility] Last Admin: 05/01/23 09:52 Dose: Not Given Tamsulosin HCl (Tamsulosin 0.4 Mg Capsule) 0.4 mg PO DAILY [facility] Last Admin: 05/01/23 08:01 Dose: 0.4 mg Tramadol HCl (Tramadol 50 Mg Tablet) 50 mg PO Q4HR PRN PRN Reason: Moderate Pain (Level 4-6) Last Admin: 05/01/23 08:01 Dose: 50 mg allopurinoL [Allopurinol] 100 mg ORAL DAILY 08/16/14 Leuprolide [Lupron] 45 mg IM .Q6MO 04/05/22 Tamsulosin [Flomax] 0.4 mg PO DAILY 04/05/22 mycophenolate mofetiL [Mycophenolate Mofetil] 1,000 mg PO BID 04/05/22 predniSONE [Deltasone] 5 mg PO QDBREAKFAST 04/05/22 Abiraterone Acetate [Zytiga] 1,000 mg PO DAILY 07/16/22 Apixaban [Eliquis] 5 mg PO BID 07/16/22 Metoprolol Succinate [Toprol Xl] 25 mg PO DAILY 07/16/22 Rosuvastatin Calcium [Crestor] 40 mg PO HS 07/16/22 Potassium Chloride 1 cap ORAL DAILY 04/27/23 traMADol [Ultram] 1 - 2 tab ORAL QID PRN 04/27/23 Objective - Vital Signs/Intake & Output Reviewed Vital Signs: Yes Vital Signs: Vital Signs x48h Temp Pulse Resp BP BP Pulse Ox 05/01/23 07:47 36.3 C L 73 18 123/88 H 95 05/01/23 05:00 37.0 C 75 18 124/68 96 Intake & Output: Intake & Output 04/28/23 04/29/23 04/30/23 05/01/23 23:59 23:59 23:59 23:59 Intake Total 2693.834 3143.072 4537.807 1420 Output Total 1060 1976 400 Balance 5420.446 2519.072 4137.807 1420 - Objective General Appearance: positive: Alert, Moderate distress (Grimacing of face, scrunching of nose, all because of his upper L-spine and lower T-spine pain.), Other (Laying flat on his back.) Eyes Bilateral: positive: PERRL, EOMI ENT: positive: Pharynx nml, No signs of dehydration Neck: positive: No JVD. negative: Stiff neck Respiratory: positive: No respiratory distress, Other (Slow, shallow, unlabored. But not a lot of air movement. I warned him that he needs to do some incentive spirometry or practice deep breathing to avoid atelectasis and subsequent pneumonia). negative: Wheezes, Rales, Rhonchi Cardiovascular: positive: Regular rate & rhythm Abdomen: positive: Non-tender, No organomegaly, Nml bowel sounds, No distention Skin: positive: Warm, Dry Extremities: positive: Full ROM, No pedal edema Neurologic/Psychiatric: positive: Oriented x3, CN's nml (2-12), Motor nml (Back pain limits him but he is able to move all extremities. He is not hyperreflexive or hyporeflexive. I can only check his knees, I cannot check his Achilles. But he can plantar and dorsiflex his feet. Bend at the knee and flex. Bend at the hip/groin and flex.) - Lab Results Fish Bones: 05/01/23 04:59 05/01/23 04:59 Other Labs: Lab Results x24hrs 05/01/23 05/01/23 05/01/23 Range/Units 04:59 04:59 04:59 WBC 14.4 H (4.8-10.8) x10^3/uL RBC 4.46 L (4.70-6.10) 10^6/uL Hgb 13.0 L (14.0-18.0) g/dL Hct 40.5 L (42.0-52.0) % MCV 90.8 (80.0-94.0) fL MCH 29.1 (27.0-31.0) pg MCHC 32.1 (32.0-36.0) g/dL RDW 14.4 (12.0-15.0) % Plt Count 123 L (130-450) 10^3/uL MPV 11.7 H (7.4-11.4) fL Neut # (Auto) Not Reportable Lymph # (Auto) Not Reportable [place] # (Auto) Not Reportable Eos # (Auto) Not Reportable Baso # (Auto) Not Reportable Absolute Nucleated RBC Not Reportable Total Counted 100 Band Neuts % (Manual) 0 (0 - 10) % Abnorm Lymph % (Manual) 0 % Nucleated RBC % Not Reportable Neutrophils # (Manual) 12.7 H (1.5-6.6) 10^3/uL Lymphocytes # (Manual) 0.7 L (1.5-3.5) 10^3/uL Monocytes # (Manual) 1.0 (0.0-1.0) 10^3/uL Eosinophils # (Manual) 0.0 (0-0.7) 10^3/uL Basophils # (Manual) 0.0 (0-0.1) 10^3/uL Differential Comment MANUAL DIFFERENTIAL WBC Morphology NORMAL APPEARANCE (NORMAL) Platelet Estimate DECREASED (<130,000) (NORMAL) Platelet Morphology NORMAL APPEARANCE (NORMAL) RBC Morph Micro Appear NORMAL APPEARANCE (NORMAL) Sodium 142 (135-145) mmol/L Potassium 2.7 L (3.5-5.0) mmol/L Chloride 114 H (101-111) mmol/L Carbon Dioxide 23 (21-32) mmol/L Anion Gap 5.0 L (6-13) BUN 33 H (6-20) mg/dL Creatinine 1.5 H (0.6-1.2) mg/dL Estimated GFR (MDRD) 46 L (>89) Glucose 154 H (70-100) mg/dL Calcium 7.8 L (8.5-10.3) mg/dL PTH Intact 75 (12-88) pg/mL ABX Reporting Has patient been on IV antibiotics over the past 48 hours?: Yes Sepsis Event Note (H) - Evaluation Current Stage of Sepsis: Ruled out Assessment/Plan - Problem List (1) Acute kidney injury Impression: This was initially felt to be pre-renal, by the admitting Telemedicine provider, caused by poor po intake and decreased appetite and vomiting. This was the main reason he was admitted. He was started on IV fluids at 125 cc an hour, then 04/27 decreased to 83.33 cc/h because of his history of pulmonary edema after getting aggressive IV fluids on his last adm here (EMR was reviewed by me). His BUN and creatinine are rising and worsened 04/[address] with contrast was noted. His IV fluid rate was increased on April 28. Even though his BUN is up today, creatinine is down. We suspect that he has contrast-induced nephropathy. He does not have hydronephrosis, and bladder is emptying, urinary tract anatomy appears normal. UA has casts present. Intake and output: +1895 April 27 +1633 April 28 +1163 April 29 +4137 April 30. RN that day was not been able to pin down why he is so positive with his fluid intake. They do not think it was oral intake. And they did not record IV intake was this much. So in speaking to the nurse today we were able to break it down. He drank 1230 cc of fluids yesterday. For IV maintenance and IV potassium riders he received 2570. And then his diet tray allowed him 640 cc. That resulted in 4440 cc of fluid in. He is miserable with his back pain today. Rectal pain is better. But he is not short of breath. As of this dictation he has received 1420 cc in, no urine output recorded today since he is now incontinent.He is not urinating in the urinal as he has been in the last few days. Laboratory Tests 04/26/23 04/28/23 04/29/23 18:07 05:08 05:01 Creatinine 2.0 H 2.6 H 2.1 H 04/30/23 05/01/23 07:10 04:59 Creatinine 1.6 H 1.5 H The bump in creatinine was attributed to diet with the CT scan. He has been slowly improving with IV fluids and time. His baseline is 1.1. Plan: I have discussed this with the Daytime nurse. I have asked them to please see where the fluid intake came from. We talked about a condom catheter. But she said his penis is pretty retracted and does not think it will stay. The next step would be a Gillespie if I want accurate urine output. She is going to work with him a little bit before I have to do that order. Avoid nephrotoxins. Adjust med doses if needed for renal failure. Follow BMP daily Because he has renal failure and vertebral compression, I have ordered a serum protein electrophoresis, PTH level. This morning he was drinking his juice, coffee, water. I will stop maintenance IV fluids since creatinine is almost normal. His hypokalemia is daily. I have stopped his IV maintenance fluids. We will give him more K riders today. We will also see if he can tolerate p.o. potassium supplementation. (3) Pathological fracture of vertebra Assessment/Plan: He developed severe low back pain over a month ago. He had traveling to do, so delayed seeing someone, but was eventually seen by his PCP about a week ago. With that visit he was supposed to get an MRI of the spine done May 02. He says that urinary incontinence started a month ago with the back pain. Stool incontinence may have been a relatively recent phenomenon. Pain in his thoracic spine is severe. Initially control was with Dilaudid but that order was changed to morphine in ER and he received 1 dose of that. That first night here he was placed on tramadol. An MRI of the lumbar spine was done 04/28 and it shows a pathologic fracture of T11 vertebrae. It was described as a compression fracture. There is no spinal cord compression. There was no subluxation. In determining if it is an unstable or stable finding, to warrant a surgery consult, yesterday's hospitalist calculated his SINS (Spine Instability Phuc plastic Score) which came back at 10>> "Indeterminate stability, possible impending instability, warrants a surgical consult". Hospitalist then spoke to our Orthopedist for a consult, and reviewed today's MRI findings. Dr Quintero said this pt needs an urgent transfer to a spine center. We called [facility] because that is where he gets his cancer and pulmonary care. After neurosurgery on-call reviewed the films (and it took a long time to get them pushed to him), he called and spoke to [facility]. This is all through nursing. There is no note in the chart. But he explained that the patient does not need urgent transfer. Plan: This was discussed with his and the patient 04/29 and 04/30. She is trying to plan for the future. I have recommended that she hire caregivers and she is not happy about that. She feels like she has been doing a great job taking care of her multiple now. She gets wonderful help from [facility]. She would like to keep this current arrangement. She also does not want to transition to a long term facility for rehab. I have reordered [facility]. Nursing will work with his about teaching her logrolling, etc. Also cautioned them that this could take weeks to recover from. I have ordered PT and OT but it is slow going for him because of his pain. The most he can do is sit up in bed. They will continue to work with him. I will try Suboxone, half of a tablet, and see if that improves his pain enough for him to be more mobile (4) Acute urinary retention Assessment/Plan: Bladder scanning was done. He did have documented retention and a Gillespie insertion was ordered by the Telemdicine provider. But no Gillespie was put in. Patient says he still gets urinary urges and has partial control of his urine . This issue was discussed again today. I am waiting to hear from nursing about what her options are going to be to try and measure his urine output. Plan: gillespie when needed. (5) UTI (urinary tract infection) Qualifiers: Urinary tract infection type: acute cystitis with hematuria Assessment/Plan: He presented with an elevated white count of 20, altered mental status, and tachycardia, but hadno fever and no elevated lactic acid level. His urinalysis was abnormal suggestive of UTI. Blood cultures without growth after 2 days. No urine culture reported. It was not indicated on his UA All labs were reviewed. On the empiric antibx, his WBC has improved from 20>> 16>> 12>>14.1>>14.4 today. Plan: Continue with empiric IV antibiotics. Today is Day #5/7. (6) Chronic atrial fibrillation Assessment/Plan: He presented with A-fib with RVR. Probably from volume depletion and vomiting of his meds. Now he has adequate heart rate control, in fact there are times he has 2-2.5 second pauses in Afib. The fur ironer charge nurse on April 29 (11 pm to 7 am on April 30) reviewed the patient's record. She feels that the patient has had 32 pauses on telemetry over the last few days. Some shortness 2 seconds, some as long as 3 seconds. Patient has never been symptomatic with this. Blood pressure has been stable. No documentation of syncope, chest pain, diaphoresis etc. She contacted telehealth for this. Telehealth feels that nothing needs to be done overnight and I completely agree with that. The patient is on metoprolol. He would have to be taken off metoprolol, and rhythm analyzed after 48 to 72 hours. But if the patient has no symptoms, I do not think I need to do this. I would also recommend that we do not need notification unless the patient is over 4 seconds and symptomatic. Plan: Continue now with his usual metoprolol dose and Eliquis dose Monitor on telemetry I have asked nursing to only report when he is greater than 4 seconds or symptomatic (7) BPH (benign prostatic hyperplasia) Conclusion/Plan: Plan: Continue his tamsulosin (8) Prostate cancer, primary, with metastasis from prostate to other site Conclusion/Plan: The CT of his lower spine showed spinal stenosis MRI shows endplate fracture at T11. No evidence of metastatic disease. But he does have significant rectal pain. I did a rectal exam on April 29 in the evening. He cried out with pain. No specific 6 clock position pain so I don't think he has a fissure. His pain was in all quadrants of his rectum. I could feel probable external hemorrhoids but could not see them because he is constantly oozing of stool. I gave him viscous lidocaine and that helped tremendously with the pain. I reviewed the CAT scan with radiology yesterday. I wanted to make sure I was not missing a small abscess or another anatomic distortion that I could not feel. Radiologist feels that he is looking at external hemorrhoids. I also had general surgery see him yesterday but she says that he is a poor candidate for any type of sclerotherapy or hemorrhoidectomy because he is on blood thinners. She gave me a recommendation for a compounded rectal medication to control his pain. I have submitted the med request to the pharmacy in regard to be discussing whether we can do this compound or not. Plan: No transfer to I have ordered PSA and it is pending. Continue rectal lidocaine since this is helping. (9) Hypotension - Qualified Code(s): I95.9 Assessment/Plan: This appeared to be multifactorial: From his medications adding to the hypotension, from dehydration causing volume depletion, and possibly from being Addisonian since he is on prednisone 5 mg daily but currently has a UTI infection. It does not appear that he is in septic shock with a normal lactic acid level. He was given hydrocortisone IV. I allowed 3 doses and I switched him to oral prednisone, which is his usual dose, yesterday. His blood pressure will be normal, and this morning he was 90 systolic. He is not hemorrhaging, has no change in medication such as a new blood pressure drug, he is not bradycardic, so I am puzzled by the bradycardia. Plan: He was on aggressive IV fluid for hydration. This is more for his renal failure than blood pressure. I will stop IV fluids today. Continue to monitor blood pressure carefully.
[2023-05-01] MEDS: POTASSIUM CHLORIDE 20 MEQ TABLET PO SCH ×2 (12:50→17:51)
[2023-05-01] MEDS: ATORVASTATIN 40 MG TABLET PO SCH (21:23)
[2023-05-02] MEDS: SODIUM CHLORIDE FLUSH 0.9% 10 ML SYRINGE IVP SCH ×3 (01:31→18:01)
[2023-05-02] MEDS: BUPRENORPHINE/NALOXONE 8-2 MG TAB SL SCH (08:44)
[2023-05-02] MEDS: APIXABAN 5 MG TABLET PO SCH ×2 (08:45→21:41)
[2023-05-02] MEDS: ZINC OXIDE 20% OINT 30 GM TUBE TOP PRN ×2 (08:45→22:25)
[2023-05-02] MEDS: mycophenolate mofetiL 250 MG CAPSULE PO SCH ×2 (08:45→21:41)
[2023-05-02] MEDS: MULTIVITAMIN W/MINERALS TABLET PO SCH (08:45)
[2023-05-02] MEDS: LIDOCAINE VISCOUS 2% 15 ML ORAL SYRINGE TOP PRN (08:45)
[2023-05-02] MEDS: NYSTATIN POWDER 15 GM TOP SCH ×2 (08:46→21:42)
[2023-05-02] MEDS: TAMSULOSIN 0.4 MG CAPSULE PO SCH (08:46)
[2023-05-02] MEDS: allopurinoL 100 MG TABLET PO SCH (08:46)
[2023-05-02] MEDS: POTASSIUM CHLORIDE 20 MEQ TABLET PO SCH (08:46)
[2023-05-02] MEDS: predniSONE 5 MG TABLET PO SCH (08:46)
[2023-05-02] MEDS: METOPROLOL SUCCINATE 25 MG TABLET PO SCH ×2 (08:46→21:41)
[2023-05-02] MEDS: cefTRIAXone 1 GM in SODIUM CHLORIDE 0.9% MINIBAG 100 ML IV SCH (09:00)
[2023-05-02] MEDS: DICYCLOMINE 10 MG CAPSULE PO SCH ×4 (09:15→21:41)
[2023-05-02 10:39] LABS: BASOPHILS % (AUTO) 0.1 %; EOSINOPHILS # (AUTO) 0.2 10^3/uL (0.0-0.7); EOSINOPHILS % (AUTO) 1.2 %; HCT - HEMATOCRIT 42.6 % (42.0-52.0); HGB - HEMOGLOBIN 13.8 g/dL (14.0-18.0); LYMPHOCYTES % (AUTO) 5.7 %; MEAN CORPUSCULAR HEMOGLOBIN 29.4 pg (27.0-31.0); MEAN CORPUSCULAR HGB CONC 32.4 g/dL (32.0-36.0); MEAN CORPUSCULAR VOLUME 90.6 fL (80.0-94.0); MEAN PLATELET VOLUME 12.3 fL (7.4-11.4); MONOCYTES # (AUTO) 1.5 10^3/uL (0.0-1.0); MONOCYTES % (AUTO) 8.7 %; NEUTROPHILS # (AUTO) 14.4 10^3/uL (1.5-6.6); NEUTROPHILS % (AUTO) 83.7 %; PLT - PLATELET COUNT 110 10^3/uL (130-450); RED CELL DISTRIBUTION WIDTH 14.6 % (12.0-15.0); WHITE BLOOD COUNT 17.2 x10^3/uL (4.8-10.8)
[2023-05-02 10:54] LABS: CREATININE 1.2 mg/dL (0.6-1.2); POTASSIUM 3.2 mmol/L (3.5-5.0)
[2023-05-02 11:20] LABS: PSA FREE 0.013 ng/mL (0.16-2.81)
[2023-05-02 11:31] LABS: PSA TOTAL < 0.008 ng/mL (0.000-2.000)
--- NOTE | 2023-05-02 14:04 | PROVIDER PROGRESS NOTE ---
Progress Note May 02, 2023 2 PM He continues to be bothered by both rectal pain and back pain. The rectal pain will be relieved by the viscous lidocaine and then when the lidocaine runs out the pain returns. His back just locks up on him and it makes it difficult to work with physical therapy. He is unable to ambulate without a two-person max assist. While yesterday his back pain was better controlled, he is just exhausted with any minimal exertion. PT tried to work with him yesterday but in logrolling him and getting him up, pushing off the bed with 1 hand so he could learn to do it on his own, but he was incontinent of stool and he wanted to lay back down. He is requiring 2 max assists for any of this. Physical therapy continues to recommend discharge to SNF as he is way below baseline performance for him. They would recommend transferring via BLS secondary to poor sitting balance/tolerance. His really does not want to send him to a penitentiary. She would far prefer to keep him at home. I will try to get his potassium up by giving him oral potassium as opposed to potassium riders. When nurse was wiping him after his stool, he has a little bit of blood on the wipe. Active Medications Acetaminophen (Acetaminophen 325 Mg Tablet) 650 mg PO Q4HR PRN PRN Reason: Pain 1 to 4, or Fever Last Admin: 04/28/23 17:29 Dose: 650 mg Allopurinol (Allopurinol 100 Mg Tablet) 100 mg PO DAILY [facility] Last Admin: 05/02/23 08:46 Dose: 100 mg Apixaban (Apixaban 5 Mg Tablet) 5 mg PO BID [facility] Last Admin: 05/02/23 08:45 Dose: 5 mg Atorvastatin Calcium (Atorvastatin 40 Mg Tablet) 80 mg PO HS [facility] Last Admin: 05/01/23 21:23 Dose: 80 mg Buprenorphine HCl (Buprenorphine/Naloxone 8-2 Mg Tab) 0.5 tab SL DAILY [facility] Last Admin: 05/02/23 08:44 Dose: 0.5 tab Dicyclomine HCl (Dicyclomine 10 Mg Capsule) 10 mg PO QID [facility] Last Admin: 05/02/23 13:08 Dose: 10 mg Lidocaine HCl (Lidocaine Jelly 2% 6 Ml Jel.Pf.Rosenda) 6 ml TOP Q4H PRN PRN Reason: RECTAL PAIN Metoprolol Succinate (Metoprolol Succinate 25 Mg Tablet) 25 mg PO BID [facility] Last Admin: 05/02/23 08:46 Dose: 25 mg Multi-Ingredient Ointment (Zinc Oxide 20% Oint 30 Gm Tube) 1 applic TOP PRN PRN PRN Reason: Skin Care Last Admin: 05/02/23 08:45 Dose: 1 applic Multivitamins/Minerals (Multivitamin W/Minerals Tablet) 1 tab PO DAILYWM [facility] Last Admin: 05/02/23 08:45 Dose: 1 tab Mycophenolate Mofetil (Mycophenolate Mofetil 250 Mg Capsule) 1,000 mg PO BID [facility] Last Admin: 05/02/23 08:45 Dose: 1,000 mg Nystatin (Nystatin Powder 15 Gm) 1 applic TOP BID [facility] Last Admin: 05/02/23 08:46 Dose: 1 applic Ondansetron HCl (Ondansetron 4 Mg/2 Ml Vial) 4 mg IVP Q6HR PRN PRN Reason: Nausea / Vomiting Prednisone (Prednisone 5 Mg Tablet) 5 mg PO DAILYWM [facility] Last Admin: 05/02/23 08:46 Dose: 5 mg Sodium Chloride (Sodium Chloride Flush 0.9% 10 Ml Syringe) 10 ml IVP PRN PRN PRN Reason: NEEDED PER PROVIDER ORDERS Sodium Chloride (Sodium Chloride Flush 0.9% 10 Ml Syringe) 10 ml IVP 0100,0900,1700 [facility] Last Admin: 05/02/23 08:46 Dose: 10 ml Tamsulosin HCl (Tamsulosin 0.4 Mg Capsule) 0.4 mg PO DAILY [facility] Last Admin: 05/02/23 08:46 Dose: 0.4 mg Tramadol HCl (Tramadol 50 Mg Tablet) 50 mg PO Q4HR PRN PRN Reason: Moderate Pain (Level 4-6) Last Admin: 05/01/23 08:01 Dose: 50 mg allopurinoL [Allopurinol] 100 mg ORAL DAILY 08/16/14 Leuprolide [Lupron] 45 mg IM .Q6MO 04/05/22 Tamsulosin [Flomax] 0.4 mg PO DAILY 04/05/22 mycophenolate mofetiL [Mycophenolate Mofetil] 1,000 mg PO BID 04/05/22 predniSONE [Deltasone] 5 mg PO QDBREAKFAST 04/05/22 Abiraterone Acetate [Zytiga] 1,000 mg PO DAILY 07/16/22 Apixaban [Eliquis] 5 mg PO BID 07/16/22 Metoprolol Succinate [Toprol Xl] 25 mg PO DAILY 07/16/22 Rosuvastatin Calcium [Crestor] 40 mg PO HS 07/16/22 Potassium Chloride 1 cap ORAL DAILY 04/27/23 traMADol [Ultram] 1 - 2 tab ORAL QID PRN 04/27/23 Vitals: Temperature 36.6, heart rate 75, blood pressure 144/90, respirations 24, 95% on room air. Morbidly obese, 5 foot 11 inch man at 102 kg. Pleasant personality. Constant grimacing of pain as backs have asked him to sit him and I ask him to sit up so I can examine him. No crying out but the spasms hit him pretty hard. Neck is supple Lungs have diminished breath sounds at the bases Regular rate and rhythm Abdomen is obese, soft, nontender, hypoactive bowel sounds. Slightly distended with his weight. Bowel movement several times a day as he is incontinent of stool. He is incontinent of urine. Legs have trace pitting edema around the ankles. He has knobby osteoarthritic deformities of the toes. The right second toe has 1 black lesion that is nonblanchable, nonpalpable. Not painful. It is over the DIP joint. Neurologic: Alert and oriented to person place and time. Forgetful. When he speaks speech is intact and lucid but he is withdrawn because of pain. He follows two-step commands. Struggles to try and sit up and cannot do it because of the pain. He is moving all extremities. gets worried because "he is moving his legs less" but he can lift his leg off the bed, not for very long. It induces back spasms in the lumbar spine. He can plantar and dorsiflex feet. He can bend at the knee, he can bend at the hip. Labs: Sodium 144 Continues to be hypokalemic at 3.2 today but for the first time this week, he is above 3.0. Assessment/Plan - Problem List (1) Acute kidney injury resolved today by numbers Impression: This was initially felt to be pre-renal, by the admitting Telemedicine provider, caused by poor po intake and decreased appetite and vomiting. This was the main reason he was admitted. He was started on IV fluids at 125 cc an hour, then 04/27 decreased to 83.33 cc/h because of his history of pulmonary edema after getting aggressive IV fluids on his last adm here (EMR was reviewed by me). His BUN and creatinine are rising and worsened 04/[address] with contrast was noted. His IV fluid rate was increased on April 28. Even though his BUN is up today, creatinine is down. We suspect that he has contrast-induced nephropathy. He does not have hydronephrosis, and bladder is emptying, urinary tract anatomy appears normal. UA has casts present. Intake and output: +1895 April 27 +1633 April 28 +1163 April 29 +4137 April 30. RN that day was not been able to pin down why he is so positive with his fluid intake. They do not think it was oral intake. And they did not record IV intake was this much. So in speaking to the nurse 05/01, we were able to break it down. He drank 1230 cc of fluids yesterday. For IV maintenance and IV potassium riders he received 2570. And then his diet tray allowed him 640 cc. That resulted in 4440 cc of fluid in. +3630 May 01, no urine output recorded As of this dictation +1380 intake, no urine output recorded Laboratory Tests 04/26/23 04/28/23 04/29/23 18:07 05:08 05:01 Creatinine 2.0 H 2.6 H 2.1 H 04/30/23 05/01/23 07:10 04:59 Creatinine 1.6 H 1.5 H Laboratory Tests 05/02/23 10:33 Creatinine 1.2 The bump in creatinine was attributed to diet with the CT scan. He has been slowly improving with IV fluids and time. His baseline is 1.1. As such, I am concluding that his kidney failure from dehydration, decreased appetite, and vomiting has resolved. 1.2 is pretty much baseline. I had already stopped his IV fluids yesterday afternoon. Right now he is just taking in p.o. for his intake. Because he has renal failure and vertebral compression, I have ordered a serum protein electrophoresis, PTH level. PTH is normal. Serum protein electrophoresis is pending. (2) Pathological fracture of vertebra Assessment/Plan: He developed severe low back pain over a month ago. He had traveling to do, so delayed seeing someone, but was eventually seen by his PCP about a week ago. With that visit he was supposed to get an MRI of the spine done May 02. He says that urinary incontinence started a month ago with the back pain. Stool incontinence may have been a relatively recent phenomenon. Pain in his thoracic spine is severe. Initially control was with Dilaudid but that order was changed to morphine in ER and he received 1 dose of that. That first night here he was placed on tramadol. An MRI of the lumbar spine was done 04/28 and it shows a pathologic fracture of T11 vertebrae. It was described as a compression fracture. There is no spinal cord compression. There was no subluxation. In determining if it is an unstable or stable finding, to warrant a surgery consult, hospitalist calculated his SINS (Spine Instability Neoplastic Score) which came back at 10>> "Indeterminate stability, possible impending instability, warrants a surgical consult". Hospitalist then spoke to our Orthopedist for a consult, and reviewed MRI findings. Dr Quintero said this pt needs an urgent transfer to a spine center. We called [facility] because that is where he gets his cancer and pulmonary care. After neurosurgery on-call reviewed the films (and it took a long time to get them pushed to him), he called and spoke to [facility]. This is all through nursing. There is no note in the chart. But he explained that the patient does not need urgent transfer. The results of the MRI, and the discussion with the neurosurgeon was relayed to the . We really feel he most likely is going to need jail facility care because he is completely dependent on our therapist and nurses for activities of daily living. But she feels like she has been taking care of him well enough at home. She herself feels like she is very healthy and strong. She does not want to put him in a jail facility. She is already been getting help from [facility]. She would like to return to that status. I already ordered [facility] health to resume. Nursing is working with his to teach him logrolling, skin care, etc. I have warned his that this could take weeks if not months to recover from this back pain. I have ordered PT and OT but it is slow going for him because of his pain. The most he can do is sit up in bed. They will continue to work with him. I ordered half a Suboxone tablet to see if pain relief could be improved. He received half a tablet yesterday, half a tablet this morning. No real noticeable difference. Physical therapy saw him today and they came to discuss his lack of progress with me. He was able to sit on the edge of the bed for 20 minutes on April 29. Today he could barely sit for 10 minutes and needed a lot of emotional reassurance and verbal cueing. He became almost panic stricken and his desire to lay back down. He was just very fearful of falling. His emotional reaction was so strong that he started shaking, was in tears, turning red in the face. They try to use a Lauren lift to see if that would reassure him but it is not connected up to the ceiling. PT will continue to try and work with him. I am hesitant to increase his pain medicine anymore than it is right now. (3) Acute urinary retention Assessment/Plan: Bladder scanning was done. He did have documented retention and a Bourne insertion was ordered by the Telemdicine provider. But no Bourne was put in. Patient says he still gets urinary urges and has partial control of his urine . Right now her nursing is offering him the urinal. They are having some success with that but he still just incontinent of urine and does not notify them. As long is not having any urinary retention I will hold off on putting in a Bourne. (4) UTI (urinary tract infection) Qualifiers: Urinary tract infection type: acute cystitis with hematuria Assessment/Plan: He presented with an elevated white count of 20, altered mental status, and tachycardia, but hadno fever and no elevated lactic acid level. His urinalysis was abnormal suggestive of UTI. Blood cultures without growth after 2 days. No urine culture reported. It was not indicated on his UA All labs were reviewed. On the empiric antibx, his WBC was improving but now up today. Admit 20>> 16>> 12>>14.1>>14.4>>17.2 today. Plan: On empiric antibiotic therapy with Rocephin. I thought today was day #6 of 7. But the emergency room provider reminded me that the patient was seen in the ED April 26 and received a dose of Rocephin then. So today is 7 days. I am stopping Rocephin. I will monitor for signs and symptoms of recurrent infection or new infection. Keep an eye on his pulse, oxygen, temperature (5) Chronic atrial fibrillation Assessment/Plan: He presented with A-fib with RVR. Probably from volume depletion and vomiting of his meds. Now he has adequate heart rate control, in fact there are times he has 2-2.5 second pauses in Afib. The shift commander charge nurse on April 29 (11 pm to 7 am on April 30) reviewed the patient's record. She feels that the patient has had 32 pauses on telemetry over the last few days. Some shortness 2 seconds, some as long as 3 seconds. Patient has never been symptomatic with this. Blood pressure has been stable. No documentation of syncope, chest pain, diaphoresis etc. She contacted telehealth for this. Telehealth feels that nothing needs to be done overnight and I completely agree with that. The patient is on metoprolol. He would have to be taken off metoprolol, and rhythm analyzed after 48 to 72 hours. But if the patient has no symptoms, I do not think I need to do this. I would also recommend that we do not need notification unless the patient is over 4 seconds and symptomatic. Plan: Continue now with his usual metoprolol dose and Eliquis dose Monitor on telemetry I have asked nursing to only report when he is greater than 4 seconds or sympto matic (6) BPH (benign prostatic hyperplasia) Conclusion/Plan: Plan: Continue his tamsulosin (7) Prostate cancer, primary, with metastasis from prostate to other site Conclusion/Plan: The CT of his lower spine showed spinal stenosis MRI shows endplate fracture at T11. No evidence of metastatic disease. But he does have significant rectal pain. I did a rectal exam on April 29 in the evening. He cried out with pain. No specific 6 clock position pain so I don't think he has a fissure. His pain was in all quadrants of his rectum. I could feel probable external hemorrhoids but could not see them because he is constantly oozing of stool. I gave him viscous lidocaine and that helped tremendously with the pain. I reviewed the CAT scan with radiology 04/30. I wanted to make sure I was not missing a small abscess or another anatomic distortion that I could not feel. Radiologist feels that he is looking at external hemorrhoids. I also had general surgery see him 04/30 but she says that he is a poor candidate for any type of sclerotherapy or hemorrhoidectomy because he is on blood thinners. She gave me a recommendation for a compounded rectal medication to control his pain. I have submitted the med request to the pharmacy in regard to be discussing whether we can do this compound or not.Pharmacy says it cannot be done. I will just keep him on the viscous lidocaine. PSA is less than 0.008. Free PSA is 0.013. (8) Hypotension - Qualified Code(s): I95.9 Assessment/Plan: This appeared to be multifactorial: From his medications adding to the hypotension, from dehydration causing volume depletion, and possibly from being Addisonian since he is on prednisone 5 mg daily but currently has a UTI infection. It does not appear that he is in septic shock with a normal lactic acid level. He was given hydrocortisone IV. I allowed 3 doses and I switched him to oral prednisone, which is his usual dose, yesterday. His blood pressure will be normal, and this morning he was 90 systolic. He is not hemorrhaging, has no change in medication such as a new blood pressure drug, he is not bradycardic, so I am puzzled by the bradycardia. Plan: He was on aggressive IV fluid for hydration. This is more for his renal failure than blood pressure. I will stop IV fluids today. Continue to monitor blood pressure carefully.
[2023-05-02] MEDS: LIDOCAINE JELLY 2% 6 ML JEL.PF.APP TOP PRN ×2 (18:32→22:25)
[2023-05-02] MEDS: traMADol 50 MG TABLET PO PRN (20:08)
[2023-05-02] MEDS: ATORVASTATIN 40 MG TABLET PO SCH (21:41)
[2023-05-03] MEDS: SODIUM CHLORIDE FLUSH 0.9% 10 ML SYRINGE IVP SCH ×3 (00:26→17:19)
[2023-05-03] MEDS: traMADol 50 MG TABLET PO PRN ×3 (00:26→12:22)
[2023-05-03] MEDS: ZINC OXIDE 20% OINT 30 GM TUBE TOP PRN ×3 (00:58→10:04)
[2023-05-03 06:30] LABS: BASOPHILS % (AUTO) 0.1 %; EOSINOPHILS # (AUTO) 0.3 10^3/uL (0.0-0.7); EOSINOPHILS % (AUTO) 1.8 %; HCT - HEMATOCRIT 42.3 % (42.0-52.0); HGB - HEMOGLOBIN 13.5 g/dL (14.0-18.0); LYMPHOCYTES # (AUTO) 0.9 10^3/uL (1.5-3.5); LYMPHOCYTES % (AUTO) 5.8 %; MEAN CORPUSCULAR HEMOGLOBIN 29.4 pg (27.0-31.0); MEAN CORPUSCULAR HGB CONC 31.9 g/dL (32.0-36.0); MEAN CORPUSCULAR VOLUME 92.2 fL (80.0-94.0); MONOCYTES # (AUTO) 1.1 10^3/uL (0.0-1.0); MONOCYTES % (AUTO) 7.2 %; NEUTROPHILS # (AUTO) 12.6 10^3/uL (1.5-6.6); NEUTROPHILS % (AUTO) 84.6 %; PLT - PLATELET COUNT 102 10^3/uL (130-450); RED BLOOD COUNT 4.59 10^6/uL (4.70-6.10); RED CELL DISTRIBUTION WIDTH 15.3 % (12.0-15.0); WHITE BLOOD COUNT 14.9 x10^3/uL (4.8-10.8)
[2023-05-03 06:36] LABS: CALCIUM 8.1 mg/dL (8.5-10.3); POTASSIUM 3.3 mmol/L (3.5-5.0)
--- NOTE | 2023-05-03 07:39 | PROVIDER PROGRESS NOTE ---
Progress Note May 03, 2023 7:39 AM Jazmyn is not helping at all. And he keeps on popping up as an interaction with his potassium capsule or caterer. As such I will be stopping the Barrerayl. Not much improvement. No changes from yesterday to today. Main complaints are back pain and rectal pain even though both of those problems appear controlled by exam today He really does not want to work with PT. Antibiotics were stopped yesterday. He completed 7 days. White cell count still elevated at 14.9 but is not any higher than before. He has had no tem perature spike.I was in the room and physical therapy worked with him today. He was resistant about getting up out of bed. was watching the interaction between the nurse and the PT therapist and the patient. He was finally able to be coaxed to sit at the edge of the bed. They tried twice, with a lap belt, to get him to stand and he could not. Legs were too weak. We then positioned him so that the reclining chair was right next to the bed and he was able to slide from the bed to the reclining chair using the lap belt. 3 tries to get in position in the chair. He was able to stay in the chair for about 10 or 15 minutes before needing to get back in bed. He was not crying out in pain. Was not panicking. But this short interval demonstrated how weak this gentleman really is. Active Medications Acetaminophen (Acetaminophen 325 Mg Tablet) 650 mg PO Q4HR PRN PRN Reason: Pain 1 to 4, or Fever Last Admin: 04/28/23 17:29 Dose: 650 mg Allopurinol (Allopurinol 100 Mg Tablet) 100 mg PO DAILY [facility] Last Admin: 05/03/23 09:10 Dose: 100 mg Apixaban (Apixaban 5 Mg Tablet) 5 mg PO BID [facility] Last Admin: 05/03/23 09:10 Dose: 5 mg Atorvastatin Calcium (Atorvastatin 40 Mg Tablet) 80 mg PO HS [facility] Last Admin: 05/02/23 21:41 Dose: 80 mg Buprenorphine HCl (Buprenorphine/Naloxone 8-2 Mg Tab) 0.5 tab SL DAILY [facility] Last Admin: 05/03/23 09:10 Dose: 0.5 tab Lidocaine HCl (Lidocaine Jelly 2% 6 Ml Jel.Pf.Rosenda) 6 ml TOP Q4H PRN PRN Reason: RECTAL PAIN Last Admin: 05/03/23 10:04 Dose: 6 ml Metoprolol Succinate (Metoprolol Succinate 25 Mg Tablet) 25 mg PO BID [facility] Last Admin: 05/03/23 09:09 Dose: 25 mg Multi-Ingredient Ointment (Zinc Oxide 20% Oint 30 Gm Tube) 1 applic TOP PRN PRN PRN Reason: Skin Care Last Admin: 05/03/23 10:04 Dose: 1 applic Multivitamins/Minerals (Multivitamin W/Minerals Tablet) 1 tab PO DAILYWM [facility] Last Admin: 05/03/23 09:10 Dose: 1 tab Mycophenolate Mofetil (Mycophenolate Mofetil 250 Mg Capsule) 1,000 mg PO BID [facility] Last Admin: 05/03/23 09:09 Dose: 1,000 mg Nystatin (Nystatin Powder 15 Gm) 1 applic TOP BID [facility] Last Admin: 05/03/23 09:11 Dose: 1 applic Ondansetron HCl (Ondansetron 4 Mg/2 Ml Vial) 4 mg IVP Q6HR PRN PRN Reason: Nausea / Vomiting Potassium Chloride (Potassium Chloride 10 Meq Capsule) 40 meq PO BID [facility] Stop: 05/03/23 21:01 Last Admin: 05/03/23 09:10 Dose: 40 meq Prednisone (Prednisone 5 Mg Tablet) 5 mg PO DAILYWM [facility] Last Admin: 05/03/23 09:10 Dose: 5 mg Sodium Chloride (Sodium Chloride Flush 0.9% 10 Ml Syringe) 10 ml IVP PRN PRN PRN Reason: NEEDED PER PROVIDER ORDERS Sodium Chloride (Sodium Chloride Flush 0.9% 10 Ml Syringe) 10 ml IVP 0100,0900,1700 [facility] Last Admin: 05/03/23 17:19 Dose: 10 ml Tamsulosin HCl (Tamsulosin 0.4 Mg Capsule) 0.4 mg PO DAILY [facility] Last Admin: 05/03/23 09:10 Dose: 0.4 mg Tramadol HCl (Tramadol 50 Mg Tablet) 50 mg PO Q4HR PRN PRN Reason: Moderate Pain (Level 4-6) Last Admin: 05/03/23 12:22 Dose: 50 mg allopurinoL [Allopurinol] 100 mg ORAL DAILY 08/16/14 Leuprolide [Lupron] 45 mg IM .Q6MO 04/05/22 Tamsulosin [Flomax] 0.4 mg PO DAILY 04/05/22 mycophenolate mofetiL [Mycophenolate Mofetil] 1,000 mg PO BID 04/05/22 predniSONE [Deltasone] 5 mg PO QDBREAKFAST 04/05/22 Abiraterone Acetate [Zytiga] 1,000 mg PO DAILY 07/16/22 Apixaban [Eliquis] 5 mg PO BID 07/16/22 Metoprolol Succinate [Toprol Xl] 25 mg PO DAILY 07/16/22 Rosuvastatin Calcium [Crestor] 40 mg PO HS 07/16/22 Potassium Chloride 1 cap ORAL DAILY 04/27/23 traMADol [Ultram] 1 - 2 tab ORAL QID PRN 04/27/23 Exam: Temperature 36.3, heart rate 92, blood pressure is 85/64. This morning he was 125/70. Respirations 20, 94% on room air. RN went back to check the blood pressure and he was in the high 90s. Asleep. Woke up and was arousable and appropriate. No discomfort with the low blood pressure. 5 feet 11 inches elderly gentleman who is morbidly obese, red jelly cheeks. Unshaven right now. The facial grimacing has improved over the last 2 days. There is quite a bit of it as it spontaneously manifested pain and him. Neck is thick girth, but supple. Lungs have coarse upper airway sounds in the mid lungs, occasional rhonchi in the lower lobes and I have asked him to work with incentive spirometry for the last 2 days. Regular rate and rhythm Abdomen is obese, soft, nontender No edema around the ankles. Wearing his GENE hose. What was hopeful during our encounter today was his lack of terrible pain. He was able to sit up, and sit up in a chair. The main problem throughout that encounter was weakness. But not pain. He is still incontinent of stool and urine. Labs: Sodium 143, potassium 3.3. And spite of consistent potassium replacement on a daily basis, this patient is still hypokalemic. BUN 23, creatinine 1.0. He started at 2.[address] scan April 28. To his renal insufficiency is resolved. White cell count 14.9, hemoglobin 13.5, platelet 102. Assessment/Plan - Problem List (1) Acute kidney injury resolved Impression: This was initially felt to be pre-renal, by the admitting Telemedicine provider, caused by poor po intake and decreased appetite and vomiting. This was the main reason he was admitted. He was started on IV fluids at 125 cc an hour, then 04/27 decreased to 83.33 cc/h because of his history of pulmonary edema after getting aggressive IV fluids on his last adm here (EMR was reviewed by me). His BUN and creatinine are rising and worsened 04/[address] with contrast was noted. His IV fluid rate was increased on April 28. Even though his BUN is up today, creatinine is down. We suspect that he has contrast-induced nephropathy. He does not have hydronephrosis, and bladder is emptying, urinary tract anatomy appears normal. UA has casts present. Intake and output: +1895 April 27 +1633 April 28 +1163 April 29 +4137 April 30. RN that day was not been able to pin down why he is so positive with his fluid intake. They do not think it was oral intake. And they did not record IV intake was this much. So in speaking to the nurse 05/01, we were able to break it down. He drank 1230 cc of fluids yesterday. For IV maintenance and IV potassium riders he received 2570. And then his diet tray allowed him 640 cc. That resulted in 4440 cc of fluid in. +3630 May 01, no urine output recorded. IV fluids discontinued this day +2420 May 02 Laboratory Tests 04/26/23 04/28/23 04/29/23 18:07 05:08 05:01 Creatinine 2.0 H 2.6 H 2.1 H 04/30/23 05/01/23 07:10 04:59 Creatinine 1.6 H 1.5 H Laboratory Tests 05/02/23 10:33 Creatinine 1.2 The bump in creatinine was attributed to diet with the CT scan. His creatinine is normal. Because he has renal failure and vertebral compression, I have ordered a serum protein electrophoresis, PTH level. PTH is normal. Serum protein electrophoresis is pending. (2) Pathological fracture of vertebra Assessment/Plan: He developed severe low back pain over a month ago. He had traveling to do, so delayed seeing someone, but was eventually seen by his PCP about a week ago. With that visit he was supposed to get an MRI of the spine done May 02. He says that urinary incontinence started a month ago with the back pain. Stool incontinence may have been a relatively recent phenomenon. Pain in his thoracic spine is severe. Initially control was with Dilaudid but that order was changed to morphine in ER and he received 1 dose of that. That first night here he was placed on tramadol. An MRI of the lumbar spine was done 04/28 and it shows a pathologic fracture of T11 vertebrae. It was described as a compression fracture. There is no spinal cord compression. There was no subluxation. In determining if it is an unstable or stable finding, to warrant a surgery consult, hospitalist calculated his SINS (Spine Instability Neoplastic Score) which came back at 10>> "Indeterminate stability, possible impending instability, warrants a surgical consult". Hospitalist then spoke to our Orthopedist for a consult, and reviewed MRI findings. Dr Quintero said this pt needs an urgent transfer to a spine center. We called [facility] because that is where he gets his cancer and pulmonary care. After neurosurgery on-call reviewed the films (and it took a long time to get them pushed to him), he called and spoke to telemed. This is all through nursing. There is no note in the chart. But he explained that the patient does not need urgent transfer. The results of the MRI, and the discussion with the neurosurgeon was relayed to the . We really feel he most likely is going to need prison fac ility care because he is completely dependent on our therapist and nurses for activities of daily living. But she feels like she has been taking care of him well enough at home. She herself feels like she is very healthy and strong. She does not want to put him in a prison facility. She is already been getting help from [facility]. She would like to return to that status. I already ordered [facility] health to resume. Nursing is working with his to teach him logrolling, skin care, etc. I have warned his that this could take weeks if not months to recover from this back pain. Today, As predicted, it has been very, very, very slow going for this unfortunate gentleman. Gratifying to see that he was able to sit up, and sit in the bed. He needed a two-person max assist to transition from the bed to the chair. was at the bedside and was able to see how much work was required to move him. She still plans on taking him home. (3) Acute urinary retention Assessment/Plan: Bladder scanning was done. He did have documented retention and a Bourne insertion was ordered by the Telemdicine provider. But no Bourne was put in. Patient says he still gets urinary urges and has partial control of his urine . Right now nursing is offering him the urinal. They are having some success with that but he still just incontinent of urine and does not notify them. As long is not having any urinary retention I will hold off on putting in a Bourne. (4) UTI (urinary tract infection) Qualifiers: Urinary tract infection type: acute cystitis with hematuria Assessment/Plan: He presented with an elevated white count of 20, altered mental status, and tachycardia, but hadno fever and no elevated lactic acid level. His urinalysis was abnormal suggestive of UTI. Blood cultures without growth after 2 days. No urine culture reported. It was not indicated on his UA White cell count improved on a daily basis. Then had went up to 17.2 yesterday. Today back down to 14.9. No clear indication that is a UTI. He could have atelectasis. Again I am encouraging him to please, please use incentive spirometry. Empiric antibiotic therapy stopped May 02 after 7 days of antibiotics. (5) Chronic atrial fibrillation Assessment/Plan: He presented with A-fib with RVR. Probably from volume depletion and vomiting of his meds. Now he has adequate heart rate control, in fact there are times he has 2-2.5 second pauses in Afib. The shift superintendent caustic cresylate charge nurse on April 29 (11 pm to 7 am on April 30) reviewed the patient's record. She feels that the patient has had 32 pauses on telemetry over the last few days. Some shortness 2 seconds, some as long as 3 seconds. Patient has never been symptomatic with this. Blood pressure has been stable. No documentation of syncope, chest pain, diaphoresis etc. She contacted telehealth for this. Telehealth feels that nothing needs to be done overnight and I completely agree with that. The patient is on metoprolol. He would have to be taken off metoprolol, and rhythm analyzed after 48 to 72 hours. But if the patient has no symptoms, I do not think I need to do this. I would also recommend that we do not need notification unless the patient is over 4 seconds and symptomatic. Plan: Continue now with his usual metoprolol dose and Eliquis dose Monitor on telemetry I have asked nursing to only report when he is greater than 4 seconds or symptomatic (6) BPH (benign prostatic hyperplasia) Conclusion/Plan: Plan: Continue his tamsulosin (7) Prostate cancer, primary, with metastasis from prostate to other site Conclusion/Plan: The CT of his lower spine showed spinal stenosis MRI shows endplate fracture at T11. No evidence of metastatic disease. But he does have significant rectal pain. I did a rectal exam on April 29 in the evening. He cried out with pain. No specific 6 clock position pain so I don't think he has a fissure. His pain was in all quadrants of his rectum. I could feel probable external hemorrhoids but could not see them because he is constantly oozing of stool. I gave him viscous lidocaine and that helped tremendously with the pain. I reviewed the CAT scan with radiology 04/30. I wanted to make sure I was not missing a small abscess or another anatomic distortion that I could not feel. Radiologist feels that he is looking at external hemorrhoids. I also had general surgery see him 04/30 but she says that he is a poor candidate for any type of sclerotherapy or hemorrhoidectomy because he is on blood thinners. She gave me a recommendation for a compounded rectal medication to control his pain. I have submitted the med request to the pharmacy in regard to be discussing whether we can do this compound or not.Pharmacy says it cannot be done. PSA is less than 0.008. Free PSA is 0.013. My ongoing treatment has been viscous lidocaine. It has been working well to control his pain. (8) Hypotension - Qualified Code(s): I95.9 Assessment/Plan: This appeared to be multifactorial: From his medications adding to the hypotension, from dehydration causing volume depletion, and possibly from being Addisonian since he is on prednisone 5 mg daily but currently has a UTI infection. It does not appear that he is in septic shock with a normal lactic acid level. He was given hydrocortisone IV. I allowed 3 doses and I switched him to oral prednisone, which is his usual dose. His blood pressure does go up and down. He will be in the high 90s, and then in the 120s. He is not hemor rhaging, has no change in medication such as a new blood pressure drug, he is not bradycardic, so I am puzzled by the Hypotension. Plan: He was on aggressive IV fluid for hydration. This is more for his renal failure than blood pressure. IV fluids stopped May 01. Continue to monitor blood pressure carefully.
[2023-05-03] MEDS: mycophenolate mofetiL 250 MG CAPSULE PO SCH ×2 (09:09→21:51)
[2023-05-03] MEDS: METOPROLOL SUCCINATE 25 MG TABLET PO SCH ×2 (09:09→21:51)
[2023-05-03] MEDS: TAMSULOSIN 0.4 MG CAPSULE PO SCH (09:10)
[2023-05-03] MEDS: POTASSIUM CHLORIDE 10 MEQ CAPSULE PO SCH ×2 (09:10→21:51)
[2023-05-03] MEDS: allopurinoL 100 MG TABLET PO SCH (09:10)
[2023-05-03] MEDS: MULTIVITAMIN W/MINERALS TABLET PO SCH (09:10)
[2023-05-03] MEDS: BUPRENORPHINE/NALOXONE 8-2 MG TAB SL SCH (09:10)
[2023-05-03] MEDS: APIXABAN 5 MG TABLET PO SCH ×2 (09:10→21:51)
[2023-05-03] MEDS: predniSONE 5 MG TABLET PO SCH (09:10)
[2023-05-03] MEDS: NYSTATIN POWDER 15 GM TOP SCH ×2 (09:11→21:51)
[2023-05-03] MEDS: LIDOCAINE JELLY 2% 6 ML JEL.PF.APP TOP PRN (10:04)
[2023-05-03] MEDS: ATORVASTATIN 40 MG TABLET PO SCH (21:51)
[2023-05-04] MEDS: SODIUM CHLORIDE FLUSH 0.9% 10 ML SYRINGE IVP SCH ×4 (00:02→22:10)
[2023-05-04 05:56] LABS: BASOPHILS % (AUTO) 0.1 %; EOSINOPHILS # (AUTO) 0.3 10^3/uL (0.0-0.7); EOSINOPHILS % (AUTO) 1.9 %; HCT - HEMATOCRIT 38.8 % (42.0-52.0); HGB - HEMOGLOBIN 12.7 g/dL (14.0-18.0); LYMPHOCYTES # (AUTO) 0.8 10^3/uL (1.5-3.5); LYMPHOCYTES % (AUTO) 5.8 %; MEAN CORPUSCULAR HGB CONC 32.7 g/dL (32.0-36.0); MEAN CORPUSCULAR VOLUME 91.7 fL (80.0-94.0); MEAN PLATELET VOLUME 12.3 fL (7.4-11.4); MONOCYTES % (AUTO) 7.1 %; NEUTROPHILS # (AUTO) 12.2 10^3/uL (1.5-6.6); NEUTROPHILS % (AUTO) 84.5 %; PLT - PLATELET COUNT 114 10^3/uL (130-450); RED BLOOD COUNT 4.23 10^6/uL (4.70-6.10); WHITE BLOOD COUNT 14.4 x10^3/uL (4.8-10.8)
[2023-05-04] MEDS: ACETAMINOPHEN 325 MG TABLET PO PRN (06:00)
[2023-05-04 06:04] LABS: CALCIUM 8.1 mg/dL (8.5-10.3); POTASSIUM 3.7 mmol/L (3.5-5.0)
[2023-05-04] MEDS: METOPROLOL SUCCINATE 25 MG TABLET PO SCH ×2 (08:33→22:08)
[2023-05-04] MEDS: traMADol 50 MG TABLET PO PRN (08:33)
[2023-05-04] MEDS: predniSONE 5 MG TABLET PO SCH (08:33)
[2023-05-04] MEDS: MULTIVITAMIN W/MINERALS TABLET PO SCH (08:33)
[2023-05-04] MEDS: allopurinoL 100 MG TABLET PO SCH (08:33)
[2023-05-04] MEDS: mycophenolate mofetiL 250 MG CAPSULE PO SCH ×2 (08:33→22:09)
[2023-05-04] MEDS: APIXABAN 5 MG TABLET PO SCH ×2 (08:33→22:08)
[2023-05-04] MEDS: TAMSULOSIN 0.4 MG CAPSULE PO SCH (08:33)
[2023-05-04] MEDS: NYSTATIN POWDER 15 GM TOP SCH ×2 (08:34→22:09)
[2023-05-04] MEDS: BUPRENORPHINE/NALOXONE 8-2 MG TAB SL SCH (09:19)
[2023-05-04] MEDS: ZINC OXIDE 20% OINT 30 GM TUBE TOP PRN (14:52)
--- NOTE | 2023-05-04 18:44 | PROVIDER PROGRESS NOTE ---
Progress Note May 04, 2023 6:30 PM Very small progress. Yesterday he was able to sit up without crying out for pain. Today he let the nurses sit him up. Says the rectal pain is much less intense and frequent than it was. But he still has occasional "bubbles" that are a little uncomfortable. Initially they are comfortable and actually give some relief to discomfort in his rectum but then as the day and he has a spasm. Back pain is controlled. Vitals: 37.4 temp, 99 pulse, blood pressure 105/63. He was as high as 136/76 today. Respirations 16. 94% on room air 5 foot 11 inches elderly gentleman who weighs 102 kg. He is laying flat in the bed, obese elderly gentleman who is withdrawn. His eyes stay closed like talk to he and his . But he will open them to speak to me. Or sometimes she just keeps his eyes closed and keeps on talking to me. Neck is supple Lungs are clear with diminished breath sounds and he is slow unlabored respira tion Regular rate and rhythm Obese abdomen, soft, normal bowel sounds, incontinent of stool. Nontender. Extremities have trace edema. Couple of abrasions. He can lift his legs off the bed but cannot lift them against my hand pressure to push him down. He can bend at the knee, plantar and dorsiflex at the ankle. As already stated he is a two-person max assist to get him from supine to sitting and sitting to standing. Lab: BMP is normal. Glucose is 124. CBC has a white cell count of 14.4. Hemoglobin 12.7. Platelet 114. He is an intermittent thrombocytopenia through his stay. Blood cultures negative after 5 days Assessment/plan 1. Pathologic fracture of the vertebral body resulting in a bedbound status. His reason for admission was acute kidney injury in the face of decreased p.o. intake from the pain. He has been left with pain that is caused him to be near bedbound. He is incontinent of urine and stool. However neurosurgery at does not feel he is a surgical candidate on the basis of MRI. Plan: He and declined transfer to long term facility for rehab and would like to go home. That will be tomorrow morning. He will need a bed, bedside commode, walker, cane. Pain management was tramadol at home. Here I have him on Suboxone half a tablet daily. And tramadol 50 mg every 4 hours as needed. It seems to be controlling him well. 2. Acute kidney injury has resolved. I think it was secondary to the dye from the CAT scan on April 28. He was treated with IV fluids. IV fluids discontinued May 01. 3. Acute urinary tension is intermittent. He declines a Bourne. He is on Flomax. 4. UTI Possible contamination but he was treated his UTI. That was stopped May 02 after 7 days of antibiotics. 5. Chronic atrial fibrillation. He is on rate control, and is down to 25 mg p.o. twice daily metoprolol XL. He is also on Eliquis. He is stable with regards to this problem. No new orders need to be written for this. 6. Intermittent hypotension alternated with the hypertension. IV fluids stopped May 01. Blood pressure will go up to normal in the back down again. Here he is only on Toprol-XL 25 twice daily. That is his usual home med. No change for now
[2023-05-04] MEDS: ATORVASTATIN 40 MG TABLET PO SCH (22:08)
[2023-05-05 06:14] LABS: BASOPHILS % (AUTO) 0.1 %; EOSINOPHILS # (AUTO) 0.2 10^3/uL (0.0-0.7); EOSINOPHILS % (AUTO) 1.7 %; HCT - HEMATOCRIT 39.2 % (42.0-52.0); HGB - HEMOGLOBIN 12.7 g/dL (14.0-18.0); LYMPHOCYTES % (AUTO) 7.9 %; MEAN CORPUSCULAR HEMOGLOBIN 29.7 pg (27.0-31.0); MEAN CORPUSCULAR HGB CONC 32.4 g/dL (32.0-36.0); MEAN CORPUSCULAR VOLUME 91.6 fL (80.0-94.0); MEAN PLATELET VOLUME 12.2 fL (7.4-11.4); MONOCYTES % (AUTO) 7.7 %; NEUTROPHILS # (AUTO) 10.3 10^3/uL (1.5-6.6); NEUTROPHILS % (AUTO) 82.1 %; PLT - PLATELET COUNT 126 10^3/uL (130-450); RED BLOOD COUNT 4.28 10^6/uL (4.70-6.10); RED CELL DISTRIBUTION WIDTH 15.1 % (12.0-15.0); WHITE BLOOD COUNT 12.5 x10^3/uL (4.8-10.8)
[2023-05-05 06:27] LABS: POTASSIUM 3.7 mmol/L (3.5-5.0)
[2023-05-05] MEDS: METOPROLOL SUCCINATE 25 MG TABLET PO SCH ×2 (08:15→20:53)
[2023-05-05] MEDS: mycophenolate mofetiL 250 MG CAPSULE PO SCH ×2 (08:15→20:54)
[2023-05-05] MEDS: BUPRENORPHINE/NALOXONE 8-2 MG TAB SL SCH (08:15)
[2023-05-05] MEDS: NYSTATIN POWDER 15 GM TOP SCH ×2 (08:16→20:54)
[2023-05-05] MEDS: SODIUM CHLORIDE FLUSH 0.9% 10 ML SYRINGE IVP SCH ×2 (08:16→16:13)
[2023-05-05] MEDS: TAMSULOSIN 0.4 MG CAPSULE PO SCH (08:16)
[2023-05-05] MEDS: allopurinoL 100 MG TABLET PO SCH (08:16)
[2023-05-05] MEDS: predniSONE 5 MG TABLET PO SCH (08:16)
[2023-05-05] MEDS: MULTIVITAMIN W/MINERALS TABLET PO SCH (08:16)
[2023-05-05] MEDS: APIXABAN 5 MG TABLET PO SCH ×2 (08:16→20:53)
[2023-05-05] MEDS: LIDOCAINE JELLY 2% 6 ML JEL.PF.APP TOP PRN ×2 (13:03→20:58)
[2023-05-05 16:08] LABS: IMMUNOGLOBULIN A (IGA) 150 mg/dL (61-437); IMMUNOGLOBULIN G (IGG) 307 mg/dL (603-1613); IMMUNOGLOBULIN M (IGM) 14 mg/dL (15-143)
[2023-05-05] MEDS: traMADol 50 MG TABLET PO PRN (16:19)
--- NOTE | 2023-05-05 17:34 | PROVIDER PROGRESS NOTE ---
Progress Note May 05, 2023 5:30 PM On the eighth of the th he was actually able to sit up in bed. Put his feet on the ground. Transfer over to a chair. There is a lot of panic and fear. But back pain was controlled. Legs were weak. We were getting ready to discharge him today because was insistent that he was going home and not to a assisted. We had been explaining to her that this was probably not a good idea because of the amount of care he needed. Today, as we were preparing him for discharge to home, she herself panic. She had hoped that he would be more mobile. She had hoped that he would be able to stand and pivot. If he can stand and pivot she can take care of him. But she cannot even logroll him at this point in time. She is not strong enough. She is watched the nurses and physical therapy be 2, sometimes 3, max assist to get him up and standing. She realizes she cannot do that at home. So she has now asked that we please cancel the discharge home and discharge him to a assisted instead. Active Medications Acetaminophen (Acetaminophen 325 Mg Tablet) 650 mg PO Q4HR PRN PRN Reason: Pain 1 to 4, or Fever Last Admin: 05/04/23 06:00 Dose: 650 mg Allopurinol (Allopurinol 100 Mg Tablet) 100 mg PO DAILY [facility] Last Admin: 05/05/23 08:16 Dose: 100 mg Apixaban (Apixaban 5 Mg Tablet) 5 mg PO BID [facility] Last Admin: 05/05/23 08:16 Dose: 5 mg Atorvastatin Calcium (Atorvastatin 40 Mg Tablet) 80 mg PO [facility] Last Admin: 05/04/23 22:08 Dose: 80 mg Buprenorphine HCl (Buprenorphine/Naloxone 8-2 Mg Tab) 0.5 tab SL DAILY [facility] Last Admin: 05/05/23 08:15 Dose: 0.5 tab Lidocaine HCl (Lidocaine Jelly 2% 6 Ml Jel.Pf.Rosenda) 6 ml TOP Q4H PRN PRN Reason: RECTAL PAIN Last Admin: 05/05/23 13:03 Dose: 6 ml Metoprolol Succinate (Metoprolol Succinate 25 Mg Tablet) 25 mg PO BID [facility] Last Admin: 05/05/23 08:15 Dose: 25 mg Multi-Ingredient Ointment (Zinc Oxide 20% Oint 30 Gm Tube) 1 applic TOP PRN PRN PRN Reason: Skin Care Last Admin: 05/04/23 14:52 Dose: 1 applic Multivitamins/Minerals (Multivitamin W/Minerals Tablet) 1 tab PO DAILYWM [facility] Last Admin: 05/05/23 08:16 Dose: 1 tab Mycophenolate Mofetil (Mycophenolate Mofetil 250 Mg Capsule) 1,000 mg PO BID [facility] Last Admin: 05/05/23 08:15 Dose: 1,000 mg Nystatin (Nystatin Powder 15 Gm) 1 applic TOP BID [facility] Last Admin: 05/05/23 08:16 Dose: 1 applic Ondansetron HCl (Ondansetron 4 Mg/2 Ml Vial) 4 mg IVP Q6HR PRN PRN Reason: Nausea / Vomiting Prednisone (Prednisone 5 Mg Tablet) 5 mg PO DAILYWM [facility] Last Admin: 05/05/23 08:16 Dose: 5 mg Sodium Chloride (Sodium Chloride Flush 0.9% 10 Ml Syringe) 10 ml IVP PRN PRN PRN Reason: NEEDED PER PROVIDER ORDERS Sodium Chloride (Sodium Chloride Flush 0.9% 10 Ml Syringe) 10 ml IVP 0100,0900,1700 [facility] Last Admin: 05/05/23 16:13 Dose: 10 ml Tamsulosin HCl (Tamsulosin 0.4 Mg Capsule) 0.4 mg PO DAILY [facility] Last Admin: 05/05/23 08:16 Dose: 0.4 mg Tramadol HCl (Tramadol 50 Mg Tablet) 50 mg PO Q4HR PRN PRN Reason: Moderate Pain (Level 4-6) Last Admin: 05/05/23 16:19 Dose: 50 mg allopurinoL [Allopurinol] 100 mg ORAL DAILY 08/16/14 Leuprolide [Lupron] 45 mg IM .Q6MO 04/05/22 Tamsulosin [Flomax] 0.4 mg PO DAILY 04/05/22 mycophenolate mofetiL [Mycophenolate Mofetil] 1,000 mg PO BID 04/05/22 predniSONE [Deltasone] 5 mg PO QDBREAKFAST 04/05/22 Abiraterone Acetate [Zytiga] 1,000 mg PO DAILY 07/16/22 Apixaban [Eliquis] 5 mg PO BID 07/16/22 Metoprolol Succinate [Toprol Xl] 25 mg PO DAILY 07/16/22 Rosuvastatin Calcium [Crestor] 40 mg PO HS 07/16/22 Potassium Chloride 1 cap ORAL DAILY 04/27/23 traMADol [Ultram] 1 - 2 tab ORAL QID PRN 04/27/23 Vitals: Temperature 36.5, heart rate 74, blood pressure 107/68. Respirations 16. 95% on room air. He is still having episodic hypotension. At 1:00 he was 82/54. Not symptomatic. We cannot do orthostatic vitals on him because he cannot sit up for truncal stability for us to check it. Morbidly obese 77-year-old man who looks older than stated age. At times he looks like he is cushingoid. Neck is supple, no JVD Lungs have coarse upper airway sounds. No respiratory distress. No wheezing. Regular rate and rhythm Abdomen is obese, soft, nontender. Hypoactive bowel sounds. He is incontinent of stool. Bowel movements on a daily basis. He is also incontinent of urine and has a brief or pad. Rectum is still occasionally tender. He still feels like bubbles of gas can be occasionally painful. Sacrum is pink from pressure but no skin breakdown. Legs can be lifted off the bed but cannot withstand pressure from my hand pushing it down. He can flex at the knees, plantar and dorsiflex at the feet. But does not have the strength to his hand. Lab: BMP is normal. Fasting glucose 120. CBC has a white cell count of 12.5, hemoglobin 12.7, platelet 126 Blood cultures without growth after 5 days Assessment/plan 1. Pathologic fracture of the vertebral body resulting in a bedbound status. His reason for admission was acute kidney injury in the face of decreased p.o. intake from the pain. He has been left with pain that is caused him to be near bedbound. He is incontinent of urine and stool. However neurosurgery at does not feel he is a surgical candidate on the basis of MRI. Plan: He and declined transfer to long-term facility for rehab and would like to go home. That was today. He will need a bed, bedside commode, walker, cane. Pain management was tramadol at home. Here I have him on Suboxone half a tablet daily. And tramadol 50 mg every 4 hours as needed. It seems to be controlling him well. Today, the has asked that he not be transferred to home. She realizes now that she really cannot take care of him. Plan: Cancel discharged home, we have contacted [facility] at her request. We are now awaiting authorization and hope he can be discharged tomorrow 2. Acute kidney injury has resolved. I think it was secondary to the dye from the CAT scan on April 28. He was treated with IV fluids. IV fluids discontinued May 01. 3. Acute urinary tension is intermittent. He declines a Bourne. He is on Flomax. 4. UTI Possible contamination but he was treated his UTI. That was stopped May 02 after 7 days of antibiotics.White cell count has been slowly coming down. When he was admitted he was 20.9. Then he came down to 14 and stayed at 14 for 5 days. Today he is 12.5. I have not prolonged his antibiotics since the urinalysis was not conclusive for UTI. 5. Chronic atrial fibrillation. He is on rate control, and is down to 25 mg p.o. twice daily metoprolol XL. He is also on Eliquis. He is stable with regards to this problem. No new orders need to be written for this.The patient states that his primary care provider had recently cut the 25 mg pill in half and he is only supposed to be taking a half a day. In reviewing his pulse rate here he is controlled in the 70s or 80s. That is on 25 mg a day. I do not think, to cut it down any further. But his episodes of hypotension are problematic. 6. Intermittent hypotension alternated with the hypertension. IV fluids stopped May 01. Blood pressure will go up to normal in the back down again. Here he is only on Toprol-XL 25 twice daily. That is his usual home med. Oral fluid intake is adequate. In May 02 he did 2320, May 03 1765. He is only eating 25% of his food. I thought about adding midodrine. But I have held off doing that until now. If he becomes more orthostatic, this will interfere with his ability to cooperate with PT. So I will start midodrine 5 mg p.o. 3 times daily today. Watch his blood pressure. Continue the metoprolol at the current dose. No change for now
[2023-05-05] MEDS: MIDODRINE 2.5 MG TABLET PO SCH (18:00)
[2023-05-05] MEDS: ATORVASTATIN 40 MG TABLET PO SCH (20:53)
[2023-05-06 05:26] LABS: BASOPHILS % (AUTO) 0.2 %; EOSINOPHILS # (AUTO) 0.2 10^3/uL (0.0-0.7); EOSINOPHILS % (AUTO) 1.7 %; HCT - HEMATOCRIT 37.6 % (42.0-52.0); HGB - HEMOGLOBIN 11.8 g/dL (14.0-18.0); LYMPHOCYTES # (AUTO) 0.8 10^3/uL (1.5-3.5); LYMPHOCYTES % (AUTO) 7.2 %; MEAN CORPUSCULAR HEMOGLOBIN 29.4 pg (27.0-31.0); MEAN CORPUSCULAR HGB CONC 31.4 g/dL (32.0-36.0); MEAN CORPUSCULAR VOLUME 93.8 fL (80.0-94.0); MEAN PLATELET VOLUME 12.1 fL (7.4-11.4); MONOCYTES # (AUTO) 0.8 10^3/uL (0.0-1.0); MONOCYTES % (AUTO) 6.9 %; NEUTROPHILS # (AUTO) 9.2 10^3/uL (1.5-6.6); NEUTROPHILS % (AUTO) 83.5 %; PLT - PLATELET COUNT 138 10^3/uL (130-450); RED BLOOD COUNT 4.01 10^6/uL (4.70-6.10); RED CELL DISTRIBUTION WIDTH 15.1 % (12.0-15.0)
[2023-05-06 05:33] LABS: CALCIUM 7.9 mg/dL (8.5-10.3); CREATININE 0.9 mg/dL (0.6-1.2); POTASSIUM 3.2 mmol/L (3.5-5.0)
[2023-05-06] MEDS: SODIUM CHLORIDE FLUSH 0.9% 10 ML SYRINGE IVP SCH ×3 (07:00→16:54)
--- NOTE | 2023-05-06 08:09 | Discharge Plan ---
"Discharge Plan for SNF / [facility] - Discharge Plan And Transition Orders Problem Reviewed?: Yes Disposition: 03 SNF DC/Xfer Condition: Stable Allergies and Adverse Reactions: Allergies Allergy/AdvReac Type Severity Reaction Status Date / Time Penicillins Allergy Unknown Verified 11/25/22 10:49 Sulfa (Sulfonamide Allergy Unknown Verified 11/25/22 10:49 Antibiotics) Health Concerns: The patient was hospitalized with hypotension, A-fib with RVR, worsened low back pain, rectal pain, urinary incontinence and bowel incontinence, and we found him to have a pathologic fracture of his vertebrae. He has a history of prostate cancer with mets. Neurosurgery at deemed him to not be a surgical candidate. He had his medications adjusted for his high heart rate and low blood pressure. He finished treatment for a UTI. He has become very deconditioned due to the back pain. He is being discharged to SNF for PT and OT rehab. Plan of Treatment: Continue medications. Daily or twice daily PT and OT rehab. Care Goals: Improvement in symptoms and stabilization are the goals. Assessment: The patient and understand and are agreeable with the plan. - SNF / [facility] Transition Orders Admit to (Facility): [facility] Under the care of (Name): Dr Elias Ashford Discharge Diagnosis: (1) Hypotension Improved after given IV fluids, medication adjustments, and treating his UTI (2) Pathological fracture of vertebra The pain from this caused him to be nearly bedbound. He is incontinent of urine and stool, however neurosurgery at did not feel he is a surgical candidate on the basis of his MRI. He needs PT and OT rehab before returning home with his . (3) Chronic LBP Also has chronic rectal pain, treated with Lidocaine (4) UTI (urinary tract infection) Possible contamination but he was treated with 7 days of antibiotics. (5) Chronic atrial fibrillation He has adequate heart rate control with occasional 2.5 second pauses (6) BPH (benign prostatic hyperplasia) Continue his Tamsulosin (7) Acute urinary retention Patient declines a Bourne. He wants to just continue Tamsulosin (8) Acute kidney injury Resolved (9) Prostate cancer, primary, with metastasis from prostate to other site Medicare Certification Statement: I certify that [facility] is medically necessary on a continuing basis for any of the conditions for which she/he is receiving care during hospitalization. Notify PCP of admission and forward orders to primary provider for signature. Weight on admission and: Weekly Call PCP immediately if weight increases by: 5 kg Other Notification Orders: Call PCP immediately if patient develops dyspnea, chest pain/tightness or edema. House Bowel Program: Yes Additional Bowel Program Orders: If no BM after 2 days, nurse may give M.O.M. 30ml PO PRN and/or ducolax Supp 1 W[place] and/or YAAKOV 250mg P.O., and/or senna 1-2 tabs PO. On day 3 nurse may give repeat above order until residents constipation is resolved. Annual Influenza Vaccine (between Jun 27 and January 24): Yes Two-step PPD per [facility] [id number] or approved exception documents: Yes Treatments & Other Orders: Daily or twice daily PT and OT rehab Medication Orders: PLEASE REFER TO THE DISCHARGE MEDICATION LIST. Insulin Orders?: No - Medications New Prescriptions: traMADol [Ultram] 50 mg PO Q4HR PRN #40 tab PRN Reason: Moderate Pain (Level 4-6) Lidocaine Jelly 2% [Glydo] 6 ml TOP Q4H PRN #1 ea PRN Reason: RECTAL PAIN Midodrine [ProAmatine] 5 mg PO TIDWM #90 tab Buprenorphine HCl/Naloxone HCl [Suboxone 8-2 mg Tab] 0.5 tab SL DAILY #30 tab Acetaminophen [Tylenol] 650 mg PO Q4H PRN #100 tab PRN Reason: Pain - Diet Type: Geriatric Texture: Regular Liquids: Thin May have monthly special meal: Yes - Therapies | Activity Therapy: Evaluation | Treat if indicated: PT, OT Rehabilitation Potential: Maximize functional status Activity: Activity as Tolerated Weight Bearing: Full Weight Assistance Devices: Walker Follow Up: See PCP after discharge from SNF."
--- NOTE | 2023-05-06 08:55 | DISCHARGE SUMMARY ---
Discharge Summary Admit Date: 04/26/23 Discharge Date: 05/07/23 Discharging Provider: Dr Negrita Guillen Primary Care Provider: Dr Elias Ashford Code Status: Attempt Resuscitation Condition at Discharge: Fair Discharge Disposition: 03 SNF DC/Xfer - HPI History of Present Illness: This is a 77 y/o male with hx of A fib, prostate cancer, sleep apnea, and LBP. Patient was taking Tramadol for his back pain but over last few days pain got worse and patient unable to walk due to pain, and also having to wear diapers. The Telemedicine admitting provider spoke with ER Doc, because of concern about cord compression, but was reassured that patient had CT scan done which did not show cord compression. Patient also has been vomiting and had decreased po inta ke and found to be in FILIPE, and also found to have UTI with leukocytosis. Pateint follows at [facility] in [place] for his prostate cancer. No fevers. No chills. He states he has a history of atrial fibrillation but his metoprolol was recently decreased due to hypotension. Has not had much appetite lately. No loss of bowel or bladder function, able to move all 4 extrem and is a good historian along with a very supportive at bedside. BP at admission : HR at admission: in Afib. I discussed advance care planning and he is Full code. - HOSPITAL COURSE Hospital Course: (1) Hypotension This appeared to be multifactorial: From his BP medications causing hypotension, from dehydration causing volume depletion, and possibly from being Addisonian since he is on prednisone 5 mg daily but currently has a UTI infection. It does not appear that he is in septic shock with a normal lactic acid level. His BP improved after he was given several days of IV fluids, treating his UTI and his BP meds were on hold then when Metoprolol was resumed for HR control, we needed to add new Midodrine, and he was discharged on Midodrine 5 mg 3 times daily at mealtime. On this he had a standing blood pressure of 125/80. (2) Pathological fracture of vertebra He developed severe low back pain several days ago. The pain from this caused him to be nearly bedbound. There was supposed to be a spine MRI done as an outpatient in 5 days. Patient confirmed that he has lost control of his bowels, still has partial control of his urine. In addition, his back pain was severe, and he needed iv narcotics. An MRI of the lumbar spine was done and it showed a pathologic fracture of T11 vertebrae. It was described as a compression fracture. There is no spinal cord compression. There was no subluxation. In determining if this was an unstable or stable finding, to warrant a surgery consult, I calculated his SINS (Spine Instability Neoplastic Score) which came back at 10>> "Indeterminate stability, possible impending instability, warrants a surgical consult". I then spoke to our Orthopedist for a consult, and reviewed today's MRI findings. Dr Quintero said this pt needs an urgent transfer to a spine center. We called [facility] because that is where he gets his cancer and pulmonary care. After the Neurosurgeon on-call reviewed the films, he called and spoke tothe [facility] telemedicine provider and stated that the patient does not need urgent transfer. This was all learned through nursing, there is no note in the chart. Patient required pain meds and had his best pain control when Tylenol and Ultram were given together. (3) Chronic LBP This responded well to Tylenol and Ultram given together. Also had chronic rectal pain, treated with Lidocaine (4) Muscle weakness and deconditioning He was nearly bedbound for over a week. He started to work with PT and OT but required 2 and 3 person assist and help with even logrolling. On the day of discharge, he was able to sit and maintain upright posture with feet dangling from the side of his bed. He needed more PT and OT rehab before returning home with his . He was accepted to [facility] for PT and OT rehab. He was discharged in stable condition. (5) Chronic atrial fibrillation After his metoprolol was resumed, he had adequate heart rate control, with occasional 2.5 second pauses. Throughout hospitalization, he was kept on his usual dose of Eliquis, for stroke prophylaxis. (6) BPH (benign prostatic hyperplasia) We continued his Tamsulosin (7) Acute urinary retention Patient declined a Bourne. He wanted to just continue Tamsulosin. He would benefit from a Urology consult going forward. (8) Acute kidney injury This was felt to be from hypovolemia and hypotension. It resolved after several days of iv fluids. (9) UTI (urinary tract infection) His urinalysis was abnormal but a culture was "not indicated". Therefore it was possibly a contaminant, but he was treated with 7 days of empiric antibiotics given the hypotension and concern for possible sepsis.. (10) Prostate cancer, primary, with metastasis from prostate to other site He has an oncologist. There is a history of prior metastasis to the liver. He is on 2 home medications for his cancer. Once his vital signs and infection were stabilized, these were resumed and the brought them in and these were ordered to use as "patient's own med". Also, at the [facility], they will be continued as "patient's own med". He needs follow-up with his oncologist after being discharged from the SNF. (11) R knee pain This started when he twisted and began to sit up in bed to dangle. Voltaren gel improved the pain and was continued. - ALLERGIES Allergies/Adverse Reactions: Allergies Allergy/AdvReac Type Severity Reaction Status Date / Time Penicillins Allergy Unknown Verified 11/25/22 10:49 Sulfa (Sulfonamide Allergy Unknown Verified 11/25/22 10:49 Antibiotics) - MEDICATIONS Home Medications: Ambulatory Orders Medication Instructions Recorded Confirmed allopurinoL [Allopurinol] 100 mg ORAL DAILY 08/16/14 04/27/23 Leuprolide [Lupron] 45 mg IM .Q6MO 04/05/22 04/27/23 Tamsulosin [Flomax] 0.4 mg PO DAILY 04/05/22 04/27/23 mycophenolate mofetiL 1,000 mg PO BID 04/05/22 04/27/23 [Mycophenolate Mofetil] predniSONE [Deltasone] 5 mg PO QDBREAKFAST 04/05/22 04/27/23 Abiraterone Acetate [Zytiga] 1,000 mg PO DAILY 07/16/22 04/27/23 Apixaban [Eliquis] 5 mg PO BID 07/16/22 04/27/23 Metoprolol Succinate [Toprol Xl] 25 mg PO DAILY 07/16/22 04/27/23 Rosuvastatin Calcium [Crestor] 40 mg PO HS 07/16/22 04/27/23 Acetaminophen [Tylenol] 650 mg PO Q4H PRN #100 tab 05/06/23 Lidocaine Jelly 2% [Glydo] 6 ml TOP Q4H PRN #1 ea 05/06/23 Midodrine [ProAmatine] 5 mg PO TIDWM #90 tab 05/06/23 Buprenorphine HCl/Naloxone HCl 0.5 tab SL DAILY #15 tablet 05/07/23 [Suboxone 8-2 mg Tab] Diclofenac Sodium 1% Gel [Voltaren 2 gm TOP QID PRN #1 each 05/07/23 Gel] Potassium Chloride [Micro-K] 10 meq PO DAILY #30 cap 05/07/23 traMADol [Ultram] 50 mg PO Q4-6H PRN #30 tablet 05/07/23 - PHYSICAL EXAM AT DISCHARGE General Appearance: positive: No acute distress, Alert, Other (Male pattern baldness) Eyes Bilateral: positive: Normal inspection, EOMI ENT: positive: ENT inspection nml, No signs of dehydration Neck: positive: Nml inspection, No JVD Respiratory: positive: No respiratory distress, Breath sounds nml Cardiovascular: positive: No murmur (Distant heart sounds due to obesity), Irregularly irregular Abdomen: positive: Non-tender, No distention, Other (Obese with a pannus) Skin: positive: Warm, Dry Extremities: positive: No pedal edema, Other (Right knee has no swelling, redness or warmth. There is mild tenderness to touch in the right medial knee area) Neurologic/Psychiatric: positive: Oriented x3, Motor nml - LABS Result Diagrams: 05/06/23 05:15 05/07/23 05:47 - DIAGNOSTIC IMAGING Diagnostic Imaging Results: Final report reviewed - SEPSIS Current Stage of Sepsis: Ruled out - FOLLOW UP Follow Up: Patient needs to see his PCP, his Oncologist and a Urologist after discharge from SNF. Also further management of the vertebral compression fracture should be addressed, to determine if surgery is warranted. - TIME SPENT Time Spent in Discharge (Minutes): 50
[2023-05-06] MEDS: MIDODRINE 2.5 MG TABLET PO SCH ×3 (09:01→16:55)
[2023-05-06] MEDS: predniSONE 5 MG TABLET PO SCH (09:02)
[2023-05-06] MEDS: allopurinoL 100 MG TABLET PO SCH (09:02)
[2023-05-06] MEDS: APIXABAN 5 MG TABLET PO SCH ×2 (09:03→20:02)
[2023-05-06] MEDS: BUPRENORPHINE/NALOXONE 8-2 MG TAB SL SCH (09:03)
[2023-05-06] MEDS: TAMSULOSIN 0.4 MG CAPSULE PO SCH (09:03)
[2023-05-06] MEDS: MULTIVITAMIN W/MINERALS TABLET PO SCH (09:03)
[2023-05-06] MEDS: NYSTATIN POWDER 15 GM TOP SCH ×2 (09:05→20:03)
[2023-05-06] MEDS: METOPROLOL SUCCINATE 25 MG TABLET PO SCH ×2 (09:24→20:02)
[2023-05-06] MEDS: LIDOCAINE JELLY 2% 6 ML JEL.PF.APP TOP PRN (11:33)
[2023-05-06] MEDS: mycophenolate mofetiL 250 MG CAPSULE PO SCH ×2 (13:53→20:02)
--- NOTE | 2023-05-06 16:50 | PROVIDER PROGRESS NOTE ---
Assessment/Plan - Problem List (1) Pathological fracture of vertebra Assessment/Plan: The pain from this caused him to be nearly bedbound. He is incontinent of urine and stool, however neurosurgery at did not feel he is a surgical candidate on the basis of his MRI. Today the told me that Dr. Ashford has called her and said that he got the MRI report and that he has an Orthopedic surgeon lined up for the patient to see for back surgery. Plan: I will try to reach out to neurosurgery at to determine if any surgery in the future is indicated. Continue with plan for pain control In my impression, he needs alot of PT and OT rehab before returning home with his . (2) Chronic LBP Plan: Continue Tylenol plus Ultram, the combination which works best for his pain control. Continue working with PT and OT He also has chronic rectal pain, treated successfully with Lidocaine jel (3) Hypotension Improved after given IV fluids, and treating his UTI. But he is still having "soft" BPs with systolics 90 to 100. In addition, he has been started on new Midodrine 3 times daily with meals Plan: Continue to monitor his vital signs, there are holding parameters for when not to administer the metoprolol Continue with midodrine 3 times daily w/ meals. If you would tolerate a drop in Ulyram dose, this may also help his "soft" BP (4) Weakness and deconditioning His LBP and rectal pain has caused him to be nearly bedbound. He has started working with PT and OT and has needed to be transferred using a sling. He needs PT and OT rehab before returning home with his . Yesterday the pt and changed their mind about taking him home and he was to be discharged to a SNF today. However, today that SNF which accepted him, has declined taking him today, because of the cost of his cancer meds since they will not allow those meds to be administred using "patient's own med". I updated the at bedside today about all his diagnoses and the plans. Plan: The is agreeable to have him go to a SNF that would allow his 2 chemotherapy drugs to be taken as "patient's own med". Continue working with PT and OT. Today social work and PT and OT told the patient and that he has to be able to progress with rehab to qualify to go to a SNF or our Swing Bed status. I am considering getting a Palliative Care consult to help determine his goals and to help guide his inpatient and future care. Another alternative is to decrease the Ultram dose so he is not as weak and sleepy, to be able to work with PT and OT. (5) Chronic atrial fibrillation He has adequate heart rate control with occasional 2.5 second pauses Plan: Continue present medications using metoprolol plus (6) BPH (benign prostatic hyperplasia) Plan: Continue his Tamsulosin (7) Acute urinary retention Patient declines a Bourne. He wants to just continue Tamsulosin (8) Prostate cancer, primary, with metastasis from prostate to other site Patient is on 2 cancer medications. These are ordered to be continued while here (one is just every 6 months) (9) Acute kidney injury Resolved (10) UTI (urinary tract infection) This was possibly contamination but he was treated and completed 7 days of antibiotics. - Current Meds Current Meds: Current Medications Generic Name Dose Route Start Last Admin Trade Name Freq PRN Reason Stop Dose Admin Acetaminophen 650 mg 04/27/23 00:13 05/04/23 06:00 Acetaminophen 325 Mg Tablet PO 650 mg Q4HR PRN Administration Pain 1 to 4, or Fever Allopurinol 100 mg 04/27/23 09:00 05/06/23 09:02 Allopurinol 100 Mg Tablet PO 100 mg DAILY ELENA Administration Apixaban 5 mg 04/27/23 01:00 05/06/23 09:03 Apixaban 5 Mg Tablet PO 5 mg BID ELENA Administration Atorvastatin Calcium 80 mg 04/27/23 21:00 05/05/23 20:53 Atorvastatin 40 Mg Tablet PO 80 mg HS ELENA Administration Buprenorphine HCl 0.5 tab 05/01/23 10:00 05/06/23 09:03 Buprenorphine/Naloxone 8-2 Mg Tab SL 0.5 tab DAILY ELENA Administration Lidocaine HCl 6 ml 05/02/23 10:38 05/06/23 11:33 Lidocaine Jelly 2% 6 Ml Jel.Pf.Rosenda TOP 6 ml Q4H PRN Administration RECTAL PAIN Metoprolol Succinate 25 mg 04/27/23 10:26 05/06/23 09:24 Metoprolol Succinate 25 Mg Tablet PO Not Given BID ELENA Midodrine 5 mg 05/05/23 18:00 05/06/23 11:32 Midodrine 2.5 Mg Tablet PO 5 mg TIDWM ELENA Administration Multi-Ingredient Ointment 1 applic 04/27/23 02:33 05/04/23 14:52 Zinc Oxide 20% Oint 30 Gm Tube TOP 1 applic PRN PRN Administration Skin Care Multivitamins/Minerals 1 tab 04/28/23 12:00 05/06/23 09:03 Multivitamin W/Minerals Tablet PO 1 tab DAILYWM ELENA Administration Mycophenolate Mofetil 1,000 mg 04/27/23 09:00 05/06/23 13:53 Mycophenolate Mofetil 250 Mg Capsule PO 1,000 mg BID ELENA Administration Nystatin 1 applic 04/29/23 21:00 05/06/23 09:05 Nystatin Powder 15 Gm TOP 1 applic BID ELENA Administration Prednisone 5 mg 04/30/23 08:00 05/06/23 09:02 Prednisone 5 Mg Tablet PO 5 mg DAILYWM ELENA Administration Sodium Chloride 10 ml 04/27/23 01:00 05/06/23 09:05 Sodium Chloride Flush 0.9% 10 Ml Syringe IVP 10 ml 0100,0900,1700 ELENA Administration Tamsulosin HCl 0.4 mg 04/27/23 09:00 05/06/23 09:03 Tamsulosin 0.4 Mg Capsule PO 0.4 mg DAILY ELENA Administration Tramadol HCl 50 mg 04/28/23 17:51 05/05/23 16:19 Tramadol 50 Mg Tablet PO 50 mg Q4HR PRN Administration Moderate Pain (Level 4-6) - Lab Result Fish Bone Diagrams: 05/06/23 05:15 05/06/23 05:15 Subjective - Subjective Patient Reports: Pain (Yesterday when he was being logrolled & both legs were pulled toward the edge of bed by PT & OT, the pt states that his right knee was "twisted" & now he has right medial knee pain. He is getting an ice pack on it & also got Tylenol & Ultram. He did only upper extremity exercises in bed today.) Objective Vital Signs: Vital Signs - 24 hr 05/05/23 05/05/23 05/06/23 20:52 23:51 05:46 Temperature 36.9 C 36.8 C 36.5 C Heart Rate [ 86 86 Brachial] Heart Rate [ 72 Monitoring electrodes] Respiratory 20 20 20 Rate Blood Pressure [Left Brachial artery] Blood Pressure 103/64 91/57 L [Right Brachial artery] Blood Pressure 114/63 [Right Radial artery] O2 Saturation 96 96 92 If not protocol : Oxygen Flow, liters/minute 05/06/23 05/06/23 05/06/23 07:54 11:42 14:54 Temperature 36.5 C 36.4 C L Heart Rate [ 82 86 Brachial] Heart Rate [ 97 Monitoring electrodes] Respiratory 18 18 14 Rate Blood Pressure 126/75 [Left Brachial artery] Blood Pressure 94/62 [Right Brachial artery] Blood Pressure 92/60 [Right Radial artery] O2 Saturation 94 92 If not protocol 93 : Oxygen Flow, liters/minute 05/06/23 16:00 Temperature 36.4 C L Heart Rate [ 93 Brachial] Heart Rate [ Monitoring electrodes] Respiratory 20 Rate Blood Pressure [Left Brachial artery] Blood Pressure [Right Brachial artery] Blood Pressure 106/64 [Right Radial artery] O2 Saturation 94 If not protocol : Oxygen Flow, liters/minute Oxygen O2 Source [Without Activity] Nasal cannula O2 Source [With Activity] Room air O2 Source Room air I&O (Last 24 Hrs): Intake and Output Totals x24h 05/04/23 05/05/23 05/06/23 23:59 23:59 23:59 Intake Total 1180 1310 960 Output Total 300 450 Balance 1180 1010 510 General: Alert, Oriented x3 HEENT: Mucous membr. moist/pink Neck: Supple Neuro: Alert, Non Focal Cardiovascular: No murmurs Respiratory: No respiratory distress Abdomen: Soft, Other (Obese) Extremities: Other (Trace pedal edema. Slight swelling of R knee, without redness or warmth.) - Results Results: Laboratory Results WBC 11.0 x10^3/uL (4.8-10.8) H 05/06/23 05:15 RBC 4.01 10^6/uL (4.70-6.10) L 05/06/23 05:15 Hgb 11.8 g/dL (14.0-18.0) L 05/06/23 05:15 Hct 37.6 % (42.0-52.0) L 05/06/23 05:15 MCV 93.8 fL (80.0-94.0) 05/06/23 05:15 MCH 29.4 pg (27.0-31.0) 05/06/23 05:15 MCHC 31.4 g/dL (32.0-36.0) L 05/06/23 05:15 RDW 15.1 % (12.0-15.0) H 05/06/23 05:15 Plt Count 138 10^3/uL (130-450) 05/06/23 05:15 MPV 12.1 fL (7.4-11.4) H 05/06/23 05:15 Neut # (Auto) 9.2 10^3/uL (1.5-6.6) H 05/06/23 05:15 Lymph # (Auto) 0.8 10^3/uL (1.5-3.5) L 05/06/23 05:15 [place] # (Auto) 0.8 10^3/uL (0.0-1.0) 05/06/23 05:15 Eos # (Auto) 0.2 10^3/uL (0.0-0.7) 05/06/23 05:15 Baso # (Auto) 0.0 10^3/uL (0.0-0.1) 05/06/23 05:15 Absolute Nucleated RBC 0.00 x10^3/uL 05/06/23 05:15 Total Counted 100 05/01/23 04:59 Band Neuts % (Manual) 0 % (0-10) 05/01/23 04:59 Abnorm Lymph % (Manual) 0 % 05/01/23 04:59 Nucleated RBC % 0.0 /100WBC 05/06/23 05:15 Neutrophils # (Manual) 12.7 10^3/uL (1.5-6.6) H 05/01/23 04:59 Lymphocytes # (Manual) 0.7 10^3/uL (1.5-3.5) L 05/01/23 04:59 Monocytes # (Manual) 1.0 10^3/uL (0.0-1.0) 05/01/23 04:59 Eosinophils # (Manual) 0.0 10^3/uL (0-0.7) 05/01/23 04:59 Basophils # (Manual) 0.0 10^3/uL (0-0.1) 05/01/23 04:59 Differential Comment MANUAL DIFFERENTIAL 05/01/23 04:59 WBC Morphology NORMAL APPEARANCE (NORMAL) 05/01/23 04:59 Platelet Estimate DECREASED (<130,000) (NORMAL) 05/01/23 04:59 Platelet Morphology NORMAL APPEARANCE (NORMAL) 05/01/23 04:59 RBC Morph Micro Appear NORMAL APPEARANCE (NORMAL) 05/01/23 04:59 Sodium 140 mmol/L (135-145) 05/06/23 05:15 Potassium 3.2 mmol/L (3.5-5.0) L 05/06/23 05:15 Chloride 102 mmol/L (101-111) 05/06/23 05:15 Carbon Dioxide 30 mmol/L (21-32) 05/06/23 05:15 Anion Gap 8.0 (6-13) 05/06/23 05:15 BUN 21 mg/dL (6-20) H 05/06/23 05:15 Creatinine 0.9 mg/dL (0.6-1.2) 05/06/23 05:15 Estimated GFR (MDRD) 82 (>89) L 05/06/23 05:15 Glucose 122 mg/dL (70-100) H 05/06/23 05:15 Lactic Acid 1.8 mmol/L (0.5-2.2) 04/26/23 20:18 Calcium 7.9 mg/dL (8.5-10.3) L 05/06/23 05:15 Phosphorus 2.6 mg/dL (2.5-4.6) 04/27/23 04:54 Magnesium 2.4 mg/dL (1.7-2.8) 04/26/23 18:07 Total Bilirubin 0.7 mg/dL (0.2-1.0) 04/27/23 04:54 AST 21 IU/L (10-42) 04/27/23 04:54 ALT 14 IU/L (10-60) 04/27/23 04:54 Alkaline Phosphatase 96 IU/L (42-121) 04/27/23 04:54 Total Protein 5.0 g/dL (6.7-8.2) L 04/27/23 04:54 Albumin 2.4 g/dL (3.2-5.5) L 04/27/23 04:54 Globulin 2.6 g/dL (2.1-4.2) 04/27/23 04:54 Albumin/Globulin Ratio 0.9 (1.0-2.2) L 04/27/23 04:54 Lipase 22 U/L (22-51) 04/26/23 18:07 Prostate Specific Ag < 0.008 ng/mL (0.000-2.000) 05/02/23 09:45 Free PSA 0.013 ng/mL (0.16-2.81) L 05/02/23 09:45 % Free PSA Calc TNP 05/02/23 09:45 PTH Intact 75 pg/mL (12-88) 05/01/23 04:59 Urine Color YELLOW 04/26/23 19:34 Urine Clarity HAZY (CLEAR) 04/26/23 19:34 Urine pH 6.0 PH (5.0-7.5) 04/26/23 19:34 Ur Specific [place] 1.020 (1.002-1.030) 04/26/23 19:34 Urine Protein >=300 mg/dL (NEGATIVE) H 04/26/23 19:34 Urine Glucose (UA) NEGATIVE mg/dL (NEGATIVE) 04/26/23 19:34 Urine Ketones NEGATIVE mg/dL (NEGATIVE) 04/26/23 19:34 Urine Occult Blood LARGE (NEGATIVE) H 04/26/23 19:34 Urine Nitrite NEGATIVE (NEGATIVE) 04/26/23 19:34 Urine Bilirubin NEGATIVE (NEGATIVE) 04/26/23 19:34 Urine Urobilinogen 0.2 (NORMAL) E.U./dL (NORMAL) 04/26/23 19:34 Ur Leukocyte Esterase NEGATIVE (NEGATIVE) 04/26/23 19:34 Urine RBC 6-10 /HPF (0-5) H 04/26/23 19:34 Urine WBC 4-5 /HPF (0-3) 04/26/23 19:34 Ur Squamous Epith Cells RARE Squamous (<= Few) 04/26/23 19:34 Urine Bacteria Few /HPF (None Seen) 04/26/23 19:34 Urine Casts 6-10 Granular Casts /LPF 04/26/23 19:34 Ur Microscopic Review INDICATED 04/26/23 19:34 Urine Culture Comments NOT INDICATED 04/26/23 19:34 IgG 307 mg/dL (603-1613) L 05/01/23 09:13 IgA 150 mg/dL (61-437) 05/01/23 09:13 IgM 14 mg/dL (15-143) L 05/01/23 09:13 Serum Immunofixation Comment (.) 05/01/23 09:13 - Procedures Procedures: Procedures CATARAC PHACOEMULS/ASPIR (08/17/14) INSERT LENS AT CATAR EXT (08/17/14) Sepsis Event Note (H) - Evaluation Current Stage of Sepsis: Ruled out
[2023-05-06] MEDS: ACETAMINOPHEN 325 MG TABLET PO PRN (17:31)
[2023-05-06] MEDS ORDERED: MIDODRINE 2.5 MG TABLET PO SCH (18:00)
[2023-05-06] MEDS: ATORVASTATIN 40 MG TABLET PO SCH (20:02)
[2023-05-07 06:09] LABS: CALCIUM 8.1 mg/dL (8.5-10.3); POTASSIUM 3.2 mmol/L (3.5-5.0)
[2023-05-07] MEDS: MIDODRINE 2.5 MG TABLET PO SCH ×2 (08:32→14:23)
[2023-05-07] MEDS: APIXABAN 5 MG TABLET PO SCH (08:33)
[2023-05-07] MEDS: mycophenolate mofetiL 250 MG CAPSULE PO SCH (08:33)
[2023-05-07] MEDS: allopurinoL 100 MG TABLET PO SCH (08:33)
[2023-05-07] MEDS: METOPROLOL SUCCINATE 25 MG TABLET PO SCH (08:34)
[2023-05-07] MEDS: MULTIVITAMIN W/MINERALS TABLET PO SCH (08:34)
[2023-05-07] MEDS: BUPRENORPHINE/NALOXONE 8-2 MG TAB SL SCH (08:35)
[2023-05-07] MEDS: TAMSULOSIN 0.4 MG CAPSULE PO SCH (08:35)
[2023-05-07] MEDS: predniSONE 5 MG TABLET PO SCH (08:35)
[2023-05-07] MEDS: SODIUM CHLORIDE FLUSH 0.9% 10 ML SYRINGE IVP SCH ×2 (08:36)
[2023-05-07] MEDS: NYSTATIN POWDER 15 GM TOP SCH (08:45)
[2023-05-07] MEDS ORDERED: POTASSIUM CHLORIDE 10 MEQ CAPSULE PO SCH (09:00)
[2023-05-07] MEDS ORDERED: DICLOFENAC SODIUM 1% GEL 50 GM TUBE TOP SCH ×2 (11:09→17:00)
--- NOTE | 2023-05-07 12:31 | Discharge Plan ---
"Discharge Plan for SNF / [facility] - Discharge Plan And Transition Orders Problem Reviewed?: Yes Disposition: 03 SNF DC/Xfer Condition: Fair Allergies and Adverse Reactions: Allergies Allergy/AdvReac Type Severity Reaction Status Date / Time Penicillins Allergy Unknown Verified 11/25/22 10:49 Sulfa (Sulfonamide Allergy Unknown Verified 11/25/22 10:49 Antibiotics) Health Concerns: The patient was hospitalized with hypotension, A-fib with RVR, worsened low back pain, rectal pain, urinary incontinence and bowel incontinence, and we found him to have a pathologic fracture of his vertebrae, but no cord compression. He has a history of prostate cancer with mets. Neurosurgery at deemed him to not be a surgical candidate with his MRI results. He had his medications adjusted for his high heart rate and low blood pressure. He finished treatment for a UTI. He has become very deconditioned due to the back pain and being in bed. He is being discharged to SNF for PT and OT rehab. Plan of Treatment: Continue medications. Daily or twice daily PT and OT rehab. Care Goals: Improvement in symptoms and stabilization are the goals. Assessment: The patient and understand and are agreeable with the plan. - SNF / [facility] Transition Orders Admit to (Facility): [facility] Under the care of (Name): Dr. Elias Ashford Discharge Diagnosis: (1) Hypotension Improved after given IV fluids, medication adjustments, and treating his UTI (2) Pathological fracture of vertebra The pain from this caused him to be nearly bedbound. He is incontinent of urine and stool, however neurosurgery at did not feel he is a surgical candidate on the basis of his MRI. He needs PT and OT rehab before returning home with his . (3) Chronic LBP This responds well to Tylenol and Ultram given together. Also has chronic rectal pain, treated with Lidocaine (4) Muscle weakness and deconditioning He was nearly bedbound. He needs PT and OT rehab before returning home with his . (5) Chronic atrial fibrillation He has adequate heart rate control with occasional 2.5 second pauses (6) BPH (benign prostatic hyperplasia) Continue his Tamsulosin (7) Acute urinary retention Patient declines a Bourne. He wants to just continue Tamsulosin (8) Acute kidney injury Resolved (9) UTI (urinary tract infection) Possible contamination but he was treated with 7 days of antibiotics. (10) Prostate cancer, primary, with metastasis from prostate to other site He is on 2 home medications for this, the will bring them with the patient. (11) R knee pain This started 2 days ago when he twisted and began to sit up in bed to dangle. Voltaren gel has improved the pain. Medicare Certification Statement: I certify that Post Hospital shelter care is medically necessary on a continuing basis for any of the conditions for which she/he is receiving care during hospitalization. Notify PCP of admission and forward orders to primary provider for signature. Weight on admission and: Weekly Call PCP immediately if weight increases by: 5 kg Other Notification Orders: Call PCP immediately if patient develops dyspnea, chest pain/tightness or edema. House Bowel Program: Yes Additional Bowel Program Orders: If no BM after 2 days, nurse may give M.O.M. 30ml PO PRN and/or ducolax Supp 1 IA and/or YAAKOV 250mg P.O., and/or senna 1-2 tabs PO. On day 3 nurse may give repeat above order until residents constipation is resolved. Annual Influenza Vaccine (between Jun 27 and January 24): Yes Two-step PPD per [facility] [phone] or approved exception documents: Yes Treatments & Other Orders: Daily or twice daily PT and OT Medication Orders: PLEASE REFER TO THE DISCHARGE MEDICATION LIST. Insulin Orders?: No - Medications New Prescriptions: Lidocaine Jelly 2% [Glydo] 6 ml TOP Q4H PRN #1 ea PRN Reason: RECTAL PAIN Potassium Chloride [Micro-K] 10 meq PO DAILY #30 cap Midodrine [ProAmatine] 5 mg PO TIDWM #90 tab Buprenorphine HCl/Naloxone HCl [Suboxone 8-2 mg Tab] 0.5 tab SL DAILY #15 tablet Acetaminophen [Tylenol] 650 mg PO Q4H PRN #100 tab PRN Reason: Pain traMADol [Ultram] 50 mg PO Q4-6H PRN #30 tablet PRN Reason: Moderate Pain (Level 4-6) Diclofenac Sodium 1% Gel [Voltaren Gel] 2 gm TOP QID PRN #1 each PRN Reason: As Needed Per Provider Orders - Diet Type: Geriatric Texture: Regular Liquids: Thin May have monthly special meal: Yes - Therapies | Activity Therapy: Evaluation | Treat if indicated: PT, OT Rehabilitation Potential: Maximize functional status Activity: Activity as Tolerated Weight Bearing: Full Weight Assistance Devices: Walker Follow Up: See PCP and Oncologist after discharge from SNF."
[2023-05-07] MEDS ORDERED: LEUPROLIDE 45 MG IM SCH (14:00)
[2023-05-07] MEDS: ZINC OXIDE 20% OINT 30 GM TUBE TOP PRN (14:23)
[2023-05-07 14:39] VITALS: BP 105/64
[2023-05-08] MEDS ORDERED: ABIRATERONE ACETATE 500 MG PO SCH (09:00)
== END 2023-05-07 15:50 | DRG 312 ==
LOC: EDUNIT# → ED 17:06 → MS2 04-27 00:13
PROVIDERS: ADMIT Internal Medicine; ATTEND Internal Medicine
DX: I95.2 Hypotension due to drugs (principal); C78.7 Secondary malignant neoplasm of liver and intrahepatic bile duct; I48.91 Unspecified atrial fibrillation; E86.0 Dehydration; N17.9 Acute kidney failure, unspecified; I44.7 Left bundle-branch block, unspecified; I48.20 Chronic atrial fibrillation, unspecified; R63.0 Anorexia; M48.54XA Collapsed vertebra, not elsewhere classified, thoracic region, initial encounter for fracture; M54.9 Dorsalgia, unspecified; I44.4 Left anterior fascicular block; N30.01 Acute cystitis with hematuria; R15.9 Full incontinence of feces; N39.498 Other specified urinary incontinence; G89.29 Other chronic pain; R53.1 Weakness; N40.0 Benign prostatic hyperplasia without lower urinary tract symptoms; C61 Malignant neoplasm of prostate; M25.561 Pain in right knee; Z68.31 Body mass index [BMI] 31.0-31.9, adult; G47.30 Sleep apnea, unspecified; T44.7X5A Adverse effect of beta-adrenoreceptor antagonists, initial encounter; M54.59 Other low back pain; R33.8 Other retention of urine; K62.89 Other specified diseases of anus and rectum; E66.01 Morbid (severe) obesity due to excess calories; I49.5 Sick sinus syndrome; N14.11 Contrast-induced nephropathy; R00.0 Tachycardia, unspecified; K64.4 Residual hemorrhoidal skin tags; E87.6 Hypokalemia; R41.82 Altered mental status, unspecified; Z79.01 Long term (current) use of anticoagulants; K60.2 Anal fissure, unspecified; T50.8X5A Adverse effect of diagnostic agents, initial encounter; Y92.239 Unspecified place in hospital as the place of occurrence of the external cause
CPT/HCPCS: 36415; 72131; 72148; 74177; 80048; 80053; 81001; 82397; 82784; 83605; 83690; 83735; 83970; 84100; 84153; 84154; 85025; 86334; 87040; 93005; 96361; 96374; 96375; 97163; 97167; 97530; 97535; 99285; A9270; J7512; J8499; Q9967; 81003; 87086

== ENCOUNTER 2023-06-20 10:28 | Outpatient (CLI) | payer MEDICARE, OTHER ==
[2023-06-20 10:46] LABS: BASOPHILS % (AUTO) 0.3 %; EOSINOPHILS # (AUTO) 0.1 10^3/uL (0.0-0.7); EOSINOPHILS % (AUTO) 1.2 %; HCT - HEMATOCRIT 32.1 % (42.0-52.0); HGB - HEMOGLOBIN 10.1 g/dL (14.0-18.0); LYMPHOCYTES # (AUTO) 1.1 10^3/uL (1.5-3.5); LYMPHOCYTES % (AUTO) 10.4 %; MEAN CORPUSCULAR HEMOGLOBIN 31.4 pg (27.0-31.0); MEAN CORPUSCULAR HGB CONC 31.5 g/dL (32.0-36.0); MEAN CORPUSCULAR VOLUME 99.7 fL (80.0-94.0); MONOCYTES % (AUTO) 8.9 %; NEUTROPHILS # (AUTO) 8.5 10^3/uL (1.5-6.6); NEUTROPHILS % (AUTO) 78.6 %; PLT - PLATELET COUNT 120 10^3/uL (130-450); RED BLOOD COUNT 3.22 10^6/uL (4.70-6.10); RED CELL DISTRIBUTION WIDTH 18.9 % (12.0-15.0); WHITE BLOOD COUNT 10.8 x10^3/uL (4.8-10.8)
[2023-06-20 10:53] LABS: ALBUMIN 2.4 g/dL (3.2-5.5); ALBUMIN/GLOBULIN RATIO 1.3 (1.0-2.2); BILIRUBIN,TOTAL 0.7 mg/dL (0.2-1.0); CREATININE 0.7 mg/dL (0.6-1.3); MAGNESIUM 1.6 mg/dL (1.7-2.3); POTASSIUM 3.3 mmol/L (3.5-4.5); TOTAL PROTEIN 4.2 g/dL (6.4-8.9); URIC ACID 1.9 mg/dL (4.4-7.6)
[2023-06-20 11:11] LABS: THYROID STIMULATING HORMONE 1.9 uIU/mL (0.34-5.60)
== END 2023-06-20 10:29 | disposition home or self-care (01) ==
LOC: LAB.R 10:28
PROVIDERS: ATTEND Internal Medicine
DX: J84.9 Interstitial pulmonary disease, unspecified (principal); Z79.52 Long term (current) use of systemic steroids
CPT/HCPCS: 80053; 83735; 84439; 84443; 84550; 85025

== ENCOUNTER 2023-07-05 08:00 | Outpatient (CLI) | payer MEDICARE, OTHER ==
[2023-07-05 15:41] LABS: ALBUMIN 2.4 g/dL (3.2-5.5); ALBUMIN/GLOBULIN RATIO 1.4 (1.0-2.2); CALCIUM 8.2 mg/dL (8.5-10.3); CREATININE 0.6 mg/dL (0.6-1.3); POTASSIUM 4.4 mmol/L (3.5-4.5); TOTAL PROTEIN 4.1 g/dL (6.4-8.9)
== END 2023-07-05 23:59 | disposition home or self-care (01) ==
LOC: LAB.R 08:00
PROVIDERS: ATTEND Internal Medicine Medical Oncology
DX: C61 Malignant neoplasm of prostate (principal)
CPT/HCPCS: 80053; 84153; 84154

== ENCOUNTER 2023-08-01 14:53 | Outpatient (CLI) | payer MEDICARE, OTHER | END 2023-08-01 23:59 | disposition critical access hospital (66) | LOC: EMS 14:53 | DX: R06.02 Shortness of breath (principal); R06.2 Wheezing | CPT/HCPCS: A0425; A0427 ==

== ENCOUNTER 2023-08-01 15:07 | Emergency (ER) | payer MEDICARE, OTHER ==
--- NOTE | 2023-08-01 15:27 | ED Physician Documentation ---
PD HPI DYSPNEA - Stated complaint Stated Complaint: SOA - Chief complaint Chief Complaint: Resp - History obtained from History obtained from: Patient, Family, EMS - Additional information Additional information: 77-year-old gentleman with history of metastatic prostate cancer with vertebral compression fracture presents by ambulance accompanied by his for the evaluation of shortness of breath. States he just got short of breath today. He does have a history of interstitial lung disease followed by Dr. Jaime with the [facility], and is on prednisone with recent dose changes, currently at 7 mg in the morning, 5 mg at night, but recently escalated to 10 mg in the morning but 5 at night. He has a history of A-fib with RVR and bronchiectasis. He was admitted for pneumonia just a week ago and released last week and says he was feeling okay with the exception of his back pain. The cough started today. It is productive of clear sputum. He feels quite short of breath. He uses CPAP at night but is not routinely on oxygen. His noted his pulse oximetry to be 83 and subsequently was in the 70s for EMS, now in the 90s on about 4 L. He denies pedal edema or calf pain. No chest pain. We did have a brief goals of care discussion after initial evaluation with regard to intubation and he responds he does not know if he would want to be intubated. And I also discussed with him that depending on work-up he may benefit from transfer to a higher level of care where pulmonology is able to physically consult and he would also like to consider that. PD PAST MEDICAL HISTORY - Past Medical History Cardiovascular: Atrial fibrillation Respiratory: Sleep apnea, CPAP use, Other Neuro: None Endocrine/Autoimmune: None GI: Hepatitis, Other (Diverticulosis) : Benign prostate hypertrophy (With prostate cancer.), Kidney stones, Other HEENT: None Psych: None Musculoskeletal: Osteoarthritis, Fatigue, Chronic back pain Derm: Other (Easy skin tears.) - Past Surgical History Past Surgical History: Yes General: Colonoscopy Ortho: Other Cardiovascular: Other HEENT: Cataracts, Tonsil/Adenoidectomy Derm: Skin cancer surgery - Present Medications Home Medications: Ambulatory Orders Medication Instructions Recorded Confirmed Apixaban [Eliquis] 5 mg PO BID 07/16/22 08/01/23 Metoprolol Succinate [Toprol Xl] 25 mg PO DAILY 07/16/22 08/01/23 Rosuvastatin Calcium [Crestor] 40 mg PO HS 07/16/22 08/01/23 Abiraterone Acetate 1,000 mg PO DAILY 07/18/23 08/01/23 Acetaminophen [Tylenol] 1,000 mg PO Q8HR PRN 07/18/23 08/01/23 Diclofenac Sodium 1% Gel [Voltaren 4 gm TOP DAILY PRN 07/18/23 08/01/23 Gel] Magnesium Oxide [Magnesium] 400 mg PO DAILY 07/18/23 08/01/23 Midodrine [ProAmantine] 10 mg PO BID 07/18/23 08/01/23 Tamsulosin [Flomax] 0.4 mg PO DAILY 07/18/23 08/01/23 Potassium Chloride 20 meq PO BID 07/19/23 08/01/23 predniSONE [Deltasone] 5 mg PO QPM 07/19/23 08/01/23 allopurinoL [Zyloprim] 100 mg PO DAILY 08/01/23 08/01/23 mycophenolate mofetiL 1,000 mg PO BID 08/01/23 08/01/23 [Mycophenolate Mofetil] - Allergies Allergies/Adverse Reactions: Allergies Allergy/AdvReac Type Severity Reaction Status Date / Time Penicillins Allergy Unknown Verified 08/01/23 15:20 Sulfa (Sulfonamide Allergy Unknown Verified 08/01/23 15:20 Antibiotics) - Social History Does the pt smoke?: No Smoking Status: Never smoker Does the pt drink ETOH?: No Does the pt have substance abuse?: No - Immunizations Immunizations are current?: Yes - POLST Patient has POLST: No PD ED PE NORMAL - Vitals Vital signs reviewed: Yes (A-fib with RVR and tachypneic with soft blood pressure) - General General: Alert and oriented X 3, Other (He appears ill and tachypneic) - HEENT HEENT: PERRL, EOMI - Neck Neck: Supple, no meningeal sign, No bony TTP - Cardiac Cardiac: Other (Hard to hear cardiac sounds over breath sounds. ) - Respiratory Respiratory: Other (Tachypneic with rhonchorous throughout. Speaking in short sentences.) - Abdomen Abdomen: Non tender - Back Back: No CVA TTP, No spinal TTP - Derm Derm: Normal color, Warm and dry - Extremities Extremities: No edema, No calf tenderness / cord, Other (Cool extremities) - Neuro Neuro: Alert and oriented X 3 Results - Vitals Vitals: Vital Signs - 24 hr 08/01/23 08/01/23 08/01/23 15:16 15:23 15:53 Temperature 36.0 C L Heart Rate 127 H 128 H 98 Respiratory 45 H 45 H 30 H Rate Blood Pressure 99/77 99/77 77/64 L O2 Saturation 97 90 L 94 If not protocol 4 : Oxygen Flow, liters/minute 08/01/23 08/01/23 08/01/23 16:07 16:08 16:23 Temperature Heart Rate 94 90 98 Respiratory 36 H 32 H Rate Blood Pressure 101/78 O2 Saturation 100 If not protocol 4 : Oxygen Flow, liters/minute 08/01/23 08/01/23 08/01/23 16:30 17:00 17:30 Temperature Heart Rate 99 116 H 104 H Respiratory 30 H 24 25 H Rate Blood Pressure 92/60 90/69 O2 Saturation 100 100 100 If not protocol : Oxygen Flow, liters/minute 08/01/23 08/01/23 08/01/23 18:30 18:34 19:00 Temperature Heart Rate 105 H 78 111 H Respiratory 24 19 Rate Blood Pressure 91/61 92/78 O2 Saturation 93 94 If not protocol 4 : Oxygen Flow, liters/minute 08/01/23 08/01/23 08/01/23 19:15 19:20 19:42 Temperature 36.0 C L Heart Rate 114 H 109 H 118 H Respiratory 19 27 H Rate Blood Pressure 92/78 80/65 L O2 Saturation 97 100 If not protocol 40 : Oxygen Flow, liters/minute 08/01/23 08/01/23 08/01/23 19:43 20:17 20:38 Temperature 36.3 C L 36.0 C L Heart Rate 102 H 107 H Respiratory 21 19 Rate Blood Pressure 78/63 L 81/60 L 79/68 L O2 Saturation 100 100 If not protocol : Oxygen Flow, liters/minute 08/01/23 08/01/23 08/01/23 20:57 21:08 21:31 Temperature Heart Rate 102 H 92 95 Respiratory 20 19 20 Rate Blood Pressure 94/75 90/70 84/70 L O2 Saturation 100 100 100 If not protocol : Oxygen Flow, liters/minute 08/01/23 08/01/23 08/01/23 22:04 22:15 22:26 Temperature 36.7 C Heart Rate 96 91 90 Respiratory 20 17 21 Rate Blood Pressure 79/62 L 79/62 L 104/77 O2 Saturation 100 100 100 If not protocol : Oxygen Flow, liters/minute 08/01/23 08/01/23 22:34 22:58 Temperature Heart Rate 95 90 Respiratory 20 20 Rate Blood Pressure 101/72 101/71 O2 Saturation 100 100 If not protocol : Oxygen Flow, liters/minute Oxygen O2 Source [] Room air O2 Source [] Room air O2 Source BIPAP Oxygen Flow Rate 4 - EKG (time done) 1554 EKG releavant findings:: EKG personally interpreted by author of this note. Relevant findings are: Rate: Rate (enter#) (90) Rhythm: Atrial fibrillation [place]: LAD QRS: Normal Ischemia: Q waves (V1-v3). No: ST elevation c/w ischemia Computer interpretation: Agree with computer - Labs Labs: Laboratory Tests 08/01/23 08/01/23 08/01/23 16:12 16:17 16:17 WBC 11.2 H RBC 3.98 L Hgb 12.2 L Hct 38.7 L MCV 97.2 H MCH 30.7 MCHC 31.5 L RDW 16.0 H Plt Count 190 MPV 11.6 H Neut # (Auto) 9.4 H Lymph # (Auto) 0.6 L [place] # (Auto) 0.8 Eos # (Auto) 0.3 Baso # (Auto) 0.0 Absolute Nucleated RBC 0.00 Nucleated RBC % 0.0 VBG pH VBG pCO2 VBG pO2 VBG HCO3 VBG Total CO2 VBG O2 Saturation VBG Base Excess Sodium 137 Potassium 4.0 Chloride 104 Carbon Dioxide 25 Anion Gap 8.0 BUN 13 Creatinine 0.8 Estimated GFR (MDRD) 94 Glucose 97 Lactic Acid Calcium 8.2 L Total Bilirubin 1.0 AST 8 L ALT 9 L Alkaline Phosphatase 72 B-Natriuretic Peptide 168 H Total Protein 4.9 L Albumin 2.3 L Globulin 2.6 Albumin/Globulin Ratio 0.9 L Nasal Adenovirus (PCR) Nasal B. parapertussis DNA (PCR) Nasal Coronavir 229E PCR Nasal Coronavir HKU1 PCR Nasal Coronavir NL63 PCR Nasal Coronavir OC43 PCR Nasal Enterovir/Rhinovir PCR Nasal Influenza B PCR Nasal Influenza A PCR Nasal Parainfluen 1 PCR Nasal Parainfluen 2 PCR Nasal Parainfluen 3 PCR Nasal Parainfluen 4 PCR Nasal RSV (PCR) Nasal B.pertussis DNA PCR Nasal C.pneumoniae (PCR) Andrea Human Metapneumo PCR Nasal M.pneumoniae (PCR) Nasal SARS-CoV-2 (PCR) 08/01/23 08/01/23 08/01/23 16:17 16:17 16:31 WBC RBC Hgb Hct MCV MCH MCHC RDW Plt Count MPV Neut # (Auto) Lymph # (Auto) [place] # (Auto) Eos # (Auto) Baso # (Auto) Absolute Nucleated RBC Nucleated RBC % VBG pH 7.422 H VBG pCO2 38.1 L VBG pO2 44.8 VBG HCO3 24.3 VBG Total CO2 25.4 VBG O2 Saturation 79.2 VBG Base Excess 0.0 Sodium Potassium Chloride Carbon Dioxide Anion Gap BUN Creatinine Estimated GFR (MDRD) Glucose Lactic Acid 1.8 Calcium Total Bilirubin AST ALT Alkaline Phosphatase B-Natriuretic Peptide Total Protein Albumin Globulin Albumin/Globulin Ratio Nasal Adenovirus (PCR) NOT DETECTED Nasal B. parapertussis DNA (PCR) NOT DETECTED Nasal Coronavir 229E PCR NOT DETECTED Nasal Coronavir HKU1 PCR NOT DETECTED Nasal Coronavir NL63 PCR NOT DETECTED Nasal Coronavir OC43 PCR NOT DETECTED Nasal Enterovir/Rhinovir PCR NOT DETECTED Nasal Influenza B PCR NOT DETECTED Nasal Influenza A PCR NOT DETECTED Nasal Parainfluen 1 PCR NOT DETECTED Nasal Parainfluen 2 PCR NOT DETECTED Nasal Parainfluen 3 PCR NOT DETECTED Nasal Parainfluen 4 PCR NOT DETECTED Nasal RSV (PCR) NOT DETECTED Nasal B.pertussis DNA PCR NOT DETECTED Nasal C.pneumoniae (PCR) NOT DETECTED Andrea Human Metapneumo PCR NOT DETECTED Nasal M.pneumoniae (PCR) NOT DETECTED Nasal SARS-CoV-2 (PCR) NOT DETECTED - Rads (name of study) 1v CXR=Stable appearance of chronic interstitial cyst change/edema. Relevant Findings:: Final report received, EMP independent interpretation of test CTA chest without significant acute change. No PE. Pulmonary fibrosis and small airways disease. Cardiomegaly. Relevant Findings:: Final report received, EMP independent interpretation of test Procedures - Central Line - Major Central Line Preparation: Consent Obtained (from pt and , verbal), Ultrasoun d used, Sterile prep and drape Central line location: Right IJ Central line type: Triple lumen Central line aftercare: Chlorhexidine disc placed, Secured, Placement confirmed, No pneumothorax, No complications, Bundle checklist complete, Pt tolerated well PD Medical Decision Making - ED course ED course: 77-year-old gentleman with A-fib with RVR and interstitial lung disease presents actually quite ill with tachypnea, cough and shortness of breath with hypoxemia all starting today. He missed his metoprolol dose this morning and I think it is mead to repeat it with some IV fluids given that he is in A-fib with RVR. We will start BiPAP. Check imaging including chest x-ray and PE protocol CT given recent hospitalization. Some morphine for an increase in his chronic back pain and the cough. I had ordered stress dose hydrocortisone but the nurse noted that he had received Solu-Medrol on the way here so this was canceled. He was difficult for IV access, only had a 24-gauge peripheral line and the nurse could not find anything else. Given that and his relatively critical illness a central line was placed without issue. Lab work-up was relatively unimpressive with CBC showing mild elevation in white count and modest anemia, basically normal chemistries, mild elevation of BNP and normal lactate. He was sent for a CT of the chest and I called [facility] with the would like him transferred which is not unreasonable. He is fairly complicated for this level of care. I spoke with the MICU fellow (Aren Camilo) at approximately 6:50 PM who would like us to try to get him off of BiPAP worried about barotrauma and recommends presumptive antibiotics and a sputum culture if able. She accepts the patient in transfer, but they do not currently have a bed and he is boarding pending availability in the ICU there. A little bit before 8 PM he became hypotensive again down to 78/63, second liter saline was given and I accelerated his midodrine dosing which had already scheduled to be given stat. 10:04pm: Blood pressure going back down, now 79/52. We will start norepinephrine drip. Care to overnight ED MD at 11p shift change. - Critical Care Time(min): 55 Time Includes: Direct patient care, Review records, Reassess patient, Document care, Coordinate care, Medical consult, Family consult for tx dec Data interpretation: Labs, Pulse ox Procedures included in critical care time: Peripheral IV Procedures excluded from critical care time: Central IV, EKG Departure - Departure Disposition: 02 Transfer Acute Care Hosp Clinical Impression: Acute respiratory failure with hypoxia Condition: Critical Forms: PCP List
[2023-08-01] MEDS ORDERED: SODIUM CHLORIDE 0.9% 1,000 ML IV STA ×2 (15:28→19:56)
[2023-08-01] MEDS ORDERED: HYDROCORTISONE SUCCINATE 100 MG/2 ML VIAL IVP STA (15:28)
[2023-08-01] MEDS ORDERED: METOPROLOL 5 MG/5 ML VIAL IVP STA (15:28)
[2023-08-01] MEDS ORDERED: MORPHINE 2 MG/ML CARPUJECT IVP STA (15:29)
--- NOTE | 2023-08-01 15:45 | XRAY Report ---
PROCEDURE: Chest 1 View X-Ray INDICATIONS: cough TECHNIQUE: One view of the chest was acquired. COMPARISON: Chest x-ray 07/18/2023 FINDINGS: Surgical changes and devices: None. Lungs and pleura: Overall appearance of increased vascularity/chronic interstitial change. Appearanc e is stable compared to prior exam. Mediastinum: Mediastinal contours appear normal. Heart size is normal. Bones and chest wall: No suspicious bony lesions. Overlying soft tissues appear unremarkable. IMPRESSION: Stable appearance of chronic interstitial cyst change/edema. Reviewed by: Palak Samuel MD on 08/01/2023 3:43 PM PDT Approved by: Palak Samuel MD on 08/01/2023 3:43 PM PDT Station ID: [id number]
[2023-08-01] MEDS ORDERED: ALBUTEROL NEB 2.5 MG/3 ML INH STA (15:58)
[2023-08-01 16:24] LABS: BASOPHILS % (AUTO) 0.4 %; EOSINOPHILS # (AUTO) 0.3 10^3/uL (0.0-0.7); EOSINOPHILS % (AUTO) 2.5 %; HCT - HEMATOCRIT 38.7 % (42.0-52.0); HGB - HEMOGLOBIN 12.2 g/dL (14.0-18.0); LYMPHOCYTES # (AUTO) 0.6 10^3/uL (1.5-3.5); LYMPHOCYTES % (AUTO) 5.2 %; MEAN CORPUSCULAR HEMOGLOBIN 30.7 pg (27.0-31.0); MEAN CORPUSCULAR HGB CONC 31.5 g/dL (32.0-36.0); MEAN CORPUSCULAR VOLUME 97.2 fL (80.0-94.0); MEAN PLATELET VOLUME 11.6 fL (7.4-11.4); MONOCYTES # (AUTO) 0.8 10^3/uL (0.0-1.0); MONOCYTES % (AUTO) 7.1 %; NEUTROPHILS # (AUTO) 9.4 10^3/uL (1.5-6.6); PLT - PLATELET COUNT 190 10^3/uL (130-450); RED BLOOD COUNT 3.98 10^6/uL (4.70-6.10); WHITE BLOOD COUNT 11.2 x10^3/uL (4.8-10.8)
[2023-08-01 16:37] LABS: VBG HCO3 24.3 mmol/L (23-28); VBG OXYGEN SATURATION 79.2 % (60-80); VBG PCO2 38.1 mmHg (41-51); VBG PH 7.422 (7.31-7.41); VBG PO2 44.8 mmHg (25-47); VBG TOTAL CO2 25.4 mmol/L (24-29)
--- NOTE | 2023-08-01 16:42 | XRAY Report ---
PROCEDURE: Chest for Line Placement INDICATIONS: RIJ CVC TECHNIQUE: One view of the chest was acquired. COMPARISON: Chest xray 08/01/23 FINDINGS: Surgical changes and devices: Right central venous catheter is present with distal tip overlying the right atrium. Lungs and pleura: Chronic interstitial changes and increased vascularity, unchanged. No pneumothora x. Mediastinum: Mediastinal contours appear normal. Heart size is normal. Bones and chest wall: No suspicious bony lesions. Overlying soft tissues appear unremarkable. IMPRESSION: Right central venous catheter as above. Reviewed by: Palak Samuel MD on 08/01/2023 4:40 PM PDT Approved by: Palak Samuel MD on 08/01/2023 4:40 PM PDT Station ID: [id number]
[2023-08-01 16:49] LABS: ALBUMIN 2.3 g/dL (3.2-5.5); ALBUMIN/GLOBULIN RATIO 0.9 (1.0-2.2); CALCIUM 8.2 mg/dL (8.5-10.3); CREATININE 0.8 mg/dL (0.6-1.3); TOTAL PROTEIN 4.9 g/dL (6.4-8.9)
[2023-08-01 18:36] LABS: B. PARAPERTUSSIS- RESP PCR PAN NOT DETECTED; B. PERTUSSIS- RESP PCR PANEL NOT DETECTED; C. PNEUMONIAE- RESP PCR PANEL NOT DETECTED; CORONAVIRUS 229E-RESP PCR NOT DETECTED; CORONAVIRUS HKU1-RESP PCR NOT DETECTED; CORONAVIRUS NL63-RESP PCR NOT DETECTED; CORONAVIRUS OC43-RESP PCR NOT DETECTED; HUMAN METAPNEUMOVIRUS NOT DETECTED; INFLUENZA A- RESP PCR PANEL NOT DETECTED; INFLUENZA B - RESP PCR PANEL NOT DETECTED; M. PNEUMONIAE- RESP PCR PANEL NOT DETECTED; PARAINFLUENZA VIRUS 1 NOT DETECTED; PARAINFLUENZA VIRUS 2 NOT DETECTED; PARAINFLUENZA VIRUS 3 NOT DETECTED; PARAINFLUENZA VIRUS 4 NOT DETECTED; RHINOVIRUS/ENTEROVIRUS NOT DETECTED; RSV- RESP PCR PANEL NOT DETECTED; SARS-CoV-2 -RESP PCR PANEL NOT DETECTED
[2023-08-01] MEDS ORDERED: iohexoL-300 100 ML VIAL IVP ONE (18:38)
[2023-08-01] MEDS ORDERED: AZITHROMYCIN INJ 500 MG in SODIUM CHLORIDE 0.9% 250 ML IV STA (18:48)
[2023-08-01] MEDS ORDERED: cefTRIAXone 1 GM in SODIUM CHLORIDE 0.9% MINIBAG 100 ML IV STA (18:48)
[2023-08-01] MEDS ORDERED: ACETAMINOPHEN 500 MG TABLET PO PRN (18:50)
[2023-08-01] MEDS ORDERED: ONDANSETRON 4 MG/2 ML VIAL IVP PRN (18:50)
--- NOTE | 2023-08-01 18:58 | CT Report ---
PROCEDURE: ANGIO CHEST W/WO INDICATIONS: dyspnea, pe protocol CONTRAST: 100ml o mni 300 TECHNIQUE: After the administration of intravenous contrast, 2 mm axial images were acquired from the pulmonary apices to the posterior costophrenic angles during the arterial phase. In addition, 1 mm lung kernel and 5 mm soft tissue kernel reconstructions were performed. 3-dimensional coronal oblique maximum int ensity projection (MIP) reformats, 8 mm axial MIP, and 5 mm coronal and sagittal MPR reformats were t hen performed through the thorax. For radiation dose reduction, the following was used: automated exp osure control, adjustment of mA and/or kV according to patient size. COMPARISON: 07/19/2023 FINDINGS: Image quality: Excellent. Large vessels: No filling defects within the opacified pulmonary arteries, accounting for motion and contrast timing. No evidence of acute aortic syndrome or aortic aneurysm. Lungs and pleura: Small bilateral pleural effusion is seen. Peripheral reticular nodular thickening a nd patchy ground glass opacities scattered in bilateral lung borjas are seen not significantly change d from prior study. No pneumothorax. Tracking bronchiectasis are noted in bilateral lung borjas uncha nged from prior study. Airway is patent. Mediastinum: Heart size is enlarged. No pericardial effusion. No large vessel abnormality. Mildly enl arged mediastinal lymph nodes are again seen measures up to 1.2 cm in size in right paratracheal spac e. Chest wall and lower neck: Thyroid is unremarkable. No axillary or supraclavicular adenopathy by s darrione. Bones: No aggressive osseous abnormality. Previously described anterior wedge compression deformity a t T11 level is again seen and unchanged. Upper Abdomen: Unremarkable. IMPRESSION: 1. No pulmonary embolus. No thoracic aortic aneurysm. 2. Suggestion of chronic pulmonary fibrosis and small airway disease not significantly changed from p revious study. Superimposed small bilateral pulmonary infiltrates cannot be entirely excluded. No pne umothorax. Small bilateral pleural effusion. 3. Cardiomegaly and mildly enlarged mediastinal lymph nodes unchanged from prior study. No pericardia l effusion. 4. Stable appearing anterior wedge compression deformity at T11 level. Reviewed by: Jose Garzon MD on 08/01/2023 6:56 PM PDT Approved by: Jose Garzon MD on 08/01/2023 6:56 PM PDT Station ID: [id number]
[2023-08-01] MEDS ORDERED: MIDODRINE 2.5 MG TABLET PO STA (20:19)
[2023-08-01] MEDS: ENOXAPARIN 100 MG/ML SYRINGE SUBQ SCH (20:55)
[2023-08-01] MEDS ORDERED: METOPROLOL TARTRATE 25 MG TABLET PO SCH (21:00)
[2023-08-01] MEDS ORDERED: NOREPINEPHRINE/D5W 8 MG/250 ML BAG IV SCH (23:00)
[2023-08-02 00:57] LABS: BILIRUBIN,URINE NEGATIVE (NEGATIVE); GLUCOSE, URINE (UA) NEGATIVE (NEGATIVE); KETONES,URINE (UA) NEGATIVE (NEGATIVE); LEUKOCYTE ESTERASE, URINE NEGATIVE (NEGATIVE); NITRITE,URINE NEGATIVE (NEGATIVE); OCCULT BLOOD,URINE NEGATIVE (NEGATIVE); PH,URINE 5.5 PH (5.0-7.5); PROTEIN,URINE 100 mg/dL (NEGATIVE); UROBILINOGEN,URINE 0.2 (NORMAL) E.U./dL (NORMAL)
[2023-08-02 01:03] LABS: CLARITY,URINE CLEAR (CLEAR)
[2023-08-02 01:04] LABS: AMORPHOUS SEDIMENT,UR Rare /LPF; BACTERIA,URINE None Seen /HPF (None Seen); RBC,URINE None Seen /HPF (0-5); SQUAMOUS EPITHELIAL CELL,UR NONE SEEN (<= Few); WBC,URINE 0-3 /HPF (0-3)
[2023-08-02] MEDS: HYDROCORTISONE SUCCINATE 100 MG/2 ML VIAL IVP SCH ×3 (06:04→22:00)
[2023-08-02 06:32] LABS: BASOPHILS % (AUTO) 0.1 %; HCT - HEMATOCRIT 38.8 % (42.0-52.0); HGB - HEMOGLOBIN 12.2 g/dL (14.0-18.0); LYMPHOCYTES # (AUTO) 0.5 10^3/uL (1.5-3.5); LYMPHOCYTES % (AUTO) 6.1 %; MEAN CORPUSCULAR HEMOGLOBIN 30.9 pg (27.0-31.0); MEAN CORPUSCULAR HGB CONC 31.4 g/dL (32.0-36.0); MEAN CORPUSCULAR VOLUME 98.2 fL (80.0-94.0); MEAN PLATELET VOLUME 11.1 fL (7.4-11.4); MONOCYTES # (AUTO) 0.3 10^3/uL (0.0-1.0); MONOCYTES % (AUTO) 2.8 %; NEUTROPHILS # (AUTO) 7.9 10^3/uL (1.5-6.6); PLT - PLATELET COUNT 213 10^3/uL (130-450); RED BLOOD COUNT 3.95 10^6/uL (4.70-6.10); WHITE BLOOD COUNT 8.8 x10^3/uL (4.8-10.8)
[2023-08-02 06:48] LABS: CALCIUM 8.6 mg/dL (8.5-10.3); POTASSIUM 4.8 mmol/L (3.5-4.5)
[2023-08-02] MEDS ORDERED: PANTOPRAZOLE 40 MG TABLET PO SCH (07:00)
[2023-08-02] MEDS ORDERED: SODIUM CHLORIDE 0.9% 1,000 ML IV STA (08:49)
[2023-08-02] MEDS: MAGNESIUM OXIDE 400 MG TABLET PO SCH ×2 (08:51→18:24)
[2023-08-02] MEDS: ENOXAPARIN 100 MG/ML SYRINGE SUBQ SCH ×2 (08:51→20:48)
[2023-08-02] MEDS: MIDODRINE 10 MG TABLET PO SCH ×3 (08:57→16:44)
[2023-08-02] MEDS ORDERED: METOPROLOL SUCCINATE 25 MG TABLET PO SCH (09:00)
[2023-08-02] MEDS ORDERED: AZITHROMYCIN INJ 500 MG in SODIUM CHLORIDE 0.9% 250 ML IV SCH (09:00)
[2023-08-02] MEDS ORDERED: cefTRIAXone 1 GM in SODIUM CHLORIDE 0.9% MINIBAG 100 ML IV SCH (09:00)
--- NOTE | 2023-08-02 13:12 | ED Physician Documentation ---
ED Addendum - Addendum Addendum: 08/02/23 13:04 Patient admitted into the emergency department yesterday with respiratory failure has been treated in the emergency department overnight with intensive care treatment. He has had a central line placed by Dr. Ness fluids administered antibiotics administered steroids administered and he eventually required use of Levophed for soft blood pressures. This morning on my evaluation he appears markedly improved is on high flow nasal cannula oxygen and is no longer on BiPAP. He is talking in full sentences and his blood pressure has improved but he is not off of the levophed. 08/02/23 17:06 08/02/23 17:10 During the day today we were able to wean the patient's Levophed we are able to give him his midodrine and by later in the afternoon we were able to stop his Levophed. He has stabilized his blood pressure. He continues to use oxygen with 30% FiO2 on a high flow nasal cannula the transfer center has called back with a bed at 1711. His blood cultures have become positive today. He is not scheduled to leave our facility until 2099. 08/02/23 19:44
[2023-08-02 22:14] VITALS: BP 126/99; O2SAT 100
== END 2023-08-02 22:52 | disposition short-term general hospital (02) ==
LOC: EDUNIT# → ED 15:07
DX: J96.01 Acute respiratory failure with hypoxia (principal); I95.9 Hypotension, unspecified; Z20.822 Contact with and (suspected) exposure to COVID-19
CPT/HCPCS: 36415; 36556; 71045; 71275; 80048; 80053; 81001; 82803; 83605; 83880; 85025; 87040; 87150; 87181; 87205; 87633; 93005; 94640; 94660; 96365; 96366; 96368; 96372; 96375; 99291; A9270; J1650; Q9967; 87070; 87086

== ENCOUNTER 2023-08-25 13:04 | Outpatient (CLI) | payer OTHER, MEDICARE | END 2023-08-25 13:05 | disposition critical access hospital (66) | LOC: EMS 13:04 | DX: R06.9 Unspecified abnormalities of breathing (principal); R53.1 Weakness; R53.81 Other malaise; R41.89 Other symptoms and signs involving cognitive functions and awareness; I48.91 Unspecified atrial fibrillation; R13.10 Dysphagia, unspecified | CPT/HCPCS: A0425; A0429 ==

== ENCOUNTER 2023-08-25 13:16 | Inpatient (IN) | payer OTHER, MEDICARE ==
--- NOTE | 2023-08-25 13:45 | ED Physician Documentation ---
History of Present Illness - Stated complaint Stated Complaint: ALOC - Chief complaint Chief Complaint: General - History obtained from History obtained from: Family, EMS - Additonal information Additional information: Patient is a 77 male brought in by EMS. The patient has a history of stage IV prostate cancer, interstitial pulmonary fibrosis and has been found to be increasingly unresponsive to his at home. He is awaiting a hospice referral. The states that hospice cannot see him until Friday. It is unclear if the referral was placed to [facility] or [facility]. I spoke with the patient's via telephone when he arrived in the emergency department, she confirms that he is DNR, comfort care and has stated to her multiple times that he does not want to be back in the hospital. Review of Systems Unable to obtain: Unresponsive PD PAST MEDICAL HISTORY - Past Medical History Past Medical History: Yes Cardiovascular: Atrial fibrillation Respiratory: Sleep apnea, CPAP use, Other Neuro: None Endocrine/Autoimmune: None GI: Hepatitis, Other : Benign prostate hypertrophy, Kidney stones, Other HEENT: None Psych: None Musculoskeletal: Osteoarthritis, Fatigue, Chronic back pain Derm: Other - Past Surgical History Past Surgical History: Yes General: Colonoscopy Ortho: Other Cardiovascular: Other HEENT: Cataracts, Tonsil/Adenoidectomy Derm: Skin cancer surgery - Present Medications Home Medications: Ambulatory Orders Medication Instructions Recorded Confirmed Apixaban [Eliquis] 5 mg PO BID 07/16/22 08/01/23 Metoprolol Succinate [Toprol Xl] 25 mg PO DAILY 07/16/22 08/01/23 Rosuvastatin Calcium [Crestor] 40 mg PO HS 07/16/22 08/01/23 Abiraterone Acetate 1,000 mg PO DAILY 07/18/23 08/01/23 Acetaminophen [Tylenol] 1,000 mg PO Q8HR PRN 07/18/23 08/01/23 Diclofenac Sodium 1% Gel [Voltaren 4 gm TOP DAILY PRN 07/18/23 08/01/23 Gel] Magnesium Oxide [Magnesium] 400 mg PO DAILY 07/18/23 08/01/23 Midodrine [ProAmantine] 10 mg PO BID 07/18/23 08/01/23 Tamsulosin [Flomax] 0.4 mg PO DAILY 07/18/23 08/01/23 Potassium Chloride 20 meq PO BID 07/19/23 08/01/23 predniSONE [Deltasone] 5 mg PO QPM 07/19/23 08/01/23 allopurinoL [Zyloprim] 100 mg PO DAILY 08/01/23 08/01/23 mycophenolate mofetiL 1,000 mg PO BID 08/01/23 08/01/23 [Mycophenolate Mofetil] - Allergies Allergies/Adverse Reactions: Allergies Allergy/AdvReac Type Severity Reaction Status Date / Time Penicillins Allergy Unknown Verified 08/25/23 13:25 Sulfa (Sulfonamide Allergy Unknown Verified 08/25/23 13:25 Antibiotics) - Social History Does the pt smoke?: No Smoking Status: Never smoker Does the pt drink ETOH?: No Does the pt have substance abuse?: No - Immunizations Immunizations are current?: Yes - POLST Patient has POLST: No PD ED PE NORMAL - Vitals Vital signs reviewed: Yes - General General: No acute distress - HEENT HEENT: Other (Dry lips and tongue) - Cardiac Cardiac: Other (Tachycardic, regular) - Respiratory Respiratory: Other (Tachypneic, crackles bilaterally) - Abdomen Abdomen: Soft, Non tender, Non distended - Derm Derm: Warm and dry - Extremities Extremities: Other (1+ bilateral lower extremity pitting edema) - Neuro Neuro: Other (Groans as in response to pain.) Results - Vitals Vitals: Vital Signs - 24 hr 08/25/23 08/25/23 13:26 13:30 Temperature 36.5 C 36.5 C Heart Rate 120 H 120 H Respiratory 30 H 30 H Rate Blood Pressure 90/69 90/69 O2 Saturation 78 L 92 If not protocol 10 : Oxygen Flow, liters/minute Oxygen O2 Source [Without Activity] Room air O2 Source [With Activity] Room air O2 Source Non-rebreather mask PD Medical Decision Making - ED course Complexity details: considered differential, d/w family, d/w marketing sales consultant ED course: Patient is quite ill-appearing. Discussed the case with Dr. Carlos, hospitalist physician on-call, she came and evaluated the patient. We will admit the patient as GIP status. I did start a 22-gauge IV in the right AC. Morphine was given for pain control as the patient was stating to the earlier that he had pain. This document was made in part using voice recognition software. While efforts are made to proofread this document, sound alike and grammatical errors may occur. Departure - Departure Disposition: 66 [facility] DC/Xfer Clinical Impression: Hypoxia Respiratory failure Qualifiers: Chronicity: acute on chronic Respiratory failure complication: hypoxia Qualified Code(s): J96.21 - Acute and chronic respiratory failure with hypoxia Hypotension Qualifiers: Hypotension type: unspecified hypotension type Qualified Code(s): I95.9 - Hypo tension, unspecified Condition: Stable
[2023-08-25] MEDS ORDERED: MORPHINE 2 MG/ML CARPUJECT IVP STA (14:23)
--- NOTE | 2023-08-25 14:24 | HISTORY & PHYSICAL EXAMINATION ---
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 History is obtained from spouse at bedside, as pt is unable to participate in interview. Patient's notes his most recent hospitalization was 3 wks ago when he was admitted w/pneumonia. She states he told her he would not return to the hospital after that stay. His PCP put in a palliative care consult last week but they were told he couldn't be seen x 1 week. Unfortunately, over the weekend, he had overall decline. He became bedbound and progressively weaker. He has been taking his oral chemo up until yesterday. He had been able to help his w/turns so she could change him, but by this am, he could not turn at all. He ate 3 bites of [place]pri[place] toast yesterday am and nothing since. He did have 2 small cups of fluid yesterday but nothing since last evening. She states that yesterday he was groaning and c/o all over body pain. He took a tramadol w/some improvement. This am, she notes he was unable to swallow and therefore hasn't had any medication. He also became more painful and dyspneic. Pt's dtr told her mom to call EMS and have him evaluated in the ED. On arrival to the ED, pt was noted to be tachycardic to 120, RR 30, sats 78% in RA. He was placed on a NRB at 10lpm w/sats improved to 92%. However, he has remained dyspneic/tachypneic. History - Past Medical History Cardiovascular: reports: Congestive heart failure, Atrial fibrillation, Other (hypotension, on midodrine) Respiratory: reports: Sleep apnea, CPAP use, Other (Interstitial lung disease) Neuro: reports: None Endocrine/Autoimmune: reports: None GI: reports: Hepatitis, Other (Colitis earlier this year) : reports: Benign prostate hypertrophy, Kidney stones, Other (stage 4 prostate cancer) HEENT: reports: None Psych: reports: None Musculoskeletal: reports: Osteoarthritis, Fatigue, Chronic back pain MRSA Hx?: No - Past Surgical History General: reports: Colonoscopy HEENT: reports: Cataracts, Tonsil/Adenoidectomy Derm: reports: Skin cancer surgery - Family & Social History Family History: Mother: , Father: Family History Comment/Other: Both of his parents had history of strokes and dementia. They in their late 80s. Living Situation: With spouse/s.o. Social History Notes: He lives at home with his Ame. He is a non-smoker and does not drink alcohol. - Substance History Use: Uses substance without health or social issues: NONE - POLST Patient has POLST: No POLST Status: DNR Meds/Allgy - Home Medications Home Medications: Ambulatory Orders Medication Instructions Recorded Confirmed Apixaban [Eliquis] 5 mg PO BID 07/16/22 08/01/23 Metoprolol Succinate [Toprol Xl] 25 mg PO DAILY 07/16/22 08/01/23 Rosuvastatin Calcium [Crestor] 40 mg PO HS 07/16/22 08/01/23 Abiraterone Acetate 1,000 mg PO DAILY 07/18/23 08/01/23 Acetaminophen [Tylenol] 1,000 mg PO Q8HR PRN 07/18/23 08/01/23 Diclofenac Sodium 1% Gel [Voltaren 4 gm TOP DAILY PRN 07/18/23 08/01/23 Gel] Magnesium Oxide [Magnesium] 400 mg PO DAILY 07/18/23 08/01/23 Midodrine [ProAmantine] 10 mg PO BID 07/18/23 08/01/23 Tamsulosin [Flomax] 0.4 mg PO DAILY 07/18/23 08/01/23 Potassium Chloride 20 meq PO BID 07/19/23 08/01/23 predniSONE [Deltasone] 5 mg PO QPM 07/19/23 08/01/23 allopurinoL [Zyloprim] 100 mg PO DAILY 08/01/23 08/01/23 mycophenolate mofetiL 1,000 mg PO BID 08/01/23 08/01/23 [Mycophenolate Mofetil] - Allergies Allergies/Adverse Reactions: Allergies Allergy/AdvReac Type Severity Reaction Status Date / Time Penicillins Allergy Unknown Verified 08/25/23 13:25 Sulfa (Sulfonamide Allergy Unknown Verified 08/25/23 13:25 Antibiotics) Review of Systems - Other Findings Other Findings: Unable to obtain Exam - Vital Signs Reviewed Vital Signs: Yes Vital Signs: Vital Signs x48h Temp Pulse Resp BP Pulse Ox O2 Flow Rate 08/25/23 13:30 36.5 C 120 H 30 H 90/69 92 10 08/25/23 13:26 36.5 C 120 H 30 H 90/69 78 L - Physical Exam General Appearance: positive: Other (Ill appearing elderly male, dyspneic, pale, lethargic/obtunded, moderate distress) Eyes Bilateral: positive: Normal inspection, PERRL ENT: positive: Dry mucous membranes, Other (Petechiae to hard and soft palate) Neck: positive: Nml inspection Respiratory: positive: Other (tachypneic, diffusely diminished/coarse) Cardiovascular: positive: No murmur, No gallop, Tachycardia Abdomen: positive: Nml bowel sounds, Tenderness (diffuse) Skin: positive: Other (petechiae scattered to bilat forearms, large confluent bruise to Rt FA. mottling and cyanosis to bilateral toes/soles of feet) Neurologic/Psychiatric: positive: Other (obtunded) Core Measures - Issues Hospital Issues and Management Plan: 1. Stage 4 prostate cancer 2. acute hypoxic respiratory failure 3. Interstitial lung disease 4. Tachycardia 5. Hypotension (chronic) 6. Chronic anticoagulation 7. Dysphagia 8. Uncontrolled pain Pt suffered an abrupt decline over the past 48 hours. He is now in the ED w/respiratory failure, dyspnea, pain, dysphagia. He appears to be transitioning toward . His expresses that he wanted to at home, but she is very concerned about his unmanaged pain and dyspnea. Due to his uncontrolled sxs, we discussed Hospice and GIP admission for symptom management. His overall prognosis is very short, likely 24 hours or less. I discussed this w/his spouse. She was appropriately tearful. Will admit to [facility] level of care. Place IV. Will start IV morphine for pain/dyspnea. Given his hyperalgesia, he will benefit from lorazepam IV as well. Code status: DNR/DNI
[2023-08-25] MEDS ORDERED: LORazepam 2 MG/ML VIAL IVP PRN (14:53)
[2023-08-25] MEDS ORDERED: MORPHINE 2 MG/ML CARPUJECT IVP PRN (14:53)
[2023-08-25] MEDS ORDERED: ACETAMINOPHEN 650 MG SUPP PR PRN (14:53)
[2023-08-25] MEDS ORDERED: PETROLATUM WHITE 5 GM PACKET TOP PRN (14:53)
[2023-08-25] MEDS ORDERED: MIN OIL/DIMETHICON/COCONUT OIL 92 GM TUBE TOP PRN (14:53)
[2023-08-25] MEDS ORDERED: CARBOXYMETHYLCELLULOSE OPHTH DROPS EACHEYE PRN (14:53)
[2023-08-25 16:05] VITALS: BP 96/70
--- NOTE | 2023-08-25 16:43 | PHARMACY PROGRESS NOTE ---
- Best Possible Medication History Admit Date and Time: 08/25/23 1332 Processed by: Pharmacy Medication History completed: Yes Patient Interview: Pt unable to participate Secondary Source(s): Insurance records, Previous admit records Hospice admission - pt/family interview not appropriate at this time. Med list updated per admission 3 weeks ago and insurance information. As the person ultimately responsible for medication therapy, providers are able to order a medication from an existing home medication list in [facility] via the "Reconcile Routine" prior to Confirmation of that medication by network support specialist. Such practice is discouraged except when the physician, in their clinical judgment, deems that a medical need exists for a medication without regard to previous use.
[2023-08-25 16:50] VITALS: O2SAT 70
--- NOTE | 2023-08-25 17:09 | ED Physician Documentation ---
ED Addendum - Addendum Addendum: 08/25/23 17:08 While awaiting a bed for admission, the patient in the emergency d epartment. Asystole confirmed in 2 leads. Pupils nonreactive. Absent heart sounds. Time of 1705. Departure - Departure Disposition: 20 Clinical Impression: Hypoxia Respiratory failure Qualifiers: Chronicity: acute on chronic Respiratory failure complication: hypoxia Qualified Code(s): J96.21 - Acute and chronic respiratory failure with hypoxia Hypotension Qualifiers: Hypotension type: unspecified hypotension type Qualified Code(s): I95.9 - Hypotension, unspecified Condition: Stable
--- NOTE | 2023-08-25 18:31 | DISCHARGE SUMMARY ---
Discharge Summary Admit Date: 08/25/23 Discharge Date: 08/25/23 Discharge Disposition: 20 - DIAGNOSES Admission Diagnoses: 1. Stage 4 prostate cancer 2. acute hypoxic respiratory failure 3. Interstitial lung disease 4. Tachycardia 5. Hypotension (chronic) 6. Chronic anticoagulation 7. Dysphagia 8. Uncontrolled pain Discharge Diagnoses with Status of Each Condition: 1. Stage 4 prostate cancer 2. acute hypoxic respiratory failure 3. 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 History is obtained from spouse at bedside, as pt is unable to participate in interview. Patient's notes his most recent hospitalization was 3 wks ago when he was admitted w/pneumonia. She states he told her he would not return to the hospital after that stay. His PCP put in a palliative care consult last week but they were told he couldn't be seen x 1 week. Unfortunately, over the weekend, he had overall decline. He became bedbound and progressively weaker. He has been taking his oral chemo up until yesterday. He had been able to help his w/turns so she could change him, but by this am, he could not turn at all. He ate 3 bites of korean toast yesterday am and nothing since. He did have 2 small cups of fluid yesterday but nothing since last evening. She states that yesterday he was groaning and c/o all over body pain. He took a tramadol w/some improvement. This am, she notes he was unable to swallow and therefore hasn't had any medication. He also became more painful and dyspneic. Pt's dtr told her mom to call EMS and have him evaluated in the ED. On arrival to the ED, pt was noted to be tachycardic to 120, RR 30, sats 78% in RA. He was placed on a NRB at 10lpm w/sats improved to 92%. However, he has remained dyspneic/tachypneic. Pt received 2 doses of IV morphine while in the ED awaiting bed placement. O2 was weaned from NRB to NC. He peacefully at 1705 while in the ED. - ALLERGIES Allergies/Adverse Reactions: Allergies Allergy/AdvReac Type Severity Reaction Status Date / Time Penicillins Allergy Unknown Verified 08/25/23 13:25 Sulfa (Sulfonamide Allergy Unknown Verified 08/25/23 13:25 Antibiotics) - MEDICATIONS Home Medications: Ambulatory Orders Medication Instructions Recorded Confirmed Apixaban [Eliquis] 5 mg PO BID 07/16/22 08/25/23 Metoprolol Succinate [Toprol Xl] 25 mg PO DAILY 07/16/22 08/25/23 Rosuvastatin Calcium [Crestor] 40 mg PO HS 07/16/22 08/25/23 Abiraterone Acetate 1,000 mg PO DAILY 07/18/23 08/25/23 Acetaminophen [Tylenol] 1,000 mg PO Q8HR PRN 07/18/23 08/25/23 Diclofenac Sodium 1% Gel [Voltaren 4 gm TOP DAILY PRN 07/18/23 08/25/23 Gel] Magnesium Oxide [Magnesium] 400 mg PO DAILY 07/18/23 08/25/23 Midodrine [ProAmantine] 10 mg PO BID 07/18/23 08/25/23 Tamsulosin [Flomax] 0.4 mg PO DAILY 07/18/23 08/25/23 Potassium Chloride 20 meq PO BID 07/19/23 08/25/23 predniSONE [Deltasone] 5 mg PO QPM 07/19/23 08/25/23 allopurinoL [Zyloprim] 100 mg PO DAILY 08/01/23 08/01/23 mycophenolate mofetiL 1,000 mg PO BID 08/01/23 08/01/23 [Mycophenolate Mofetil]
--- NOTE | 2023-08-25 19:26 | Discharge Plan ---
Discharge Plan Problem Reviewed?: No Disposition: 20 No Smoking: If you smoke, Please STOP! Call for help.
== END 2023-08-25 17:05 | disposition expired | DRG 189 ==
LOC: EDUNIT# → ED 13:16 → MS2 13:37 → MS3 15:08 → MS2 17:33 → OBS 17:33 → UNDODISIN 19:14
PROVIDERS: ADMIT Family Medicine; ATTEND Family Medicine
DX: J96.21 Acute and chronic respiratory failure with hypoxia (principal); J84.9 Interstitial pulmonary disease, unspecified; I95.9 Hypotension, unspecified; C61 Malignant neoplasm of prostate; R00.0 Tachycardia, unspecified; Z79.01 Long term (current) use of anticoagulants; R13.10 Dysphagia, unspecified; R52 Pain, unspecified; R20.8 Other disturbances of skin sensation; I48.91 Unspecified atrial fibrillation; G47.33 Obstructive sleep apnea (adult) (pediatric); Z87.440 Personal history of urinary (tract) infections; Z87.01 Personal history of pneumonia (recurrent); Z66 Do not resuscitate; R53.1 Weakness; I50.9 Heart failure, unspecified; N40.0 Benign prostatic hyperplasia without lower urinary tract symptoms
CPT/HCPCS: 96374; 96376; 99285